=== PATIENT | female | born 1985 | race Caucasian/White ===

== ENCOUNTER 2020-03-06 10:39 | Outpatient (RCR) | payer MEDICAID, SELFPAY | END 2020-07-02 15:15 | disposition home or self-care (01) | LOC: HO.WCC 10:39 | PROVIDERS: PCP Nurse Practitioner Family; Visit Provider Physician Assistant Surgical | DX: Z09 Encounter for follow-up examination after completed treatment for conditions other than malignant neoplasm (principal); E11.51 Type 2 diabetes mellitus with diabetic peripheral angiopathy without gangrene; F17.210 Nicotine dependence, cigarettes, uncomplicated; Z86.31 Personal history of diabetic foot ulcer | CPT/HCPCS: 11042; 11043; 99212; 99213 ==

== ENCOUNTER → 2020-03-25 11:20 | Outpatient (BNVA) | payer MEDICAID, SELFPAY | PROVIDERS: PCP Nurse Practitioner Family; Referring Provider Nurse Practitioner Family; Visit Provider Nurse Practitioner Gerontology | DX: E10.42 Type 1 diabetes mellitus with diabetic polyneuropathy (principal); E10.65 Type 1 diabetes mellitus with hyperglycemia; Z79.4 Long term (current) use of insulin | CPT/HCPCS: 82947; 99214 ==

== ENCOUNTER → 2020-04-01 12:31 | Outpatient (BNVA) | payer MEDICAID, SELFPAY | PROVIDERS: PCP Nurse Practitioner Family; Referring Provider Nurse Practitioner Family; Visit Provider Nurse Practitioner Gerontology | DX: E10.65 Type 1 diabetes mellitus with hyperglycemia (principal); E10.42 Type 1 diabetes mellitus with diabetic polyneuropathy; E10.621 Type 1 diabetes mellitus with foot ulcer; L97.519 Non-pressure chronic ulcer of other part of right foot with unspecified severity | CPT/HCPCS: 82947; 99212 ==

== ENCOUNTER → 2020-04-13 12:56 | Outpatient (BNVA) | payer MEDICAID, SELFPAY | PROVIDERS: PCP Nurse Practitioner Family; Referring Provider Nurse Practitioner Family; Visit Provider Nurse Practitioner Gerontology | DX: E10.65 Type 1 diabetes mellitus with hyperglycemia (principal); E10.22 Type 1 diabetes mellitus with diabetic chronic kidney disease; N18.30 Chronic kidney disease, stage 3 unspecified; E10.42 Type 1 diabetes mellitus with diabetic polyneuropathy | CPT/HCPCS: 82947; 99212 ==

== ENCOUNTER → 2020-05-13 11:15 | Outpatient (BNVA) | payer MEDICAID, SELFPAY | PROVIDERS: PCP Nurse Practitioner Family; Referring Provider Nurse Practitioner Family; Visit Provider Nurse Practitioner Gerontology | DX: Z76.89 Persons encountering health services in other specified circumstances (principal) ==

== ENCOUNTER 2020-12-21 14:05 | Outpatient (RCR) | payer MEDICAID, SELFPAY | END 2021-01-19 15:11 | disposition home or self-care (01) | LOC: HO.WCC 14:05 | PROVIDERS: PCP Nurse Practitioner Family; Visit Provider Surgery | DX: E10.621 Type 1 diabetes mellitus with foot ulcer (principal); L97.522 Non-pressure chronic ulcer of other part of left foot with fat layer exposed; E10.51 Type 1 diabetes mellitus with diabetic peripheral angiopathy without gangrene; F17.210 Nicotine dependence, cigarettes, uncomplicated; Z71.6 Tobacco abuse counseling; Z89.422 Acquired absence of other left toe(s); Z86.19 Personal history of other infectious and parasitic diseases; L84 Corns and callosities | CPT/HCPCS: 11042; 99212 ==

== ENCOUNTER 2021-09-03 08:25 | Outpatient (RCR) | payer MEDICAID, SELFPAY | END 2021-09-16 10:52 | disposition home or self-care (01) | LOC: HO.WCC 08:25 | PROVIDERS: PCP Nurse Practitioner Family; Visit Provider Physician Assistant | DX: E10.621 Type 1 diabetes mellitus with foot ulcer (principal); E10.51 Type 1 diabetes mellitus with diabetic peripheral angiopathy without gangrene; L97.522 Non-pressure chronic ulcer of other part of left foot with fat layer exposed; L97.524 Non-pressure chronic ulcer of other part of left foot with necrosis of bone; E11.69 Type 2 diabetes mellitus with other specified complication; M86.9 Osteomyelitis, unspecified; E10.40 Type 1 diabetes mellitus with diabetic neuropathy, unspecified; L84 Corns and callosities; Z87.891 Personal history of nicotine dependence; Z86.19 Personal history of other infectious and parasitic diseases; Z79.4 Long term (current) use of insulin; Z89.422 Acquired absence of other left toe(s) | CPT/HCPCS: 11042; 11044; 88304; 88305; 88311 ==

== ENCOUNTER 2021-09-10 15:40 | Outpatient (REF) | payer MEDICAID, SELFPAY | END 2021-09-10 15:41 | disposition home or self-care (01) | LOC: HO.LNP 15:40 | PROVIDERS: Visit Provider Surgery | DX: S91.104D Unspecified open wound of right lesser toe(s) without damage to nail, subsequent encounter (principal) | CPT/HCPCS: 87071; 87073; 87077; 87186; 87205 ==

== ENCOUNTER 2021-09-14 17:15 | Inpatient (IN) | payer MEDICAID, SELFPAY ==
--- NOTE | ~2021-09-14 | US_ITS ---
EXAMINATION: NONINVASIVE ASSESSMENT OF THE ARTERIES OF BOTH LOWER EXTREMITIES CLINICAL INFORMATION: Nonhealing ulcer. COMPARISON: Arterial duplex study 05/01/2019 left lower extremity. TECHNIQUE: Segmental ankle pulse volume recording, pressure measurement at the ankle and ankle brachial indices were obtained of the lower extremity arterial system bilaterally. In addition, bilateral lower extremity duplex ultrasound was performed with velocity measurements and waveform analysis in the common femoral arteries, profunda femoris arteries, proximal mid and distal superficial femoral arteries, popliteal arteries and tibial vessels. This study was performed at rest only. FINDINGS: a) AT REST: 1. The ankle-brachial indices are: Right 1.36 and left 1.43. >0.97-1.25 = normal - no significant arterial disease. 0.75-0.96 = mild peripheral arterial disease. 0.5-0.74 = moderate peripheral arterial disease. <0.50 = severe peripheral arterial disease. 2. Segmental pressure at ankle: Normal. 3. PVR waveform at ankle: Normal. 4. Duplex exam. Velocities in cm/sec and phasicity as well as the presence of plaque are reported below. In both legs, flow is triphasic throughout with the exception of the profunda femoris on the left which has monophasic flow. RIGHT LEG: Common Femoral: 136 Profunda Femoris: 118 Proximal SFA: 139 Mid SFA: 131 Distal SFA: 108 Popliteal: 105 Posterior tibial: 105 Peroneal: 78 LEFT LEG: Common Femoral: 150 Profunda Femoris: 86 Proximal SFA: 108 Mid SFA: 111 Distal SFA: 134 Popliteal: 188 (previously 120) Posterior tibial: 73 Peroneal: 75 In the left thigh, there is what appears to be a enlarged lymph node present with a fatty leonidas measuring 4.3 x 1.3 x 2.6 cm. US/US arterial duplex LE BI IMPRESSION: There is triphasic flow throughout the lower extremities. There is one area of velocity acceleration in the popliteal artery on the left which may represent a stenosis, but there is no evidence of hemodynamically significant lower extremity arterial disease. Minimal plaque is present..
--- NOTE | ~2021-09-14 | XR_ITS ---
EXAMINATION: XR FOOT, LEFT CLINICAL INFORMATION: Left toe infection COMPARISON: 04/29/2019 TECHNIQUE: AP, lateral, and oblique views of the left foot. FINDINGS: There is been progressive bony destructive changes in the region of the first MTP joint with significantly progressed from the prior study. There is also bony destructive changes and there are loss of the second distal phalanx with bony destruction and soft tissue gas within the swollen third digit. Fourth digit is surgically absent. Few soft tissue swelling over the forefoot XR/XR foot LT 2V IMPRESSION: Progressive bony destruction when compared to prior study. There is chronic obstruction in anterior dislocation of the first few joint with significant erosive changes in the bony structures abutting the first MTP joint. There is interval loss of the distal second phalanges with degenerative changes in the region of the second PIP joint. There is more extensive changes in the fourth toe with soft tissue gas, soft tissue swelling and bony destructive changes to the third middle and distal phalanx. The fourth toe is surgically absent.
--- NOTE | ~2021-09-14 | MR_ITS ---
EXAMINATION: MRI FOOT WITHOUT AND WITH CONTRAST, LEFT CLINICAL INFORMATION: Left foot ulcer. COMPARISON: Multiple priors, most recent left foot radiographs dated 09/14/2021 and MRI dated 04/30/2019. TECHNIQUE: Altered sequence MR imaging of the left foot was obtained before and after the administration of 10 mL Gadavist IV contrast on a high-field strength scanner. FINDINGS: Redemonstration of chronic dorsal subluxation at the 1st metatarsophalangeal joint with large osseous erosions, similar when compared to the recent radiographs. Findings have increased when compared to the MRI dated 04/30/2019; however, there is no significant acute marrow edema or enhancement to suggest an acute osseous infectious or inflammatory process. Along the plantar aspect of the 1st metatarsal head, there is soft tissue swelling with an irregular, peripherally-enhancing fluid collection measuring up to 2.5 x 1.8 x 0.9 cm, likely representing abscess formation. Soft tissue ulceration at the distal aspect of the 2nd phalanx with mid and distal phalangeal erosion as well as increased T2 and decreased T1 marrow signal with postcontrast enhancement. Marrow signal and enhancement extends to the proximal phalanx. Findings are consistent with cellulitis of acute osteomyelitis. There is ulceration along the distal/lateral aspect of the 3rd toe with a complex, peripherally-enhancing area which may represent surgical packing versus a soft tissue collection measuring up to 2.8 cm. There is decreased T1 and increased T2 signal throughout the proximal, middle, and distal phalanges with postcontrast enhancement, consistent with osteomyelitis. There is osseous erosion of the mid and distal phalanges. Resection of the 4th digit is redemonstrated. Along the plantar aspect of the 4th metatarsal head, there is focal soft tissue edema/fluid measuring up to 0.8 cm without postcontrast enhancement which could represent a postoperative seroma. Mild degenerative arthritis partially visualized within the midfoot. The visualized flexor and extensor tendons are grossly intact. Edema within the intrinsic musculature of the foot, which can be seen in diabetic patients. MR/MR foot LT wo/w con IMPRESSION: 1. Soft tissue ulceration and cellulitis at the distal aspect of the 2nd toe with acute osteomyelitis within the proximal, mid, and distal phalanges. 2. Soft tissue ulceration and cellulitis at the distal/lateral aspect of the 3rd toe with acute osteomyelitis within the proximal, mid, and distal phalanges. 3. Soft tissue abscess formation along the plantar aspect of the 1st metatarsal head measuring up to 2.5 cm. Chronic erosions at the 1st metatarsophalangeal joint with dorsal subluxation of the 1st proximal phalanx, similar when compared to the prior radiograph. No acute marrow edema or enhancement to suggest acute osteomyelitis.
--- NOTE | 2021-09-14 17:55 | ED_ITS ---
HPI - Skin/Abscess/Foreign Bdy General Stated complaint: ?infected toe, diabetic Source: patient and EMS Mode of arrival: EMS Limitations: no limitations History of Present Illness HPI narrative: 36-year-old female via EMS for worsening a left toe infection. This wound has been chronic on her toe, she has been seeing wound clinic and has been dressing the wound herself at times. She does report subjective fevers over the past day. MD complaint: other (Chronic diabetic wound) Onset (ago): year(s) Tetanus up to date: yes Location: L foot Severity: severe Severity scale (1-10): 10 Quality: aching Pain Consistency: constant Relieving factors: none Exacerbating factors: palpation and movement Context: other (Chronic diabetic ulcer) Associated symptoms: chills and malaise Treatments prior to arrival: bandages and other (Establish wound care patient) Related Data Home Medications Medication Instructions Recorded Confirmed escitalopram oxalate 20 mg tablet 20 mg PO DAILY 03/25/20 09/14/21 omeprazole 20 mg capsule,delayed 20 mg PO DAILY 03/25/20 09/14/21 release prazosin 5 mg capsule 5 mg PO BEDTIME 03/25/20 09/14/21 trazodone 100 mg tablet 100 mg PO BEDTIME 03/25/20 09/14/21 bupropion HCl 100 mg tablet 1 tab PO BID 09/14/21 09/14/21 cholecalciferol (vitamin D3) 25 1 tab PO DAILY 09/14/21 09/14/21 mcg (1,000 unit) tablet docusate sodium 100 mg capsule 1 cap PO BID 09/14/21 09/14/21 gabapentin 800 mg tablet 1 tab PO TID 09/14/21 09/14/21 haloperidol 2 mg tablet 1 tab PO BID 09/14/21 09/14/21 insulin degludec 100 unit/mL (3 35 unit SUBCUT QPM 09/14/21 09/14/21 mL) subcutaneous pen (Tresiba FlexTouch U-100 insulin) insulin degludec 100 unit/mL (3 80 unit SUBCUT DAILY 09/14/21 09/14/21 mL) subcutaneous pen (Tresiba FlexTouch U-100 insulin) lisinopril 2.5 mg tablet 1 tab PO DAILY 09/14/21 09/14/21 meloxicam 7.5 mg tablet 1 tab PO DAILY 09/14/21 09/14/21 methadone 10 mg/mL oral concentrate 27 mg PO DAILY 09/14/21 09/14/21 sennosides 8.6 mg tablet (Senna 1 tab PO DAILY 09/14/21 09/14/21 Laxative) Previous Rx's Medication Instructions Recorded blood-glucose meter (FreeStyle #1 ea 03/25/20 Lite Meter) pen needle, diabetic 32 gauge x #150 ea 03/25/2032 (BD Ultra-Fine Yvonne Pen Needle) acetone (urine) test (Ketostix) #50 ea 04/13/20 blood sugar diagnostic (FreeStyle #250 ea 04/13/20 Lite Strips) insulin lispro 100 unit/mL See Rx Instructions SUBCUT QID #30 05/13/20 subcutaneous pen (Humalog KwikPen ml (U-100) Insulin) Allergies Allergy/AdvReac Type Severity Reaction Status Date / Time adhesive tape [ADHESIVE TAPE] Allergy Unknown RASH Unverified 09/14/21 20:55 Review of Systems Review of Systems: Constitutional: Subjective Fever, No Chills ENT/Mouth: No Ear Pain, No Hoarseness, No sore throat Eyes: No Eye Pain, No Swelling, No Redness, No Foreign Body Cardiovascular: No Chest Pain, No SOB Respiratory: No Cough, No Dyspnea Gastrointestinal: No Nausea, No Vomiting, No Diarrhea, No abdominal Pain Genitourinary: No Dysuria, No Hematuria Musculoskeletal: positive left foot and toe pain, No Myalgias, No Joint Swelling Skin: Left toe infection with chronic ulcer, No Skin lacerations, No rash Neuro: No Weakness, No Numbness, No Paresthesias, No Loss of Consciousness, No Dizziness, No Headache Psych: No Anxiety/Panic, No Depression Heme/Lymph: no easy bruising, no Lymphadenopathy Endocrine: No Polyuria, No Polydipsia Yes all other systems are reviewed and are negative PMFSH Past Medical History Attestation statement: The following information was validated with the patient. 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 Type 1 diabetes mellitus with hyperglycemia Surgical History Hx of section Hx of tubal ligation Family History Family History Father Diabetes mellitus Mother Diabetes mellitus Maternal Grandmother Diabetes mellitus Paternal Uncle Diabetes mellitus Paternal Aunt Diabetes mellitus CVD (cardiovascular disease) Maternal Uncle Diabetes mellitus Maternal Aunt CVD (cardiovascular disease) Social History Social History Household Members: Other Household Members Other:: [facility] Housing Other:: [facility] Advance Directives: No Advance Directives Information Provided: No Physical Exam Vital Signs: Vital Signs: Last Vital Signs Temp 100.9 F H 09/14/21 20:59 Pulse 77 09/14/21 20:59 Resp 10 L 09/14/21 20:59 BP 176/83 H 09/14/21 20:59 Pulse Ox 100 09/14/21 20:59 Appearance: Alert. Oriented X3. mild distress. Eyes: Pupils equal, round and reactive to light. sclera nonicteric. ENT: Pharynx normal. Moist mucous membranes Neck: Normal inspection. Neck supple. CVS: Normal heart rate and rhythm. Pulses normal. Respiratory: No respiratory distress. Breath sounds normal. Abdomen: Soft and nontender. Skin: Skin warm and dry. Normal skin color. Normal skin turgor. Extremities: chronic left foot wounds. Please refer to photographs. Neuro: No motor deficit. No sensory deficit. Cranial nerves 2-12 intact. Course Course Course Narrative: 36-year-old female presents with worsening toe ulcer. Has been treated by wound clinic for this wound in the past. Patient has had multiple amputations. Reports subjective fevers last night. States that she has been putting dressin gs on this toe and noted that today the toe was much worse than yesterday. 17:52 patient has an infected left toe, and has had fevers last night. Patient is an established patient at the wound clinic. High suspicion for osteo. Order for Zosyn, fluid resuscitation with 2 L. if patient is septic will resuscitate for 30 milliliters/kilogram. Vanco dosing pending triage vitals. 18:24 Labs, vitals still pending. 19:00 labs and vital still pending. 20:17 labs and vital still pending. I did discuss this case with hospitalist for x-ray positive for osteomyelitis. Dr. Baptiste will has accepted this patient however requests that I pay attention to pending lab values. 21:23 labs still pending. 22:05 white count 5.6, H&H 9.7/30.5 which is consistent with her prior values dating back to 2017. ESR 104, CPK 211, CRP 9.8 all consistent with findings of osteomyelitis. BUN 19 which is a marked improvement from her prior values. Creatinine 1.47 which is consistent with her prior values dating back to August of 2019. Lactic 1.1. No new indication of organ dysfunction. Patient does not meet sepsis criteria at this time. Will continue with Zosyn and vancomycin for osteomyelitis. All of which reported to Dr. Baptiste in person by this SPECIAL EDUCATION TEACHING ASSISTANT. Consultations Consultation #1: Emile Time: 20:17 MDM - Skin/Abscess/Foreign Bdy MDM Narrative Medical decision making narrative: Osteomyelitis Differential Diagnosis Differential diagnosis: Likely abscess of skin or subcutaneous tissue and cellulitis Medical Records Attestation: I reviewed the patient's medical records. Lab Data Attestation: I reviewed the patient's lab results. Result diagrams: 09/14/21 20:49 09/14/21 20:49 Labs: Lab Results 09/14/21 09/14/21 09/14/21 Range/Units 20:49 20:49 20:49 WBC 5.6 (4.8-10.8) X10*3/uL RBC 3.56 L (4.20-5.50) X10*6/uL Hgb 9.7 L (12.0-16.0) g/dl Hct 30.5 L (37.0-47.0) % MCV 85.7 (80.0-98.0) fL MCH 27.2 (27.0-33.0) pg MCHC 31.8 (31.0-35.0) g/dl RDW 13.0 (11.0-16.0) % Plt Count 242 (160-400) X10*3/uL MPV 10.3 (9.4-12.3) fL Immature Gran % (Auto) 0.2 (0.0-0.4) % Neut % (Auto) 67.0 (45-73) % Lymph % (Auto) 21.9 (20-40) % Brewster % (Auto) 8.3 (2-11) % Eos % (Auto) 2.2 (0-4) % Baso % (Auto) 0.4 (0-2) % Lymph # (Auto) 1.2 (1.2-4.9) X10*3/uL Brewster # (Auto) 0.5 (0.1-1.2) X10*3/uL Eos # (Auto) 0.1 (0.0-0.4) X10*3/uL Baso # (Auto) 0.0 (0.0-0.2) X10*3/uL Abs Immat Gran (auto) 0.01 (0.00-0.03) X10*3/uL Absolute Neuts (auto) 3.7 (2.0-8.3) x10*3/uL Absolute Nucleated RBC 0.000 (0.0-0.012) X10*3/uL Nucleated RBC % (auto) 0.0 (0.0-0.2) /100WBC ESR 104 H (0-20) MM/HR PT 12.1 (9.9-13.0) SEC INR 1.1 (0.9-1.1) APTT 38.0 (24.1-38.0) SEC Sodium (135-145) mmol/L Potassium (3.3-5.1) mmol/L Chloride (96-108) mmol/L Carbon Dioxide (22-29) mmol/L Anion Gap (12-20) BUN (9-16) mg/dL Creatinine (0.5-1.4) mg/dL Estim Creat Clear Calc Estimated GFR POC Glucose (60-115) mg/dL Random Glucose (60-115) mg/dL Lactic Acid (0.5-2.0) mmol/L Calcium (8.4-10.2) mg/dL Magnesium (1.6-2.6) mg/dL Total Bilirubin (0.0-1.0) mg/dL Direct Bilirubin (0.0-0.5) mg/dL AST (5-31) U/L ALT (0-31) U/L Alkaline Phosphatase (39-117) U/L Total Creatine Kinase (26-140) U/L Troponin I High Sens (<3.5-17.0) ng/L C-Reactive Protein (< or = 0.50) mg/dL Total Protein (6.5-8.0) g/dL Albumin (3.5-5.0) g/dL Lipase (8-78) U/L COVID-19 (WILLIAM) (Negative) COVID-19 Clin Com 09/14/21 09/14/21 09/14/21 Range/Units 20:49 20:49 20:49 WBC (4.8-10.8) X10*3/uL RBC (4.20-5.50) X10*6/uL Hgb (12.0-16.0) g/dl Hct (37.0-47.0) % MCV (80.0-98.0) fL MCH (27.0-33.0) pg MCHC (31.0-35.0) g/dl RDW (11.0-16.0) % Plt Count (160-400) X10*3/uL MPV (9.4-12.3) fL Immature Gran % (Auto) (0.0-0.4) % Neut % (Auto) (45-73) % Lymph % (Auto) (20-40) % Brewster % (Auto) (2-11) % Eos % (Auto) (0-4) % Baso % (Auto) (0-2) % Lymph # (Auto) (1.2-4.9) X10*3/uL Brewster # (Auto) (0.1-1.2) X10*3/uL Eos # (Auto) (0.0-0.4) X10*3/uL Baso # (Auto) (0.0-0.2) X10*3/uL Abs Immat Gran (auto) (0.00-0.03) X10*3/uL Absolute Neuts (auto) (2.0-8.3) x10*3/uL Absolute Nucleated RBC (0.0-0.012) X10*3/uL Nucleated RBC % (auto) (0.0-0.2) /100WBC ESR (0-20) MM/HR PT (9.9-13.0) SEC INR (0.9-1.1) APTT (24.1-38.0) SEC Sodium 134 L (135-145) mmol/L Potassium 4.7 (3.3-5.1) mmol/L Chloride 99 (96-108) mmol/L Carbon Dioxide 28 (22-29) mmol/L Anion Gap 12 (12-20) BUN 19 H (9-16) mg/dL Creatinine 1.47 H (0.5-1.4) mg/dL Estim Creat Clear Calc TNP Estimated GFR 40 POC Glucose (60-115) mg/dL Random Glucose 221 H (60-115) mg/dL Lactic Acid 1.1 (0.5-2.0) mmol/L Calcium 9.1 (8.4-10.2) mg/dL Magnesium 2.0 (1.6-2.6) mg/dL Total Bilirubin 0.4 (0.0-1.0) mg/dL Direct Bilirubin < 0.2 (0.0-0.5) mg/dL AST 13 (5-31) U/L ALT 8 (0-31) U/L Alkaline Phosphatase 93 (39-117) U/L Total Creatine Kinase 211 H (26-140) U/L Troponin I High Sens < 3.5 (<3.5-17.0) ng/L C-Reactive Protein 9.80 H (< or = 0.50) mg/dL Total Protein 7.4 (6.5-8.0) g/dL Albumin 3.6 (3.5-5.0) g/dL Lipase 8 (8-78) U/L COVID-19 (WILLIAM) (Negative) COVID-19 Clin Com 09/14/21 09/14/21 Range/Units 20:54 21:36 WBC (4.8-10.8) X10*3/uL RBC (4.20-5.50) X10*6/uL Hgb (12.0-16.0) g/dl Hct (37.0-47.0) % MCV (80.0-98.0) fL MCH (27.0-33.0) pg MCHC (31.0-35.0) g/dl RDW (11.0-16.0) % Plt Count (160-400) X10*3/uL MPV (9.4-12.3) fL Immature Gran % (Auto) (0.0-0.4) % Neut % (Auto) (45-73) % Lymph % (Auto) (20-40) % Brewster % (Auto) (2-11) % Eos % (Auto) (0-4) % Baso % (Auto) (0-2) % Lymph # (Auto) (1.2-4.9) X10*3/uL Brewster # (Auto) (0.1-1.2) X10*3/uL Eos # (Auto) (0.0-0.4) X10*3/uL Baso # (Auto) (0.0-0.2) X10*3/uL Abs Immat Gran (auto) (0.00-0.03) X10*3/uL Absolute Neuts (auto) (2.0-8.3) x10*3/uL Absolute Nucleated RBC (0.0-0.012) X10*3/uL Nucleated RBC % (auto) (0.0-0.2) /100WBC ESR (0-20) MM/HR PT (9.9-13.0) SEC INR (0.9-1.1) APTT (24.1-38.0) SEC Sodium (135-145) mmol/L Potassium (3.3-5.1) mmol/L Chloride (96-108) mmol/L Carbon Dioxide (22-29) mmol/L Anion Gap (12-20) BUN (9-16) mg/dL Creatinine (0.5-1.4) mg/dL Estim Creat Clear Calc Estimated GFR POC Glucose 223 H (60-115) mg/dL Random Glucose (60-115) mg/dL Lactic Acid (0.5-2.0) mmol/L Calcium (8.4-10.2) mg/dL Magnesium (1.6-2.6) mg/dL Total Bilirubin (0.0-1.0) mg/dL Direct Bilirubin (0.0-0.5) mg/dL AST (5-31) U/L ALT (0-31) U/L Alkaline Phosphatase (39-117) U/L Total Creatine Kinase (26-140) U/L Troponin I High Sens (<3.5-17.0) ng/L C-Reactive Protein (< or = 0.50) mg/dL Total Protein (6.5-8.0) g/dL Albumin (3.5-5.0) g/dL Lipase (8-78) U/L COVID-19 ([facility]ILLIAM) Negative (Negative) COVID-19 Clin Com See Note Imaging Data Foot x-ray: Attestation: I personally reviewed and interpreted this imaging study as follows: Radiologist's impression: EXAMINATION: XR FOOT, LEFT CLINICAL INFORMATION: Left toe infection? COMPARISON: 04/29/2019? TECHNIQUE: AP, lateral, and oblique views of the left foot. FINDINGS: There is been progressive bony destructive changes in the region of the first MTP joint with significantly progressed from the prior study. There is also bony destructive changes and there are loss of the second distal phalanx with bony destruction and soft tissue gas within the swollen third digit. Fourth digit is surgically absent. Few soft tissue swelling over the forefoot? XR/XR foot LT 2V IMPRESSION: Progressive bony destruction when compared to prior study. There is chronic obstruction in anterior dislocation of the first few joint with significant erosive changes in the bony structures abutting the first MTP joint. There is interval loss of the distal second phalanges with degenerative changes in the region of the second PIP joint. There is more extensive changes in the fourth toe with soft tissue gas, soft tissue swelling and bony destructive changes to the third middle and distal phalanx. The fourth toe is surgically absent. ECG Data Attestation: I personally reviewed and interpreted this ECG as follows: ECG interpretation date: 09/14/21 ECG interpretation time: 19:52 Prior ECG tracings: available for review Interpretation: Vent. rate 77 BPM OK interval 128 ms QRS duration 78 ms QT/QTc 390/441 ms P-R-T axes 51 38 54 Normal sinus rhythm Normal ECG When compared with ECG of 2019 12:02, No significant change was found Discharge Plan Discharge Clinical Impression: Osteomyelitis Patient Disposition: Admitted As Inpatient
--- NOTE | 2021-09-14 17:56 | ECG_ITS ---
Test Reason : Baseline Blood Pressure : / mmHG Vent. Rate : 077 BPM Atrial Rate : 077 BPM P-R Int : 128 ms QRS Dur : 078 ms QT Int : 390 ms P-R-T Axes : 051 038 054 degrees QTc Int : 441 ms Normal sinus rhythm Normal ECG When compared with ECG of 28-FEB-2020 12:02, No significant change was found Referred By: Anabel Clarke Electronically Signed By:Gwyn Ordoñez
[2021-09-14 19:19] VITALS: BP 168/92; PULSE 94; O2SAT 98
--- NOTE | 2021-09-14 20:00 | PC.NURSE ---
Pt has diabetic left foot, CSM checks intact, but pt has had two toes amputated and foot continues to be swollen and deteriorating, pt's skin is thickened and dry.
--- NOTE | 2021-09-14 20:33 | PHA.MEDREC ---
Pharmacy Consult ? Medication Reconciliation Pharmacy has completed the medication reconciliation. Spoke with the patient who was able to tell me her specific tresiba doses but she didn't know her sliding scale for her lispro. She also stated that she takes methadone from a clinic in [place], which will have to be confirmed in the morning by the nursing staff.
[2021-09-14 20:54] LABS: MANUAL DIFF FLAG NO
[2021-09-14 20:58] LABS: Basophils Percent Auto 0.4 % (0-2); Eosinophils Absolute Auto 0.1 X10*3/uL (0.0-0.4); Eosinophils Percent Auto 2.2 % (0-4); Hematocrit 30.5 % (37.0-47.0); Hemoglobin 9.7 g/dl (12.0-16.0); Imm Gran Abs Auto 0.01 X10*3/uL (0.00-0.03); Imm Gran Pct Auto 0.2 % (0.0-0.4); Lymphocytes Absolute Auto 1.2 X10*3/uL (1.2-4.9); Lymphocytes Percent Auto 21.9 % (20-40); Mean Corpuscular HGB Conc 31.8 g/dl (31.0-35.0); Mean Corpuscular Hemoglobin 27.2 pg (27.0-33.0); Mean Corpuscular Volume 85.7 fL (80.0-98.0); Mean Platelet Volume 10.3 fL (9.4-12.3); Monocytes Absolute Auto 0.5 X10*3/uL (0.1-1.2); Monocytes Percent Auto 8.3 % (2-11); Neutrophils Absolute Auto 3.7 x10*3/uL (2.0-8.3); Platelet Count 242 X10*3/uL (160-400); Red Blood Count 3.56 X10*6/uL (4.20-5.50); White Blood Count 5.6 X10*3/uL (4.8-10.8)
[2021-09-14 20:59] VITALS: BP 176/83; PULSE 77; RESP 10; TEMP 38.3; O2SAT 100
[2021-09-14 21:02] LABS: Glucose, Whole Blood 223 mg/dL (60-115)
[2021-09-14 21:03] LABS: INTERNATIONAL NORM RATIO 1.1 (0.9-1.1); Prothrombin Time 12.1 SEC (9.9-13.0)
[2021-09-14 21:07] LABS: Lactic Acid 1.1 mmol/L (0.5-2.0)
[2021-09-14 21:11] LABS: Alanine Aminotransferase 8 U/L (0-31); Albumin Level 3.6 g/dL (3.5-5.0); Alkaline Phosphatase 93 U/L (39-117); Anion Gap 12 (12-20); Aspartate Amino Transferase 13 U/L (5-31); Bilirubin Direct < 0.2 mg/dL (0.0-0.5); Bilirubin Total 0.4 mg/dL (0.0-1.0); Blood Urea Nitrogen 19 mg/dL (9-16); Calcium 9.1 mg/dL (8.4-10.2); Carbon Dioxide 28 mmol/L (22-29); Chloride 99 mmol/L (96-108); Estimated Glomerular Filt Rate 40; Glucose Random 221 mg/dL (60-115); Lipase 8 U/L (8-78); Potassium 4.7 mmol/L (3.3-5.1); Sodium 134 mmol/L (135-145); Total Protein 7.4 g/dL (6.5-8.0)
[2021-09-14 21:15] LABS: Troponin-I High Sensitivity < 3.5 ng/L (<3.5-17.0)
[2021-09-14] MEDS: Piperacillin Sodium/Tazobactam 3.375 GM in 0.9 % Sodium Chloride 50 ML IV (21:33)
[2021-09-14] MEDS: 0.9 % Sodium Chloride 1,000 ML 999 ML IVCONT (21:34)
[2021-09-14] MEDS: 0.9 % Sodium Chloride 1,000 ML 999 ML IV (21:34)
[2021-09-14 21:52] LABS: Erythrocyte Sedimentation Rate 104 MM/HR (0-20)
[2021-09-14 21:55] LABS: COVID-19 Test Negative (Negative)
[2021-09-14] MEDS: vancomycin HCL 1,250 MG in 0.9 % Sodium Chloride 250 ML 166.67 MG IV (22:04)
[2021-09-14 22:07] LABS: Ammonia 26 umol/L (13-55)
[2021-09-14 22:47] VITALS: BP 178/77; PULSE 80; RESP 15; TEMP 38.4; O2SAT 95
[2021-09-14 23:15] VITALS: BP 164/75; PULSE 74; RESP 16; TEMP 37.1; O2SAT 98
--- NOTE | 2021-09-14 23:18 | P.HPHOSP_ITS ---
History of Present Illness Date of Service: 09/14/21 Chief Complaint: Toe ulcer 36-year-old female with a past medical history of type 1 diabetes, diabetic neuropathy, history of diabetic foot infection status post amputation of the toe, opiate dependence on methadone, neuropathy, anxiety, depression, personality disorder presented to the hospital today with chief complaint of left foot toe ulcer. Patient reports that for the past 2 weeks she has been having left foot toe ulcer; she has been going to wound clinic and has been having regular dressing changes; also mentioned that she had bone scraped of the wound; but today she noted that she had increased brownish colored discharge; also had fever at home. Hence decided to come to the hospital for further evaluation. Denies any numbness tingling or focal weakness. Patient reports that she has mild cough pain. Denies any nausea vomiting or diarrhea. Review of all other systems is negative except mentioned above ER course: Per ER team patient noted to have left foot middle toe ulcer with dark tissue in the center/clotted blood. Mild erythema on the dorsum of the foot. X-rays showed findings concerning for progressive bony destruction with results changes in the bony structures abutting the 1st metacarpophalangeal joints; loss of the distal 2nd phalanx in the region of the 2nd PIP, erosive changes on the 4th toe with soft tissue gas; soft tissue swelling and bony destructive changes to the 3rd middle and distal phalanx; 4th toe is cycling surgically absent; ; patient was given vancomycin and Zosyn. 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 Type 1 diabetes mellitus with hyperglycemia Family History Father Diabetes mellitus Mother Diabetes mellitus Maternal Grandmother Diabetes mellitus Paternal Uncle Diabetes mellitus Paternal Aunt Diabetes mellitus CVD (cardiovascular disease) Maternal Uncle Diabetes mellitus Maternal Aunt CVD (cardiovascular disease) Surgical History Hx of section Hx of tubal ligation Social History Household Members: Other Household Members Other:: [facility] Housing Other:: [facility] Advance Directives: No Advance Directives Information Provided: No Meds Allergies Allergy/AdvReac Type Severity Reaction Status Date / Time adhesive tape [ADHESIVE TAPE] Allergy Unknown RASH Unverified 09/14/21 20:55 Active Medications: Current Medications Acetaminophen (Acetaminophen 325 Mg Tablet) 650 mg PO Q6H PRN PRN Reason: Pain, Mild (Pain Scale 1-3) Dextrose (Dextrose 50 % 25 Gm/50 Ml Syringe) 25 gm IVPUSH Q15M PRN; Protocol PRN Reason: per Hypoglycemia Standing Ord. Enoxaparin Sodium (Enoxaparin Sodium 40 Mg/0.4 Ml Syringe) 40 mg SUBCUT Q24H RIAZ Glucose (Glucose Gel 15 Gm Gel..Gram.) 15 gm PO Q15M PRN; Protocol PRN Reason: per Hypoglycemia Standing Ord. Vancomycin HCl 1,000 mg/ (Sodium Chloride) 270 mls @ 270 mls/hr IV Q12H RIAZ Piperacillin Sod/Tazobactam (Sod 3.375 gm/ Sodium Chloride) 50 mls @ 100 mls/hr IV Q6H RIAZ Insulin Human Lispro (Insulin Lispro 100 Unit/Ml 3 Ml Vial) 0 unit SUBCUT QIDACHS [facility]; Protocol Melatonin (Melatonin 3 Mg Tablet) 6 mg PO BEDTIME PRN PRN Reason: Insomnia Pharmacy Consult (Consult Rx Vancomycin Dosing) 1 each MISCELLANE DAILY PRN PRN Reason: Consult order Senna (Sennosides 8.6 Mg Tablet) 17.2 mg PO BEDTIME PRN PRN Reason: Constipation Sodium Chloride (0.9 % Sodium Chloride Flush 3 Ml Syringe) 3 ml IVFLUSH QSHIFT [facility] Home Medications Medication Instructions Recorded Confirmed Last Taken Type escitalopram oxalate 20 mg tablet 20 mg PO DAILY 03/25/20 09/14/21 Unknown History omeprazole 20 mg capsule,delayed 20 mg PO DAILY 03/25/20 09/14/21 Unknown History release prazosin 5 mg capsule 5 mg PO BEDTIME 03/25/20 09/14/21 Unknown History trazodone 100 mg tablet 100 mg PO BEDTIME 03/25/20 09/14/21 Unknown History bupropion HCl 100 mg tablet 1 tab PO BID 09/14/21 09/14/21 Unknown History cholecalciferol (vitamin D3) 25 1 tab PO DAILY 09/14/21 09/14/21 Unknown History mcg (1,000 unit) tablet docusate sodium 100 mg capsule 1 cap PO BID 09/14/21 09/14/21 Unknown History gabapentin 800 mg tablet 1 tab PO TID 09/14/21 09/14/21 Unknown History haloperidol 2 mg tablet 1 tab PO BID 09/14/21 09/14/21 Unknown History insulin degludec 100 unit/mL (3 35 unit SUBCUT QPM 09/14/21 09/14/21 Unknown History mL) subcutaneous pen (Tresiba FlexTouch U-100 insulin) insulin degludec 100 unit/mL (3 80 unit SUBCUT DAILY 09/14/21 09/14/21 Unknown History mL) subcutaneous pen (Tresiba FlexTouch U-100 insulin) lisinopril 2.5 mg tablet 1 tab PO DAILY 09/14/21 09/14/21 Unknown History meloxicam 7.5 mg tablet 1 tab PO DAILY 09/14/21 09/14/21 Unknown History methadone 10 mg/mL oral concentrate 27 mg PO DAILY 09/14/21 09/14/21 Unknown History sennosides 8.6 mg tablet (Senna 1 tab PO DAILY 09/14/21 09/14/21 Unknown History Laxative) Physical Exam Vital Signs and Narrative: Vital Signs: Last Vital Signs Temp 101.1 F H 09/14/21 22:47 Pulse 80 09/14/21 22:47 Resp 15 09/14/21 22:47 BP 178/77 H 09/14/21 22:47 Pulse Ox 95 09/14/21 22:47 Gen: Appears be in no acute distress HEENT: NCAT, Moist mucosa. Pulmonary: Vesicular breath sounds, fair air entry CVS: Normal S1-S2 Abdomen: BS+, Soft, Nontender Extremities: Warm well perfused; noted to have toe infection as shown in the area below. Dorsum of the distal foot is mildly erythematous Neuro: Alert and awake. Results Labs CBC and Chem 7: 09/14/21 20:49 09/14/21 20:49 Labs: Laboratory Results - last 24 hr 09/14/21 09/14/21 09/14/21 20:49 20:49 20:49 MCV 85.7 MCH 27.2 MCHC 31.8 RDW 13.0 Plt Count 242 MPV 10.3 Immature Gran % (Auto) 0.2 Neut % (Auto) 67.0 Lymph % (Auto) 21.9 [place] % (Auto) 8.3 Eos % (Auto) 2.2 Baso % (Auto) 0.4 Lymph # (Auto) 1.2 [place] # (Auto) 0.5 Eos # (Auto) 0.1 Baso # (Auto) 0.0 Abs Immat Gran (auto) 0.01 Absolute Neuts (auto) 3.7 Absolute Nucleated RBC 0.000 Nucleated RBC % (auto) 0.0 ESR 104 H PT 12.1 INR 1.1 APTT 38.0 Anion Gap Estim Creat Clear Calc Estimated GFR POC Glucose Random Glucose Lactic Acid Calcium Magnesium Total Bilirubin Direct Bilirubin AST ALT Alkaline Phosphatase Ammonia Total Creatine Kinase Troponin I High Sens C-Reactive Protein Total Protein Albumin Lipase COVID-19 ([facility]) [facility] 09/14/21 09/14/21 09/14/21 20:49 20:49 20:49 MCV MCH MCHC RDW Plt Count MPV Immature Gran % (Auto) Neut % (Auto) Lymph % (Auto) [place] % (Auto) Eos % (Auto) Baso % (Auto) Lymph # (Auto) [place] # (Auto) Eos # (Auto) Baso # (Auto) Abs Immat Gran (auto) Absolute Neuts (auto) Absolute Nucleated RBC Nucleated RBC % (auto) ESR PT INR APTT Anion Gap 12 Estim Creat Clear Calc TNP Estimated GFR 40 POC Glucose Random Glucose 221 H Lactic Acid 1.1 Calcium 9.1 Magnesium 2.0 Total Bilirubin 0.4 Direct Bilirubin < 0.2 AST 13 ALT 8 Alkaline Phosphatase 93 Ammonia Total Creatine Kinase 211 H Troponin I High Sens < 3.5 C-Reactive Protein 9.80 H Total Protein 7.4 Albumin 3.6 Lipase 8 COVID-19 ([facility]) [facility] 09/14/21 09/14/21 09/14/21 20:54 21:36 21:51 MCV MCH MCHC RDW Plt Count MPV Immature Gran % (Auto) Neut % (Auto) Lymph % (Auto) [place] % (Auto) Eos % (Auto) Baso % (Auto) Lymph # (Auto) [place] # (Auto) Eos # (Auto) Baso # (Auto) Abs Immat Gran (auto) Absolute Neuts (auto) Absolute Nucleated RBC Nucleated RBC % (auto) ESR PT INR APTT Anion Gap Estim Creat Clear Calc Estimated GFR POC Glucose 223 H Random Glucose Lactic Acid Calcium Magnesium Total Bilirubin Direct Bilirubin AST ALT Alkaline Phosphatase Ammonia 26 Total Creatine Kinase Troponin I High Sens C-Reactive Protein Total Protein Albumin Lipase COVID-19 (WILLIAM) Negative COVID-19 Clin Com See Note Imaging Radiologist's Impressions: Impressions Foot X-Ray 09/14/21 18:13 IMPRESSION: Progressive bony destruction when compared to prior study. There is chronic obstruction in anterior dislocation of the first few joint with significant erosive changes in the bony structures abutting the first MTP joint. There is interval loss of the distal second phalanges with degenerative changes in the region of the second PIP joint. There is more extensive changes in the fourth toe with soft tissue gas, soft tissue swelling and bony destructive changes to the third middle and distal phalanx. The fourth toe is surgically absent. 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: Qualifiers: Chronic kidney disease stage: stage 3 (moderate) Chronic kidney disease stage 3 subtype: unspecified whether 3a or 3b Qualified Code(s): E10.22 - Type 1 diabetes mellitus with diabetic chronic kidney disease; N18.30 - Chronic kidney disease, stage 3 unspecified Status: Acute (3) VIN (acute kidney injury): Status: Acute Plan 36-year-old female with a past medical history of type 1 diabetes, diabetic neuropathy, history of diabetic foot infection status post amputation of the toe, opiate dependence on methadone, neuropathy, anxiety, depression, personality disorder presented to the hospital today with chief complaint of left foot toe ulcer. Diabetic foot infection/toe ulcer: X-rays of the foot showed bony destruction when compared to the prior x-rays; interval loss of the distal 2nd phalanx, degenerative changes in the region of 2nd PIP joint, extensive changes in the 4th toe with soft tissue gas, soft tissue swelling and bony destructive changes on 3rd middle phalanx; 4th toe surgically absent Patient empirically started on IV vancomycin and Zosyn. Will obtain an MRI of the foot Will consult general surgery-> Dr Blas was notified about x ray findings. Suggested to keep pt NPO; and will be evaluated first thing in AM. ID consult for further recommendations. VIN: Patient baseline creatinine around 1.1. Patient's creatinine on presentation was 1.4. Hold home lisinopril. Avoid nephrotoxins. Monitor renal function. History of opiate dependence: Patient on methadone program. Will consult addiction Medicine to confirm and resume home medication. History of hypertension: Hold home lisinopril for now given VIN Patient blood pressure is slightly on the higher side. Will keep the patient on amlodipine 5 mg for now. History of diabetes: Will give the patient on Tresiba 40 units in the morning and 20 units in the evening(patient was on 80 units in the morning and 35 units in the evening at home); insulin sliding scale. DVT prophylaxis: Lovenox Code status: Full code Quality Stroke Does the patient have a stroke diagnosis?: No VTE Prior VTE?: No VTE Risk Level:: Medical - moderate - high VTE Device Contraindication: Treatment Not Indicated VTE Drug Contraindication: N/A - Med Ordered
[2021-09-14] MEDS: Acetaminophen 325 MG TABLET 975 MG PO (23:39)
[2021-09-15] VITALS (9 sets, daily range): BP systolic 117–172; BP diastolic 60–83; PULSE 65–97; RESP 16–20; TEMP 36.1–37.9; O2SAT 93–98; BMI 37.7
[2021-09-15 00:01] LABS: Appearance Urine CLEAR; Color Urine YELLOW; Glucose Urine UA NEG (NEG); Leukocyte Esterase Urine NEG (NEG); Nitrite Urine NEG (NEG); UACC Culture Trigger NO; Urine Blood 2+ (NEG); Urine Ketones NEG (NEG); Urine Protein 1+ MG/DL (NEG-TRACE)
[2021-09-15 00:47] LABS: Amorphous Sediment Urine TRACE /LPF; Bacteria Urine TRACE /LPF; RBC Urine 0-2 /HPF (0); Squamous Epithelial Cell Urine 1+ /LPF; WBC Urine 0 /HPF (0-4)
[2021-09-15] MEDS: amLODIPine Besylate 5 MG TABLET PO ×2 (01:37→11:45)
[2021-09-15] MEDS: Enoxaparin Sodium 40 MG/0.4 ML SYRINGE SUBCUT (01:38)
[2021-09-15] MEDS: 0.9 % Sodium Chloride Flush 3 ML SYRINGE IVFLUSH ×4 (01:40→22:25)
[2021-09-15] MEDS: Piperacillin Sodium/Tazobactam 3.375 GM in 0.9 % Sodium Chloride 50 ML IV ×4 (05:33→23:55)
[2021-09-15 07:05] LABS: MANUAL DIFF FLAG NO
--- NOTE | 2021-09-15 07:06 | PC.NURSE ---
Report given to Desmond CABRERA
[2021-09-15 07:16] LABS: Glucose, Whole Blood 103 mg/dL (60-115)
[2021-09-15 07:18] LABS: Basophils Percent Auto 0.4 % (0-2); Eosinophils Absolute Auto 0.1 X10*3/uL (0.0-0.4); Eosinophils Percent Auto 2.6 % (0-4); Hematocrit 29.6 % (37.0-47.0); Hemoglobin 9.3 g/dl (12.0-16.0); Imm Gran Abs Auto 0.01 X10*3/uL (0.00-0.03); Imm Gran Pct Auto 0.2 % (0.0-0.4); Lymphocytes Absolute Auto 1.3 X10*3/uL (1.2-4.9); Lymphocytes Percent Auto 27.7 % (20-40); Mean Corpuscular HGB Conc 31.4 g/dl (31.0-35.0); Mean Corpuscular Volume 85.8 fL (80.0-98.0); Mean Platelet Volume 10.7 fL (9.4-12.3); Monocytes Absolute Auto 0.5 X10*3/uL (0.1-1.2); Monocytes Percent Auto 10.8 % (2-11); Neutrophils Absolute Auto 2.7 x10*3/uL (2.0-8.3); Neutrophils Percent Auto 58.3 % (45-73); Platelet Count 240 X10*3/uL (160-400); Red Blood Count 3.45 X10*6/uL (4.20-5.50); White Blood Count 4.6 X10*3/uL (4.8-10.8)
[2021-09-15 07:26] LABS: Anion Gap 14 (12-20); Blood Urea Nitrogen 16 mg/dL (9-16); Calcium 8.9 mg/dL (8.4-10.2); Carbon Dioxide 23 mmol/L (22-29); Chloride 105 mmol/L (96-108); Creatinine Clr Calc Pharmacy 80.9; Estimated Glomerular Filt Rate 48; Glucose Random 122 mg/dL (60-115); Potassium 4.5 mmol/L (3.3-5.1); Sodium 137 mmol/L (135-145)
--- NOTE | 2021-09-15 07:56 | PC.NURSE ---
pt taken to MRI.
--- NOTE | 2021-09-15 08:29 | PM.CNGS ---
History of Present Illness Consult details Consult date: 09/15/21 Requesting physician: Regulo Baptiste Narrative: 36-year-old female patient with history of type 1 diabetes and a previous history of peripheral vascular disease presenting with nonhealing ulcer of the left 3rd toe. Patient has been undergoing daily dressing changes and [facility] but noted increased pain, drainage, and fever. She subsequently presented to the emergency department for further evaluation. Foot x-ray performed in the emergency department revealed: Progressive bony destruction when compared to prior study. There is chronic obstruction in anterior dislocation of the first few joint with significant erosive changes in the bony structures abutting the first MTP joint. There is interval loss of the distal second phalanges with degenerative changes in the region of the second PIP joint. There is more extensive changes in the fourth toe with soft tissue gas, soft tissue swelling and bony destructive changes to the third middle and distal phalanx. The fourth toe is surgically absent. She is admitted to the hospitalist service for IV antibiotics and surgical consultation was requested for management of a progressive toe ulcer. Review of Systems Constitutional: Constitutional: Denies chills, Denies fever(s), Denies headache(s) and Denies poor appetite ENT: Denies dizziness and Denies headache(s) Cardiovascular: Cardiovascular: Denies chest pain, Denies rapid heart rate, Denies palpitations and Denies slow heart rate Respiratory: Respiratory: Denies chest congestion, Denies cough, Denies pain on inspiration and Denies wheezing Gastrointestinal: Gastrointestinal: Denies abdominal pain, Denies bloating, Denies change in stool character, Denies constipation, Denies diarrhea, Denies nausea, Denies vomiting and Denies hematemesis Musculoskeletal: Musculoskeletal: Denies back pain, Reports arthralgias, Reports joint swelling and Denies numbness Integumentary/Breasts: Skin/Breast: Denies change in pigmentation, Denies erythema and Denies rash Neurologic: Denies dizziness, Denies headache(s) and Denies numbness Psychiatric: Psychiatric: Denies anxiety and Denies depression Endocrine: Endocrine: Denies palpitations Hematologic/Lymphatic: Hematologic/Lymphatic: Denies easy bleeding, Denies easy bruising and Denies lymphadenopathy Allergic/Immunologic: Allergic/Immunologic: Denies wheezing PMFSH Past Medical History Medical History Anxiety and depression Borderline personality disorder Methadone maintenance therapy patient Neuropathy PTSD (post-traumatic stress disorder) 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 Type 1 diabetes mellitus with hyperglycemia Family History Family History Father Diabetes mellitus Mother Diabetes mellitus Maternal Grandmother Diabetes mellitus Paternal Uncle Diabetes mellitus Paternal Aunt Diabetes mellitus CVD (cardiovascular disease) Maternal Uncle Diabetes mellitus Maternal Aunt CVD (cardiovascular disease) Surgical History Surgical History Hx of section Hx of tubal ligation Social History Social History Household Members: Other Household Members Other:: [facility] Housing Other:: [facility] Advance Directives: No Advance Directives Information Provided: No service: No Current occupational status: disabled Meds Allergies Allergy/AdvReac Type Severity Reaction Status Date / Time adhesive tape [ADHESIVE TAPE] Allergy Unknown RASH Unverified 09/14/21 20:55 Active Medications: Current Medications Acetaminophen (Acetaminophen 325 Mg Tablet) 650 mg PO Q6H PRN PRN Reason: Pain, Mild (Pain Scale 1-3) Amlodipine Besylate (Amlodipine Besylate 5 Mg Tablet) 5 mg PO DAILY [facility]; Protocol Last Admin: 09/15/21 01:37 Dose: 5 mg Documented by: Bupropion HCl (Bupropion Hcl 100 Mg Tablet) 100 mg PO BID [facility] Dextrose (Dextrose 50 % 25 Gm/50 Ml Syringe) 25 gm IVPUSH Q15M PRN; Protocol PRN Reason: per Hypoglycemia Standing Ord. Docusate Sodium (Docusate Sodium 100 Mg Capsule) 100 mg PO BID [facility] Enoxaparin Sodium (Enoxaparin Sodium 40 Mg/0.4 Ml Syringe) 40 mg SUBCUT Q24H [facility] Last Admin: 09/15/21 01:38 Dose: 40 mg Documented by: Escitalopram Oxalate (Escitalopram Oxalate 20 Mg Tablet) 20 mg PO DAILY [facility] Gabapentin (Gabapentin 400 Mg Capsule) 800 mg PO TID [facility] Glucose (Glucose Gel 15 Gm Gel..Gram.) 15 gm PO Q15M PRN; Protocol PRN Reason: per Hypoglycemia Standing Ord. Haloperidol (Haloperidol 1 Mg Tablet) 2 mg PO BID [facility] Vancomycin HCl 1,000 mg/ (Sodium Chloride) 270 mls @ 270 mls/hr IV Q12H [facility] Piperacillin Sod/Tazobactam (Sod 3.375 gm/ Sodium Chloride) 50 mls @ 100 mls/hr IV Q6H [facility] Last Infusion: 09/15/21 07:46 Dose: Infused Documented by: Insulin Glargine (Insulin Glargine,Hum.Rec.Anlog 100 Unit/Ml 10 Ml Vial) 56 unit SUBCUT DAILY [facility] Insulin Glargine (Insulin Glargine,Hum.Rec.Anlog 100 Unit/Ml 10 Ml Vial) 24 unit SUBCUT BEDTIME [facility] Insulin Human Lispro (Insulin Lispro 100 Unit/Ml 3 Ml Vial) 0.1 - 10 unit SUBCUT QIDACHS [facility]; Protocol Last Admin: 09/15/21 07:46 Dose: Not Given Documented by: Insulin Human Lispro (Insulin Lispro 100 Unit/Ml 3 Ml Vial) 0 unit SUBCUT QIDACHS [facility]; Protocol Melatonin (Melatonin 3 Mg Tablet) 6 mg PO BEDTIME PRN PRN Reason: Insomnia Omeprazole (Omeprazole 20 Mg Capsule.Dr) 20 mg PO DAILY [facility] Pharmacy Consult (Consult Rx Vancomycin Dosing) 1 each MISCELLANE DAILY PRN PRN Reason: Consult order Prazosin HCl (Prazosin Hcl 5 Mg Capsule) 5 mg PO BEDTIME [facility]; Protocol Senna (Sennosides 8.6 Mg Tablet) 17.2 mg PO BEDTIME PRN PRN Reason: Constipation Senna (Sennosides 8.6 Mg Tablet) 8.6 mg PO DAILY [facility] Sodium Chloride (0.9 % Sodium Chloride Flush 3 Ml Syringe) 3 ml IVFLUSH QSHIFT [facility] Last Admin: 09/15/21 01:40 Dose: 3 ml Documented by: Trazodone HCl (Trazodone Hcl 100 Mg Tablet) 100 mg PO BEDTIME [facility] Vitamin D (Cholecalciferol (Vitamin D3) 25 Mcg Tablet) 25 mcg PO DAILY [facility] Home Medications Medication Instructions Recorded Confirmed Last Taken Type escitalopram oxalate 20 mg tablet 20 mg PO DAILY 03/25/20 09/14/21 Unknown History omeprazole 20 mg capsule,delayed 20 mg PO DAILY 03/25/20 09/14/21 Unknown History release prazosin 5 mg capsule 5 mg PO BEDTIME 03/25/20 09/14/21 Unknown History trazodone 100 mg tablet 100 mg PO BEDTIME 03/25/20 09/14/21 Unknown History bupropion HCl 100 mg tablet 1 tab PO BID 09/14/21 09/14/21 Unknown History cholecalciferol (vitamin D3) 25 1 tab PO DAILY 09/14/21 09/14/21 Unknown History mcg (1,000 unit) tablet docusate sodium 100 mg capsule 1 cap PO BID 09/14/21 09/14/21 Unknown History gabapentin 800 mg tablet 1 tab PO TID 09/14/21 09/14/21 Unknown History haloperidol 2 mg tablet 1 tab PO BID 09/14/21 09/14/21 Unknown History insulin degludec 100 unit/mL (3 35 unit SUBCUT QPM 09/14/21 09/14/21 Unknown History mL) subcutaneous pen (Tresiba FlexTouch U-100 insulin) insulin degludec 100 unit/mL (3 80 unit SUBCUT DAILY 09/14/21 09/14/21 Unknown History mL) subcutaneous pen (Tresiba FlexTouch U-100 insulin) lisinopril 2.5 mg tablet 1 tab PO DAILY 09/14/21 09/14/21 Unknown History meloxicam 7.5 mg tablet 1 tab PO DAILY 09/14/21 09/14/21 Unknown History methadone 10 mg/mL oral concentrate 27 mg PO DAILY 09/14/21 09/14/21 Unknown History sennosides 8.6 mg tablet (Senna 1 tab PO DAILY 09/14/21 09/14/21 Unknown History Laxative) Physical Exam Vital Signs: Vital Signs: Last Vital Signs Temp 97.9 F 09/15/21 05:31 Pulse 68 09/15/21 05:31 Resp 20 09/15/21 05:31 BP 117/64 09/15/21 05:31 Pulse Ox 97 09/15/21 05:31 BMI result Body Mass Index 37.7 Const: General: cooperative, comfortable and well developed Nutritional Appearance: well nourished Orientation/consciousness: patient oriented x3 HEENT: Head: Yes normocephalic and Yes atraumatic Ears: hearing grossly normal bilaterally Eyes: Sclerae: sclerae normal EOM: EOMs intact bilaterally Neck: Neck: Yes normal visual inspection Resp: Effort & Inspection: normal respiratory effort, no cough, no respiratory distress and no stridor Cardio: Jugular venous distension: no JVD GI: Inspection: Yes normal to inspection Palpation (GI): Soft to palpation, nontender, no guarding and not rigid Skin: General skin exam: dry skin Rashes: no rashes Neuro: General: patient oriented x3 and no focal motor deficits Extrem: Other: Left leg with edema at the villanueva, ankle, and foot. Left 3rd toe with an open ulcer with foul-smelling discharge. No significant erythema noted however in the forefoot. No palpable subcutaneous air noted in tissues. General: Yes full ROM Ankle/foot/toe images: 1. amputated 2. ulcer site Psych: Appearance: grossly normal Results Labs Result diagrams: 09/15/21 06:35 09/15/21 06:35 Labs: Abnormal lab results 09/14/21 09/14/21 09/14/21 Range/Units 20:49 20:49 20:49 WBC (4.8-10.8) X10*3/uL RBC 3.56 L (4.20-5.50) X10*6/uL Hgb 9.7 L (12.0-16.0) g/dl Hct 30.5 L (37.0-47.0) % ESR 104 H (0-20) MM/HR Sodium 134 L (135-145) mmol/L BUN 19 H (9-16) mg/dL Creatinine 1.47 H (0.5-1.4) mg/dL POC Glucose (60-115) mg/dL Random Glucose 221 H (60-115) mg/dL Total Creatine Kinase 211 H (26-140) U/L C-Reactive Protein 9.80 H (< or = 0.50) mg/dL Urine Protein (NEG-TRACE) MG/DL Urine Blood (NEG) 09/14/21 09/14/21 09/15/21 Range/Units 20:54 23:50 06:35 WBC 4.6 L (4.8-10.8) X10*3/uL RBC 3.45 L (4.20-5.50) X10*6/uL Hgb 9.3 L (12.0-16.0) g/dl Hct 29.6 L (37.0-47.0) % ESR (0-20) MM/HR Sodium (135-145) mmol/L BUN (9-16) mg/dL Creatinine (0.5-1.4) mg/dL POC Glucose 223 H (60-115) mg/dL Random Glucose (60-115) mg/dL Total Creatine Kinase (26-140) U/L C-Reactive Protein (< or = 0.50) mg/dL Urine Protein 1+ H (NEG-TRACE) MG/DL Urine Blood 2+ H (NEG) 09/15/21 Range/Units 06:35 WBC (4.8-10.8) X10*3/uL RBC (4.20-5.50) X10*6/uL Hgb (12.0-16.0) g/dl Hct (37.0-47.0) % ESR (0-20) MM/HR Sodium (135-145) mmol/L BUN (9-16) mg/dL Creatinine (0.5-1.4) mg/dL POC Glucose (60-115) mg/dL Random Glucose 122 H (60-115) mg/dL Total Creatine Kinase (26-140) U/L C-Reactive Protein (< or = 0.50) mg/dL Urine Protein (NEG-TRACE) MG/DL Urine Blood (NEG) Short CBC 09/14/21 09/15/21 Range/Units 20:49 06:35 WBC 5.6 4.6 L (4.8-10.8) X10*3/uL Hgb 9.7 L 9.3 L (12.0-16.0) g/dl Hct 30.5 L 29.6 L (37.0-47.0) % Plt Count 242 240 (160-400) X10*3/uL BMP 09/14/21 09/15/21 20:49 06:35 Sodium 134 L 137 Potassium 4.7 4.5 Chloride 99 105 Carbon Dioxide 28 23 BUN 19 H 16 Creatinine 1.47 H 1.24 Calcium 9.1 8.9 Cardiac Enzymes 09/14/21 Range/Units 20:49 Total Creatine Kinase 211 H (26-140) U/L Liver Function 09/14/21 Range/Units 20:49 Total Bilirubin 0.4 (0.0-1.0) mg/dL Direct Bilirubin < 0.2 (0.0-0.5) mg/dL AST 13 (5-31) U/L ALT 8 (0-31) U/L Alkaline Phosphatase 93 (39-117) U/L Albumin 3.6 (3.5-5.0) g/dL Urine 09/14/21 Range/Units 23:50 Urine Color YELLOW Urine Appearance CLEAR Urine pH 6.0 (5.0-8.0) Ur Specific [place] 1.020 (1.005-1.025) Urine Protein 1+ H (NEG-TRACE) MG/DL Urine Glucose (UA) NEG (NEG) MG/DL All other labs normal. Assessment and Plan (1) Osteomyelitis: Status: Acute (2) Diabetic foot ulcer associated with type 1 diabetes mellitus: Status: Acute Plan 36-year-old female patient presenting with nonhealing wound of the left 3rd toe with evidence of osteomyelitis involving multiple toes and a patient with type 1 diabetes. Recommend further evaluation by vascular surgery. I discussed with Dr. Bell. Await MRI evaluation results as well. Will follow along with you. Procedures Date of Service Date of Service: 09/15/21
--- NOTE | 2021-09-15 09:31 | PHA.PROG ---
Admission Date/Time: September 14, 2021 23:15 Indication: SKIN/ OSTEO??? TOE INFECTION Weight in k.5 kg Adjusted body weight in K.3 [place] body weight in Kg: Obesity Dosing Indication % IBW: Serum Creatinine - Last 168 Hours 09/14/21 09/15/21 20:49 06:35 Creatinine 1.47 H 1.24 Estimated CrCl and GFR - Last 168 Hours 09/14/21 09/15/21 20:49 06:35 Estim Creat Clear Calc TNP 80.9 Estimated GFR 40 48 Vancomycin Loading Dose: 1250 MG Current Vancomycin Dosing Regimen:1000 MG Vancomycin Monitoring using AUC goal of 400 - 600 range with trough as surrogate marker: Date and Time for next Vancomycin Level to be drawn: 09/17@1999 Pharmacist Comments on Vancomycin Plan: Pt cr elevated, per insight 1 gm q24, should give predicted auc 445 and trough of 12.2 Vancomycin dosing will take advantage of [employer] as a clinical decision support tool that uses Bayesian modeling to calculate individual patient's pharmacokinetic parameters and forecast the patient's drug concentration time course with the target goal AUC 24 range of 400 - 600 mg/L/hr.
--- NOTE | 2021-09-15 11:40 | P.CONGS_ITS ---
History of Present Illness Consult details Consult date: 09/15/21 Narrative: 36-year-old female with a history of type 1 diabetes and prior history of smoking presents to the emergency room with a nonhealing left foot ulcer. She [facility]. She had progressive drainage and fever which brought her to the emergency room. She was initially evaluated by General surgery and was noted to have diminished pulses. She has never seen a vascular surgeon in the past. She now presents to us for vascular evaluation. Review of Systems Review of Systems: Yes all other systems are reviewed and are negative Constitutional: Constitutional: Reports no additional constitutional complaints ENT: Reports Normal hearing present Cardiovascular: Cardiovascular: Denies chest pain, Denies chest pain at rest, Denies chest pain with activity and Denies pedal edema Respiratory: Respiratory: Denies cough Gastrointestinal: Gastrointestinal: Denies abdominal pain Musculoskeletal: Musculoskeletal: Denies abnormal gait, Denies muscle cramps and Denies radiating pain into limb Integumentary/Breasts: Skin/Breast: Denies skin ulcer and Denies wounds Neurologic: Reports Normal hearing present and Denies abnormal gait Psychiatric: Psychiatric: Reports no additional psychiatric complaints PMFSH Past Medical History Medical History Anxiety and depression Borderline personality disorder Methadone maintenance therapy patient Neuropathy PTSD (post-traumatic stress disorder) 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 Type 1 diabetes mellitus with hyperglycemia Family History Family History Father Diabetes mellitus Mother Diabetes mellitus Maternal Grandmother Diabetes mellitus Paternal Uncle Diabetes mellitus Paternal Aunt Diabetes mellitus CVD (cardiovascular disease) Maternal Uncle Diabetes mellitus Maternal Aunt CVD (cardiovascular disease) Surgical History Surgical History Hx of section Hx of tubal ligation Social History Social History Household Members: Other Household Members Other:: [employer] [facility] Other:: [facility] Advance Directives: No Advance Directives Information Provided: No Meds Allergies Allergy/AdvReac Type Severity Reaction Status Date / Time adhesive tape [ADHESIVE TAPE] Allergy Unknown RASH Unverified 09/14/21 20:55 Active Medications: Current Medications Acetaminophen (Acetaminophen 325 Mg Tablet) 650 mg PO Q6H PRN PRN Reason: Pain, Mild (Pain Scale 1-3) Amlodipine Besylate (Amlodipine Besylate 5 Mg Tablet) 5 mg PO DAILY [facility]; Protocol Last Admin: 09/15/21 01:37 Dose: 5 mg Documented by: Bupropion HCl (Bupropion Hcl 100 Mg Tablet) 100 mg PO BID [facility] Dextrose (Dextrose 50 % 25 Gm/50 Ml Syringe) 25 gm IVPUSH Q15M PRN; Protocol PRN Reason: per Hypoglycemia Standing Ord. Docusate Sodium (Docusate Sodium 100 Mg Capsule) 100 mg PO BID [facility] Enoxaparin Sodium (Enoxaparin Sodium 40 Mg/0.4 Ml Syringe) 40 mg SUBCUT Q24H [facility] Last Admin: 09/15/21 01:38 Dose: 40 mg Documented by: Escitalopram Oxalate (Escitalopram Oxalate 20 Mg Tablet) 20 mg PO DAILY [facility] Gabapentin (Gabapentin 400 Mg Capsule) 800 mg PO TID [facility] Glucose (Glucose Gel 15 Gm Gel..Gram.) 15 gm PO Q15M PRN; Protocol PRN Reason: per Hypoglycemia Standing Ord. Haloperidol (Haloperidol 1 Mg Tablet) 2 mg PO BID [facility] Piperacillin Sod/Tazobactam (Sod 3.375 gm/ Sodium Chloride) 50 mls @ 100 mls/hr IV Q6H [facility] Last Infusion: 09/15/21 07:46 Dose: Infused Documented by: Vancomycin HCl 1,000 mg/ (Sodium Chloride) 270 mls @ 270 mls/hr IV Q24H [facility] Insulin Glargine (Insulin Glargine,Hum.Rec.Anlog 100 Unit/Ml 10 Ml Vial) 56 unit SUBCUT DAILY [facility] Insulin Glargine (Insulin Glargine,Hum.Rec.Anlog 100 Unit/Ml 10 Ml Vial) 24 unit SUBCUT BEDTIME [facility] Insulin Human Lispro (Insulin Lispro 100 Unit/Ml 3 Ml Vial) 0.1 - 10 unit SUBCUT QIDACHS [facility]; Protocol Last Admin: 09/15/21 07:46 Dose: Not Given Documented by: Insulin Human Lispro (Insulin Lispro 100 Unit/Ml 3 Ml Vial) 0 unit SUBCUT QIDACHS [facility]; Protocol Melatonin (Melatonin 3 Mg Tablet) 6 mg PO BEDTIME PRN PRN Reason: Insomnia Methadone HCl (Methadone Hcl 20 Mg/2 Ml Oral.Conc) 27 mg PO DAILY [facility] Omeprazole (Omeprazole 20 Mg Capsule.Dr) 20 mg PO DAILY [facility] Pharmacy Consult (Consult Rx Vancomycin Dosing) 1 each MISCELLANE DAILY PRN PRN Reason: Consult order Prazosin HCl (Prazosin Hcl 5 Mg Capsule) 5 mg PO BEDTIME [facility]; Protocol Senna (Sennosides 8.6 Mg Tablet) 17.2 mg PO BEDTIME PRN PRN Reason: Constipation Senna (Sennosides 8.6 Mg Tablet) 8.6 mg PO DAILY [facility] Sodium Chloride (0.9 % Sodium Chloride Flush 3 Ml Syringe) 3 ml IVFLUSH [facility] Last Admin: 09/15/21 01:40 Dose: 3 ml Documented by: Trazodone HCl (Trazodone Hcl 100 Mg Tablet) 100 mg PO BEDTIME [facility] Vitamin D (Cholecalciferol (Vitamin D3) 25 Mcg Tablet) 25 mcg PO DAILY [facility] Home Medications Medication Instructions Recorded Confirmed Last Taken Type escitalopram oxalate 20 mg tablet 20 mg PO DAILY 03/25/20 09/14/21 Unknown History omeprazole 20 mg capsule,delayed 20 mg PO DAILY 03/25/20 09/14/21 Unknown History release prazosin 5 mg capsule 5 mg PO BEDTIME 03/25/20 09/14/21 Unknown History trazodone 100 mg tablet 100 mg PO BEDTIME 03/25/20 09/14/21 Unknown History bupropion HCl 100 mg tablet 1 tab PO BID 09/14/21 09/14/21 Unknown History cholecalciferol (vitamin D3) 25 1 tab PO DAILY 09/14/21 09/14/21 Unknown History mcg (1,000 unit) tablet docusate sodium 100 mg capsule 1 cap PO BID 09/14/21 09/14/21 Unknown History gabapentin 800 mg tablet 1 tab PO TID 09/14/21 09/14/21 Unknown History haloperidol 2 mg tablet 1 tab PO BID 09/14/21 09/14/21 Unknown History insulin degludec 100 unit/mL (3 35 unit SUBCUT QPM 09/14/21 09/14/21 Unknown History mL) subcutaneous pen (Tresiba FlexTouch U-100 insulin) insulin degludec 100 unit/mL (3 80 unit SUBCUT DAILY 09/14/21 09/14/21 Unknown History mL) subcutaneous pen (Tresiba FlexTouch U-100 insulin) lisinopril 2.5 mg tablet 1 tab PO DAILY 09/14/21 09/14/21 Unknown History meloxicam 7.5 mg tablet 1 tab PO DAILY 09/14/21 09/14/21 Unknown History methadone 10 mg/mL oral concentrate 27 mg PO DAILY 09/14/21 09/14/21 Unknown His tory sennosides 8.6 mg tablet (Senna 1 tab PO DAILY 09/14/21 09/14/21 Unknown History Laxative) Physical Exam Vital Signs: Vital Signs: Last Vital Signs Temp 97.9 F 09/15/21 05:31 Pulse 68 09/15/21 05:31 Resp 20 09/15/21 05:31 BP 117/64 09/15/21 05:31 Pulse Ox 97 09/15/21 05:31 BMI result Body Mass Index 37.7 Const: General: cooperative, healthy appearing and comfortable Orientation/consciousness: oriented to person, oriented to place and oriented to time HEENT: Head: Yes normal to inspection Neck: Neck: Yes normal visual inspection Carotids: no bruits Chest: Chest palpation & inspection: normal inspection of the chest Resp: Effort & Inspection: normal respiratory effort and able to speak in complete sentences Auscultation: clear to auscultation bilaterally, no crackles, no rales, no rhonchi and no wheezes Cardio: Rate: regular rate Rhythm: regular rhythm Heart sounds: S1 normal heart sound present and S2 normal heart sound present Bruits: no carotid bruits Peripheral pulses: Peripheral pulses 2+ throughout GI: Inspection: Yes normal to inspection Skin: Wounds: wounds noted (Left foot ulcerations) Hair: normal Neuro: General: oriented to person, oriented to place and oriented to time Cranial nerves: Yes CN's II-XII intact bilaterally and Yes Normal hearing present Cognition (Neuro): normal cognition Motor exam (neuro): 5/5 motor strength present throughout Extrem: Other: venous exam: No significant superficial varicosities or spider telangiectasias, minimal edema General: No clubbing, No cyanosis and No edema Psych: Appearance: grossly normal Mental Status: mental status grossly normal Speech and movement: Normal speech and movement present Results Labs Result diagrams: 09/15/21 06:35 09/15/21 06:35 Labs: Abnormal lab results 09/14/21 09/14/21 09/14/21 Range/Units 20:49 20:49 20:49 WBC (4.8-10.8) X10*3/uL RBC 3.56 L (4.20-5.50) X10*6/uL Hgb 9.7 L (12.0-16.0) g/dl Hct 30.5 L (37.0-47.0) % ESR 104 H (0-20) MM/HR Sodium 134 L (135-145) mmol/L BUN 19 H (9-16) mg/dL Creatinine 1.47 H (0.5-1.4) mg/dL POC Glucose (60-115) mg/dL Random Glucose 221 H (60-115) mg/dL Total Creatine Kinase 211 H (26-140) U/L C-Reactive Protein 9.80 H (< or = 0.50) mg/dL Urine Protein (NEG-TRACE) MG/DL Urine Blood (NEG) 09/14/21 09/14/21 09/15/21 Range/Units 20:54 23:50 06:35 WBC 4.6 L (4.8-10.8) X10*3/uL RBC 3.45 L (4.20-5.50) X10*6/uL Hgb 9.3 L (12.0-16.0) g/dl Hct 29.6 L (37.0-47.0) % ESR (0-20) MM/HR Sodium (135-145) mmol/L BUN (9-16) mg/dL Creatinine (0.5-1.4) mg/dL POC Glucose 223 H (60-115) mg/dL Random Glucose (60-115) mg/dL Total Creatine Kinase (26-140) U/L C-Reactive Protein (< or = 0.50) mg/dL Urine Protein 1+ H (NEG-TRACE) MG/DL Urine Blood 2+ H (NEG) 09/15/21 Range/Units 06:35 WBC (4.8-10.8) X10*3/uL RBC (4.20-5.50) X10*6/uL Hgb (12.0-16.0) g/dl Hct (37.0-47.0) % ESR (0-20) MM/HR Sodium (135-145) mmol/L BUN (9-16) mg/dL Creatinine (0.5-1.4) mg/dL POC Glucose (60-115) mg/dL Random Glucose 122 H (60-115) mg/dL Total Creatine Kinase (26-140) U/L C-Reactive Protein (< or = 0.50) mg/dL Urine Protein (NEG-TRACE) MG/DL Urine Blood (NEG) Short CBC 09/14/21 09/15/21 Range/Units 20:49 06:35 WBC 5.6 4.6 L (4.8-10.8) X10*3/uL Hgb 9.7 L 9.3 L (12.0-16.0) g/dl Hct 30.5 L 29.6 L (37.0-47.0) % Plt Count 242 240 (160-400) X10*3/uL BMP 09/14/21 09/15/21 20:49 06:35 Sodium 134 L 137 Potassium 4.7 4.5 Chloride 99 105 Carbon Dioxide 28 23 BUN 19 H 16 Creatinine 1.47 H 1.24 Calcium 9.1 8.9 Cardiac Enzymes 09/14/21 Range/Units 20:49 Total Creatine Kinase 211 H (26-140) U/L Liver Function 09/14/21 Range/Units 20:49 Total Bilirubin 0.4 (0.0-1.0) mg/dL Direct Bilirubin < 0.2 (0.0-0.5) mg/dL AST 13 (5-31) U/L ALT 8 (0-31) U/L Alkaline Phosphatase 93 (39-117) U/L Albumin 3.6 (3.5-5.0) g/dL Urine 09/14/21 Range/Units 23:50 Urine Color YELLOW Urine Appearance CLEAR Urine pH 6.0 (5.0-8.0) Ur Specific [place] 1.020 (1.005-1.025) Urine Protein 1+ H (NEG-TRACE) MG/DL Urine Glucose (UA) NEG (NEG) MG/DL All other labs normal. Assessment and Plan (1) Diabetic foot ulcer associated with type 1 diabetes mellitus: Status: Acute Plan In short patient has a diabetic foot ulceration. Due to her history I have taken the liberty of ordering noninvasive arterial testing. MRI results were reviewed. Will await arterial testing prior to any further intervention. Thank you for allowing us to assist in her care. Procedures Date of Service Date of Service: 09/15/21
[2021-09-15] MEDS: methADONE HCl 20 MG/2 ML ORAL.CONC 27 MG PO (11:42)
[2021-09-15] MEDS: Insulin Glargine,Hum.rec.anlog 100 UNIT/ML 10 ML VIAL 56 UNIT SUBCUT (11:44)
[2021-09-15 11:45] LABS: Glucose, Whole Blood 109 mg/dL (60-115)
[2021-09-15] MEDS: Omeprazole 20 MG CAPSULE.DR PO (11:45)
[2021-09-15] MEDS: Cholecalciferol (Vitamin D3) 25 MCG TABLET PO (11:45)
[2021-09-15] MEDS: Docusate Sodium 100 MG CAPSULE PO ×2 (11:46→22:27)
[2021-09-15] MEDS: Sennosides 8.6 MG TABLET PO (11:46)
[2021-09-15] MEDS: Gabapentin 400 MG CAPSULE 800 MG PO ×3 (11:46→22:26)
[2021-09-15] MEDS: Escitalopram Oxalate 20 MG TABLET PO (11:46)
[2021-09-15] MEDS: buPROPion HCL 100 MG TABLET PO ×2 (12:46→22:27)
[2021-09-15] MEDS: HaloperidoL 1 MG TABLET 2 MG PO ×2 (12:47→22:26)
--- NOTE | 2021-09-15 13:22 | HO.PM.IMPN ---
Subjective Subjective Date of Service: 09/15/21 Interval History: cc: fever interval history: no further fevers Cardiovascular Cardiovascular: Reports no additional cardiovascular complaints Respiratory Respiratory: Reports no additional respiratory complaints Physical Exam Vital Signs: Vital Signs: Last Vital Signs Temp 97.9 F 09/15/21 05:31 Pulse 67 09/15/21 11:47 Resp 18 09/15/21 11:47 BP 153/81 H 09/15/21 11:47 Pulse Ox 98 09/15/21 11:47 BMI result Body Mass Index 37.7 General: AO X 3, no acute distress Resp: CTA bilateral, no accessory muscles used CVS: S1,S2,RRR GI: soft, non tender, non distended Neuro: motor grossly intact, alert Psych: appropriate affect, appropriate insight left foot DFU Objective Data Active Medications Acetaminophen (Acetaminophen 325 Mg Tablet) 650 mg PO Q6H PRN PRN Reason: Pain, Mild (Pain Scale 1-3) Amlodipine Besylate (Amlodipine Besylate 5 Mg Tablet) 5 mg PO DAILY [facility]; Protocol Last Admin: 09/15/21 11:45 Dose: 5 mg Documented by: CARIDAD Bupropion HCl (Bupropion Hcl 100 Mg Tablet) 100 mg PO BID [facility] Last Admin: 09/15/21 12:46 Dose: 100 mg Documented by: CHAS Dextrose (Dextrose 50 % 25 Gm/50 Ml Syringe) 25 gm IVPUSH Q15M PRN; Protocol PRN Reason: per Hypoglycemia Standing Ord. Docusate Sodium (Docusate Sodium 100 Mg Capsule) 100 mg PO BID [facility] Last Admin: 09/15/21 11:46 Dose: 100 mg Documented by: CARIDAD Enoxaparin Sodium (Enoxaparin Sodium 40 Mg/0.4 Ml Syringe) 40 mg SUBCUT Q24H [facility] Last Admin: 09/15/21 01:38 Dose: 40 mg Documented by: TOMAS Escitalopram Oxalate (Escitalopram Oxalate 20 Mg Tablet) 20 mg PO DAILY [facility] Last Admin: 09/15/21 11:46 Dose: 20 mg Documented by: CARIDAD Gabapentin (Gabapentin 400 Mg Capsule) 800 mg PO TID [facility] Last Admin: 09/15/21 11:46 Dose: 800 mg Documented by: CARIDAD Glucose (Glucose Gel 15 Gm Gel..Gram.) 15 gm PO Q15M PRN; Protocol PRN Reason: per Hypoglycemia Standing Ord. Haloperidol (Haloperidol 1 Mg Tablet) 2 mg PO BID [facility] Last Admin: 09/15/21 12:47 Dose: 2 mg Documented by: CHAS Piperacillin Sod/Tazobactam (Sod 3.375 gm/ Sodium Chloride) 50 mls @ 100 mls/hr IV Q6H [facility] Last Admin: 09/15/21 12:58 Dose: 100 mls/hr Documented by: CHAS Vancomycin HCl 1,000 mg/ (Sodium Chloride) 270 mls @ 270 mls/hr IV Q24H [facility] Insulin Glargine (Insulin Glargine,Hum.Rec.Anlog 100 Unit/Ml 10 Ml Vial) 56 unit SUBCUT DAILY [facility] Last Admin: 09/15/21 11:44 Dose: 56 unit Documented by: CARIDAD Insulin Glargine (Insulin Glargine,Hum.Rec.Anlog 100 Unit/Ml 10 Ml Vial) 24 unit SUBCUT BEDTIME [facility] Insulin Human Lispro (Insulin Lispro 100 Unit/Ml 3 Ml Vial) 0.1 - 10 unit SUBCUT QIDACHS [facility]; Protocol Last Admin: 09/15/21 12:47 Dose: Not Given Documented by: CHAS Non-Admin Reason: No Insulin Coverage Insulin Human Lispro (Insulin Lispro 100 Unit/Ml 3 Ml Vial) 0 unit SUBCUT QIDACHS [facility]; Protocol Last Admin: 09/15/21 12:58 Dose: Not Given Documented by: CHAS Non-Admin Reason: No Insulin Coverage Melatonin (Melatonin 3 Mg Tablet) 6 mg PO BEDTIME PRN PRN Reason: Insomnia Methadone HCl (Methadone Hcl 20 Mg/2 Ml Oral.Conc) 27 mg PO DAILY [facility] Last Admin: 09/15/21 11:42 Dose: 27 mg Documented by: CARIDAD Omeprazole (Omeprazole 20 Mg Capsule.Dr) 20 mg PO DAILY [facility] Last Admin: 09/15/21 11:45 Dose: 20 mg Documented by: CARIDAD Pharmacy Consult (Consult Rx Vancomycin Dosing) 1 each MISCELLANE DAILY PRN PRN Reason: Consult order Prazosin HCl (Prazosin Hcl 5 Mg Capsule) 5 mg PO BEDTIME [facility]; Protocol Senna (Sennosides 8.6 Mg Tablet) 17.2 mg PO BEDTIME PRN PRN Reason: Constipation Senna (Sennosides 8.6 Mg Tablet) 8.6 mg PO DAILY [facility] Last Admin: 09/15/21 11:46 Dose: 8.6 mg Documented by: CARIDAD Sodium Chloride (0.9 % Sodium Chloride Flush 3 Ml Syringe) 3 ml IVFLUSH QSHIFT [facility] Last Admin: 09/15/21 12:48 Dose: 3 ml Documented by: CHAS Trazodone HCl (Trazodone Hcl 100 Mg Tablet) 100 mg PO BEDTIME [facility] Vitamin D (Cholecalciferol (Vitamin D3) 25 Mcg Tablet) 25 mcg PO DAILY [facility] Last Admin: 09/15/21 11:45 Dose: 25 mcg Documented by: CARIDAD Labs CBC & Chem 7: 09/15/21 06:35 09/15/21 06:35 Labs: Laboratory Results - last 24 hr 09/14/21 09/14/21 09/14/21 20:49 20:49 20:49 MCV 85.7 MCH 27.2 MCHC 31.8 RDW 13.0 Plt Count 242 MPV 10.3 Immature Gran % (Auto) 0.2 Neut % (Auto) 67.0 Lymph % (Auto) 21.9 [place] % (Auto) 8.3 Eos % (Auto) 2.2 Baso % (Auto) 0.4 Lymph # (Auto) 1.2 [place] # (Auto) 0.5 Eos # (Auto) 0.1 Baso # (Auto) 0.0 Abs Immat Gran (auto) 0.01 Absolute Neuts (auto) 3.7 Absolute Nucleated RBC 0.000 Nucleated RBC % (auto) 0.0 ESR 104 H PT 12.1 INR 1.1 APTT 38.0 Anion Gap Estim Creat Clear Calc Estimated GFR POC Glucose Random Glucose Lactic Acid Calcium Magnesium Total Bilirubin Direct Bilirubin AST ALT Alkaline Phosphatase Ammonia Total Creatine Kinase Troponin I High Sens C-Reactive Protein Total Protein Albumin Lipase Urine Color Urine Appearance Urine pH Ur Specific [place] Urine Protein Urine Glucose (UA) Urine Ketones Urine Blood Urine Nitrite Ur Leukocyte Esterase Urine RBC Urine WBC Ur Squamous Epith Cells Amorphous Sediment Urine Bacteria COVID-19 (WILLIAM) COVID-19 Clin Com 09/14/21 09/14/21 09/14/21 20:49 20:49 20:49 MCV MCH MCHC RDW Plt Count MPV Immature Gran % (Auto) Neut % (Auto) Lymph % (Auto) [place] % (Auto) Eos % (Auto) Baso % (Auto) Lymph # (Auto) [place] # (Auto) Eos # (Auto) Baso # (Auto) Abs Immat Gran (auto) Absolute Neuts (auto) Absolute Nucleated RBC Nucleated RBC % (auto) ESR PT INR APTT Anion Gap 12 Estim Creat Clear Calc TNP Estimated GFR 40 POC Glucose Random Glucose 221 H Lactic Acid 1.1 Calcium 9.1 Magnesium 2.0 Total Bilirubin 0.4 Direct Bilirubin < 0.2 AST 13 ALT 8 Alkaline Phosphatase 93 Ammonia Total Creatine Kinase 211 H Troponin I High Sens < 3.5 C-Reactive Protein 9.80 H Total Protein 7.4 Albumin 3.6 Lipase 8 Urine Color Urine Appearance Urine pH Ur Specific [place] Urine Protein Urine Glucose (UA) Urine Ketones Urine Blood Urine Nitrite Ur Leukocyte Esterase Urine RBC Urine WBC Ur Squamous Epith Cells Amorphous Sediment Urine Bacteria COVID-19 (WILLIAM) COVID-BIOeCON 09/14/21 09/14/21 09/14/21 20:54 21:36 21:51 MCV MCH MCHC RDW Plt Count MPV Immature Gran % (Auto) Neut % (Auto) Lymph % (Auto) [place] % (Auto) Eos % (Auto) Baso % (Auto) Lymph # (Auto) [place] # (Auto) Eos # (Auto) Baso # (Auto) Abs Immat Gran (auto) Absolute Neuts (auto) Absolute Nucleated RBC Nucleated RBC % (auto) ESR PT INR APTT Anion Gap Estim Creat Clear Calc Estimated GFR POC Glucose 223 H Random Glucose Lactic Acid Calcium Magnesium Total Bilirubin Direct Bilirubin AST ALT Alkaline Phosphatase Ammonia 26 Total Creatine Kinase Troponin I High Sens C-Reactive Protein Total Protein Albumin Lipase Urine Color Urine Appearance Urine pH Ur Specific [place] Urine Protein Urine Glucose (UA) Urine Ketones Urine Blood Urine Nitrite Ur Leukocyte Esterase Urine RBC Urine WBC Ur Squamous Epith Cells Amorphous Sediment Urine Bacteria COVID-19 (WILLIAM) Negative [employer] See Note 09/14/21 09/15/21 09/15/21 23:50 06:35 06:35 MCV 85.8 MCH 27.0 MCHC 31.4 RDW 13.0 Plt Count 240 MPV 10.7 Immature Gran % (Auto) 0.2 Neut % (Auto) 58.3 Lymph % (Auto) 27.7 [place] % (Auto) 10.8 Eos % (Auto) 2.6 Baso % (Auto) 0.4 Lymph # (Auto) 1.3 [place] # (Auto) 0.5 Eos # (Auto) 0.1 Baso # (Auto) 0.0 Abs Immat Gran (auto) 0.01 Absolute Neuts (auto) 2.7 Absolute Nucleated RBC 0.000 Nucleated RBC % (auto) 0.0 ESR PT INR APTT Anion Gap 14 Estim Creat Clear Calc 80.9 Estimated GFR 48 POC Glucose Random Glucose 122 H Lactic Acid Calcium 8.9 Magnesium Total Bilirubin Direct Bilirubin AST ALT Alkaline Phosphatase Ammonia Total Creatine Kinase Troponin I High Sens C-Reactive Protein Total Protein Albumin Lipase Urine Color YELLOW Urine Appearance CLEAR Urine pH 6.0 Ur Specific [place] 1.020 Urine Protein 1+ H Urine Glucose (UA) NEG Urine Ketones NEG Urine Blood 2+ H Urine Nitrite NEG Ur Leukocyte Esterase NEG Urine RBC 0-2 Urine WBC 0 Ur Squamous Epith Cells 1+ Amorphous Sediment TRACE Urine Bacteria TRACE COVID-19 (WILLIAM) COVID-19 Clin Com 09/15/21 09/15/21 07:13 11:35 MCV MCH MCHC RDW Plt Count MPV Immature Gran % (Auto) Neut % (Auto) Lymph % (Auto) [place] % (Auto) Eos % (Auto) Baso % (Auto) Lymph # (Auto) [place] # (Auto) Eos # (Auto) Baso # (Auto) Abs Immat Gran (auto) Absolute Neuts (auto) Absolute Nucleated RBC Nucleated RBC % (auto) ESR PT INR APTT Anion Gap Estim Creat Clear Calc Estimated GFR POC Glucose 103 109 Random Glucose Lactic Acid Calcium Magnesium Total Bilirubin Direct Bilirubin AST ALT Alkaline Phosphatase Ammonia Total Creatine Kinase Troponin I High Sens C-Reactive Protein Total Protein Albumin Lipase Urine Color Urine Appearance Urine pH Ur Specific [place] Urine Protein Urine Glucose (UA) Urine Ketones Urine Blood Urine Nitrite Ur Leukocyte Esterase Urine RBC Urine WBC Ur Squamous Epith Cells Amorphous Sediment Urine Bacteria COVID-19 (WILLIAM) COVID-19 Clin Com Assessment and Plan (1) Diabetic foot ulcer associated with type 1 diabetes mellitus: Status: Acute Plan 36F presented with fevers and left dFU DM I with diabetic foot ulcer, concern for acute OM vanc, zosyn vascualr work up ID eval 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
--- NOTE | 2021-09-15 13:44 | PC.NURSE ---
report given to DEBORAH Means. pt transported to unit [facility] [employer].
--- NOTE | 2021-09-15 13:53 | MHC.CM.PN ---
Addendum entered by Maren James 09/15/21 14:10: Pt declined HCP completion but did say her brother Isael Callahan at [phone] is her emergency contact and would transport her home. Original Note: Met with pt to discuss d/c planning: Pt somewhat vague and not forthcoming with responses: Pt states she lives alone but has people that could assist her. She also states she has RN visits weekly but didn't know the agency name or the RN's name. Pt is also on Methadone through [facility] and is on a take home program. Per review of EMR, pt reported that she resided at the [facility] in [place] but pt denies this with CM assessment. Pt requesting to transfer to floor immediately and asked CM to return at another time to discuss d/c needs.
--- NOTE | 2021-09-15 14:01 | P.CNID_ITS ---
History of Present Illness Data of Consult Service Date: 09/15/21 Requesting physician: Wing Mendieta Primary Care Provider: Unknown Physician HPI Reason for consult: left foot infection She presents with redness left foot after picking scab two weeks ago. She has enterobacter in culture. 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 Type 1 diabetes mellitus with hyperglycemia Family History Family History Father Diabetes mellitus Mother Diabetes mellitus Maternal Grandmother Diabetes mellitus Paternal Uncle Diabetes mellitus Paternal Aunt Diabetes mellitus CVD (cardiovascular disease) Maternal Uncle Diabetes mellitus Maternal Aunt CVD (cardiovascular disease) Family history: reviewed and not pertinent Surgical History Surgical History Hx of section Hx of tubal ligation Social History Social History Household Members: Other Household Members Other:: GG Housing Other:: [facility] Advance Directives: No Advance Directives Information Provided: No service: No Current occupational status: disabled Meds Allergies Allergy/AdvReac Type Severity Reaction Status Date / Time adhesive tape [ADHESIVE TAPE] Allergy Unknown RASH Unverified 09/14/21 20:55 Active Medications: Current Medications Acetaminophen (Acetaminophen 325 Mg Tablet) 650 mg PO Q6H PRN PRN Reason: Pain, Mild (Pain Scale 1-3) Amlodipine Besylate (Amlodipine Besylate 5 Mg Tablet) 5 mg PO DAILY [facility]; Protocol Last Admin: 09/15/21 11:45 Dose: 5 mg Documented by: Bupropion HCl (Bupropion Hcl 100 Mg Tablet) 100 mg PO BID [facility] Last Admin: 09/15/21 12:46 Dose: 100 mg Documented by: Dextrose (Dextrose 50 % 25 Gm/50 Ml Syringe) 25 gm IVPUSH Q15M PRN; Protocol PRN Reason: per Hypoglycemia Standing Ord. Docusate Sodium (Docusate Sodium 100 Mg Capsule) 100 mg PO BID [facility] Last Admin: 09/15/21 11:46 Dose: 100 mg Documented by: Enoxaparin Sodium (Enoxaparin Sodium 40 Mg/0.4 Ml Syringe) 40 mg SUBCUT Q24H [facility] Last Admin: 09/15/21 01:38 Dose: 40 mg Documented by: Escitalopram Oxalate (Escitalopram Oxalate 20 Mg Tablet) 20 mg PO DAILY [facility] Last Admin: 09/15/21 11:46 Dose: 20 mg Documented by: Gabapentin (Gabapentin 400 Mg Capsule) 800 mg PO TID [facility] Last Admin: 09/15/21 11:46 Dose: 800 mg Documented by: Glucose (Glucose Gel 15 Gm Gel..Gram.) 15 gm PO Q15M PRN; Protocol PRN Reason: per Hypoglycemia Standing Ord. Haloperidol (Haloperidol 1 Mg Tablet) 2 mg PO BID [facility] Last Admin: 09/15/21 12:47 Dose: 2 mg Documented by: Piperacillin Sod/Tazobactam (Sod 3.375 gm/ Sodium Chloride) 50 mls @ 100 mls/hr IV Q6H [facility] Last Admin: 09/15/21 12:58 Dose: 100 mls/hr Documented by: Vancomycin HCl 1,000 mg/ (Sodium Chloride) 270 mls @ 270 mls/hr IV Q24H [facility] Insulin Glargine (Insulin Glargine,Hum.Rec.Anlog 100 Unit/Ml 10 Ml Vial) 56 unit SUBCUT DAILY [facility] Last Admin: 09/15/21 11:44 Dose: 56 unit Documented by: Insulin Glargine (Insulin Glargine,Hum.Rec.Anlog 100 Unit/Ml 10 Ml Vial) 24 unit SUBCUT BEDTIME [facility] Insulin Human Lispro (Insulin Lispro 100 Unit/Ml 3 Ml Vial) 0.1 - 10 unit SUBCUT QIDACHS [facility]; Protocol Last Admin: 09/15/21 12:47 Dose: Not Given Documented by: Insulin Human Lispro (Insulin Lispro 100 Unit/Ml 3 Ml Vial) 0 unit SUBCUT QIDACHS [facility]; Protocol Last Admin: 09/15/21 12:58 Dose: Not Given Documented by: Melatonin (Melatonin 3 Mg Tablet) 6 mg PO BEDTIME PRN PRN Reason: Insomnia Methadone HCl (Methadone Hcl 20 Mg/2 Ml Oral.Conc) 27 mg PO DAILY [facility] Last Admin: 09/15/21 11:42 Dose: 27 mg Documented by: Omeprazole (Omeprazole 20 Mg Capsule.Dr) 20 mg PO DAILY [facility] Last Admin: 09/15/21 11:45 Dose: 20 mg Documented by: Pharmacy Consult (Consult Rx Vancomycin Dosing) 1 each MISCELLANE DAILY PRN PRN Reason: Consult order Prazosin HCl (Prazosin Hcl 5 Mg Capsule) 5 mg PO BEDTIME [facility]; Protocol Senna (Sennosides 8.6 Mg Tablet) 17.2 mg PO BEDTIME PRN PRN Reason: Constipation Senna (Sennosides 8.6 Mg Tablet) 8.6 mg PO DAILY [facility] Last Admin: 09/15/21 11:46 Dose: 8.6 mg Documented by: Sodium Chloride (0.9 % Sodium Chloride Flush 3 Ml Syringe) [address] [facility] Last Admin: 09/15/21 12:48 Dose: 3 ml Documented by: Trazodone HCl (Trazodone Hcl 100 Mg Tablet) 100 mg PO BEDTIME [facility] Vitamin D (Cholecalciferol (Vitamin D3) 25 Mcg Tablet) 25 mcg PO DAILY [facility] Last Admin: 09/15/21 11:45 Dose: 25 mcg Documented by: Home Medications Medication Instructions Recorded Confirmed Last Taken Type escitalopram oxalate 20 mg tablet 20 mg PO DAILY 03/25/20 09/14/21 Unknown History omeprazole 20 mg capsule,delayed 20 mg PO DAILY 03/25/20 09/14/21 Unknown History release prazosin 5 mg capsule 5 mg PO BEDTIME 03/25/20 09/14/21 Unknown History trazodone 100 mg tablet 100 mg PO BEDTIME 03/25/20 09/14/21 Unknown History bupropion HCl 100 mg tablet 1 tab PO BID 09/14/21 09/14/21 Unknown History cholecalciferol (vitamin D3) 25 1 tab PO DAILY 09/14/21 09/14/21 Unknown History mcg (1,000 unit) tablet docusate sodium 100 mg capsule 1 cap PO BID 09/14/21 09/14/21 Unknown History gabapentin 800 mg tablet 1 tab PO TID 09/14/21 09/14/21 Unknown History haloperidol 2 mg tablet 1 tab PO BID 09/14/21 09/14/21 Unknown History insulin degludec 100 unit/mL (3 35 unit SUBCUT QPM 09/14/21 09/14/21 Unknown History mL) subcutaneous pen (Tresiba FlexTouch U-100 insulin) insulin degludec 100 unit/mL (3 80 unit SUBCUT DAILY 09/14/21 09/14/21 Unknown History mL) subcutaneous pen (Tresiba FlexTouch U-100 insulin) lisinopril 2.5 mg tablet 1 tab PO DAILY 09/14/21 09/14/21 Unknown History meloxicam 7.5 mg tablet 1 tab PO DAILY 09/14/21 09/14/21 Unknown History methadone 10 mg/mL oral concentrate 27 mg PO DAILY 09/14/21 09/14/21 Unknown History sennosides 8.6 mg tablet (Senna 1 tab PO DAILY 09/14/21 09/14/21 Unknown History Laxative) Physical Exam Vital Signs: Vital Signs: Last Vital Signs Temp 97.9 F 09/15/21 05:31 Pulse 67 09/15/21 11:47 Resp 18 09/15/21 11:47 BP 153/81 H 09/15/21 11:47 Pulse Ox 98 09/15/21 11:47 BMI result Body Mass Index 37.7 Const: General: cooperative HEENT: Head: Yes normal to inspection Mouth: Normal oral and palatal mucosa present Resp: Effort & Inspection: normal respiratory effort Cardio: Rate: regular rate Rhythm: regular rhythm GI: Palpation (GI): Soft to palpation and nontender Extrem: Other: left foot bleeding area plantar mild swelling/cellulitis Results Labs CBC & Chem 7: 09/15/21 06:35 09/15/21 06:35 Labs: Short CBC 09/14/21 09/15/21 Range/Units 20:49 06:35 WBC 5.6 4.6 L (4.8-10.8) X10*3/uL Hgb 9.7 L 9.3 L (12.0-16.0) g/dl Hct 30.5 L 29.6 L (37.0-47.0) % Plt Count 242 240 (160-400) X10*3/uL BMP 09/14/21 09/15/21 20:49 06:35 Sodium 134 L 137 Potassium 4.7 4.5 Chloride 99 105 Carbon Dioxide 28 23 BUN 19 H 16 Creatinine 1.47 H 1.24 Calcium 9.1 8.9 Cardiac Enzymes 09/14/21 Range/Units 20:49 Total Creatine Kinase 211 H (26-140) U/L Liver Function 09/14/21 Range/Units 20:49 Total Bilirubin 0.4 (0.0-1.0) mg/dL Direct Bilirubin < 0.2 (0.0-0.5) mg/dL AST 13 (5-31) U/L ALT 8 (0-31) U/L Alkaline Phosphatase 93 (39-117) U/L Albumin 3.6 (3.5-5.0) g/dL Urine 09/14/21 Range/Units 23:50 Urine Color YELLOW Urine Appearance CLEAR Urine pH 6.0 (5.0-8.0) Ur Specific [place] 1.020 (1.005-1.025) Urine Protein 1+ H (NEG-TRACE) MG/DL Urine Glucose (UA) NEG (NEG) MG/DL Assessment and Plan (1) Diabetic foot ulcer associated with type 1 diabetes mellitus: Status: Acute She has likely enterobacter and other gram negative and gram positive organisms (2) Osteomyelitis: Status: Acute Plan Continue Vancomycin and Zosyn Await cultures Surgery see ?debridement
[2021-09-15 15:50] LABS: Glucose, Whole Blood 148 mg/dL (60-115)
[2021-09-15 19:46] LABS: Glucose, Whole Blood 225 mg/dL (60-115)
--- NOTE | 2021-09-15 22:10 | MHC.PIE ---
p; 2 humalog ordered in med list both sliding scale. poc 225. note; lantus 24u order in med list i; hold humalog. only give lantus. e; will cont to monitor
[2021-09-15] MEDS: vancomycin HCL 1,000 MG in 0.9 % Sodium Chloride 250 ML 270 MG IV (22:26)
[2021-09-15] MEDS: Prazosin HCL 5 MG CAPSULE PO (22:27)
[2021-09-15] MEDS: traZODone HCL 100 MG TABLET PO (22:27)
[2021-09-15] MEDS: Melatonin 3 MG TABLET 6 MG PO (22:28)
[2021-09-15] MEDS: Acetaminophen 325 MG TABLET 650 MG PO (22:28)
[2021-09-15] MEDS: Insulin Glargine,Hum.rec.anlog 100 UNIT/ML 10 ML VIAL 24 UNIT SUBCUT (22:30)
[2021-09-16] VITALS (13 sets, daily range): BP systolic 100–152; BP diastolic 53–85; PULSE 58–83; RESP 14–18; TEMP 36–37.1; O2SAT 95–99
[2021-09-16 06:21] LABS: Hematocrit 30.3 % (37.0-47.0); Hemoglobin 9.4 g/dl (12.0-16.0); Mean Corpuscular Hemoglobin 26.8 pg (27.0-33.0); Mean Corpuscular Volume 86.3 fL (80.0-98.0); Mean Platelet Volume 10.2 fL (9.4-12.3); Platelet Count 267 X10*3/uL (160-400); Red Blood Count 3.51 X10*6/uL (4.20-5.50); Red Cell Distribution Width 13.2 % (11.0-16.0); White Blood Count 5.1 X10*3/uL (4.8-10.8)
[2021-09-16 06:37] LABS: Anion Gap 13 (12-20); Blood Urea Nitrogen 18 mg/dL (9-16); Calcium 9.4 mg/dL (8.4-10.2); Carbon Dioxide 27 mmol/L (22-29); Chloride 108 mmol/L (96-108); Creatinine Clr Calc Pharmacy 79.6; Estimated Glomerular Filt Rate 48; Glucose Fasting 98 mg/dL (60-99); Potassium 4.7 mmol/L (3.3-5.1); Sodium 143 mmol/L (135-145)
[2021-09-16] MEDS: Piperacillin Sodium/Tazobactam 3.375 GM in 0.9 % Sodium Chloride 50 ML IV ×3 (06:40→19:05)
[2021-09-16 07:41] LABS: Glucose, Whole Blood 77 mg/dL (60-115)
[2021-09-16] MEDS: Dextrose 50 % 25 GM/50 ML SYRINGE IVPUSH (07:52)
--- NOTE | 2021-09-16 08:26 | MHC.RECOVRN ---
T/w obtained RICHELLE on 09/15 for [facility] in [place] and confirmed pts dose of 27 mg daily. Pt receives take homes weekly. Will need last dose letter upon discharge. Saray Banerjee APRN, notified.
[2021-09-16 08:35] LABS: Glucose, Whole Blood 172 mg/dL (60-115)
--- NOTE | 2021-09-16 09:06 | HE.PHANOTE ---
Vancomycin Dosing Addendum Continue with current regimen. Pt Scr 1.26 today. Next trough 09/17/21 @1999. Predicted AUC with current regimen is 448, trough 12.3.
--- NOTE | 2021-09-16 09:28 | PM.PNGS ---
Subjective Subjective Date of Service: 09/16/21 Interval history: Patient is sleepy, found to have a low glucose level this morning. Does awaken to verbal stimuli. Denies foot pain. Physical Exam Vital Signs: Vital Signs: Last Vital Signs Temp 97.6 F 09/16/21 07:33 Pulse 60 09/16/21 07:33 Resp 16 09/16/21 07:33 BP 127/75 09/16/21 07:33 Pulse Ox 97 09/16/21 07:33 BMI result Body Mass Index 37.7 Const: General: no acute distress and patient obtunded Nutritional Appearance: overweight Orientation/consciousness: patient obtunded Resp: Effort & Inspection: normal respiratory effort Neuro: General: patient obtunded Extrem: Other: Dressing to left foot were changed this morning. Necrotic ulcer of the 3rd toe with foul-smelling discharge, essentially unchanged. No new ulceration erythema appreciated. No tenderness to palpation of foot or villanueva. Clean dressings applied. Objective Data Active Medications Acetaminophen (Acetaminophen 325 Mg Tablet) 650 mg PO Q6H PRN PRN Reason: Pain, Mild (Pain Scale 1-3) Last Admin: 09/15/21 22:28 Dose: 650 mg Documented by: SHANNAN Amlodipine Besylate (Amlodipine Besylate 5 Mg Tablet) 5 mg PO DAILY [facility]; Protocol Last Admin: 09/15/21 11:45 Dose: 5 mg Documented by: CARIDAD Bupropion HCl (Bupropion Hcl 100 Mg Tablet) 100 mg PO BID [facility] Last Admin: 09/15/21 22:27 Dose: 100 mg Documented by: SHANNAN Dextrose (Dextrose 50 % 25 Gm/50 Ml Syringe) 25 gm IVPUSH Q15M PRN; Protocol PRN Reason: per Hypoglycemia Standing Ord. Last Admin: 09/16/21 07:52 Dose: 25 gm Documented by: NOVA Docusate Sodium (Docusate Sodium 100 Mg Capsule) 100 mg PO BID [facility] Last Admin: 09/15/21 22:27 Dose: 100 mg Documented by: SHANNAN Enoxaparin Sodium (Enoxaparin Sodium 40 Mg/0.4 Ml Syringe) 40 mg SUBCUT Q24H [facility] Last Admin: 09/15/21 22:34 Dose: Not Given Documented by: SHNANAN Non-Admin Reason: Patient Refused Escitalopram Oxalate (Escitalopram Oxalate 20 Mg Tablet) 20 mg PO DAILY [facility] Last Admin: 09/15/21 11:46 Dose: 20 mg Documented by: CARIDAD Gabapentin (Gabapentin 400 Mg Capsule) 800 mg PO TID [facility] Last Admin: 09/15/21 22:26 Dose: 800 mg Documented by: SHANNAN Glucose (Glucose Gel 15 Gm Gel..Gram.) 15 gm PO Q15M PRN; Protocol PRN Reason: per Hypoglycemia Standing Ord. Haloperidol (Haloperidol 1 Mg Tablet) 2 mg PO BID [facility] Last Admin: 09/15/21 22:26 Dose: 2 mg Documented by: SHANNAN Piperacillin Sod/Tazobactam (Sod 3.375 gm/ Sodium Chloride) 50 mls @ 100 mls/hr IV Q6H [facility] Last Infusion: 09/16/21 07:12 Dose: 100 mls/hr Documented by: NOVA Vancomycin HCl 1,000 mg/ (Sodium Chloride) 270 mls @ 270 mls/hr IV Q24H [facility] Last Infusion: 09/15/21 23:51 Dose: 0 mls/hr Documented by: SHANNAN Insulin Glargine (Insulin Glargine,Hum.Rec.Anlog 100 Unit/Ml 10 Ml Vial) 56 unit SUBCUT DAILY [facility] Last Admin: 09/15/21 11:44 Dose: 56 unit Documented by: CARIDAD Insulin Glargine (Insulin Glargine,Hum.Rec.Anlog 100 Unit/Ml 10 Ml Vial) 24 unit SUBCUT BEDTIME [facility] Last Admin: 09/15/21 22:30 Dose: 1 unit Documented by: SHANNAN Insulin Human Lispro (Insulin Lispro 100 Unit/Ml 3 Ml Vial) 0.1 - 10 unit SUBCUT QIDACHS [facility]; Protocol Last Admin: 09/16/21 07:46 Dose: Not Given Documented by: NOVA Non-Admin Reason: No Insulin Coverage Insulin Human Lispro (Insulin Lispro 100 Unit/Ml 3 Ml Vial) 0 unit SUBCUT QIDACHS [facility]; Protocol Last Admin: 09/16/21 07:46 Dose: Not Given Documented by: NOVA Non-Admin Reason: No Insulin Coverage Melatonin (Melatonin 3 Mg Tablet) 6 mg PO BEDTIME PRN PRN Reason: Insomnia Last Admin: 09/15/21 22:28 Dose: 6 mg Documented by: SHANNAN Methadone HCl (Methadone Hcl 20 Mg/2 Ml Oral.Conc) 27 mg PO DAILY [facility] Last Admin: 09/15/21 11:42 Dose: 27 mg Documented by: CARIDAD Omeprazole (Omeprazole 20 Mg Capsule.Dr) 20 mg PO DAILY [facility] Last Admin: 09/15/21 11:45 Dose: 20 mg Documented by: CARIDAD Pharmacy Consult (Consult Rx Vancomycin Dosing) 1 each MISCELLANE DAILY PRN PRN Reason: Consult order Prazosin HCl (Prazosin Hcl 5 Mg Capsule) 5 mg PO BEDTIME [facility]; Protocol Last Admin: 09/15/21 22:27 Dose: 5 mg Documented by: SHANNAN Senna (Sennosides 8.6 Mg Tablet) 17.2 mg PO BEDTIME PRN PRN Reason: Constipation Senna (Sennosides 8.6 Mg Tablet) 8.6 mg PO DAILY [facility] Last Admin: 09/15/21 11:46 Dose: 8.6 mg Documented by: CARIDAD Sodium Chloride (0.9 % Sodium Chloride Flush 3 Ml Syringe) [facility] Last Admin: 09/15/21 22:25 Dose: 3 ml Documented by: SHANNAN Trazodone HCl (Trazodone Hcl 100 Mg Tablet) 100 mg PO BEDTIME [facility] Last Admin: 09/15/21 22:27 Dose: 100 mg Documented by: SHANNAN Vitamin D (Cholecalciferol (Vitamin D3) 25 Mcg Tablet) 25 mcg PO DAILY [facility] Last Admin: 09/15/21 11:45 Dose: 25 mcg Documented by: CARIDAD Labs CBC & Chem 7: 09/16/21 05:44 09/16/21 05:44 Labs: Laboratory Results - last 24 hr 09/15/21 09/15/21 09/15/21 11:35 15:36 19:36 MCV MCH MCHC RDW Plt Count MPV Absolute Nucleated RBC Nucleated RBC % (auto) Anion Gap Estim Creat Clear Calc Estimated GFR POC Glucose 109 148 H 225 H Fasting Glucose Calcium 09/16/21 09/16/21 09/16/21 05:44 05:44 07:31 MCV 86.3 MCH 26.8 L MCHC 31.0 RDW 13.2 Plt Count 267 MPV 10.2 Absolute Nucleated RBC 0.000 Nucleated RBC % (auto) 0.0 Anion Gap 13 Estim Creat Clear Calc 79.6 Estimated GFR 48 POC Glucose 77 Fasting Glucose 98 Calcium 9.4 09/16/21 08:31 MCV MCH MCHC RDW Plt Count MPV Absolute Nucleated RBC Nucleated RBC % (auto) Anion Gap Estim Creat Clear Calc Estimated GFR POC Glucose 172 H Fasting Glucose Calcium Microbiology Microbiology Results: Microbiology 09/14/21 21:51 Blood Culture - Preliminary Blood - Venous No growth after 24 hours. 09/14/21 20:49 Blood Culture - Preliminary Blood - Venous No growth after 24 hours. Procedures Date of Service Date of Service: 09/16/21 Progress Note: A&P Assessment and plan (1) Diabetic foot ulcer associated with type 1 diabetes mellitus: Status: Acute (2) Osteomyelitis: Status: Acute Plan Patient presenting with necrotic ulcer of the 3rd toe nonhealing with evidence of osteomyelitis involving the 2nd and 3rd toe by MRI. Also on abscess noted at the base of the great toe. Noninvasive studies completed yesterday. Dr. De Luna following the patient as well. Will await his assessment of the vascular studies. Fall Risk Details Current Medications: Current Medications Acetaminophen (Acetaminophen 325 Mg Tablet) 650 mg PO Q6H PRN PRN Reason: Pain, Mild (Pain Scale 1-3) Last Admin: 09/15/21 22:28 Dose: 650 mg Documented by: Amlodipine Besylate (Amlodipine Besylate 5 Mg Tablet) 5 mg PO DAILY [facility]; Protocol Last Admin: 09/15/21 11:45 Dose: 5 mg Documented by: Bupropion HCl (Bupropion Hcl 100 Mg Tablet) 100 mg PO BID [facility] Last Admin: 09/15/21 22:27 Dose: 100 mg Documented by: Dextrose (Dextrose 50 % 25 Gm/50 Ml Syringe) 25 gm IVPUSH Q15M PRN; Protocol PRN Reason: per Hypoglycemia Standing Ord. Last Admin: 09/16/21 07:52 Dose: 25 gm Documented by: Docusate Sodium (Docusate Sodium 100 Mg Capsule) 100 mg PO BID [facility] Last Admin: 09/15/21 22:27 Dose: 100 mg Documented by: Enoxaparin Sodium (Enoxaparin Sodium 40 Mg/0.4 Ml Syringe) 40 mg SUBCUT Q24H [facility] Last Admin: 09/15/21 22:34 Dose: Not Given Documented by: Escitalopram Oxalate (Escitalopram Oxalate 20 Mg Tablet) 20 mg PO DAILY [facility] Last Admin: 09/15/21 11:46 Dose: 20 mg Documented by: Gabapentin (Gabapentin 400 Mg Capsule) 800 mg PO TID [facility] Last Admin: 09/15/21 22:26 Dose: 800 mg Documented by: Glucose (Glucose Gel 15 Gm Gel..Gram.) 15 gm PO Q15M PRN; Protocol PRN Reason: per Hypoglycemia Standing Ord. Haloperidol (Haloperidol 1 Mg Tablet) 2 mg PO BID [facility] Last Admin: 09/15/21 22:26 Dose: 2 mg Documented by: Piperacillin Sod/Tazobactam (Sod 3.375 gm/ Sodium Chloride) 50 mls @ 100 mls/hr IV Q6H [facility] Last Infusion: 09/16/21 07:12 Dose: Infused Documented by: Vancomycin HCl 1,000 mg/ (Sodium Chloride) 270 mls @ 270 mls/hr IV Q24H [facility] Last Infusion: 09/15/21 23:51 Dose: Infused Documented by: Insulin Glargine (Insulin Glargine,Hum.Rec.Anlog 100 Unit/Ml 10 Ml Vial) 56 unit SUBCUT DAILY [facility] Last Admin: 09/15/21 11:44 Dose: 56 unit Documented by: Insulin Glargine (Insulin Glargine,Hum.Rec.Anlog 100 Unit/Ml 10 Ml Vial) 24 unit SUBCUT BEDTIME [facility] Last Admin: 09/15/21 22:30 Dose: 1 unit Documented by: Insulin Human Lispro (Insulin Lispro 100 Unit/Ml 3 Ml Vial) 0.1 - 10 unit SUBCUT QIDAS [facility]; Protocol Last Admin: 09/16/21 07:46 Dose: Not Given Documented by: Insulin Human Lispro (Insulin Lispro 100 Unit/Ml 3 Ml Vial) 0 unit SUBCUT QIDACHS [facility]; Protocol Last Admin: 09/16/21 07:46 Dose: Not Given Documented by: Melatonin (Melatonin 3 Mg Tablet) 6 mg PO BEDTIME PRN PRN Reason: Insomnia Last Admin: 09/15/21 22:28 Dose: 6 mg Documented by: Methadone HCl (Methadone Hcl 20 Mg/2 Ml Oral.Conc) 27 mg PO DAILY [facility] Last Admin: 09/15/21 11:42 Dose: 27 mg Documented by: Omeprazole (Omeprazole 20 Mg Capsule.Dr) 20 mg PO DAILY [facility] Last Admin: 09/15/21 11:45 Dose: 20 mg Documented by: Pharmacy Consult (Consult Rx Vancomycin Dosing) 1 each MISCELLANE DAILY PRN PRN Reason: Consult order Prazosin HCl (Prazosin Hcl 5 Mg Capsule) 5 mg PO BEDTIME [facility]; Protocol Last Admin: 09/15/21 22:27 Dose: 5 mg Documented by: Senna (Sennosides 8.6 Mg Tablet) 17.2 mg PO BEDTIME PRN PRN Reason: Constipation Senna (Sennosides 8.6 Mg Tablet) 8.6 mg PO DAILY [facility] Last Admin: 09/15/21 11:46 Dose: 8.6 mg Documented by: Sodium Chloride (0.9 % Sodium Chloride Flush 3 Ml Syringe) 3 ml IVFLUSH QSHIFT [facility] Last Admin: 09/15/21 22:25 Dose: 3 ml Documented by: Trazodone HCl (Trazodone Hcl 100 Mg Tablet) 100 mg PO BEDTIME [facility] Last Admin: 09/15/21 22:27 Dose: 100 mg Documented by: Vitamin D (Cholecalciferol (Vitamin D3) 25 Mcg Tablet) 25 mcg PO DAILY [facility] Last Admin: 09/15/21 11:45 Dose: 25 mcg Documented by: Time Spent With Patient Time: Total time spent is greater than 50% in coordination of care (as documented) at patient's floor/unit and/or counseling patient: Quality Stroke Does the patient have a stroke diagnosis?: No VTE Prior VTE?: No VTE Risk Level:: Medical - moderate - high VTE Device Contraindication: Treatment Not Indicated VTE Drug Contraindication: N/A - Med Ordered
[2021-09-16] MEDS: amLODIPine Besylate 5 MG TABLET PO (10:26)
[2021-09-16] MEDS: Cholecalciferol (Vitamin D3) 25 MCG TABLET PO (10:27)
[2021-09-16] MEDS: Omeprazole 20 MG CAPSULE.DR PO (10:27)
[2021-09-16] MEDS: Docusate Sodium 100 MG CAPSULE PO ×2 (10:27→21:13)
[2021-09-16] MEDS: Escitalopram Oxalate 20 MG TABLET PO (10:27)
[2021-09-16] MEDS: HaloperidoL 1 MG TABLET 2 MG PO ×2 (10:27→21:14)
[2021-09-16] MEDS: Gabapentin 400 MG CAPSULE 800 MG PO ×3 (10:27→21:13)
[2021-09-16] MEDS: Sennosides 8.6 MG TABLET PO (10:28)
[2021-09-16] MEDS: buPROPion HCL 100 MG TABLET PO ×2 (10:28→21:14)
[2021-09-16] MEDS: 0.9 % Sodium Chloride Flush 3 ML SYRINGE IVFLUSH ×2 (10:28→15:46)
[2021-09-16] MEDS: methADONE HCl 20 MG/2 ML ORAL.CONC 27 MG PO (10:28)
--- NOTE | 2021-09-16 10:38 | P.PNVS_ITS ---
Subjective Subjective Date of Service: 09/16/21 Patient reports: no new complaints Interval history: 36-year-old type 1 diabetic was admitted yesterday for nonhealing left foot ulcer. She has undergone noninvasive arterial testing. She now presents to us for vascular follow-up. She has had no interval issues overnight. Physical Exam Vital Signs: Vital Signs: Last Vital Signs Temp 97.6 F 09/16/21 07:33 Pulse 60 09/16/21 07:33 Resp 16 09/16/21 07:33 BP 127/75 09/16/21 07:33 Pulse Ox 97 09/16/21 07:33 BMI result Body Mass Index 37.7 Const: General: cooperative, healthy appearing and no acute distress Orientation/consciousness: oriented to person, oriented to place and oriented to time HEENT: Head: Yes normal to inspection Neck: Carotids: no bruits Chest: Chest palpation & inspection: normal inspection of the chest Resp: Effort & Inspection: normal respiratory effort and able to speak in complete sentences Auscultation: clear to auscultation bilaterally Cardio: Rate: regular rate Heart sounds: S1 normal heart sound present and S2 normal heart sound present GI: Inspection: Yes normal to inspection Skin: Other: Left 3rd toe gangrene with exposed bone General skin exam: no rashes or lesions noted Wounds: wounds noted Neuro: General: oriented to person, oriented to place, oriented to time and CN's II-XI intact bilaterally Extrem: General: Yes normal to inspection, Yes full ROM and Yes no clubbing, cyanosis or edema Psych: Appearance: grossly normal and well kempt Speech and movement: Normal speech and movement present Affect: normal affect Progress Note: A&P Assessment and plan (1) Diabetic foot ulcer associated with type 1 diabetes mellitus: Status: Acute Assessment and Plan: In short patient has nonhealing left foot ulcer she will require left 3rd toe amputation. Her 4th toe has already been amputated. Case was discussed with the patient and General surgery. We will proceed forward. She was made NPO last night. We will get her on to the and on schedule as soon as possible. Thank you for allowing us to assist in her care. Fall Risk Details Current Medications: Current Medications Acetaminophen (Acetaminophen 325 Mg Tablet) 650 mg PO Q6H PRN PRN Reason: Pain, Mild (Pain Scale 1-3) Last Admin: 09/15/21 22:28 Dose: 650 mg Documented by: Amlodipine Besylate (Amlodipine Besylate 5 Mg Tablet) 5 mg PO DAILY [facility]; Protocol Last Admin: 09/16/21 10:26 Dose: 5 mg Documented by: Bupropion HCl (Bupropion Hcl 100 Mg Tablet) 100 mg PO BID [facility] Last Admin: 09/16/21 10:28 Dose: 100 mg Documented by: Dextrose (Dextrose 50 % 25 Gm/50 Ml Syringe) 25 gm IVPUSH Q15M PRN; Protocol PRN Reason: per Hypoglycemia Standing Ord. Last Admin: 09/16/21 07:52 Dose: 25 gm Documented by: Docusate Sodium (Docusate Sodium 100 Mg Capsule) 100 mg PO BID [facility] Last Admin: 09/16/21 10:27 Dose: 100 mg Documented by: Enoxaparin Sodium (Enoxaparin Sodium 40 Mg/0.4 Ml Syringe) 40 mg SUBCUT Q24H [facility] Last Admin: 09/15/21 22:34 Dose: Not Given Documented by: Escitalopram Oxalate (Escitalopram Oxalate 20 Mg Tablet) 20 mg PO DAILY [facility] Last Admin: 09/16/21 10:27 Dose: 20 mg Documented by: Gabapentin (Gabapentin 400 Mg Capsule) 800 mg PO TID [facility] Last Admin: 09/16/21 10:27 Dose: 800 mg Documented by: Glucose (Glucose Gel 15 Gm Gel..Gram.) 15 gm PO Q15M PRN; Protocol PRN Reason: per Hypoglycemia Standing Ord. Haloperidol (Haloperidol 1 Mg Tablet) 2 mg PO BID [facility] Last Admin: 09/16/21 10:27 Dose: 2 mg Documented by: Piperacillin Sod/Tazobactam (Sod 3.375 gm/ Sodium Chloride) 50 mls @ 100 mls/hr IV Q6H [facility] Last Infusion: 09/16/21 07:12 Dose: Infused Documented by: Vancomycin HCl 1,000 mg/ (Sodium Chloride) 270 mls @ 270 mls/hr IV Q24H [facility] Last Infusion: 09/15/21 23:51 Dose: Infused Documented by: Insulin Glargine (Insulin Glargine,Hum.Rec.Anlog 100 Unit/Ml 10 Ml Vial) 56 unit SUBCUT DAILY [facility] Last Admin: 09/15/21 11:44 Dose: 56 unit Documented by: Insulin Glargine (Insulin Glargine,Hum.Rec.Anlog 100 Unit/Ml 10 Ml Vial) 24 unit SUBCUT BEDTIME [facility] Last Admin: 09/15/21 22:30 Dose: 1 unit Documented by: Insulin Human Lispro (Insulin Lispro 100 Unit/Ml 3 Ml Vial) 0.1 - 10 unit SUBCUT QIDACHS [facility]; Protocol Last Admin: 09/16/21 07:46 Dose: Not Given Documented by: Insulin Human Lispro (Insulin Lispro 100 Unit/Ml 3 Ml Vial) 0 unit SUBCUT QIDACHS [facility]; Protocol Last Admin: 09/16/21 07:46 Dose: Not Given Documented by: Melatonin (Melatonin 3 Mg Tablet) 6 mg PO BEDTIME PRN PRN Reason: Insomnia Last Admin: 09/15/21 22:28 Dose: 6 mg Documented by: Methadone HCl (Methadone Hcl 20 Mg/2 Ml Oral.Conc) 27 mg PO DAILY [facility] Last Admin: 09/16/21 10:28 Dose: 27 mg Documented by: Omeprazole (Omeprazole 20 Mg Capsule.Dr) 20 mg PO DAILY [facility] Last Admin: 09/16/21 10:27 Dose: 20 mg Documented by: Pharmacy Consult (Consult Rx Vancomycin Dosing) 1 each MISCELLANE DAILY PRN PRN Reason: Consult order Prazosin HCl (Prazosin Hcl 5 Mg Capsule) 5 mg PO BEDTIME [facility]; Protocol Last Admin: 09/15/21 22:27 Dose: 5 mg Documented by: Senna (Sennosides 8.6 Mg Tablet) 17.2 mg PO BEDTIME PRN PRN Reason: Constipation Senna (Sennosides 8.6 Mg Tablet) 8.6 mg PO DAILY [facility] Last Admin: 09/16/21 10:28 Dose: 8.6 mg Documented by: Sodium Chloride (0.9 % Sodium Chloride Flush 3 Ml Syringe) 3 ml IVFLUSH QSHIFT [facility] Last Admin: 09/16/21 10:28 Dose: 3 ml Documented by: Trazodone HCl (Trazodone Hcl 100 Mg Tablet) 100 mg PO BEDTIME [facility] Last Admin: 09/15/21 22:27 Dose: 100 mg Documented by: Vitamin D (Cholecalciferol (Vitamin D3) 25 Mcg Tablet) 25 mcg PO DAILY [facility] Last Admin: 09/16/21 10:27 Dose: 25 mcg Documented by: Time Spent With Patient Time: Total time spent is greater than 50% in coordination of care (as documented) at patient's floor/unit and/or counseling patient: Procedures Date of Service Date of Service: 09/16/21 Quality Stroke Does the patient have a stroke diagnosis?: No VTE Prior VTE?: No VTE Risk Level:: Medical - moderate - high VTE Device Contraindication: Treatment Not Indicated VTE Drug Contraindication: N/A - Med Ordered
[2021-09-16 11:15] LABS: Glucose, Whole Blood 110 mg/dL (60-115)
--- NOTE | 2021-09-16 11:15 | HO.PM.IMPN ---
Subjective Subjective Date of Service: 09/16/21 Interval History: cc: fever interval history: anxious about infection Respiratory Respiratory: Reports no additional respiratory complaints Gastrointestinal Gastrointestinal: Reports no additional gastrointestinal complaints Physical Exam Vital Signs: Vital Signs: Last Vital Signs Temp 97.2 F 09/16/21 10:57 Pulse 64 09/16/21 10:57 Resp 18 09/16/21 10:57 BP 141/85 H 09/16/21 10:57 Pulse Ox 97 09/16/21 10:57 BMI result Body Mass Index 37.7 Const General:?cooperative, healthy appearing and no acute distress Orientation/consciousness:?oriented to person, oriented to place and oriented to time HEENT Head:?Yes normal to inspection Neck Carotids:?no bruits Chest Chest palpation & inspection:?normal inspection of the chest Resp Effort & Inspection:?normal respiratory effort and able to speak in complete sentences Auscultation:?clear to auscultation bilaterally Cardio Rate:?regular rate Heart sounds:?S1 normal heart sound present and S2 normal heart sound present GI Inspection:?Yes normal to inspection Skin Other: Left 3rd toe gangrene with exposed bone General skin exam:?no rashes or lesions noted Wounds:?wounds noted Neuro General:?oriented to person, oriented to place, oriented to time and CN's II-XI intact bilaterally Extrem General:?Yes normal to inspection, Yes full ROM and Yes no clubbing, cyanosis or edema Psych Appearance:?grossly normal and well kempt Speech and movement:?Normal speech and movement present Affect:?normal affect Objective Data Active Medications Acetaminophen (Acetaminophen 325 Mg Tablet) 650 mg PO Q6H PRN PRN Reason: Pain, Mild (Pain Scale 1-3) Last Admin: 09/15/21 22:28 Dose: 650 mg Documented by: SHANNAN Amlodipine Besylate (Amlodipine Besylate 5 Mg Tablet) 5 mg PO DAILY [facility]; Protocol Last Admin: 09/16/21 10:26 Dose: 5 mg Documented by: NOVA Bupropion HCl (Bupropion Hcl 100 Mg Tablet) 100 mg PO BID [facility] Last Admin: 09/16/21 10:28 Dose: 100 mg Documented by: NOVA Dextrose (Dextrose 50 % 25 Gm/50 Ml Syringe) 25 gm IVPUSH Q15M PRN; Protocol PRN Reason: per Hypoglycemia Standing Ord. Last Admin: 09/16/21 07:52 Dose: 25 gm Documented by: NOVA Docusate Sodium (Docusate Sodium 100 Mg Capsule) 100 mg PO BID [facility] Last Admin: 09/16/21 10:27 Dose: 100 mg Documented by: NOVA Enoxaparin Sodium (Enoxaparin Sodium 40 Mg/0.4 Ml Syringe) 40 mg SUBCUT Q24H [facility] Last Admin: 09/15/21 22:34 Dose: Not Given Documented by: SHANNAN Non-Admin Reason: Patient Refused Escitalopram Oxalate (Escitalopram Oxalate 20 Mg Tablet) 20 mg PO DAILY [facility] Last Admin: 09/16/21 10:27 Dose: 20 mg Documented by: NOVA Gabapentin (Gabapentin 400 Mg Capsule) 800 mg PO TID [facility] Last Admin: 09/16/21 10:27 Dose: 800 mg Documented by: NOVA Glucose (Glucose Gel 15 Gm Gel..Gram.) 15 gm PO Q15M PRN; Protocol PRN Reason: per Hypoglycemia Standing Ord. Haloperidol (Haloperidol 1 Mg Tablet) 2 mg PO BID [facility] Last Admin: 09/16/21 10:27 Dose: 2 mg Documented by: NOVA Piperacillin Sod/Tazobactam (Sod 3.375 gm/ Sodium Chloride) 50 mls @ 100 mls/hr IV Q6H [facility] Last Infusion: 09/16/21 07:12 Dose: 100 mls/hr Documented by: NOVA Vancomycin HCl 1,000 mg/ (Sodium Chloride) 270 mls @ 270 mls/hr IV Q24H [facility] Last Infusion: 09/15/21 23:51 Dose: 0 mls/hr Documented by: SHANNAN Insulin Glargine (Insulin Glargine,Hum.Rec.Anlog 100 Unit/Ml 10 Ml Vial) 56 unit SUBCUT DAILY [facility] Last Admin: 09/15/21 11:44 Dose: 56 unit Documented by: CARIDAD Insulin Glargine (Insulin Glargine,Hum.Rec.Anlog 100 Unit/Ml 10 Ml Vial) 24 unit SUBCUT BEDTIME [facility] Last Admin: 09/15/21 22:30 Dose: 1 unit Documented by: SHANNAN Insulin Human Lispro (Insulin Lispro 100 Unit/Ml 3 Ml Vial) 0.1 - 10 unit SUBCUT QIDACHS [facility]; Protocol Last Admin: 09/16/21 07:46 Dose: Not Given Documented by: NOVA Non-Admin Reason: No Insulin Coverage Insulin Human Lispro (Insulin Lispro 100 Unit/Ml 3 Ml Vial) 0 unit SUBCUT [facility]; Protocol Last Admin: 09/16/21 07:46 Dose: Not Given Documented by: NOVA Non-Admin Reason: No Insulin Coverage Melatonin (Melatonin 3 Mg Tablet) 6 mg PO BEDTIME PRN PRN Reason: Insomnia Last Admin: 09/15/21 22:28 Dose: 6 mg Documented by: SHANNAN Methadone HCl (Methadone Hcl 20 Mg/2 Ml Oral.Conc) 27 mg PO DAILY [facility] Last Admin: 09/16/21 10:28 Dose: 27 mg Documented by: NOVA Omeprazole (Omeprazole 20 Mg Capsule.Dr) 20 mg PO DAILY [facility] Last Admin: 09/16/21 10:27 Dose: 20 mg Documented by: NOVA Pharmacy Consult (Consult Rx Vancomycin Dosing) 1 each MISCELLANE DAILY PRN PRN Reason: Consult order Prazosin HCl (Prazosin Hcl 5 Mg Capsule) 5 mg PO BEDTIME [facility]; Protocol Last Admin: 09/15/21 22:27 Dose: 5 mg Documented by: SHANNAN Senna (Sennosides 8.6 Mg Tablet) 17.2 mg PO BEDTIME PRN PRN Reason: Constipation Senna (Sennosides 8.6 Mg Tablet) 8.6 mg PO DAILY [facility] Last Admin: 09/16/21 10:28 Dose: 8.6 mg Documented by: NOVA Sodium Chloride (0.9 % Sodium Chloride Flush 3 Ml Syringe) [facility] Last Admin: 09/16/21 10:28 Dose: 3 ml Documented by: NOVA Trazodone HCl (Trazodone Hcl 100 Mg Tablet) 100 mg PO BEDTIME [facility] Last Admin: 09/15/21 22:27 Dose: 100 mg Documented by: SHANNAN Vitamin D (Cholecalciferol (Vitamin D3) 25 Mcg Tablet) 25 mcg PO DAILY [facility] Last Admin: 09/16/21 10:27 Dose: 25 mcg Documented by: NOVA Labs CBC & Chem 7: 09/16/21 05:44 09/16/21 05:44 Labs: Laboratory Results - last 24 hr 09/15/21 09/15/21 09/15/21 11:35 15:36 19:36 MCV MCH MCHC RDW Plt Count MPV Absolute Nucleated RBC Nucleated RBC % (auto) Anion Gap Estim Creat Clear Calc Estimated GFR POC Glucose 109 148 H 225 H Fasting Glucose Calcium 09/16/21 09/16/21 09/16/21 05:44 05:44 07:31 MCV 86.3 MCH 26.8 L MCHC 31.0 RDW 13.2 Plt Count 267 MPV 10.2 Absolute Nucleated RBC 0.000 Nucleated RBC % (auto) 0.0 Anion Gap 13 Estim Creat Clear Calc 79.6 Estimated GFR 48 POC Glucose 77 Fasting Glucose 98 Calcium 9.4 09/16/21 08:31 MCV MCH MCHC RDW Plt Count MPV Absolute Nucleated RBC Nucleated RBC % (auto) Anion Gap Estim Creat Clear Calc Estimated GFR POC Glucose 172 H Fasting Glucose Calcium Microbiology Microbiology Results: Microbiology 09/14/21 21:51 Blood Culture - Preliminary Blood - Venous No growth after 24 hours. 09/14/21 20:49 Blood Culture - Preliminary Blood - Venous No growth after 24 hours. 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
--- NOTE | 2021-09-16 11:20 | P.CONAN_ITS ---
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 (Acute) Type 1 diabetes mellitus with hyperglycemia (Acute) Past Medical History Medical History Anxiety and depression Borderline personality disorder Methadone maintenance therapy patient Neuropathy PTSD (post-traumatic stress disorder) 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 Type 1 diabetes mellitus with hyperglycemia Patient : No Family History Family History Father Diabetes mellitus Mother Diabetes mellitus Maternal Grandmother Diabetes mellitus Paternal Uncle Diabetes mellitus Paternal Aunt Diabetes mellitus CVD (cardiovascular disease) Maternal Uncle Diabetes mellitus Maternal Aunt CVD (cardiovascular disease) Family history of problems with anesthesia: No Surgical History Surgical History Hx of section Hx of tubal ligation History of Problems with Anesthesia: No Social History Social History Household Members: Children Household Members Other:: GG Housing: Apartment Housing Other:: [facility] Do you presently have visiting nurse or other home services: Yes Patient Tobacco Use Status: Former Tobacco user Quit Date: 1 month ago Second Hand Smoke Exposure: No service: No Current occupational status: disabled Meds Allergies Allergy/AdvReac Type Severity Reaction Status Date / Time adhesive tape [ADHESIVE TAPE] Allergy Mild RASH Verified 09/16/21 11:02 Active Medications: Current Medications Acetaminophen (Acetaminophen 325 Mg Tablet) 650 mg PO Q6H PRN PRN Reason: Pain, Mild (Pain Scale 1-3) Last Admin: 09/15/21 22:28 Dose: 650 mg Documented by: Amlodipine Besylate (Amlodipine Besylate 5 Mg Tablet) 5 mg PO DAILY [facility]; Protocol Last Admin: 09/16/21 10:26 Dose: 5 mg Documented by: Bupropion HCl (Bupropion Hcl 100 Mg Tablet) 100 mg PO BID [facility] Last Admin: 09/16/21 10:28 Dose: 100 mg Documented by: Dextrose (Dextrose 50 % 25 Gm/50 Ml Syringe) 25 gm IVPUSH Q15M PRN; Protocol PRN Reason: per Hypoglycemia Standing Ord. Last Admin: 09/16/21 07:52 Dose: 25 gm Documented by: Docusate Sodium (Docusate Sodium 100 Mg Capsule) 100 mg PO BID [facility] Last Admin: 09/16/21 10:27 Dose: 100 mg Documented by: Enoxaparin Sodium (Enoxaparin Sodium 40 Mg/0.4 Ml Syringe) 40 mg SUBCUT Q24H [facility] Last Admin: 09/15/21 22:34 Dose: Not Given Documented by: Escitalopram Oxalate (Escitalopram Oxalate 20 Mg Tablet) 20 mg PO DAILY [facility] Last Admin: 09/16/21 10:27 Dose: 20 mg Documented by: Gabapentin (Gabapentin 400 Mg Capsule) 800 mg PO TID [facility] Last Admin: 09/16/21 10:27 Dose: 800 mg Documented by: Glucose (Glucose Gel 15 Gm Gel..Gram.) 15 gm PO Q15M PRN; Protocol PRN Reason: per Hypoglycemia Standing Ord. Haloperidol (Haloperidol 1 Mg Tablet) 2 mg PO BID [facility] Last Admin: 09/16/21 10:27 Dose: 2 mg Documented by: Piperacillin Sod/Tazobactam (Sod 3.375 gm/ Sodium Chloride) 50 mls @ 100 mls/hr IV Q6H [facility] Last Infusion: 09/16/21 07:12 Dose: Infused Documented by: Vancomycin HCl 1,000 mg/ (Sodium Chloride) 270 mls @ 270 mls/hr IV Q24H [facility] Last Infusion: 09/15/21 23:51 Dose: Infused Documented by: Insulin Glargine (Insulin Glargine,Hum.Rec.Anlog 100 Unit/Ml 10 Ml Vial) 56 unit SUBCUT DAILY [facility] Last Admin: 09/15/21 11:44 Dose: 56 unit Documented by: Insulin Glargine (Insulin Glargine,Hum.Rec.Anlog 100 Unit/Ml 10 Ml Vial) 24 unit SUBCUT BEDTIME [facility] Last Admin: 09/15/21 22:30 Dose: 1 unit Documented by: Insulin Human Lispro (Insulin Lispro 100 Unit/Ml 3 Ml Vial) 0.1 - 10 unit SUBCUT QIDACHS [facility]; Protocol Last Admin: 09/16/21 07:46 Dose: Not Given Documented by: Insulin Human Lispro (Insulin Lispro 100 Unit/Ml 3 Ml Vial) 0 unit SUBCUT [facility]; Protocol Last Admin: 09/16/21 07:46 Dose: Not Given Documented by: Melatonin (Melatonin 3 Mg Tablet) 6 mg PO BEDTIME PRN PRN Reason: Insomnia Last Admin: 09/15/21 22:28 Dose: 6 mg Documented by: Methadone HCl (Methadone Hcl 20 Mg/2 Ml Oral.Conc) 27 mg PO DAILY [facility] Last Admin: 09/16/21 10:28 Dose: 27 mg Documented by: Omeprazole (Omeprazole 20 Mg Capsule.Dr) 20 mg PO DAILY [facility] Last Admin: 09/16/21 10:27 Dose: 20 mg Documented by: Pharmacy Consult (Consult Rx Vancomycin Dosing) 1 each MISCELLANE DAILY PRN PRN Reason: Consult order Prazosin HCl (Prazosin Hcl 5 Mg Capsule) 5 mg PO BEDTIME [facility]; Protocol Last Admin: 09/15/21 22:27 Dose: 5 mg Documented by: Senna (Sennosides 8.6 Mg Tablet) 17.2 mg PO BEDTIME PRN PRN Reason: Constipation Senna (Sennosides 8.6 Mg Tablet) 8.6 mg PO DAILY [facility] Last Admin: 09/16/21 10:28 Dose: 8.6 mg Documented by: Sodium Chloride (0.9 % Sodium Chloride Flush 3 Ml Syringe) 3 ml IVFLUSH [facility] Last Admin: 09/16/21 10:28 Dose: 3 ml Documented by: Trazodone HCl (Trazodone Hcl 100 Mg Tablet) 100 mg PO BEDTIME [facility] Last Admin: 09/15/21 22:27 Dose: 100 mg Documented by: Vitamin D (Cholecalciferol (Vitamin D3) 25 Mcg Tablet) 25 mcg PO DAILY [facility] Last Admin: 09/16/21 10:27 Dose: 25 mcg Documented by: Home Medications Medication Instructions Recorded Confirmed Last Taken Type escitalopram oxalate 20 mg tablet 20 mg PO DAILY 03/25/20 09/14/21 Unknown History omeprazole 20 mg capsule,delayed 20 mg PO DAILY 03/25/20 09/14/21 Unknown History release prazosin 5 mg capsule 5 mg PO BEDTIME 03/25/20 09/14/21 Unknown History trazodone 100 mg tablet 100 mg PO BEDTIME 03/25/20 09/14/21 Unknown History bupropion HCl 100 mg tablet 1 tab PO BID 09/14/21 09/14/21 Unknown History cholecalciferol (vitamin D3) 25 1 tab PO DAILY 09/14/21 09/14/21 Unknown History mcg (1,000 unit) tablet docusate sodium 100 mg capsule 1 cap PO BID 09/14/21 09/14/21 Unknown History gabapentin 800 mg tablet 1 tab PO TID 09/14/21 09/14/21 Unknown History haloperidol 2 mg tablet 1 tab PO BID 09/14/21 09/14/21 Unknown History insulin degludec 100 unit/mL (3 35 unit SUBCUT QPM 09/14/21 09/14/21 Unknown History mL) subcutaneous pen (Tresiba FlexTouch U-100 insulin) insulin degludec 100 unit/mL (3 80 unit SUBCUT DAILY 09/14/21 09/14/21 Unknown History mL) subcutaneous pen (Tresiba FlexTouch U-100 insulin) lisinopril 2.5 mg tablet 1 tab PO DAILY 09/14/21 09/14/21 Unknown History meloxicam 7.5 mg tablet 1 tab PO DAILY 09/14/21 09/14/21 Unknown History methadone 10 mg/mL oral concentrate 27 mg PO DAILY 09/14/21 09/14/21 Unknown History sennosides 8.6 mg tablet (Senna 1 tab PO DAILY 09/14/21 09/14/21 Unknown History Laxative) Exam Exam Date and Time: September 16, 2021 1120 Height,Weight and Vital Signs: Height 5 ft 8 in Weight 112.5 kg Last Vital Signs Temp 97.2 F 09/16/21 10:57 Pulse 64 09/16/21 10:57 Resp 18 09/16/21 10:57 BP 141/85 H 09/16/21 10:57 Pulse Ox 97 09/16/21 10:57 Pertinent Lab Results Pertinent Lab Results: Laboratory Tests 09/14/21 09/14/21 09/14/21 20:49 20:49 20:49 WBC 5.6 RBC 3.56 L Hgb 9.7 L Hct 30.5 L MCV 85.7 MCH 27.2 MCHC 31.8 RDW 13.0 Plt Count 242 MPV 10.3 Immature Gran % (Auto) 0.2 Neut % (Auto) 67.0 Lymph % (Auto) 21.9 [place] % (Auto) 8.3 Eos % (Auto) 2.2 Baso % (Auto) 0.4 Lymph # (Auto) 1.2 [place] # (Auto) 0.5 Eos # (Auto) 0.1 Baso # (Auto) 0.0 Abs Immat Gran (auto) 0.01 Absolute Neuts (auto) 3.7 Absolute Nucleated RBC 0.000 Nucleated RBC % (auto) 0.0 ESR 104 H PT 12.1 INR 1.1 APTT 38.0 Sodium Potassium Chloride Carbon Dioxide Anion Gap BUN Creatinine Estim Creat Clear Calc Estimated GFR POC Glucose Random Glucose Fasting Glucose Lactic Acid Calcium Magnesium Total Bilirubin Direct Bilirubin AST ALT Alkaline Phosphatase Ammonia Total Creatine Kinase Troponin I High Sens C-Reactive Protein Total Protein Albumin Lipase Urine Color Urine Appearance Urine pH Ur Specific [place] Urine Protein Urine Glucose (UA) Urine Ketones Urine Blood Urine Nitrite Ur Leukocyte Esterase Urine RBC Urine WBC Ur Squamous Epith Cells Amorphous Sediment Urine Bacteria COVID-19 ([facility]) COVID-19 Clin Com 09/14/21 09/14/21 09/14/21 20:49 20:49 20:49 WBC RBC Hgb Hct MCV MCH MCHC RDW Plt Count MPV Immature Gran % (Auto) Neut % (Auto) Lymph % (Auto) [place] % (Auto) Eos % (Auto) Baso % (Auto) Lymph # (Auto) [place] # (Auto) Eos # (Auto) Baso # (Auto) Abs Immat Gran (auto) Absolute Neuts (auto) Absolute Nucleated RBC Nucleated RBC % (auto) ESR PT INR APTT Sodium 134 L Potassium 4.7 Chloride 99 Carbon Dioxide 28 Anion Gap 12 BUN 19 H Creatinine 1.47 H Estim Creat Clear Calc TNP Estimated GFR 40 POC Glucose Random Glucose 221 H Fasting Glucose Lactic Acid 1.1 Calcium 9.1 Magnesium 2.0 Total Bilirubin 0.4 Direct Bilirubin < 0.2 AST 13 ALT 8 Alkaline Phosphatase 93 Ammonia Total Creatine Kinase 211 H Troponin I High Sens < 3.5 C-Reactive Protein 9.80 H Total Protein 7.4 Albumin 3.6 Lipase 8 Urine Color Urine Appearance Urine pH Ur Specific [place] Urine Protein Urine Glucose (UA) Urine Ketones Urine Blood Urine Nitrite Ur Leukocyte Esterase Urine RBC Urine WBC Ur Squamous Epith Cells Amorphous Sediment Urine Bacteria COVID-19 ([facility]) COVID-19 Clin Com 09/14/21 09/14/21 09/14/21 20:54 21:36 21:51 WBC RBC Hgb Hct MCV MCH MCHC RDW Plt Count MPV Immature Gran % (Auto) Neut % (Auto) Lymph % (Auto) [place] % (Auto) Eos % (Auto) Baso % (Auto) Lymph # (Auto) [place] # (Auto) Eos # (Auto) Baso # (Auto) Abs Immat Gran (auto) Absolute Neuts (auto) Absolute Nucleated RBC Nucleated RBC % (auto) ESR PT INR APTT Sodium Potassium Chloride Carbon Dioxide Anion Gap BUN Creatinine Estim Creat Clear Calc Estimated GFR POC Glucose 223 H Random Glucose Fasting Glucose Lactic Acid Calcium Magnesium Total Bilirubin Direct Bilirubin AST ALT Alkaline Phosphatase Ammonia 26 Total Creatine Kinase Troponin I High Sens C-Reactive Protein Total Protein Albumin Lipase Urine Color Urine Appearance Urine pH Ur Specific [place] Urine Protein Urine Glucose (UA) Urine Ketones Urine Blood Urine Nitrite Ur Leukocyte Esterase Urine RBC Urine WBC Ur Squamous Epith Cells Amorphous Sediment Urine Bacteria COVID-19 ([facility]IAM) Negative COVID-19 Clin Com See Note 09/14/21 09/15/21 09/15/21 23:50 06:35 06:35 WBC 4.6 L RBC 3.45 L Hgb 9.3 L Hct 29.6 L MCV 85.8 MCH 27.0 MCHC 31.4 RDW 13.0 Plt Count 240 MPV 10.7 Immature Gran % (Auto) 0.2 Neut % (Auto) 58.3 Lymph % (Auto) 27.7 [place] % (Auto) 10.8 Eos % (Auto) 2.6 Baso % (Auto) 0.4 Lymph # (Auto) 1.3 [place] # (Auto) 0.5 Eos # (Auto) 0.1 Baso # (Auto) 0.0 Abs Immat Gran (auto) 0.01 Absolute Neuts (auto) 2.7 Absolute Nucleated RBC 0.000 Nucleated RBC % (auto) 0.0 ESR PT INR APTT Sodium 137 Potassium 4.5 Chloride 105 Carbon Dioxide 23 Anion Gap 14 BUN 16 Creatinine 1.24 Estim Creat Clear Calc 80.9 Estimated GFR 48 POC Glucose Random Glucose 122 H Fasting Glucose Lactic Acid Calcium 8.9 Magnesium Total Bilirubin Direct Bilirubin AST ALT Alkaline Phosphatase Ammonia Total Creatine Kinase Troponin I High Sens C-Reactive Protein Total Protein Albumin Lipase Urine Color YELLOW Urine Appearance CLEAR Urine pH 6.0 Ur Specific [place] 1.020 Urine Protein 1+ H Urine Glucose (UA) NEG Urine Ketones NEG Urine Blood 2+ H Urine Nitrite NEG Ur Leukocyte Esterase NEG Urine RBC 0-2 Urine WBC 0 Ur Squamous Epith Cells 1+ Amorphous Sediment TRACE Urine Bacteria TRACE COVID-19 ([facility]) COVID-19 Clin Com 09/15/21 09/15/21 09/15/21 07:13 11:35 15:36 WBC RBC Hgb Hct MCV MCH MCHC RDW Plt Count MPV Immature Gran % (Auto) Neut % (Auto) Lymph % (Auto) [place] % (Auto) Eos % (Auto) Baso % (Auto) Lymph # (Auto) [place] # (Auto) Eos # (Auto) Baso # (Auto) Abs Immat Gran (auto) Absolute Neuts (auto) Absolute Nucleated RBC Nucleated RBC % (auto) ESR PT INR APTT Sodium Potassium Chloride Carbon Dioxide Anion Gap BUN Creatinine Estim Creat Clear Calc Estimated GFR POC Glucose 103 109 148 H Random Glucose Fasting Glucose Lactic Acid Calcium Magnesium Total Bilirubin Direct Bilirubin AST ALT Alkaline Phosphatase Ammonia Total Creatine Kinase Troponin I High Sens C-Reactive Protein Total Protein Albumin Lipase Urine Color Urine Appearance Urine pH Ur Specific [place] Urine Protein Urine Glucose (UA) Urine Ketones Urine Blood Urine Nitrite Ur Leukocyte Esterase Urine RBC Urine WBC Ur Squamous Epith Cells Amorphous Sediment Urine Bacteria COVID-19 ([facility]) COVID-19 Clin Com 09/15/21 09/16/21 09/16/21 19:36 05:44 05:44 WBC 5.1 RBC 3.51 L Hgb 9.4 L Hct 30.3 L MCV 86.3 MCH 26.8 L MCHC 31.0 RDW 13.2 Plt Count 267 MPV 10.2 Immature Gran % (Auto) Neut % (Auto) Lymph % (Auto) [place] % (Auto) Eos % (Auto) Baso % (Auto) Lymph # (Auto) [place] # (Auto) Eos # (Auto) Baso # (Auto) Abs Immat Gran (auto) Absolute Neuts (auto) Absolute Nucleated RBC 0.000 Nucleated RBC % (auto) 0.0 ESR PT INR APTT Sodium 143 Potassium 4.7 Chloride 108 Carbon Dioxide 27 Anion Gap 13 BUN 18 H Creatinine 1.26 Estim Creat Clear Calc 79.6 Estimated GFR 48 POC Glucose 225 H Random Glucose Fasting Glucose 98 Lactic Acid Calcium 9.4 Magnesium Total Bilirubin Direct Bilirubin AST ALT Alkaline Phosphatase Ammonia Total Creatine Kinase Troponin I High Sens C-Reactive Protein Total Protein Albumin Lipase Urine Color Urine Appearance Urine pH Ur Specific [place] Urine Protein Urine Glucose (UA) Urine Ketones Urine Blood Urine Nitrite Ur Leukocyte Esterase Urine RBC Urine WBC Ur Squamous Epith Cells Amorphous Sediment Urine Bacteria COVID-19 ([facility]IAM) COVID-19 [facility] Com 09/16/21 09/16/21 09/16/21 07:31 08:31 11:08 WBC RBC Hgb Hct MCV MCH MCHC RDW Plt Count MPV Immature Gran % (Auto) Neut % (Auto) Lymph % (Auto) [place] % (Auto) Eos % (Auto) Baso % (Auto) Lymph # (Auto) [place] # (Auto) Eos # (Auto) Baso # (Auto) Abs Immat Gran (auto) Absolute Neuts (auto) Absolute Nucleated RBC Nucleated RBC % (auto) ESR PT INR APTT Sodium Potassium Chloride Carbon Dioxide Anion Gap BUN Creatinine Estim Creat Clear Calc Estimated GFR POC Glucose 77 172 H 110 Random Glucose Fasting Glucose Lactic Acid Calcium Magnesium Total Bilirubin Direct Bilirubin AST ALT Alkaline Phosphatase Ammonia Total Creatine Kinase Troponin I High Sens C-Reactive Protein Total Protein Albumin Lipase Urine Color Urine Appearance Urine pH Ur Specific [place] Urine Protein Urine Glucose (UA) Urine Ketones Urine Blood Urine Nitrite Ur Leukocyte Esterase Urine RBC Urine WBC Ur Squamous Epith Cells Amorphous Sediment Urine Bacteria COVID-19 ([facility]) COVID-19 Clin Com Airway Mallampati Class: II TM Dist: <=3cm Neck ROM: Full Partial: Upper and Lower Heart: ok Lungs: ok Assessment and Plan Assessment Anesthesia Assessment: Anesthesia Plan Discussed Final Anesthetic Review Family History of Problems with Anesthesia: No History of Problems with Anesthesia: No NPO: Yes ASA Class: IV Final Preanesthetic Review: No Changes in Pt Med Stat, Meds/Allgs Chart Reviewed, Consent Obtained/Reviewed and Anes Risks/Benef Reviewed Patient Risk: High Procedure Risk: Low Anesthetic Plan Anesthetic Plan: MAC: and Other (Field block by surgeon) Disposition: Standard PACU
--- NOTE | 2021-09-16 13:29 | P.OP_ITS ---
Operative Note Operative Note Date of Service: 09/16/21 Narrative: Operative note by [facility] Preoperative diagnosis: Left 3rd toe osteomyelitis 2. Nonhealing diabetic foot ulcer Postoperative diagnosis: Same Procedure: Left 3rd toe amputation Surgeon:Rivas De Luna M.D. Sling Operator: Jad Anesthesia: Local with sedation performed by Anesthesia Specimens: 1 Drains: None Estimated blood loss: Minimal Indications: 36-year-old type 1 diabetic with nonhealing 3rd toe ulcer. On the plantar aspect there was actually exposed bone. A MRI was concerning for osteomyelitis. She now presents for left 3rd toe amputation. The patient has signed the informed consent after reviewing risks, complications, benefits, and alternatives previously discussed with the patient. The patient was given the opportunity to ask any additional questions or voice any concerns. All questions were answered to the patient's satisfaction. Procedure in detail: Patient was brought to the operating room prior to which a time-out was called for patient identification and site verification. Left foot was prepped and draped in standard surgical fashion. [place] incision was carried out over the 3rd toe. We took it down to the metatarsal head. Metatarsal was left intact. Toe was removed in its entirety. Hemostasis was obtained with electrocautery. Wound was thoroughly irrigated out. Deep layer was reapproximated with 2 0 poly Sorb. Superficial layer was closed with 3-0 nylon in a mattress fashion, along with skin clips. Xeroform and a sterile dressing were applied. At the end the case sponge instrument counts were correct. Patient tolerated the procedure well. Returned to recovery with stable vitals. This note is constructed using voice recognition software. While every effort has been made to ensure accuracy, travel agency manager errors may have been included. Thank you for allowing me to participate in the care of your patient. Yours sincerely, Rivas De Luna MD, FACS, R.P.V.I.
--- NOTE | 2021-09-16 14:48 | MHC.CM.PN ---
[facility] CURRENTLY FULL TO CAPACITY BUT WILL CONTINUE TO FOLLOW. CURRENTLY ONLY [facility] FOLLOWING. PATIENT MAY NEED LT IV ABX.
[2021-09-16 16:08] LABS: Glucose, Whole Blood 68 mg/dL (60-115)
[2021-09-16 16:08] LABS: Glucose, Whole Blood 64 mg/dL (60-115)
[2021-09-16 16:47] LABS: Glucose, Whole Blood 208 mg/dL (60-115)
[2021-09-16 20:50] LABS: Glucose, Whole Blood 252 mg/dL (60-115)
[2021-09-16] MEDS: vancomycin HCL 1,000 MG in 0.9 % Sodium Chloride 250 ML 270 MG IV (21:08)
[2021-09-16] MEDS: Insulin Lispro 100 UNIT/ML 3 ML VIAL SUBCUT (21:11)
[2021-09-16] MEDS: Insulin Glargine,Hum.rec.anlog 100 UNIT/ML 10 ML VIAL 24 UNIT SUBCUT (21:12)
[2021-09-16] MEDS: traZODone HCL 100 MG TABLET PO (21:13)
[2021-09-16] MEDS: Prazosin HCL 5 MG CAPSULE PO (21:13)
[2021-09-16] MEDS: Acetaminophen 325 MG TABLET 650 MG PO (21:19)
--- NOTE | 2021-09-17 00:17 | PC.NURSE ---
P patient has been refusing Lovenox I risks explained to patient,encouraged ambulation,encouraged leg excercises E will monitor
[2021-09-17] MEDS: Piperacillin Sodium/Tazobactam 3.375 GM in 0.9 % Sodium Chloride 50 ML IV ×2 (01:28→05:53)
[2021-09-17] MEDS: 0.9 % Sodium Chloride Flush 3 ML SYRINGE IVFLUSH ×2 (01:28→08:56)
[2021-09-17 03:57] VITALS: BP 105/47; PULSE 74; RESP 18; TEMP 36.4; O2SAT 96
[2021-09-17 06:32] LABS: Hematocrit 29.9 % (37.0-47.0); Hemoglobin 9.4 g/dl (12.0-16.0); Mean Corpuscular HGB Conc 31.4 g/dl (31.0-35.0); Mean Corpuscular Hemoglobin 27.2 pg (27.0-33.0); Mean Corpuscular Volume 86.4 fL (80.0-98.0); Mean Platelet Volume 9.9 fL (9.4-12.3); Platelet Count 281 X10*3/uL (160-400); Red Blood Count 3.46 X10*6/uL (4.20-5.50); Red Cell Distribution Width 13.3 % (11.0-16.0); White Blood Count 6.2 X10*3/uL (4.8-10.8)
[2021-09-17 06:57] LABS: Anion Gap 13 (12-20); Blood Urea Nitrogen 18 mg/dL (9-16); Calcium 9.1 mg/dL (8.4-10.2); Carbon Dioxide 26 mmol/L (22-29); Chloride 107 mmol/L (96-108); Creatinine Clr Calc Pharmacy 86.4; Estimated Glomerular Filt Rate 52; Glucose Fasting 89 mg/dL (60-99); Potassium 4.1 mmol/L (3.3-5.1); Sodium 142 mmol/L (135-145)
[2021-09-17 07:16] VITALS: BP 114/75; PULSE 58; RESP 18; TEMP 36.3; O2SAT 99
[2021-09-17 07:41] LABS: Glucose, Whole Blood 73 mg/dL (60-115)
--- NOTE | 2021-09-17 08:43 | HO.POSTANES ---
Post Anesthesia Evaluation Post Anesthesia Evaluation Vital Signs: Vital Signs Temp Pulse Resp BP Pulse Ox 09/17/21 07:16 97.3 F 58 18 114/75 99 09/17/21 03:57 97.5 F 74 18 105/47 L 96 09/16/21 23:35 96.8 F 58 18 120/71 97 Anesthesia: Monitored Mental Status: Awake Pain Control: Satisfactory Nausea/Vomiting: None Hydration: Adequate Anesthesia-Related Issues: No Anes. Related Issues
[2021-09-17] MEDS: amLODIPine Besylate 5 MG TABLET PO (08:55)
[2021-09-17] MEDS: HaloperidoL 1 MG TABLET 2 MG PO (08:55)
[2021-09-17] MEDS: Docusate Sodium 100 MG CAPSULE PO (08:55)
[2021-09-17] MEDS: Omeprazole 20 MG CAPSULE.DR PO (08:55)
[2021-09-17] MEDS: Gabapentin 400 MG CAPSULE 800 MG PO (08:55)
[2021-09-17] MEDS: buPROPion HCL 100 MG TABLET PO (08:56)
[2021-09-17] MEDS: Cholecalciferol (Vitamin D3) 25 MCG TABLET PO (08:56)
[2021-09-17] MEDS: Sennosides 8.6 MG TABLET PO (08:56)
[2021-09-17] MEDS: Escitalopram Oxalate 20 MG TABLET PO (08:56)
[2021-09-17] MEDS: methADONE HCl 20 MG/2 ML ORAL.CONC 27 MG PO (08:57)
--- NOTE | 2021-09-17 09:32 | HO.VASCPN ---
Subjective Subjective Date of Service: 09/17/21 Patient reports: no new complaints and feels better Interval history: Patient seen and examined. Postop day 1 status post left 3rd toe amputation. She has had no interval issues overnight. She reports that she is feeling better. She now presents for vascular follow-up. Physical Exam Vital Signs: Vital Signs: Last Vital Signs Temp 97.3 F 09/17/21 07:16 Pulse 58 09/17/21 07:16 Resp 18 09/17/21 07:16 BP 114/75 09/17/21 07:16 Pulse Ox 99 09/17/21 07:16 BMI result Body Mass Index 37.7 Const: General: cooperative, healthy appearing and no acute distress Orientation/consciousness: oriented to person, oriented to place and oriented to time HEENT: Head: Yes normal to inspection Neck: Carotids: no bruits Chest: Chest palpation & inspection: normal inspection of the chest Resp: Effort & Inspection: normal respiratory effort and able to speak in complete sentences Auscultation: clear to auscultation bilaterally Cardio: Rate: regular rate Heart sounds: S1 normal heart sound present and S2 normal heart sound present GI: Inspection: Yes normal to inspection Skin: General skin exam: no rashes or lesions noted Wounds: amputation site (Dressing change appears to be healing well) Neuro: General: oriented to person, oriented to place, oriented to time and CN's II-XI intact bilaterally Extrem: General: Yes normal to inspection, Yes full ROM and Yes no clubbing, cyanosis or edema Psych: Appearance: grossly normal and well kempt Speech and movement: Normal speech and movement present Affect: normal affect Progress Note: A&P Assessment and plan (1) Diabetic foot ulcer associated with type 1 diabetes mellitus: Status: Acute Assessment and Plan: In short patient is status post toe amputation. She is doing extremely well. Question is duration of antibiotics. Would touch base with Infectious Disease regarding that. Stable from my perspective for discharge. She can follow up with us as an outpatient in approximately 2 weeks time for suture and staple removal. Fall Risk Details Current Medications: Current Medications Acetaminophen (Acetaminophen 325 Mg Tablet) 650 mg PO Q6H PRN PRN Reason: Pain, Mild (Pain Scale 1-3) Last Admin: 09/16/21 21:19 Dose: 650 mg Documented by: Acetaminophen (Acetaminophen 325 Mg Tablet) 650 mg PO ONCE PRN PRN Reason: Pain, Mild (Pain Scale 1-3) Amlodipine Besylate (Amlodipine Besylate 5 Mg Tablet) 5 mg PO DAILY [facility]; Protocol Last Admin: 09/17/21 08:55 Dose: 5 mg Documented by: Bupropion HCl (Bupropion Hcl 100 Mg Tablet) 100 mg PO BID [facility] Last Admin: 09/17/21 08:56 Dose: 100 mg Documented by: Dextrose (Dextrose 50 % 25 Gm/50 Ml Syringe) 25 gm IVPUSH Q15M PRN; Protocol PRN Reason: per Hypoglycemia Standing Ord. Last Admin: 09/16/21 07:52 Dose: 25 gm Documented by: Docusate Sodium (Docusate Sodium 100 Mg Capsule) 100 mg PO BID [facility] Last Admin: 09/17/21 08:55 Dose: 100 mg Documented by: Enoxaparin Sodium (Enoxaparin Sodium 40 Mg/0.4 Ml Syringe) 40 mg SUBCUT Q24H [facility] Last Admin: 09/16/21 21:24 Dose: Not Given Documented by: Escitalopram Oxalate (Escitalopram Oxalate 20 Mg Tablet) 20 mg PO DAILY [facility] Last Admin: 09/17/21 08:56 Dose: 20 mg Documented by: Fentanyl (Fentanyl Citrate/Pf 100 Mcg/2 Ml Vial) 50 mcg IVPUSH Q5M PRN; Protocol PRN Reason: Pain, Severe (Pain Scale 7-10) Gabapentin (Gabapentin 400 Mg Capsule) 800 mg PO TID [facility] Last Admin: 09/17/21 08:55 Dose: 800 mg Documented by: Glucose (Glucose Gel 15 Gm Gel..Gram.) 15 gm PO Q15M PRN; Protocol PRN Reason: per Hypoglycemia Standing Ord. Haloperidol (Haloperidol 1 Mg Tablet) 2 mg PO BID [facility] Last Admin: 09/17/21 08:55 Dose: 2 mg Documented by: Hydromorphone HCl (Hydromorphone Hcl 0.5 Mg/0.5 Ml Syringe) 0.5 mg IVPUSH Q5M PRN; Protocol PRN Reason: Pain, Severe (Pain Scale 7-10) Piperacillin Sod/Tazobactam (Sod 3.375 gm/ Sodium Chloride) 50 mls @ 100 mls/hr IV Q6H [facility] Last Infusion: 09/17/21 06:32 Dose: Infused Documented by: Vancomycin HCl 1,000 mg/ (Sodium Chloride) 270 mls @ 270 mls/hr IV Q24H [facility] Last Infusion: 09/16/21 22:15 Dose: Infused Documented by: Insulin Glargine (Insulin Glargine,Hum.Rec.Anlog 100 Unit/Ml 10 Ml Vial) 56 unit SUBCUT DAILY [facility] Last Admin: 09/16/21 11:27 Dose: Not Given Documented by: Insulin Glargine (Insulin Glargine,Hum.Rec.Anlog 100 Unit/Ml 10 Ml Vial) 24 unit SUBCUT BEDTIME [facility] Last Admin: 09/16/21 21:12 Dose: 24 unit Documented by: Insulin Human Lispro (Insulin Lispro 100 Unit/Ml 3 Ml Vial) 0 unit SUBCUT QIDACHS [facility]; Protocol Last Admin: 09/17/21 08:56 Dose: Not Given Documented by: Melatonin (Melatonin 3 Mg Tablet) 6 mg PO BEDTIME PRN PRN Reason: Insomnia Last Admin: 09/15/21 22:28 Dose: 6 mg Documented by: Methadone HCl (Methadone Hcl 20 Mg/2 Ml Oral.Conc) 27 mg PO DAILY [facility] Last Admin: 09/17/21 08:57 Dose: 27 mg Documented by: Omeprazole (Omeprazole 20 Mg Capsule.Dr) 20 mg PO DAILY [facility] Last Admin: 09/17/21 08:55 Dose: 20 mg Documented by: Ondansetron HCl (Ondansetron Hcl 4 Mg/2 Ml Vial) 4 mg IVPUSH ONCE PRN PRN Reason: Nausea and Vomiting Pharmacy Consult (Consult Rx Vancomycin Dosing) 1 each MISCELLANE DAILY PRN PRN Reason: Consult order Prazosin HCl (Prazosin Hcl 5 Mg Capsule) 5 mg PO BEDTIME [facility]; Protocol Last Admin: 09/16/21 21:13 Dose: 5 mg Documented by: Senna (Sennosides 8.6 Mg Tablet) 17.2 mg PO BEDTIME PRN PRN Reason: Constipation Senna (Sennosides 8.6 Mg Tablet) 8.6 mg PO DAILY [facility] Last Admin: 09/17/21 08:56 Dose: 8.6 mg Documented by: Sodium Chloride (0.9 % Sodium Chloride Flush 3 Ml Syringe) 3 ml IVFLUSH QSHIFT [facility] Last Admin: 09/17/21 08:56 Dose: 3 ml Documented by: Trazodone HCl (Trazodone Hcl 100 Mg Tablet) 100 mg PO BEDTIME [facility] Last Admin: 09/16/21 21:13 Dose: 100 mg Documented by: Vitamin D (Cholecalciferol (Vitamin D3) 25 Mcg Tablet) 25 mcg PO DAILY [facility] Last Admin: 09/17/21 08:56 Dose: 25 mcg Documented by: Time Spent With Patient Time: Total time spent is greater than 50% in coordination of care (as documented) at patient's floor/unit and/or counseling patient: Procedures Date of Service Date of Service: 09/17/21 Quality Stroke Does the patient have a stroke diagnosis?: No VTE Prior VTE?: No VTE Risk Level:: Medical - moderate - high VTE Device Contraindication: Treatment Not Indicated VTE Drug Contraindication: N/A - Med Ordered
[2021-09-17 11:03] VITALS: BP 134/97; PULSE 67; RESP 18; TEMP 36.1; O2SAT 96
[2021-09-17 11:19] LABS: Glucose, Whole Blood 181 mg/dL (60-115)
--- NOTE | 2021-09-17 11:34 | W.MHC.F2F ---
Service Date Service Date: 09/17/21 Encounter Date of encounter: 09/17/21 Reasons for Services Signs and symptoms assessed: difficulty walking with recent surgery Reason for penitentiary: wound care, medication management, medication treatment and teach disease management Homebound: Leaving the home is medically contraindicated at this time without the asist of a device and/or another person due th the listed conditions above and below. Reason homebound: unsteady gait / fall risk Certification: Based on the above findings, I certify that this patient is confined to the home and needs intermittent penitentiary care, physical therapy and/or speech therapy, or continues to need occupational therapy. The patient is under my care, and I have initiated the establishment of the plan of care. The patient will be followed by a physician who will periodically review the plan of care.
--- NOTE | 2021-09-17 11:35 | P.DS_ITS ---
DS: Providers Provider Date of Service: 09/17/21 Date of admission: 09/14/21 23:15 Primary care physician: Unknown Physician Consults: 09/14/21 23:13 Consult to General Surgery Routine Consulting Provider: Glen Blas Reason for consultation: Toe ulcer. Consult to Infectious Diseases Routine Consulting Provider: Khushboo Perez Reason for consultation: Diabetic foot infection 09/14/21 23:15 Addiction Medicine Routine Consulting Provider: Saray Banerjee Reason for consultation: Opiate dependence on methadone 09/15/21 11:31 Consult to Vascular Surgery Routine Consulting Provider: Rivas De Luna Reason for consultation: dfu DS: Diagnosis Discharge Diagnosis (1) Diabetic foot ulcer associated with type 1 diabetes mellitus: Status: Acute DS: Summary Hospital Course Hospital Course: from initial hpi: Chief Complaint: Toe ulcer 36-year-old female with a past medical history of type 1 diabetes, diabetic neuropathy, history of diabetic foot infection status post amputation of the toe, opiate dependence on methadone, neuropathy, anxiety, depression, personality disorder presented to the hospital today with chief complaint of left foot toe ulcer.? Patient reports that for the past 2 weeks she has been having left foot toe ulcer; she has been going to wound clinic and has been having regular dressing changes; also mentioned that she had bone scraped of the wound; but today she noted that she had increased brownish colored discharge; also had fever at home.? Hence decided to come to the hospital for further evaluation.? Denies any numbness tingling or focal weakness.? Patient reports that she has mild cough pain.? Denies any nausea vomiting or diarrhea.? Review of all other systems is negative except mentioned above ER course: Per ER team patient noted to have left foot middle toe ulcer with dark tissue in the center/clotted blood.? Mild erythema on the dorsum of the foot.? X-rays showed findings concerning for progressive bony destruction with results changes in the bony structures abutting the 1st metacarpophalangeal joints; loss of the distal 2nd phalanx? in the region of the 2nd PIP, erosive changes on the 4th toe with soft tissue gas; soft tissue swelling and bony destructive changes to the 3rd middle and distal phalanx; 4th toe is cycling surgically absent; ; patient was given vancomycin and Zosyn.? Admitted to the hospital for further management hospital course: Patient was admitted for type 1 diabetes complicated by diabetic foot ulcer and acute osteomyelitis of the 3rd toe. She was initially treated vancomycin Zosyn. She was seen by vascular who performed noninvasive testing which revealed adequate blood flow. Vascular then performed amputation of the 3rd toe. Patient was seen by infectious disease recommended 2 more weeks of Augmen tin and doxycycline. Patient will continue with local wound care and follow-up with vascular in 2 weeks. She was noted to have mild acute kidney injury on CKD 2-3 which resolved. For opiate dependence she reports 4 years of sobriety and was continued on methadone. For hypertension she was continue amlodipine. Patient is doing well postop and will be discharged home. Time Spent with Patient Time attestation: Total time spent providing and/or coordinating discharge services: Discharge coordination time: Greater than 30 minutes Quality: Safe Use of Opioids Does Pt have an Active Cancer Diagnosis on the Problem List?: No Quality: Stroke Does the patient have a stroke diagnosis?: No Physical Exam Vital Signs: Vital Signs: Last Vital Signs Temp 97.0 F 09/17/21 11:03 Pulse 67 09/17/21 11:03 Resp 18 09/17/21 11:03 BP 134/97 H 09/17/21 11:03 Pulse Ox 96 09/17/21 11:03 BMI result Body Mass Index 37.7 General: AO X 3, no acute distress Resp: CTA bilateral, no accessory muscles used CVS: S1,S2,RRR GI: soft, non tender, non distended Neuro: motor grossly intact, alert Psych: appropriate affect, appropriate insight left 3rd toe amputation site ( appears to be healing well) DS: Data Data Completed and Pending Pending studies at discharge: Pending at discharge 09/16/21 12:30 Surgical [PTH] Routine Labs on day of discharge: Laboratory Results - last 24 hr 09/16/21 09/16/21 09/16/21 15:13 15:59 16:42 WBC RBC Hgb Hct MCV MCH MCHC RDW Plt Count MPV Absolute Nucleated RBC Nucleated RBC % (auto) Sodium Potassium Chloride Carbon Dioxide Anion Gap BUN Creatinine Estim Creat Clear Calc Estimated GFR POC Glucose 64 68 208 H Fasting Glucose Calcium 09/16/21 09/17/21 09/17/21 19:10 06:12 06:12 WBC 6.2 RBC 3.46 L Hgb 9.4 L Hct 29.9 L MCV 86.4 MCH 27.2 MCHC 31.4 RDW 13.3 Plt Count 281 MPV 9.9 Absolute Nucleated RBC 0.000 Nucleated RBC % (auto) 0.0 Sodium 142 Potassium 4.1 Chloride 107 Carbon Dioxide 26 Anion Gap 13 BUN 18 H Creatinine 1.16 Estim Creat Clear Calc 86.4 Estimated GFR 52 POC Glucose 252 H Fasting Glucose 89 Calcium 9.1 09/17/21 09/17/21 07:16 11:01 WBC RBC Hgb Hct MCV MCH MCHC RDW Plt Count MPV Absolute Nucleated RBC Nucleated RBC % (auto) Sodium Potassium Chloride Carbon Dioxide Anion Gap BUN Creatinine Estim Creat Clear Calc Estimated GFR POC Glucose 73 181 H Fasting Glucose Calcium Preliminary micro results at discharge 09/14/21 21:51 Blood Culture - Preliminary Blood - Venous No growth after 48 hours. 09/14/21 20:49 Blood Culture - Preliminary Blood - Venous No growth after 48 hours. Discharge Plan Discharge Patient Disposition: Home Health Service Discharge Diagnosis: OM Referrals: Physician,Unknown J [Primary Care Provider] - 1 Week Discharge Medications: New amoxicillin-pot clavulanate 875-125 mg tablet 1 tab PO Q12H Qty: 28 0RF doxycycline hyclate 100 mg capsule 100 mg PO BID Qty: 28 0RF Continued sennosides [Senna Laxative] 8.6 mg tablet 1 tab PO DAILY 0RF meloxicam 7.5 mg tablet 1 tab PO DAILY 0RF bupropion HCl 100 mg tablet 1 tab PO BID 0RF gabapentin 800 mg tablet 1 tab PO TID 0RF docusate sodium 100 mg capsule 1 cap PO BID 0RF haloperidol 2 mg tablet 1 tab PO BID 0RF lisinopril 2.5 mg tablet 1 tab PO DAILY 0RF cholecalciferol (vitamin D3) 25 mcg (1,000 unit) tablet 1 tab PO DAILY 0RF methadone 10 mg/mL Concentrate 27 mg PO DAILY 0RF Tresiba FlexTouch U-100 100 unit/mL (3 mL) insulin pen 35 unit subcut QPM 0RF Tresiba FlexTouch U-100 100 unit/mL (3 mL) insulin pen 80 unit subcut DAILY 0RF (DME) Ketostix Strip See Rx Instructions .ROUTE .MEDSUPPLY Qty: 50 12RF Rx Instructions: As directed (DME) FreeStyle Lite Strips Strip See Rx Instructions .ROUTE .MEDSUPPLY Qty: 250 3RF Rx Instructions: As directed seven times a day prazosin 5 mg capsule 5 mg PO BEDTIME 0RF escitalopram oxalate 20 mg tablet 20 mg PO DAILY 0RF trazodone 100 mg tablet 100 mg PO BEDTIME 0RF omeprazole 20 mg capsule,delayed release(DR/EC) 20 mg PO DAILY 0RF (DME) pen needle, diabetic [BD Ultra-Fine Yvonne Pen Needle] 32 gauge x 5/32 needle See Rx Instructions .ROUTE .MEDSUPPLY Qty: 150 3RF Rx Instructions: As directed five times a day (DME) blood-glucose meter [FreeStyle Lite Meter] Kit See Rx Instructions .ROUTE .MEDSUPPLY Qty: 1 0RF Rx Instructions: As directed insulin lispro [Humalog KwikPen Insulin] 100 unit/mL insulin pen See Rx Instructions subcut QID Qty: 30 1RF Rx Instructions: Not sure what her sliding scale is Discharge Orders: Discharge Order (Routine); Ordered 09/17/21 Ordered By: Wing Mendieta Diet: diabetic diet Activity on Discharge: As tolerated Stand Alone Forms: Patient Portal Discharge page Activity Restrictions/Additional Instructions: Wound care upon discharge: xeroform, 4x4 and Kerlix wrap to be changed daily. Please call Dr. De Luna at [phone] for 2 week follow up for suture and staple removal Care Plan Goals: recovery Health Concerns: om Plan of Treatment: 2 weeks augmentin and doxy, follow up vascular Assessment: see above
[2021-09-17] MEDS: Insulin Lispro 100 UNIT/ML 3 ML VIAL SUBCUT (11:50)
[2021-09-17] MEDS: Insulin Glargine,Hum.rec.anlog 100 UNIT/ML 10 ML VIAL 56 UNIT SUBCUT (11:51)
--- NOTE | 2021-09-17 14:36 | MHC.CM.PN ---
nurse case management not (Wound care upon discharge: xeroform, 4x4 and Kerlix wrap to be changed daily.) pt to call Dr. De Luna at [phone] for 2 week follow up for suture and staple removal) discharged home today with new referral to [facility] for nursing for wound assessment and daily dressing changes and to teach patient ( pcp dr gregory
== END 2021-09-17 14:51 | disposition home health service (06) | DRG 314 ==
LOC: HO.ED 20:40 → HO.EDOVER 23:19 → HO.S3 09-15 13:15
PROVIDERS: Nurse Practitioner Family; Surgery Vascular Surgery; Admitting Provider Hospitalist; Emergency Provider Emergency Medicine Emergency Medical Services; PCP Nurse Practitioner Family; Visit Provider Internal Medicine
PROC: 0Y6U0Z0 Detachment at Left 3rd Toe, Complete, Open Approach (ICD-10-PCS; principal; 2021-09-16 10:30)
DX: E10.621 Type 1 diabetes mellitus with foot ulcer (principal); E10.42 Type 1 diabetes mellitus with diabetic polyneuropathy; N17.9 Acute kidney failure, unspecified; E10.22 Type 1 diabetes mellitus with diabetic chronic kidney disease; E10.69 Type 1 diabetes mellitus with other specified complication; M86.9 Osteomyelitis, unspecified; F11.20 Opioid dependence, uncomplicated; I12.9 Hypertensive chronic kidney disease with stage 1 through stage 4 chronic kidney disease, or unspecified chronic kidney disease; N18.30 Chronic kidney disease, stage 3 unspecified; F43.10 Post-traumatic stress disorder, unspecified; Z20.822 Contact with and (suspected) exposure to COVID-19; Z98.51 Tubal ligation status; L97.529 Non-pressure chronic ulcer of other part of left foot with unspecified severity; Z87.891 Personal history of nicotine dependence; Z79.4 Long term (current) use of insulin; Z79.1 Long term (current) use of non-steroidal anti-inflammatories (NSAID); Z79.899 Other long term (current) drug therapy
CPT/HCPCS: 36415; 73620; 73720; 80048; 80076; 81001; 81003; 82140; 82550; 82947; 83605; 83690; 83735; 84484; 85025; 85027; 85610; 85652; 85730; 86140; 87040; 87635; 88305; 88311; 93005; 93925; 96361; 96365; 96375; 99285; A9585; J1650; J2250; J2543; J3010; J3370

== ENCOUNTER → 2021-09-23 14:58 | Outpatient (BNVA) | payer MEDICAID, SELFPAY | PROVIDERS: PCP Nurse Practitioner Family; Visit Provider Surgery Vascular Surgery | DX: Z47.81 Encounter for orthopedic aftercare following surgical amputation (principal); Z48.02 Encounter for removal of sutures; E10.9 Type 1 diabetes mellitus without complications; Z89.422 Acquired absence of other left toe(s) | CPT/HCPCS: 99212 ==

== ENCOUNTER → 2021-10-05 14:49 | Outpatient (BNVA) | payer MEDICAID, SELFPAY | PROVIDERS: PCP Nurse Practitioner Family; Visit Provider Surgery Vascular Surgery | DX: E10.621 Type 1 diabetes mellitus with foot ulcer (principal); L97.509 Non-pressure chronic ulcer of other part of unspecified foot with unspecified severity | CPT/HCPCS: 99212 ==

== ENCOUNTER 2021-10-07 14:05 | Outpatient (RCR) | payer MEDICAID, SELFPAY | END 2022-05-24 12:00 | disposition home or self-care (01) | LOC: HO.WCC 14:05 | PROVIDERS: PCP Nurse Practitioner Family; Visit Provider Surgery | DX: Z09 Encounter for follow-up examination after completed treatment for conditions other than malignant neoplasm (principal); E11.51 Type 2 diabetes mellitus with diabetic peripheral angiopathy without gangrene; E11.40 Type 2 diabetes mellitus with diabetic neuropathy, unspecified; L84 Corns and callosities; Z87.891 Personal history of nicotine dependence; Z86.19 Personal history of other infectious and parasitic diseases; Z89.422 Acquired absence of other left toe(s); Z86.31 Personal history of diabetic foot ulcer | CPT/HCPCS: 11042; 99212 ==

== ENCOUNTER → 2021-11-09 14:28 | Outpatient (BNVA) | payer MEDICAID, SELFPAY | PROVIDERS: PCP Nurse Practitioner Family; Visit Provider Surgery Vascular Surgery | DX: I73.9 Peripheral vascular disease, unspecified (principal) | CPT/HCPCS: 99212 ==

== ENCOUNTER 2022-04-21 18:14 | Inpatient (IN) | payer MEDICAID, SELFPAY ==
--- NOTE | ~2022-04-21 | XR_ITS ---
EXAMINATION: XR FOOT, LEFT CLINICAL INFORMATION: Open draining wound. COMPARISON: MR left foot 09/15/2021. Radiograph of the left foot 09/14/2021. TECHNIQUE: AP, lateral, and oblique views of the left foot. FINDINGS: Again noted postsurgical changes from amputation of the fourth phalanges with new amputation of the third phalanges. There are increased lucent changes with cortical disruption along the medial surface of the second DIP joint. Overall similar destructive changes along the first MTP joint and tuft of the second toe. New subcutaneous air projecting over the head of the third and fourth metatarsals. Again noted significant diffuse soft tissue swelling. XR/XR foot LT min 3V IMPRESSION: 1. Increased lucent changes along the medial surface of the second DIP joint, concerning for osteomyelitis. 2. New subcutaneous air over the head of the third and fourth metatarsals. 3. Similar destructive changes along the first MTP joint and tuft of the second toe.
--- NOTE | ~2022-04-21 | US_ITS ---
EXAMINATION: US VENOUS ULTRASOUND WITH DOPPLER LOWER EXTREMITY, LEFT CLINICAL INFORMATION: Left lower extremity swelling COMPARISON: None TECHNIQUE: Ultrasound of the deep veins is performed from the hip to the calf with compression sonography and color and pulse Doppler assessment. Spectral analysis with color-flow imaging is performed. FINDINGS: There is normal venous compression and respiratory variation and augmented flow. The visualized common femoral vein, superficial femoral vein, profunda femoral vein, popliteal vein, and the trifurcation region shows no evidence of deep venous thrombosis. There is no significant popliteal fossa cyst. Prominent left inguinal lymph nodes, largest 4.7 x 1.4 x 1.5 cm in size, nonspecific and presumably reactive. If the patient's symptoms persist, followup ultrasound in 5 days 7 days might be of value to exclude proximal propagation from a non-visualized calf vein. US/US venous duplex LE IMPRESSION: 1. No DVT demonstrated in the left lower extremity. 2. Prominent nonspecific left inguinal lymph nodes, presumably reactive.
[2022-04-21 18:20] VITALS: BP 163/66; PULSE 78; RESP 18; TEMP 36.7; O2SAT 100; BMI 34.9
--- NOTE | 2022-04-21 18:29 | ED_ITS ---
HPI - Extremity Injury (Lower) General Chief Complaint: Extremity Injury, Lower <CASTRO Urrutia - Last Filed: 04/21/22 18:35> Stated Complaint: left foot ulcers <CASTRO Urrutia - Last Filed: 04/21/22 18:35> Time Seen by Provider: 04/21/22 22:06 <CASTRO Urrutia - Last Filed: 04/21/22 18:35> Source: patient <Adán Gramajo MD - Last Filed: 04/22/22 03:02> Mode of arrival: ambulatory <Adán Gramajo MD - Last Filed: 04/22/22 03:02> Limitations: no limitations <Adán Gramajo MD - Last Filed: 04/22/22 03:02> History of Present Illness HPI Narrative: Patient diabetic with diabetic neuropathy, anxiety bipolar disorder with chronic nonhealing wound of left foot at base of 2nd toe on the lateral aspect for several months off and on had osteomyelitis 09/24 treated with antibiotics history of prior osteomyelitis with amputation of 3rd and 4th toe comes here as she noticed fall swelling discharge from the wound for last few days sent by wound care nurse to the hospital patient taking her insulin on a regular basis but unable to check glucose levels because machine is malfunctioning. No fever no chills feels tired and weak patient had a labs done prior to my evaluation which showed WBC count of 10.4 with bandemia ESR Of 116 lactic acid 2.5 and blood glucose of 433 x-ray of the foot showed significant bony erosion of 2nd DIP and 1st MTP joint suggestive of osteomyelitis also noticed to have subcutaneous air over the head of the 3rd and 4th metatarsal patient had foul- smelling pus discharge from the open wound at the sole <Adán Gramajo MD - Last Filed: 04/22/22 03:02> Related Data Home Medications: Home Medications Medication Instructions Recorded Confirmed escitalopram oxalate 20 mg tablet 20 mg PO DAILY 03/25/20 09/14/21 omeprazole 20 mg capsule,delayed 20 mg PO DAILY 03/25/20 09/14/21 release prazosin 5 mg capsule 5 mg PO BEDTIME 03/25/20 09/14/21 trazodone 100 mg tablet 100 mg PO BEDTIME 03/25/20 09/14/21 bupropion HCl 100 mg tablet 1 tab PO BID 09/14/21 09/14/21 cholecalciferol (vitamin D3) 25 1 tab PO DAILY 09/14/21 09/14/21 mcg (1,000 unit) tablet docusate sodium 100 mg capsule 1 cap PO BID 09/14/21 09/14/21 gabapentin 800 mg tablet 1 tab PO TID 09/14/21 09/14/21 haloperidol 2 mg tablet 1 tab PO BID 09/14/21 09/14/21 insulin degludec 100 unit/mL (3 35 unit subcut QPM 09/14/21 09/14/21 mL) subcutaneous pen (Tresiba FlexTouch U-100 insulin) insulin degludec 100 unit/mL (3 80 unit subcut DAILY 09/14/21 09/14/21 mL) subcutaneous pen (Tresiba FlexTouch U-100 insulin) lisinopril 2.5 mg tablet 1 tab PO DAILY 09/14/21 09/14/21 meloxicam 7.5 mg tablet 1 tab PO DAILY 09/14/21 09/14/21 methadone 10 mg/mL oral concentrate 27 mg PO DAILY 09/14/21 09/14/21 sennosides 8.6 mg tablet (Senna 1 tab PO DAILY 09/14/21 09/14/21 Laxative) Previous Rx's Medication Instructions Recorded blood-glucose meter (FreeStyle #1 ea 03/25/20 Lite Meter kit) pen needle, diabetic 32 gauge x #150 ea 03/25/2032 (BD Ultra-Fine Yvonne Pen Needle) acetone (urine) test (Ketostix #50 ea 04/13/20 strips) blood sugar diagnostic (FreeStyle #250 ea 04/13/20 Lite Strips) insulin lispro 100 unit/mL See Rx Instructions subcut QID #30 05/13/20 subcutaneous pen (Humalog KwikPen mL (U-100) Insulin) amoxicillin 875 mg-potassium 1 tab PO Q12H #28 tabs 09/17/21 clavulanate 125 mg tablet doxycycline hyclate 100 mg capsule 100 mg PO BID #28 caps 09/17/21 <CASTRO Urrutia - Last Filed: 04/21/22 18:35> Allergies/Adverse Reactions: Allergies Allergy/AdvReac Type Severity Reaction Status Date / Time adhesive tape [ADHESIVE TAPE] Allergy Mild RASH Verified 11/09/21 14:38 <CASTRO Urrutia - Last Filed: 04/21/22 18:35> Review of Systems Review of Systems: Yes all other systems are reviewed and are negative <Adán Gramajo MD - Last Filed: 04/22/22 03:02> [facility] [place] Past Medical History Medical History: Medical History (Updated 04/21/22 @ 23:40 by Barbara Shore MD) Anxiety and depression Borderline personality disorder Methadone maintenance therapy patient Neuropathy PTSD (post-traumatic stress disorder) 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 Type 1 diabetes mellitus with hyperglycemia <CASTRO Urrutia - Last Filed: 04/21/22 18:35> Surgical History: Surgical History Hx of section Hx of tubal ligation <CASTRO Urrutia - Last Filed: 04/21/22 18:35> Family History Family History: Family History Father Diabetes mellitus Mother Diabetes mellitus Maternal Grandmother Diabetes mellitus Paternal Uncle Diabetes mellitus Paternal Aunt Diabetes mellitus CVD (cardiovascular disease) Maternal Uncle Diabetes mellitus Maternal Aunt CVD (cardiovascular disease) <CASTRO Urrutia - Last Filed: 04/21/22 18:35> Social History Social History: Social History Household Members: Children Household Members Other:: Housing: Apartment Housing Other:: [facility] Do you presently have visiting nurse or other home services: Yes Alcohol intake: former Patient Tobacco Use Status: Former Tobacco user Quit Date: 1 month ago Smoked in Last 30 Days: No Second Hand Smoke Exposure: No Advance Directives: No Advance Directives Information Provided: No Patient : No service: No Current occupational status: disabled <CASTRO Urrutia - Last Filed: 04/21/22 18:35> Physical Exam Vital Signs: Vital Signs: Last Vital Signs Temp 98.2 F 04/22/22 01:43 Pulse 58 04/22/22 01:43 Resp 12 04/22/22 01:43 BP 146/78 H 04/22/22 01:43 Pulse Ox 97 04/22/22 01:43 O2 Del Method 04/22/22 01:43 BMI result Body Mass Index 34.9 <CASTRO Urrutia - Last Filed: 04/21/22 18:35> Vital Signs: Last Vital Signs Temp 98.2 F 04/22/22 01:43 Pulse 58 04/22/22 01:43 Resp 12 04/22/22 01:43 BP 146/78 H 04/22/22 01:43 Pulse Ox 97 04/22/22 01:43 O2 Del Method 04/22/22 01:43 BMI result Body Mass Index 34.9 <Adán Gramajo MD - Last Filed: 04/22/22 03:02> Appearance: Alert. Oriented X3. No acute distress. Eyes: PERRLA, pallor+ ENT: Pharynx normal. Oral Mucosa moist Neck: Normal inspection. Neck supple. CVS: Normal heart rate and rhythm. Pulses normal. Respiratory: No respiratory distress. Equal air entry bilateral, no wheezing/rales/rhonchi Abdomen: Soft and nontender. Bowel sounds are present, no mass palpable, no CVA tenderness Skin: Skin warm and dry. Normal skin color. Normal skin turgor. Extremities: No lower extremity edema. No calf tenderness fall swelling wound at the sole of left foot picture attached Neuro: Oriented X 3. No motor deficit. Decreased sensation to touch and pinprick to lower extremities.No cerebellar signs , cranial nerves II-XII intact <Adán Gramajo MD - Last Filed: 04/22/22 03:02> Extrem: Other: <Adán Gramajo MD - Last Filed: 04/22/22 03:02> Course Course Course Narrative: RME--36-year-old female with a medical history anxiety, depression, PTSD, diabetes, presenting complaining of open draining ulcers to left foot x3 days. Denies fever/chills. Malodorous drainage ulcers noted to left foot with +LLE pitting edema. Concern for osteo and cellulitis vs DVT Labs, x-ray, lactic/blood cultures, Duplex US, wound cx, IV Zosyn and vancomycin ordered in triage <CASTRO Urrutia - Last Filed: 04/21/22 18:35> Medications Administered Generic Name Dose Route Start Last Admin Trade Name Frenik PRN Reason Stop Dose Admin Insulin Glargine 20 unit 04/21/22 23:45 04/22/22 00:13 Insulin Glargine,Hum.Rec.Anlog 100 Unit/Ml 10 Ml Vial SUBCUT 20 unit BEDTIME RIAZ Administration Sodium Chloride 3 ml 04/22/22 00:00 04/22/22 00:14 0.9 % Sodium Chloride Flush 3 Ml Syringe IVFLUSH Not Given QSHIFT RIAZ Discontinued Medications Generic Name Dose Route Start Last Admin Trade Name Freq PRN Reason Stop Dose Admin Sodium Chloride 1,000 mls @ 999 mls/hr 04/21/22 18:30 04/22/22 01:34 Ns IV 04/21/22 19:30 Infused .Q1H1M RIAZ Infusion Piperacillin Sod/Tazobactam 100 mls @ 200 mls/hr 04/21/22 18:29 04/21/22 23:26 Sod 4.5 gm/ Sodium Chloride IV 04/21/22 18:58 Infused ONCE ONE Infusion Vancomycin HCl 2,000 mg in 520 mls @ 260 mls/hr 04/21/22 18:29 04/22/22 01:34 Vancomycin/Ns IV 04/21/22 20:28 Infused ONCE ONE Infusion Sodium Chloride 1,000 mls @ 999 mls/hr 04/21/22 22:16 04/22/22 00:09 Ns IV 04/21/22 23:16 Infused .Q1H1M ONE Infusion Sodium Chloride 1,000 mls @ 999 mls/hr 04/21/22 22:17 04/22/22 00:09 Ns IV 04/21/22 23:17 Infused .Q1H1M ONE Infusion <CASTRO Urrutia - Last Filed: 04/21/22 18:35> Medications Administered Generic Name Dose Route Start Last Admin Trade Name Frenik PRN Reason Stop Dose Admin Insulin Glargine 20 unit 04/21/22 23:45 04/22/22 00:13 Insulin Glargine,Hum.Rec.Anlog 100 Unit/Ml 10 Ml Vial SUBCUT 20 unit BEDTIME RIAZ Administration Sodium Chloride 3 ml 04/22/22 00:00 04/22/22 00:14 0.9 % Sodium Chloride Flush 3 Ml Syringe IVFLUSH Not Given QSHIFT RIAZ Discontinued Medications Generic Name Dose Route Start Last Admin Trade Name Alba PRN Reason Stop Dose Admin Sodium Chloride 1,000 mls @ 999 mls/hr 04/21/22 18:30 04/22/22 01:34 Ns IV 04/21/22 19:30 Infused .Q1H1M RIAZ Infusion Piperacillin Sod/Tazobactam 100 mls @ 200 mls/hr 04/21/22 18:29 04/21/22 23:26 Sod 4.5 gm/ Sodium Chloride IV 04/21/22 18:58 Infused ONCE ONE Infusion Vancomycin HCl 2,000 mg in 520 mls @ 260 mls/hr 04/21/22 18:29 04/22/22 01:34 Vancomycin/Ns IV 04/21/22 20:28 Infused ONCE ONE Infusion Sodium Chloride 1,000 mls @ 999 mls/hr 04/21/22 22:16 04/22/22 00:09 Ns IV 04/21/22 23:16 Infused .Q1H1M ONE Infusion Sodium Chloride 1,000 mls @ 999 mls/hr 04/21/22 22:17 04/22/22 00:09 Ns IV 04/21/22 23:17 Infused .Q1H1M ONE Infusion <Adán Gramajo MD - Last Filed: 04/22/22 03:02> MDM - Extremity Injury (Lower) MDM Narrative Medical decision making narrative: Patient diabetic foot with osteomyelitis will start on vancomycin and IV Zosyn plan for admission possible amputation <Adán Gramajo MD - Last Filed: 04/22/22 03:02> Lab Data Attestation: I reviewed the patient's lab results. <Adán Gramajo MD - Last Filed: 04/22/22 03:02> Result diagrams: : 04/21/22 18:44 04/21/22 18:44 <CASTRO Urrutia - Last Filed: 04/21/22 18:35> Labs: Lab Results 04/21/22 04/21/22 04/21/22 Range/Units 18:43 18:44 18:44 WBC 10.4 (4.8-10.8) X10*3/uL RBC 3.21 L (4.20-5.50) X10*6/uL Hgb 8.4 L (12.0-16.0) g/dl Hct 26.9 L (37.0-47.0) % MCV 83.8 (80.0-98.0) fL MCH 26.2 L (27.0-33.0) pg MCHC 31.2 (31.0-35.0) g/dl RDW 14.3 (11.0-16.0) % Plt Count 278 (160-400) X10*3/uL MPV 10.5 (9.4-12.3) fL Immature Gran % (Auto) 1.0 H (0.0-0.4) % Neut % (Auto) 76.8 H (45-73) % Lymph % (Auto) 14.6 L (20-40) % Josephine % (Auto) 5.7 (2-11) % Eos % (Auto) 1.6 (0-4) % Baso % (Auto) 0.3 (0-2) % Lymph # (Auto) 1.5 (1.2-4.9) X10*3/uL Josephine # (Auto) 0.6 (0.1-1.2) X10*3/uL Eos # (Auto) 0.2 (0.0-0.4) X10*3/uL Baso # (Auto) 0.0 (0.0-0.2) X10*3/uL Abs Immat Gran (auto) 0.10 H (0.00-0.03) X10*3/uL Absolute Neuts (auto) 8.0 (2.0-8.3) x10*3/uL Absolute Nucleated RBC 0.000 (0.0-0.012) X10*3/uL Nucleated RBC % (auto) 0.0 (0.0-0.2) /100WBC ESR 116 H (0-20) MM/HR Sodium (135-145) mmol/L Potassium (3.3-5.1) mmol/L Chloride (96-108) mmol/L Carbon Dioxide (22-29) mmol/L Anion Gap (12-20) BUN (9-16) mg/dL Creatinine (0.5-1.4) mg/dL Estim Creat Clear Calc Estimated GFR POC Glucose (60-115) mg/dL Random Glucose (60-115) mg/dL Lactic Acid 2.5 H* (0.5-2.0) mmol/L Lactic Acid F/U @ 2Hr (0.5-2.0) mmol/L Calcium (8.4-10.2) mg/dL Total Bilirubin (0.0-1.0) mg/dL Direct Bilirubin (0.0-0.5) mg/dL AST (5-31) U/L ALT (0-31) U/L Alkaline Phosphatase (39-117) U/L C-Reactive Protein (< or = 0.50) mg/dL B-Natriuretic Peptide (<100) pg/mL Total Protein (6.5-8.0) g/dL Albumin (3.5-5.0) g/dL COVID-19 (WILLIAM) (Negative) COVID-19 Clin Com 04/21/22 04/21/22 04/21/22 Range/Units 18:44 18:44 18:44 WBC (4.8-10.8) X10*3/uL RBC (4.20-5.50) X10*6/uL Hgb (12.0-16.0) g/dl Hct (37.0-47.0) % MCV (80.0-98.0) fL MCH (27.0-33.0) pg MCHC (31.0-35.0) g/dl RDW (11.0-16.0) % Plt Count (160-400) X10*3/uL MPV (9.4-12.3) fL Immature Gran % (Auto) (0.0-0.4) % Neut % (Auto) (45-73) % Lymph % (Auto) (20-40) % Josephine % (Auto) (2-11) % Eos % (Auto) (0-4) % Baso % (Auto) (0-2) % Lymph # (Auto) (1.2-4.9) X10*3/uL Josephine # (Auto) (0.1-1.2) X10*3/uL Eos # (Auto) (0.0-0.4) X10*3/uL Baso # (Auto) (0.0-0.2) X10*3/uL Abs Immat Gran (auto) (0.00-0.03) X10*3/uL Absolute Neuts (auto) (2.0-8.3) x10*3/uL Absolute Nucleated RBC (0.0-0.012) X10*3/uL Nucleated RBC % (auto) (0.0-0.2) /100WBC ESR (0-20) MM/HR Sodium 131 L (135-145) mmol/L Potassium 4.3 (3.3-5.1) mmol/L Chloride 97 (96-108) mmol/L Carbon Dioxide 25 (22-29) mmol/L Anion Gap 13 (12-20) BUN 14 (9-16) mg/dL Creatinine 1.34 (0.5-1.4) mg/dL Estim Creat Clear Calc 71.9 Estimated GFR 44 POC Glucose (60-115) mg/dL Random Glucose 433 H* (60-115) mg/dL Lactic Acid (0.5-2.0) mmol/L Lactic Acid F/U @ 2Hr (0.5-2.0) mmol/L Calcium 8.3 L D (8.4-10.2) mg/dL Total Bilirubin 0.2 (0.0-1.0) mg/dL Direct Bilirubin < 0.2 (0.0-0.5) mg/dL AST 9 (5-31) U/L ALT 9 (0-31) U/L Alkaline Phosphatase 70 (39-117) U/L C-Reactive Protein 9.10 H (< or = 0.50) mg/dL B-Natriuretic Peptide 117 H (<100) pg/mL Total Protein 7.3 (6.5-8.0) g/dL Albumin 2.9 L (3.5-5.0) g/dL COVID-19 (WILLIAM) Negative (Negative) COVID-19 Clin Com See Note 04/21/22 04/21/22 Range/Units 22:17 22:57 WBC (4.8-10.8) X10*3/uL RBC (4.20-5.50) X10*6/uL Hgb (12.0-16.0) g/dl Hct (37.0-47.0) % MCV (80.0-98.0) fL MCH (27.0-33.0) pg MCHC (31.0-35.0) g/dl RDW (11.0-16.0) % Plt Count (160-400) X10*3/uL MPV (9.4-12.3) fL Immature Gran % (Auto) (0.0-0.4) % Neut % (Auto) (45-73) % Lymph % (Auto) (20-40) % Josephine % (Auto) (2-11) % Eos % (Auto) (0-4) % Baso % (Auto) (0-2) % Lymph # (Auto) (1.2-4.9) X10*3/uL Josephine # (Auto) (0.1-1.2) X10*3/uL Eos # (Auto) (0.0-0.4) X10*3/uL Baso # (Auto) (0.0-0.2) X10*3/uL Abs Immat Gran (auto) (0.00-0.03) X10*3/uL Absolute Neuts (auto) (2.0-8.3) x10*3/uL Absolute Nucleated RBC (0.0-0.012) X10*3/uL Nucleated RBC % (auto) (0.0-0.2) /100WBC ESR (0-20) MM/HR Sodium (135-145) mmol/L Potassium (3.3-5.1) mmol/L Chloride (96-108) mmol/L Carbon Dioxide (22-29) mmol/L Anion Gap (12-20) BUN (9-16) mg/dL Creatinine (0.5-1.4) mg/dL Estim Creat Clear Calc Estimated GFR POC Glucose 259 H (60-115) mg/dL Random Glucose (60-115) mg/dL Lactic Acid (0.5-2.0) mmol/L Lactic Acid F/U @ 2Hr 1.8 (0.5-2.0) mmol/L Calcium (8.4-10.2) mg/dL Total Bilirubin (0.0-1.0) mg/dL Direct Bilirubin (0.0-0.5) mg/dL AST (5-31) U/L ALT (0-31) U/L Alkaline Phosphatase (39-117) U/L C-Reactive Protein (< or = 0.50) mg/dL B-Natriuretic Peptide (<100) pg/mL Total Protein (6.5-8.0) g/dL Albumin (3.5-5.0) g/dL COVID-19 (WILLIAM) (Negative) COVID-19 Clin Com <CASTRO Urrutia - Last Filed: 04/21/22 18:35> Lab Results 04/21/22 04/21/22 04/21/22 Range/Units 18:43 18:44 18:44 WBC 10.4 (4.8-10.8) X10*3/uL RBC 3.21 L (4.20-5.50) X10*6/uL Hgb 8.4 L (12.0-16.0) g/dl Hct 26.9 L (37.0-47.0) % MCV 83.8 (80.0-98.0) fL MCH 26.2 L (27.0-33.0) pg MCHC 31.2 (31.0-35.0) g/dl RDW 14.3 (11.0-16.0) % Plt Count 278 (160-400) X10*3/uL MPV 10.5 (9.4-12.3) fL Immature Gran % (Auto) 1.0 H (0.0-0.4) % Neut % (Auto) 76.8 H (45-73) % Lymph % (Auto) 14.6 L (20-40) % Josephine % (Auto) 5.7 (2-11) % Eos % (Auto) 1.6 (0-4) % Baso % (Auto) 0.3 (0-2) % Lymph # (Auto) 1.5 (1.2-4.9) X10*3/uL Josephine # (Auto) 0.6 (0.1-1.2) X10*3/uL Eos # (Auto) 0.2 (0.0-0.4) X10*3/uL Baso # (Auto) 0.0 (0.0-0.2) X10*3/uL Abs Immat Gran (auto) 0.10 H (0.00-0.03) X10*3/uL Absolute Neuts (auto) 8.0 (2.0-8.3) x10*3/uL Absolute Nucleated RBC 0.000 (0.0-0.012) X10*3/uL Nucleated RBC % (auto) 0.0 (0.0-0.2) /100WBC ESR 116 H (0-20) MM/HR Sodium (135-145) mmol/L Potassium (3.3-5.1) mmol/L Chloride (96-108) mmol/L Carbon Dioxide (22-29) mmol/L Anion Gap (12-20) BUN (9-16) mg/dL Creatinine (0.5-1.4) mg/dL Estim Creat Clear Calc Estimated GFR POC Glucose (60-115) mg/dL Random Glucose (60-115) mg/dL Lactic Acid 2.5 H* (0.5-2.0) mmol/L Lactic Acid F/U @ 2Hr (0.5-2.0) mmol/L Calcium (8.4-10.2) mg/dL Total Bilirubin (0.0-1.0) mg/dL Direct Bilirubin (0.0-0.5) mg/dL AST (5-31) U/L ALT (0-31) U/L Alkaline Phosphatase (39-117) U/L C-Reactive Protein (< or = 0.50) mg/dL B-Natriuretic Peptide (<100) pg/mL Total Protein (6.5-8.0) g/dL Albumin (3.5-5.0) g/dL COVID-19 (WILLIAM) (Negative) COVID-19 Clin Com 04/21/22 04/21/22 04/21/22 Range/Units 18:44 18:44 18:44 WBC (4.8-10.8) X10*3/uL RBC (4.20-5.50) X10*6/uL Hgb (12.0-16.0) g/dl Hct (37.0-47.0) % MCV (80.0-98.0) fL MCH (27.0-33.0) pg MCHC (31.0-35.0) g/dl RDW (11.0-16.0) % Plt Count (160-400) X10*3/uL MPV (9.4-12.3) fL Immature Gran % (Auto) (0.0-0.4) % Neut % (Auto) (45-73) % Lymph % (Auto) (20-40) % Josephine % (Auto) (2-11) % Eos % (Auto) (0-4) % Baso % (Auto) (0-2) % Lymph # (Auto) (1.2-4.9) X10*3/uL Josephine # (Auto) (0.1-1.2) X10*3/uL Eos # (Auto) (0.0-0.4) X10*3/uL Baso # (Auto) (0.0-0.2) X10*3/uL Abs Immat Gran (auto) (0.00-0.03) X10*3/uL Absolute Neuts (auto) (2.0-8.3) x10*3/uL Absolute Nucleated RBC (0.0-0.012) X10*3/uL Nucleated RBC % (auto) (0.0-0.2) /100WBC ESR (0-20) MM/HR Sodium 131 L (135-145) mmol/L Potassium 4.3 (3.3-5.1) mmol/L Chloride 97 (96-108) mmol/L Carbon Dioxide 25 (22-29) mmol/L Anion Gap 13 (12-20) BUN 14 (9-16) mg/dL Creatinine 1.34 (0.5-1.4) mg/dL Estim Creat Clear Calc 71.9 Estimated GFR 44 POC Glucose (60-115) mg/dL Random Glucose 433 H* (60-115) mg/dL Lactic Acid (0.5-2.0) mmol/L Lactic Acid F/U @ 2Hr (0.5-2.0) mmol/L Calcium 8.3 L D (8.4-10.2) mg/dL Total Bilirubin 0.2 (0.0-1.0) mg/dL Direct Bilirubin < 0.2 (0.0-0.5) mg/dL AST 9 (5-31) U/L ALT 9 (0-31) U/L Alkaline Phosphatase 70 (39-117) U/L C-Reactive Protein 9.10 H (< or = 0.50) mg/dL B-Natriuretic Peptide 117 H (<100) pg/mL Total Protein 7.3 (6.5-8.0) g/dL Albumin 2.9 L (3.5-5.0) g/dL COVID-19 (WILLIAM) Negative (Negative) COVID-19 Clin Com See Note 04/21/22 04/21/22 Range/Units 22:17 22:57 WBC (4.8-10.8) X10*3/uL RBC (4.20-5.50) X10*6/uL Hgb (12.0-16.0) g/dl Hct (37.0-47.0) % MCV (80.0-98.0) fL MCH (27.0-33.0) pg MCHC (31.0-35.0) g/dl RDW (11.0-16.0) % Plt Count (160-400) X10*3/uL MPV (9.4-12.3) fL Immature Gran % (Auto) (0.0-0.4) % Neut % (Auto) (45-73) % Lymph % (Auto) (20-40) % Josephine % (Auto) (2-11) % Eos % (Auto) (0-4) % Baso % (Auto) (0-2) % Lymph # (Auto) (1.2-4.9) X10*3/uL Josephine # (Auto) (0.1-1.2) X10*3/uL Eos # (Auto) (0.0-0.4) X10*3/uL Baso # (Auto) (0.0-0.2) X10*3/uL Abs Immat Gran (auto) (0.00-0.03) X10*3/uL Absolute Neuts (auto) (2.0-8.3) x10*3/uL Absolute Nucleated RBC (0.0-0.012) X10*3/uL Nucleated RBC % (auto) (0.0-0.2) /100WBC ESR (0-20) MM/HR Sodium (135-145) mmol/L Potassium (3.3-5.1) mmol/L Chloride (96-108) mmol/L Carbon Dioxide (22-29) mmol/L Anion Gap (12-20) BUN (9-16) mg/dL Creatinine (0.5-1.4) mg/dL Estim Creat Clear Calc Estimated GFR POC Glucose 259 H (60-115) mg/dL Random Glucose (60-115) mg/dL Lactic Acid (0.5-2.0) mmol/L Lactic Acid F/U @ 2Hr 1.8 (0.5-2.0) mmol/L Calcium (8.4-10.2) mg/dL Total Bilirubin (0.0-1.0) mg/dL Direct Bilirubin (0.0-0.5) mg/dL AST (5-31) U/L ALT (0-31) U/L Alkaline Phosphatase (39-117) U/L C-Reactive Protein (< or = 0.50) mg/dL B-Natriuretic Peptide (<100) pg/mL Total Protein (6.5-8.0) g/dL Albumin (3.5-5.0) g/dL COVID-19 ([facility]) (Negative) COVID-19 Clin Com <Adán Gramajo MD - Last Filed: 04/22/22 03:02> Discharge Plan Discharge Clinical Impression: Diabetic foot ulcer associated with type 1 diabetes mellitus, Osteomyelitis <CASTRO Urrutia - Last Filed: 04/21/22 18:35> Patient Disposition: Admitted As Inpatient <CASTRO Urrutia - Last Filed: 04/21/22 18:35>
[2022-04-21 18:51] LABS: MANUAL DIFF FLAG NO
[2022-04-21 18:56] LABS: Basophils Percent Auto 0.3 % (0-2); Eosinophils Absolute Auto 0.2 X10*3/uL (0.0-0.4); Eosinophils Percent Auto 1.6 % (0-4); Hematocrit 26.9 % (37.0-47.0); Hemoglobin 8.4 g/dl (12.0-16.0); Lymphocytes Absolute Auto 1.5 X10*3/uL (1.2-4.9); Lymphocytes Percent Auto 14.6 % (20-40); Mean Corpuscular HGB Conc 31.2 g/dl (31.0-35.0); Mean Corpuscular Hemoglobin 26.2 pg (27.0-33.0); Mean Corpuscular Volume 83.8 fL (80.0-98.0); Mean Platelet Volume 10.5 fL (9.4-12.3); Monocytes Absolute Auto 0.6 X10*3/uL (0.1-1.2); Monocytes Percent Auto 5.7 % (2-11); Neutrophils Percent Auto 76.8 % (45-73); Platelet Count 278 X10*3/uL (160-400); Red Blood Count 3.21 X10*6/uL (4.20-5.50); Red Cell Distribution Width 14.3 % (11.0-16.0); White Blood Count 10.4 X10*3/uL (4.8-10.8)
[2022-04-21 19:10] LABS: COVID-19 Test Negative (Negative); IDNOW Serial# 55D5AD1C
[2022-04-21 19:12] LABS: B Type Natriuretic Peptide 117 pg/mL (<100)
[2022-04-21 19:15] LABS: Lactic Acid 2.5 mmol/L (0.5-2.0)
[2022-04-21 19:15] LABS: Alanine Aminotransferase 9 U/L (0-31); Albumin Level 2.9 g/dL (3.5-5.0); Alkaline Phosphatase 70 U/L (39-117); Anion Gap 13 (12-20); Aspartate Amino Transferase 9 U/L (5-31); Bilirubin Direct < 0.2 mg/dL (0.0-0.5); Bilirubin Total 0.2 mg/dL (0.0-1.0); Blood Urea Nitrogen 14 mg/dL (9-16); Calcium 8.3 mg/dL (8.4-10.2); Carbon Dioxide 25 mmol/L (22-29); Chloride 97 mmol/L (96-108); Creatinine Clr Calc Pharmacy 71.9; Estimated Glomerular Filt Rate 44; Glucose Random 433 mg/dL (60-115); Potassium 4.3 mmol/L (3.3-5.1); Sodium 131 mmol/L (135-145); Total Protein 7.3 g/dL (6.5-8.0)
[2022-04-21 19:43] LABS: Erythrocyte Sedimentation Rate 116 MM/HR (0-20)
[2022-04-21 20:49] LABS: Reflex Lactate? Lactic Acid Added
--- OUTSIDE RECORDS SUMMARY | 2022-04-21 21:30 | XMS_ITS | Continuity of Care Document ---
:1985 Author Organization [facility] Address [address] [place] [address]- Care Team Providers Name Role Phone Enrico STEVENS, Alexandra Primary Care Physician Encounter [facility] Date(s): 12/29/19 - 02/01/20 [facility] [address] [place] [address]- [facility] Attending Physician: Mariza Perez MD Allergies, Adverse Reactions, Alerts Substance Reaction Severity Status Adhesive Bandage Active Egg Allergy1 Active 1She said she had a minor irritation if she eats eggs by themselves but she can have algerian toast or egg prepared food products Medications Abilify 10 mg oral tablet 10 mg, 1, tablet, By Mouth, Daily at bedtime, # 30 tablet, Refills 0, Maintenance, 10/15/19 16:09:00EDT Start Date: 10/15/19 Status: Orderedacetaminophen 500 mg oral capsule 1 capsule = 500 mg, By Mouth, Every 8 hours, PRN Pain , Moderate, 0 Refills, Maintenance, 11/12/19 19:05:00 EDT Start Date: 11/12/19 Status: OrderedamLODIPine 5 mg oral tablet 5 mg, 1, tablet, By Mouth, Daily, # 30 tablet, Refills 0, Tot. Refills 0, Maintenance, 12/23/19 15:53:00 EDT, Print Requisition Start Date: 12/23/19 Status: OrderedBalanced B-50 Vitamin B Complex oral tablet 1 tablet, By Mouth, Daily, # 30 tablet, 0 Refills, Maintenance, 03/25/19 18:46:39 EDT, Tablet Start Date: 03/25/19 Status: OrderedbuPROPion 100 mg/12 hours (SR) oral tablet, extended release 1 tablet = 100 mg, By Mouth, 2 times a day, 0 Refills, Maintenance, 11/13/19 13:32:00 EDT, SR Tablet Start Date: 11/13/19 Status: OrderedcloNIDine 0.1 mg oral tablet 0.1 mg, 1, tablet, By Mouth, 2 times a day, Refills 0, Maintenance, 11/13/19 13:33:00 EDT Start Date: 11/13/19 Status: Ordereddocusate sodium = 100 mg, By Mouth, 2 times a day, 0 Refills, Maintenance, 03/25/19 18:45:34 EDT Start Date: 03/25/19 Status: Orderedescitalopram 20 mg oral tablet 1 tablet = 20 mg, By Mouth, Daily in AM, 0 Refills, Maintenance, 10/15/19 16:13:00 EDT, Tablet Start Date: 10/15/19 Status: Orderedgabapentin 300 mg oral capsule 600 mg, 2, capsule, By Mouth, Daily at bedtime, Refills 0, Maintenance, 11/13/19 13:33:00 EDT Start Date: 11/13/19 Status: Orderedgabapentin 300 mg oral capsule 300 mg, 1, capsule, By Mouth, 2 times a day, PRN, Refills 0, Maintenance, Pain , Moderate, 03/25/19 18:41:27 EDT Start Date: 03/25/19 Status: OrderedGlucagon 1 mg/0.2 mL subcutaneous solution 0.2 mL = 1 mg, Subcutaneous Injection, Once, 0 Refills, Maintenance, 12/17/19 15:18:00 EDT, Solution Start Date: 12/17/19 Status: OrderedHydrOXYzine = 25 mg, By Mouth, 3 times a day, PRN as needed for anxiety, 1-2 tabs = 25-50mg BID, 0 Refills, Maintenance, 03/25/19 18:50:11 EDT Start Date: 03/25/19 Status: OrderedInsulin Glargine Inj 0.2 mL = 20 units, Subcutaneous Injection, Daily before breakfast, 0 Refills, Maintenance, 12/23/19 15:52:00 EDT, Injection Start Date: 12/23/19 Status: OrderedInsulin Lispro 2-8 units, Subcutaneous Injection, 3 times a day before meals, 0 Refills, Maintenance, 12/23/19 15:52:00 EDT, Injection Start Date: 12/23/19 Status: OrderedLantus Inj 0.4 mL = 40 units, Subcutaneous Injection, Daily at bedtime, 0 Refills, Maintenance, 12/23/19 15:52:00 EDT, Injection Start Date: 12/23/19 Status: Orderedmagnesium oxide 400 mg oral tablet 1 tablet = 400 mg, By Mouth, Daily, # 14 tablet, 0 Refills, Maintenance, 03/25/19 18:49:29 EDT, Tablet Start Date: 03/25/19 Status: Orderedmethadone 10 mg/5 mL oral solution = 70 mg, By Mouth, Daily, 0 Refills, Maintenance, 07/16/18 10:18:19 EST, Solution Start Date: 07/16/18 Status: Orderedomeprazole 20 mg oral enteric coated capsule 1 capsule = 20 mg, By Mouth, Daily, 0 Refills, Maintenance, 11/12/19 19:09:00 EDT Start Date: 11/12/19 Status: Orderedondansetron 4 mg oral tablet 1 tablet = 4 mg, By Mouth, Every 8 hours, PRN Nausea & Vomiting, # 10 tablet, 0 Refills, Maintenance, 12/17/19 15:19:00 EDT, Tablet Start Date: 12/17/19 Status: Orderedprazosin 5 mg oral capsule 5 mg, 1, capsule, By Mouth, Daily at bedtime, Refills 0, Maintenance, 09/03/19 17:07:00 EDT Start Date: 09/03/19 Status: OrderedProAir HFA 90 mcg/inh inhalation aerosol with adapter 2, puffs, Inhalation, Every 4 hours, PRN, # 8.5 Gm, Refills 0, Maintenance, 09/03/19 17:07:00 EDT, Aerosol Start Date: 09/03/19 Status: OrderedRemeron 15 mg oral tablet 1 tablet = 15 mg, By Mouth, Daily at bedtime, 0 Refills, Maintenance, 11/13/19 13:33:00 EDT, Tablet Start Date: 11/13/19 Status: OrderedRisperDAL 1 mg oral tablet 2 mg, 2, tablet, By Mouth, Daily at bedtime, # 30 tablet, Refills 0, Maintenance, 03/25/19 18:56:18 EDT Start Date: 03/25/19 Status: OrderedtraZODone 50 mg oral tablet 100 mg, 2, tablet, By Mouth, Daily at bedtime, PRN, Refills 0, Maintenance, Sleep, 12/23/19 15:52:00EDT Start Date: 12/23/19 Status: OrderedVitamin D3 1000 intl units oral capsule 1 capsule = 1,000 International_Units, By Mouth, Daily, 0 Refills, Maintenance, 11/23/17 13:50:06 EDT Start Date: 11/23/17 Status: Ordered Problem List Condition Effective Dates Status Health Status Informant Asthma(Confirmed) Active history of IVDA(Confirmed) Active HX of homelessness(Confirmed) Active Major depressive disorder, Active PTSD(Confirmed) Opiate dependence(Confirmed) Active Injury of ankle, right(Confirmed) 03/31/19 Active Tobacco abuse(Confirmed) Active Type 1 diabetes, Active uncontrolled(Confirmed) Social History Social History Type Response Tobacco Use: 4 or less cigarettes(le ss than 1/4 pack)/day in last 30 days. Tobacco user in househ old: Yes. Sex Medical Equipment Implanted Date:03/26/19 Target Site:Ankle Right Description Quantity MRI Company Model IMPLANT FIXTN ANKLE ZIPTIGHT - ZIMB (901021) 1 [employer] Unknown ZAID: No Information Assigning Authority: FDA SCREW MARY STP 3.5X12 - SYNU (204.812) 1 [facility] Unknown ZAID: No Information Assigning Authority: FDA SCREW MARY STP 3.5X14 - SYNU (204.814) 1 [facility] Unknown ZAID: No Information Assigning Authority: FDA SCREW MARY STP 3.5X22 - SYNU (204.822) 1 [facility] Unknown ZAID: No Information Assigning Authority: FDA SCREW BONE CANC F THR 4.0X14 - SYNU (206.014) 1 [facility] Unknown ZAID: No Information Assigning Authority: FDA SCREW BONE CANC F THR 4.0X16 - SYNU (206.016) 1 [employer] [facility] Unknown ZAID: No Information Assigning Authority: FDA PLATE 1/3 TUBULAR 6H 69MM - SYNU (241.361) 1 [employer] [facility] Unknown ZAID: No Information Assigning Authority: FDA
--- OUTSIDE RECORDS SUMMARY | 2022-04-21 21:30 | XMS_ITS | Continuity of Care Document ---
:1985 Author Organization [facility] Address [address] [place] [address]- Care Team Providers Name Role Phone Enrico CATERING [place], Alexandra Primary Care Physician Encounter [facility] Date(s): 11/01/19 - 11/01/[address] [address]- [facility] Discharge Disposition: A-D/C Home Attending Physician: Jc Lopez DO Admitting Physician: Jc Lopez DO Referring Physician: Not on Staff, Referring MD Allergies, Adverse Reactions, Alerts Substance Reaction Severity Status Adhesive Bandage Active Egg Allergy1 Active 1She said she had a minor irritation if she eats eggs by themselves but she can have japanese toast or egg prepared food products Medications Abilify 10 mg oral tablet 10 mg, 1, tablet, By Mouth, Daily, # 30 tablet, Refills 0, Maintenance, 10/15/19 16:09:00 EDT Start Date: 10/15/19 Status: OrderedBalanced B-50 Vitamin B Complex oral tablet 1 tablet, By Mouth, Daily, # 30 tablet, 0 Refills, Maintenance, 03/25/19 18:46:39 EDT, Tablet Start Date: 03/25/19 Status: OrderedbuPROPion 150 mg/24 hours (XL) oral tablet, extended release 1 tablet = 150 mg, By Mouth, Every 24 hours, 0 Refills, Maintenance, 09/03/19 17:08:00 EDT Start Date: 09/03/19 Status: OrderedcloNIDine 0.1 mg oral tablet 0.1 mg, 1, tablet, By Mouth, 2 times a day, # 180 tablet, Refills 0, Maintenance, 03/31/19 15:48:16 EDT Start Date: 03/31/19 Status: Ordereddocusate sodium = 100 mg, By Mouth, 2 times a day, 0 Refills, Maintenance, 03/25/19 18:45:34 EDT Start Date: 03/25/19 Status: Orderedescitalopram 20 mg oral tablet 1 tablet = 20 mg, By Mouth, Daily at bedtime, 0 Refills, Maintenance, 10/15/19 16:13:00 EDT, Tablet Start Date: 10/15/19 Status: Orderedgabapentin 300 mg oral capsule 300 mg, 1, capsule, By Mouth, 2 times a day, 8am, 3pm, Refills 0, Maintenance, 03/25/19 18:41:27 EDT Start Date: 03/25/19 Status: Orderedgabapentin 600 mg oral tablet 1 tablet = 600 mg, By Mouth, Daily at bedtime, 0 Refills, Maintenance, 03/31/19 15:46:58 EDT Start Date: 03/31/19 Status: OrderedHumalog 100 u/ml subcutaneous injection = 14 units, Subcutaneous Infusion, 3 times a day before meals, 0 Refills, Maintenance, 03/31/19 15:49:19 EDT Start Date: 03/31/19 Status: OrderedHydrOXYzine = 25 mg, By Mouth, 3 times a day, PRN as needed for anxiety, 1-2 tabs = 25-50mg BID, 0 Refills, Maintenance, 03/25/19 18:50:11 EDT Start Date: 03/25/19 Status: OrderedInsulin Glargine = 35 units, Subcutaneous Infusion, 2 times a day, 0 Refills, Maintenance, 10/15/19 15:58:00 EDT Start Date: 10/15/19 Status: Orderedlisinopril 2.5 mg oral tablet 2.5 mg, 1, tablet, By Mouth, Daily, Refills 0, Maintenance, 10/15/19 15:33:00 EDT Start Date: 10/15/19 Status: Orderedmagnesium oxide 400 mg oral tablet 1 tablet = 400 mg, By Mouth, Daily, # 14 tablet, 0 Refills, Maintenance, 03/25/19 18:49:29 EDT, Tablet Start Date: 03/25/19 Status: Orderedmethadone 10 mg/5 mL oral solution = 62 mg, By Mouth, Daily, 0 Refills, Maintenance, 07/16/18 10:18:19 EST, Solution Start Date: 07/16/18 Status: Orderedomeprazole 40 mg oral enteric coated capsule 1 capsule = 40 mg, By Mouth, Daily, before a meal, 0 Refills, Maintenance, 10/15/19 15:34:00 EDT, ECCapsule Start Date: 10/15/19 Status: Orderedprazosin 5 mg oral capsule 5 mg, 1, capsule, By Mouth, Daily at bedtime, Refills 0, Maintenance, 09/03/19 17:07:00 EDT Start Date: 09/03/19 Status: OrderedProAir HFA 90 mcg/inh inhalation aerosol with adapter 2, puffs, Inhalation, Every 4 hours, PRN, # 8.5 Gm, Refills 0, Maintenance, 09/03/19 17:07:00 EDT, Aerosol Start Date: 09/03/19 Status: OrderedRemeron 30 mg oral tablet 1 tablet = 30 mg, By Mouth, Daily at bedtime, # 30 tablet, 0 Refills, Maintenance, 10/15/19 16:09:00EDT, Tablet Start Date: 10/15/19 Status: OrderedRemeron 30 mg oral tablet 1 tablet = 30 mg, By Mouth, Daily at bedtime, # 30 tablet, 0 Refills, Maintenance, 07/16/18 9:28:27 EST, Tablet Start Date: 07/16/18 Status: OrderedRisperDAL 1 mg oral tablet 2 mg, 2, tablet, By Mouth, Daily at bedtime, # 30 tablet, Refills 0, Maintenance, 03/25/19 18:56:18 EDT Start Date: 03/25/19 Status: OrderedtraZODone 50 mg oral tablet 50 mg, 1, tablet, By Mouth, Daily at bedtime, PRN, # 30 tablet, Refills 0, Tot. Refills 0, Maintenance, Sleep, 07/16/18 9:30:11 EST, Route to Pharmacy Electronically, [facility]_[id number], [place] Start Date: 07/16/18 Stop Date: 08/15/18 Status: OrderedVitamin D3 1000 intl units oral [...] abuse(Confirmed) Active Type 1 diabetes, Active uncontrolled(Confirmed) Vital Signs Most recent to oldest 1 2 3 [Reference Range]: Height 172 cm 172 cm 172 cm (11/01/19 6:45 PM) (11/01/19 2:36 PM) (11/01/19 2:3 4 PM) Weight 100 kg 100 kg 100 kg (11/01/19 6:45 PM) (11/01/19 2:36 PM) (11/01/19 2:3 4 PM) Oxygen Saturation [94-100 100 % 96 % 96 % %] (11/01/19 6:45 PM) (11/01/19 4:24 PM) (11/01/19 2:3 4 PM) Pulse Rate [55-90 bpm] 82 bpm 80 bpm 90 bpm (11/01/19 6:45 PM) (11/01/19 4:24 PM) (11/01/19 2:3 4 PM) Body Mass Index 33.8 33.8 33.8 [18.5-24.99] *>HHI* *>HHI* *>HHI* (11/01/19 6:45 PM) (11/01/19 2:36 PM) (11/01/19 2:3 4 PM) Blood Pressure 108/87 mm Hg 110/83 mm Hg [90-138/55-84 mm Hg] (11/01/19 6:45 PM) (11/01/19 2:36 PM) Respiratory Rate [16-30 16 br/min 14 br/min 15 br/mi n br/min] (11/01/19 6:45 PM) *L* *L* (11/01/19 4:24 PM) (11/01/19 2:34 PM) Temperature [96.8-100.4 98.7 DegF DegF] (11/01/19 2:34 PM) Mode of Delivery (Oxygen) Room air Room air Room a ir (5/29/20 6:45 PM) (11/01/19 4:24 PM) (11/01/19 2:3 4 PM) Temperature Route Oral (11/01/19 2:34 PM) Dry Weight 100 kg 100 kg 100 kg (11/01/19 6:45 PM) (11/01/19 2:36 PM) (11/01/19 2:3 4 PM) Dry Weight Obtained Via Patient/family stated (11/01/19 2:29 PM) Social History Social History Type Response Tobacco Use: 4 or less cigarettes(le ss than 1/4 pack)/day in last 30 days. Tobacco user in househ old: Yes. Sex Medical Equipment Implanted Date:03/26/19 Target Site:Ankle Right Description Quantity MRI Company Model IMPLANT FIXTN ANKLE ZIPTIGHT - ZIMB (012499) 1 [employer] Unknown ZAID: No Information Assigning Authority: FDA SCREW MARY STP 3.5X12 - SYNU (204.812) [address] [facility] Unknown ZAID: No Information Assigning Authority: FDA SCREW MARY STP 3.5X14 - SYNU (204.814) [address] [facility] Unknown ZAID: No Information Assigning Authority: FDA SCREW MARY STP 3.5X22 - SYNU (204.822) [address] [facility] Unknown ZAID: No Information Assigning Authority: FDA SCREW BONE CANC F THR 4.0X14 - SYNU (206.014) 1 [facility] Unknown ZAID: No Information Assigning Authority: FDA SCREW BONE CANC F THR 4.0X16 - SYNU (206.016) 1 [facility] Unknown ZAID: No Information Assigning Authority: FDA PLATE 1/3 TUBULAR 6H 69MM - SYNU (241.361) 1 [facility] Unknown ZAID: No Information Assigning Authority: FDA
--- OUTSIDE RECORDS SUMMARY | 2022-04-21 21:30 | XMS_ITS | Continuity of Care Document ---
:1985 Author Organization [facility] Address [address] [place] [id number]- Care Team Providers Name Role Phone Enrico STEVENS, Alexandra Primary Care Physician [place] [facility] [place] - 03/09/[address] [address] Encounter Diagnosis Altered mental status (Final) - 03/05/22 Crack cocaine use (Final) - 03/05/22 Hyperglycemia (Final) - 03/05/22 VIN (acute kidney injury) (Final) - 03/05/22 Discharge Disposition: A-Transfer VNA/Home Health Attending Physician: Yusuf Gleason MD Admitting Physician: Fernando Cheng MD Referring Physician: Not on Staff, Referring MD Allergies, Adverse Reactions, Alerts Substance Reaction Severity Status Adhesive Bandage Active Egg Allergy1 Active 1She said she had a minor irritation if she eats eggs by themselves but she can have ugandan toast or egg prepared food products Immunizations Given and Recorded Vaccine Date Status Refusal Reason influenza virus vaccine, inactivated 04/22/21 Recorded influenza virus vaccine, inactivated 02/28/20 Recorded SARS-CoV-2 (COVID-19) mRNA-1273 vaccine 07/31/20 Recorded SARS-CoV-2 (COVID-19) mRNA-1273 vaccine 07/03/20 Recorded tetanus-diphtheria toxoids (Td) 04/22/18 Recorded Medications Abilify 10 mg oral tablet 10 mg, 1, tablet, By Mouth, Daily at bedtime, # 30 tablet, Refills 0, Maintenance, 10/15/19 16:09:00EDT Start Date: 10/15/19 Status: OrderedamLODIPine 5 mg oral tablet 5 mg, Tablet, By Mouth, 03/09/22 9:00:00 EDT Start Date: 03/09/22 Stop Date: 03/09/22 Status: Completedaspirin 81 mg oral tablet, chewable 81 mg, 1, tablet, By Mouth, Daily, # 90 tablet, Refills 1, Tot. Refills 1, Maintenance, 03/09/22 13:42:00 EDT, Route to Pharmacy Electronically, [facility], 173, cm, 03/09/22 2:03:00 EDT,Height, 100.1, kg, 03/07/22 16:34:00 EDT, Dry Weight Start Date: 03/09/22 Status: Orderedatorvastatin 10 mg oral tablet 1 tablet = 10 mg, By Mouth, Daily, # 90 tablet, 1 Refills, Maintenance, 03/09/22 13:51:00 EDT, [facility], 173, cm, 03/09/22 2:03:00 EDT, Height, 100.1, kg, 03/07/22 16:34:00 EDT, Dry Weight Start Date: 03/09/22 Status: Orderedazithromycin 500 mg oral tablet 1 tablet = 500 mg, By Mouth, Daily, # 1 tablet, 0 Refills, Maintenance, 03/09/22 13:08:00 EDT, Tablet, [facility], 173, cm, 03/09/22 2:03:00 EDT, Height, 100.1, kg, 03/07/22 16:34:00 EDT,Dry Weight Start Date: 03/09/22 Stop Date: 03/10/22 Status: OrderedbuPROPion 100 mg oral tablet 1 tablet = 100 mg, By Mouth, 2 times a day, 0 Refills, Maintenance, 03/06/22 7:53:00 EDT, Partial fill upon patient request if the prescription is for a schedule II opioid drug. Start Date: 03/06/22 Status: OrderedcloNIDine 0.1 mg oral tablet 0.1 mg, 1, tablet, By Mouth, 4 times a day, PRN, Refills 0, Maintenance, Anxiety, 11/13/19 13:33:00 EDT Start Date: 11/13/19 Status: Ordereddocusate sodium = 100 mg, By Mouth, 2 times a day, 0 Refills, Maintenance, 03/25/19 18:45:34 EDT Start Date: 03/25/19 Status: Orderedescitalopram 20 mg oral tablet 1 tablet = 20 mg, By Mouth, Daily in AM, 0 Refills, Maintenance, 10/15/19 16:13:00 EDT, Tablet Start Date: 10/15/19 Status: Orderedgabapentin 300 mg oral capsule 600 mg, Capsule, By Mouth, 03/09/22 9:00:00 EDT Start Date: 03/09/22 Stop Date: 03/09/22 Status: CompletedGlucagon 1 mg/0.2 mL subcutaneous solution 0.2 mL = 1 mg, Subcutaneous Injection, Once, 0 Refills, Maintenance, 12/17/19 15:18:00 EDT, Solution Start Date: 12/17/19 Status: Orderedhaloperidol 2 mg oral tablet 2 mg, 1, tablet, By Mouth, 2 times a day, Refills 0, Maintenance, 03/06/22 8:03:00 EDT, Partial fillupon patient request if the prescription is for a schedule II opioid drug. Start Date: 03/06/22 Status: OrderedHydrOXYzine = 25 mg, By Mouth, 3 times a day, PRN as needed for anxiety, 0 Refills, Maintenance, 03/25/19 18:50:11 EDT Start Date: 03/25/19 Status: OrderedInsulin Lispro 0-8 units, Subcutaneous Injection, 3 times a day before meals, As directed per sliding scale., 0 Refills, Maintenance, 12/23/19 15:52:00 EDT, Injection Start Date: 12/23/19 Status: OrderedMethadone = 25 mg, By Mouth, Daily, 0 Refills, Maintenance, 03/06/22 8:20:00 EDT, Partial fill upon patient request if the prescription is for a schedule II opioid drug. Start Date: 03/06/22 Status: Orderedmethadone 5 mg oral tablet 25 mg, Tablet, By Mouth, dose confirned with [facility], last dose 03/06, 03/09/22 9:00:00 EDT Start Date: 03/09/22 Stop Date: 03/09/22 Status: Completedmirtazapine 30 mg oral tablet 1.5 tablet = 45 mg, By Mouth, Daily at bedtime, 0 Refills, Maintenance, 03/06/22 8:00:00 EDT, Partial fill upon patient request if the prescription is for a schedule II opioid drug. Start Date: 03/06/22 Status: OrderedNeurontin 800 mg oral tablet 1 tablet = 800 mg, By Mouth, 3 times a day, 0 Refills, Maintenance, 03/06/22 7:57:00 EDT, Partial fill upon patient request if the prescription is for a schedule II opioid drug. Start Date: 03/06/22 Status: Orderedomeprazole 20 mg oral enteric coated capsule 1 capsule = 20 mg, By Mouth, Daily, 0 Refills, Maintenance, 11/12/19 19:09:00 EDT Start Date: 11/12/19 Status: Orderedprazosin 2 mg oral capsule See Instructions, TAKE 1 CAPSULE AT BEDTIME IN ADDITION TO 5MG TABLET Start Date: 03/09/22 Status: OrderedRisperDAL 1 mg oral tablet 2 mg, 2, tablet, By Mouth, Daily at bedtime, # 30 tablet, Refills 0, Maintenance, 03/25/19 18:56:18 EDT Start Date: 03/25/19 Status: Orderedsee instructions see instructions, See Instructions, # 1 each, Refills 0, Tot. Refills 0, Maintenance, please dispense Bobo forefront offloading shoe to left foot for diabetic foot ulcer E11.621, 03/09/22 13:16:00 EDT, Supply Start Date: 03/09/22 Status: OrderedSenna 8.6 mg oral tablet 8.6 mg, 1, tablet, By Mouth, Daily at bedtime, Refills 0, Maintenance, 03/06/22 8:01:00 EDT, Partialfill upon patient request if the prescription is for a schedule II opioid drug. Start Date: 03/06/22 Status: OrderedtraZODone 100 mg oral tablet 100 mg, 1, tablet, By Mouth, Daily at bedtime, Refills 0, Maintenance, 03/06/22 8:03:00 EDT, Partialfill upon patient request if the prescription is for a schedule II opioid drug. Start Date: 03/06/22 Status: OrderedTresiba FlexTouch 100 units/mL subcutaneous solution = 80 units, Subcutaneous Injection, Daily, 0 Refills, Maintenance, 03/06/22 8:01:00 EDT, Partial fill upon patient request if the prescription is for a schedule II opioid drug. Start Date: 03/06/22 Status: OrderedTresiba FlexTouch 100 units/mL subcutaneous solution = 35 units, Subcutaneous Injection, Daily at supper, 0 Refills, Maintenance, 03/06/22 8:01:00 EDT, Partial fill upon patient request if the prescription is for a schedule II opioid drug. Start Date: 03/06/22 Status: OrderedVitamin D3 1000 intl units oral capsule 1 capsule = 1,000 International_Units, By Mouth, Daily, 0 Refills, Maintenance, 11/23/17 13:50:06 EDT Start Date: 11/23/17 Status: OrderedZestril 2.5 mg oral tablet 2.5 mg, 1, tablet, By Mouth, Daily, Refills 0, Maintenance, 03/06/22 8:04:00 EDT, Partial fill upon patient request if the prescription is for a schedule II opioid drug. Start Date: 03/06/22 Status: Ordered Problem List Condition Confirmation Course Effective Dates Status Health Stat us Informant Asthma Confirmed Active history of IVDA Confirmed Active HX of homelessness Confirmed Active Major depressive Confirmed Active disorder, PTSD Obese class I Confirmed Active Opiate dependence Confirmed Active Injury of ankle, Confirmed 03/31/19 Active right Tobacco abuse Confirmed Active Type 1 diabetes, Confirmed Active uncontrolled Results Orders for Microbiology Reports Name Date Blood Culture 03/05/22 Blood Culture 03/05/22 Blood Culture #2 03/05/22 Microbiology Reports TEST:Blood Culture STATUS:Unauthenticated BODY SITE: SOURCE:Blood COLLECTED DATE/TIME:03/05/22 10:56 PMBlood Culture SPECIMEN DESCRIPTION : BLOOD RT BICEP SPECIAL REQUESTS : NONE CULTURE : NO GROWTH 3 DAYS REPORT STATUS : PRELIMINARY REPORT TEST:Blood Culture STATUS:Unauthenticated BODY SITE: SOURCE:Blood COLLECTED DATE/TIME:03/05/22 6:33 PMBlood Culture SPECIMEN DESCRIPTION : BLOOD L AC SPECIAL REQUESTS : NONE CULTURE : NO GROWTH 4 DAYS REPORT STATUS : PRELIMINARY REPORT TEST:Blood Culture, Second Order STATUS:Unauthenticated BODY SITE: SOURCE:Blood COLLECTED DATE/TIME:03/05/22 6:33 PMBlood Culture, Second Order SPECIMEN DESCRIPTION : BLOOD SPECIAL REQUESTS : NONE CULTURE : NO GROWTH 4 DAYS REPORT STATUS : PRELIMINARY REPORT Radiology Reports Exam Date Time Procedure Performing Provider Status 03/05/22 9:44 PM Chest Portable Nader Severino; Auth (Verified) Notes:(Chest Portable) Reason For Exam: Other:RESULT: Chest Portable Chest Portable Hx of Present Illness: Altered mental status. Lethargy. Hypoxia on room air. See level 1; Reason: Other:; Clinical Question(s): Pneumonia COMPARISON: 11/09/2019. FINDINGS: LINES AND TUBES: None. LUNGS AND PLEURA: The lung volumes are low which accentuate the pulmonary vasculature and cause crowding of bronchovascular markings. No confluent airspace opacity. No pleural effusion. No pneumothorax. HEART, MEDIASTINUM AND STEFANIE: Heart is normal in size. Normal mediastinal and hilar contour. BONES AND SOFT TISSUES: No acute abnormality. IMPRESSION: Pulmonary vascular prominence without interstitial edema. WSN: [id number] Ordering Physician: Reynaldo Moore Dictated By: Justice Ragsdale MD Dictated Date/Time: 03/05/22 9:48 pm Reviewed By: Justice Ragsdale MD Signed By: Justice Ragsdale MD Signed Date/Time: 03/05/22 9:48 pm Transcribed By: CHRISTIE Transcribed Date/Time: 03/05/22 9:45 pm Vital Signs Most recent to oldest 1 2 3 [Reference Range]: Height 173 cm 173 cm 173 cm (03/09/22 12:00 AM) (03/08/22 9:53 PM) (03/08/22 9: 05 PM) Weight 100.1 kg (03/07/22 4:34 PM) Oxygen Saturation [94-100 %] 97 % 98 % 100 % (03/09/22 7:00 AM) (03/09/22 12:00 AM) (03/08/22 9: 05 PM) Pulse Rate [55-90 bpm] 55 bpm 56 bpm 85 bpm (03/09/22 7:00 AM) (03/09/22 12:00 AM) (03/08/22 9: 53 PM) Body Mass Index [18.5-24.99 33.45 kg/m2 kg/m2] *>HHI* (03/07/22 4:34 PM) Blood Pressure [90-138/55-84 121/73 mm Hg 121/73 mm Hg 108 /62 mm Hg mm Hg] (03/09/22 8:25 AM) (03/09/22 7:00 AM) (03/09/22 12: 00 AM) Respiratory Rate [16-30 16 br/min 16 br/min 16 br/mi n br/min] (03/09/22 8:25 AM) (03/09/22 8:25 AM) (03/09/22 7:0 0 AM) Temperature [96.8-100.4 98.4 DegF 97.5 DegF 98.8 Deg F DegF] (03/09/22 7:00 AM) (03/09/22 12:00 AM) (03/08/22 9: 05 PM) Liters per Minute 2 L/min 2 L/min 2 L/min (03/06/22 6:32 AM) (03/06/22 5:10 AM) (03/06/22 3:1 9 AM) Mode of Delivery (Oxygen) Room air Room air Room a ir (03/09/22 7:00 AM) (03/09/22 12:00 AM) (03/08/22 9: 00 PM) Blood pressure sites Arm, left Arm, left Arm, left (03/09/22 7:00 AM) (03/09/22 12:00 AM) (03/08/22 9: 05 PM) Temperature Route Axillary Oral Oral (03/09/22 7:00 AM) (03/09/22 12:00 AM) (03/08/22 9: 05 PM) Dry Weight 100.1 kg (03/07/22 4:34 PM) Social History Social History Type Response Tobacco Use: 4 or less cigarettes(le ss than 1/4 pack)/day in last 30 days. Tobacco user in househ old: Yes. Sex Implantable Device List Procedure Provider Procedure Date Device Type Site Open Reduction Internal Po Ortiz MD 03/26/19 Unknown Ankle Right Fixation Ankle Edward Device Serial Lot or Manufacturing Expiration Distinct MRI Implan table Assigning Identifier Number Batch Date Date Identification Safety Status Authority Number Code Unknown Unknown [id number] Unknown 02/09/21 Unknown Unknown Active Unknown Unknown Unknown Unknown Unknown 03/26/19 Unknown Unknown Active Unknown Unknown Unknown Unknown Unknown 03/26/19 Unknown Unknown Active Unknown Unknown Unknown Unknown Unknown 03/26/19 Unknown Unknown Active Unknown Unknown Unknown Unknown Unknown 03/26/19 Unknown Unknown Active Unknown Unknown Unknown Unknown Unknown 03/26/19 Unknown Unknown Active Unknown Unknown Unknown Unknown Unknown 03/26/19 Unknown Unknown Active Unknown Portable XR Chest Views BHSPowerscribe , CIS S: TRANSCRIBE Justice Ragsdale MD: VERIFY Event Display: Result: Authored Date: [id number] Chest Portable Hx of Present Illness: Altered mental status. Lethargy. Hypoxia on room air. See level 1; Reason: Other:; Clinical Question(s): Pneumonia COMPARISON: 11/09/2019. FINDINGS: LINES AND TUBES: None. LUNGS AND PLEURA: The lung volumes are low which accentuate the pulmonary vasculature and cause crowding of bronchovascular markings. No confluent airspace opacity. No pleural effusion. No pneumothorax. HEART, MEDIASTINUM AND STEFANIE: Heart is normal in size. Normal mediastinal and hilar contour. BONES AND SOFT TISSUES: No acute abnormality. IMPRESSION: Pulmonary vascular prominence without interstitial edema. WSN: [id number] Ordering Physician: Reynaldo Moore Dictated By: Justice Ragsdale MD Dictated Date/Time: 03/05/22 9:48 pm Reviewed By: Justice Ragsdale MD Signed By: Justice Ragsdale MD Signed Date/Time: 03/05/22 9:48 pm Transcribed By: CHRISTIE Transcribed Date/Time: 03/05/22 9:45 pm Patient Care team information PersonnelName: Alexandra Weston NP Address: Address: [address] [place] [address]
--- OUTSIDE RECORDS SUMMARY | 2022-04-21 21:30 | XMS_ITS | Continuity of Care Document ---
:1985 Author Organization [facility] Address [address] [place] [address]- Care Team Providers Name Role Phone Enrico STEVENS, Alexandra Primary Care Physician Encounter [facility] Date(s): 01/19/20 - 02/22/20 [facility] [address] [place] [id number] [facility] Attending Physician: Ana UMAÑA, Mariza Ruth Referring Physician: Alexandra Weston NP Allergies, Adverse Reactions, Alerts Substance Reaction Severity Status Adhesive Bandage Active Egg Allergy1 Active 1She said she had a minor irritation if she eats eggs by themselves but she can have croatian toast or egg prepared food products Medications [...] Model IMPLANT FIXTN ANKLE ZIPTIGHT - ZIMB (801142) 1 [employer] Unknown ZAID: No Information Assigning Authority: FDA SCREW MARY STP 3.5X12 - SYNU (204.812) 1 [facility] Unknown ZAID: No Information Assigning Authority: FDA SCREW MARY STP 3.5X14 - SYNU (204.814) 1 [facility] Unknown ZAID: No Information Assigning Authority: FDA SCREW MARY STP 3.5X22 - SYNU (204.822) 1 [facility] Unknown ZAID: No Information Assigning Authority: [...]
--- OUTSIDE RECORDS SUMMARY | 2022-04-21 21:30 | XMS_ITS | Continuity of Care Document ---
:1985 Author Organization [facility] Address [address] [place] [address]- Care Team Providers Name Role Phone Enrico STEVENS, Alexandra Primary Care Physician Encounter [facility] Date(s): 10/15/19 - 10/15/[address] [address] [facility] Encounter Diagnosis Type II diabetes mellitus with neurological manifestations, uncontrolled (Final) - 10/15/19 Tobacco abuse (Final) - 10/15/19 Discharge Disposition: A-D/C Home Attending Physician: Nader Quezada MD Admitting Physician: Nader Quezada MD Referring Physician: Not on Staff, Referring MD Allergies, Adverse Reactions, Alerts Substance Reaction Severity Status Adhesive Bandage Active Egg Allergy1 Active 1She said she had a minor irritation if she eats eggs by themselves but she can have bhutanese toast or egg prepared food products Medications [...] 07/16/18 9:30:11 EST, Route to Pharmacy Electronically, [facility][id number], [facility] Start Date: 07/16/18 Stop Date: 08/15/18 Status: [...] abuse(Confirmed) Active Type 1 diabetes, Active uncontrolled(Confirmed) Results Radiology Reports Exam Date Time Procedure Performing Provider Status 10/15/19 4:35 PM Chest Portable Mindy Dickens; Auth ([facility] ed) Notes:(Chest Portable) Reason For Exam: 34yo, COVID POS 6 weeks ago w/COVID PNA, smoker reporting SOB lasteve. normal sats no distress or cough;Shortness of BreathRESULT: Chest Portable Chest Portable Refer to EMR; Reason: Shortness of Breath; 34yo, COVID POS 6 weeks ago w COVID PNA, smoker reportingSOB last veronica. normal sats no distress or cough; Clinical Question(s): Pneumonia; Hx of Present Illness: [facility] and chest [facility], recent positive result for COVID.; OtherObjective Findings: Pt is alert and oriented x3, good color for ethnicity, speaking in clear, ful COMPARISON: 09/03/2019 chest radiograph. FINDINGS: LINES AND TUBES: None. LUNGS AND PLEURA: Clear lungs. Previously seen lower lobe interstitial opacities have resolved. Normal pulmonary vascularity. No pleural effusion. No pneumothorax. HEART, MEDIASTINUM AND STEFANIE: Heart is normal in size. Normal mediastinal and hilar contour. BONES AND SOFT TISSUES: No acute abnormality. IMPRESSION: 1. No acute abnormality. 2. Previously seen lower lobe interstitial opacities have resolved. WSN: [id number] Ordering Physician: Yessenia Albarado Dictated By: Shayan Broussard MD Dictated Date/Time: 10/15/19 4:38 pm Reviewed By: Shayan Broussard MD Signed By: Shayan Broussard MD Signed Date/Time: 10/15/19 4:38 pm Transcribed By: CHRISTIE Transcribed Date/Time: 10/15/19 4:36 pm Vital Signs Most recent to oldest 1 2 3 [Reference Range]: Height 170 cm 170 cm (10/15/19 6:32 PM) (10/15/19 1:59 PM) Weight 104 kg 104 kg (10/15/19 6:32 PM) (10/15/19 1:59 PM) Oxygen Saturation [94-100 %] 98 % 97 % 100 % (10/15/19 6:32 PM) (10/15/19 2:55 PM) (10/15/19 2:0 0 PM) Pulse Rate [55-90 bpm] 88 bpm 92 bpm 92 bpm (10/15/19 6:32 PM) *H* *H* (10/15/19 2:55 PM) (10/15/19 2:00 PM) Blood Pressure [90-138/55-84 mm 130/100 mm Hg 140/81 mm Hg 140/81 mm Hg Hg] (10/15/19 2:55 PM) *H* *H* (10/15/19 2:00 PM) (10/15/19 1:59 PM) Respiratory Rate [16-30 br/min] 16 br/min 16 br/min 16 br/min (10/15/19 6:32 PM) (10/15/19 2:55 PM) (10/15/19 2:0 0 PM) Temperature [96.8-100.4 DegF] 97.1 DegF 98.7 DegF (10/15/19 2:00 PM) (10/15/19 1:59 PM) Mode of Delivery (Oxygen) Room air Room air Room a ir (10/15/19 6:32 PM) (10/15/19 2:55 PM) (10/15/19 2:0 0 PM) Blood pressure sites Arm, right Arm, right (10/15/19 2:55 PM) (10/15/19 1:59 PM) Temperature Route Temporal Oral (10/15/19 2:00 PM) (10/15/19 1:59 PM) Dry Weight 104 kg 104 kg (10/15/19 6:32 PM) (10/15/19 1:59 PM) Weight Obtained Via Standing scale (10/15/19 1:59 PM) Dry Weight Obtained Via Standing scale (10/15/19 1:59 PM) Social History Social History Type Response Tobacco Use: 4 or less cigarettes(le ss than 1/4 pack)/day in last 30 days. Tobacco user in househ old: Yes. Sex Medical Equipment Implanted Date:03/26/19 Target Site:Ankle Right Description Quantity MRI Company Model IMPLANT FIXTN ANKLE ZIPTIGHT - ZIMB (951401) 1 [employer] Unknown ZAID: No Information Assigning Authority: FDA SCREW MARY STP 3.5X12 - SYNU (204.812) 1 [facility] Unknown ZAID: No Information Assigning Authority: FDA SCREW MARY STP 3.5X14 - SYNU (204.814) 1 [facility] Unknown ZAID: No Information Assigning Authority: FDA SCREW MARY STP 3.5X22 - SYNU (204.822) 1 [facility] Unknown ZAID: No Information Assigning Authority: FDA SCREW BONE CANC F THR 4.0X14 - SYNU (206.014) 1 [facility] Unknown ZAID: No Information Assigning Authority: FDA SCREW BONE CANC F THR 4.0X16 - SYNU (206.016) 1 [facility] Unknown ZAID: No Information Assigning Authority: FDA PLATE 1/3 TUBULAR 6H 69MM - SYNU (241.361) 1 [facility] [facility] Unknown ZAID: No Information Assigning Authority: FDA
--- OUTSIDE RECORDS SUMMARY | 2022-04-21 21:30 | XMS_ITS | Continuity of Care Document ---
:1985 Author Organization [facility] Address [address] [place] [address]- Care Team Providers Name Role Phone Enrico STEVENS, Alexandra Primary Care Physician Encounter [facility] Date(s): 02/08/20 - 02/08/[address] [address]- [facility] Discharge Disposition: A-D/C Home Attending Physician: Sharifa Barrera DO Admitting Physician: Sharifa Barrera DO Referring Physician: Not on Staff, Referring MD Allergies, Adverse Reactions, Alerts Substance Reaction Severity Status Adhesive Bandage Active Egg Allergy1 Active 1She said she had a minor irritation if she eats eggs by themselves but she can have pashto toast or egg prepared food products Medications [...] uncontrolled(Confirmed) Vital Signs Most recent to oldest [Reference Range]: 1 2 Height 172 cm 172 cm (02/08/20 11:46 AM) (02/08/20 11:36 AM) Weight 100 kg 100 kg (02/08/20 11:46 AM) (02/08/20 11:36 AM) Oxygen Saturation [94-100 %] 100 % 0 % 1 (02/08/20:46 AM) *L* (02/08/20 11:36 AM) Pulse Rate [55-90 bpm] 70 bpm 0 bpm 2 (02/08/20 11:46 AM) *L* (02/08/20 11:36 AM) Body Mass Index [18.5-24.99] 33.8 *>HHI* (02/08/20 11:46 AM) Blood Pressure [90-138/55-84 mm Hg] 119/77 mm Hg 0/0 mm Hg 3 (02/08/20:46 AM) *L* (02/08/20 11:36 AM) Respiratory Rate [16-30 br/min] 20 br/min 0 br/min 4 (02/08/20 11:46 AM) *L* (02/08/20 11:36 AM) Temperature [96.8-100.4 DegF] 97.9 DegF 97.9 DegF (02/08/20 11:46 AM) (02/08/20 11:36 AM) Mode of Delivery (Oxygen) Room air Room air (02/08/20 11:46 AM) (02/08/20 11:36 AM) Blood pressure sites Arm, left (02/08/20 11:46 AM) Temperature Route Oral Oral (02/08/20 11:46 AM) (02/08/20 11:36 AM) Dry Weight 100 kg 100 kg (02/08/20 11:46 AM) (02/08/20 11:36 AM) Weight Obtained Via Patient/family stated (02/08/20 11:36 AM) Dry Weight Obtained Via Patient/family stated (02/08/20 11:36 AM) 1Result Comment: pt [id number] Comment: pt [id number] Comment: pt [id number] Comment: pt refuses Social History Social History Type Response Tobacco Use: 4 or less cigarettes(le ss than 1/4 pack)/day in last 30 days. Tobacco user in househ old: Yes. Sex Medical Equipment Implanted Date:03/26/19 Target Site:Ankle Right Description Quantity MRI Company Model IMPLANT FIXTN ANKLE ZIPTIGHT - ZIMB (688873) 1 [employer] Unknown ZAID: No Information Assigning Authority: FDA SCREW MARY STP 3.5X12 - SYNU (204.812) 1 [facility] Unknown ZAID: No Information Assigning Authority: FDA SCREW MARY STP 3.5X14 - SYNU (204.814) 1 [facility] Unknown ZAID: No Information Assigning Authority: FDA SCREW MARY STP 3.5X22 - SYNU (204.822) 1 [facility] Unknown ZAID: No Information Assigning Authority: FDA SCREW BONE CANC F THR 4.0X14 - SYNU (206.014) [address] [facility] Unknown ZAID: No Information Assigning Authority: FDA SCREW BONE CANC F THR 4.0X16 - SYNU (206.016) 1 [facility] Unknown ZAID: No Information Assigning Authority: FDA PLATE 1/3 TUBULAR 6H 69MM - SYNU (241.361) 1 [facility] Unknown ZAID: No Information Assigning Authority: FDA
--- OUTSIDE RECORDS SUMMARY | 2022-04-21 21:30 | XMS_ITS | Continuity of Care Document ---
:1985 Author Organization [facility] Address [address] [place] [address]- Care Team Providers Name Role Phone Enrico STEVENS, Alexandra Primary Care Physician Encounter [facility] Date(s): 11/13/19 - 12/13/[address] [address]- [facility] Attending Physician: Not on Staff, Attending MD Admitting Physician: Not on Staff, Admitting MD Referring Physician: Not on Staff, Referring MD Allergies, Adverse Reactions, Alerts Substance Reaction Severity Status Adhesive Bandage Active Egg Allergy1 Active 1She said she had a minor irritation if she eats eggs by themselves but she can have argentine toast or egg prepared food products Medications Abilify 10 mg oral tablet 10 mg, 1, tablet, By Mouth, Daily at bedtime, # 30 tablet, Refills 0, Maintenance, 10/15/19 16:09:00EDT Start Date: 10/15/19 Status: Orderedacetaminophen 500 mg oral capsule 1 capsule = 500 mg, By Mouth, Every 8 hours, PRN Pain , Moderate, 0 Refills, Maintenance, 11/12/19 19:05:00 EDT Start Date: 11/12/19 Status: OrderedBalanced B-50 Vitamin B Complex oral [...] 03/25/19 18:41:27 EDT Start Date: 03/25/19 Status: OrderedHumalog 100 u/ml subcutaneous injection = [...] 19:09:00 EDT Start Date: 11/12/19 Status: Orderedprazosin 5 mg oral capsule 5 [...] at bedtime, PRN, Refills 0, Maintenance, Sleep, 11/13/19 13:34:00 EDT Start Date: 11/13/19 Status: OrderedVitamin D3 1000 intl units oral [...] Model IMPLANT FIXTN ANKLE ZIPTIGHT - ZIMB (869450) 1 [employer] Unknown ZAID: No Information Assigning Authority: FDA SCREW MARY STP 3.5X12 - SYNU (204.812) 1 [facility] Unknown ZAID: No Information Assigning Authority: FDA SCREW MARY STP 3.5X14 - SYNU (204.814) 1 [facility] Unknown ZAID: No Information Assigning Authority: FDA SCREW MARY STP 3.5X22 - SYNU (204.822) 1 [facility] Unknown ZAID: No Information Assigning Authority: FDA SCREW BONE CANC F THR 4.0X14 - SYNU (206.014) 1 [facility] Unknown ZAID: No Information Assigning Authority: FDA SCREW BONE CANC F THR 4.0X16 - SYNU (206.016) 1 [facility] Unknown ZAID: No Information Assigning Authority: FDA PLATE 1/3 TUBULAR 6H 69MM - SYNU (241.361) 1 [employer] [facility] Unknown ZAID: No Information Assigning Authority: FDA
--- OUTSIDE RECORDS SUMMARY | 2022-04-21 21:30 | XMS_ITS | Continuity of Care Document ---
:1985 Author Organization [facility] Address [address] [place] [address]- Care Team Providers Name Role Phone Enrico STEVENS, Alexandra Primary Care Physician Encounter [facility] Date(s): 01/20/20 - 02/23/20 [facility] [address] [place] [address]- [facility] Attending Physician: Mariza Perez MD Allergies, Adverse Reactions, Alerts Substance Reaction Severity Status Adhesive Bandage Active Egg Allergy1 Active 1She said she had a minor irritation if she eats eggs by themselves but she can have latvian toast or egg prepared food products Medications [...] Model IMPLANT FIXTN ANKLE ZIPTIGHT - ZIMB (136134) 1 [employer] Unknown ZAID: No Information Assigning Authority: FDA SCREW MARY STP 3.5X12 - SYNU (204.812) 1 [facility] Unknown ZAID: No Information Assigning Authority: FDA SCREW MARY STP 3.5X14 - SYNU (204.814) 1 [facility] Unknown ZAID: No Information Assigning Authority: FDA SCREW MARY STP 3.5X22 - SYNU (204.822) 1 [facility] Unknown ZAID: No Information Assigning Authority: FDA SCREW BONE CANC F THR 4.0X14 - SYNU (206.014) 1 [facility] Unknown ZAID: No Information Assigning Authority: FDA SCREW BONE CANC F THR 4.0X16 - SYNU (206.016) 1 [facility] Unknown ZAID: No Information Assigning Authority: FDA PLATE 1/3 TUBULAR 6H 69MM - SYNU (241.361) 1 [facility] Unknown ZAID: No Information Assigning Authority: FDA
--- OUTSIDE RECORDS SUMMARY | 2022-04-21 21:30 | XMS_ITS | Continuity of Care Document ---
:1985 Author Organization [facility] Address [address] [address]- Care Team Providers Name Role Phone Enrico STEVENS, Alexandra Primary Care Physician Encounter [facility] Date(s): 04/10/19 - 06/08/[address] [address]- [facility] Attending Physician: Diana UMAÑA, Po Mathews Referring Physician: Enrico STEVENS, Alexandra Allergies, Adverse Reactions, Alerts Substance Reaction Severity Status Adhesive Bandage Active Egg Allergy1 Active 1She said she had a minor irritation if she eats eggs by themselves but she can have [place] citizen toast or egg prepared food products Medications Abilify 2 mg oral tablet 2 mg, 1, tablet, By Mouth, Daily, # 30 tablet, Refills 0, Maintenance, 03/31/19 15:45:25 EDT Start Date: 03/31/19 Status: Orderedaspirin 325 mg oral delayed release tablet 325 mg, 1, tablet, By Mouth, Daily, # 21 tablet, Refills 0, Tot. Refills 0, Maintenance, 03/27/19 11:37:22 EDT, Route to Pharmacy Electronically, [id number], [id number] Start Date: 03/27/19 Stop Date: 04/17/19 Status: OrderedBalanced B-50 Vitamin B Complex oral tablet 1 tablet, By Mouth, Daily, # 30 tablet, 0 Refills, Maintenance, 03/25/19 18:46:39 EDT, Tablet Start Date: 03/25/19 Status: OrderedBanophen 25 mg oral capsule 2 capsule = 50 mg, By Mouth, Every 4 hours, PRN for allergy symptoms, # 30 capsule, 0 Refills, Maintenance, 03/25/19 18:57:51 EDT, Capsule Start Date: 03/25/19 Status: OrderedcloNIDine 0.1 mg oral tablet 0.1 mg, 1, tablet, By Mouth, 2 times a day, # 180 tablet, Refills 0, Maintenance, 03/31/19 15:48:16 EDT Start Date: 03/31/19 Status: Ordereddocusate sodium = 100 mg, By Mouth, 2 times a day, 0 Refills, Maintenance, 03/25/19 18:45:34 EDT Start Date: 03/25/19 Status: OrderedFreestyle Lite Lancets See Instructions, # 200 each, Refills 5, Tot. Refills 5, Maintenance, use as directed for Type 1 Diabetes Mellitus, 09/10/18 20:43:06 EDT, Compound Start Date: 09/10/18 Stop Date: 03/09/19 Status: OrderedFreestyle Lite Test Strips See Instructions, # 200 each, Tot. Refills 5, Maintenance, use as directed for Type 1 Diabetes Mellitus, 09/10/18 20:43:26 EDT, Compound Start Date: 09/10/18 Stop Date: 10/10/18 Status: Orderedgabapentin 300 mg oral capsule 300 [...] 03/25/19 18:50:11 EDT Start Date: 03/25/19 Status: OrderedIbuprofen 600 mg, By Mouth, 3 times a day, PRN, Refills 0, Maintenance, Pain , Moderate, 03/25/19 18:58:00 EDT Start Date: 03/25/19 Status: OrderedInsulin Syringes See Instructions, # 1 box, Maintenance, for dm, 09/10/18 23:03:36 EDT, Compound Start Date: 09/10/18 Status: OrderedLantus 100 u/ml subcutaneous solution = 30 units, Subcutaneous Injection, Daily in AM, # 10 mL, 0 Refills, Maintenance, 03/25/19 18:39:06 EDT, Solution Start Date: 03/25/19 Status: OrderedLantus 100 u/ml subcutaneous solution = 80 units, Subcutaneous Infusion, Daily at bedtime, 0 Refills, Maintenance, 03/31/19 15:51:00 EDT Start Date: 03/31/19 Status: OrderedLexapro 20 mg oral tablet 1 tablet = 20 mg, By Mouth, Daily at bedtime, # 30 tablet, 0 Refills, Maintenance, 03/25/19 18:53:09EDT, Tablet Start Date: 03/25/19 Status: Orderedlisinopril 5 mg oral tablet 5 mg, 1, tablet, By Mouth, Daily, # 30 tablet, Refills 0, Maintenance, 03/25/19 18:44:38 EDT Start Date: 03/25/19 Status: Orderedmagnesium oxide 400 mg oral tablet 1 tablet = 400 mg, By Mouth, Daily, # 14 tablet, 0 Refills, Maintenance, 03/25/19 18:49:29 EDT, Tablet Start Date: 03/25/19 Status: Orderedmethadone 10 mg/5 mL oral solution = 62 mg, By Mouth, Daily, 0 Refills, Maintenance, 07/16/18 10:18:19 EST, Solution Start Date: 07/16/18 Status: OrderedMiraLax oral powder for reconstitution = 17 Gm, By Mouth, Daily at bedtime, PRN Constipation, dissolve in water before taking, # 255 Gm, 0 Refills, Maintenance, 03/25/19 18:58:13 EDT, REC Powder Start Date: 03/25/19 Status: OrderedOmeprazole = 20 mg, By Mouth, Daily, 0 Refills, Maintenance, 03/25/19 18:48:10 EDT Start Date: 03/25/19 Status: Orderedprazosin 1 mg oral capsule 2 mg, 2, capsule, By Mouth, Daily at bedtime, # 60 capsule, Refills 0, Tot. Refills 0, Maintenance, 07/16/18 9:29:13 EST, Route to Pharmacy Electronically, NCPDP_[id number], [facility] Start Date: 07/16/18 Stop Date: 08/15/18 Status: OrderedRemeron 30 mg oral tablet 1 [...] 07/16/18 9:30:11 EST, Route to Pharmacy Electronically, NCPDP_ID-[id number], [facility] Start Date: 07/16/18 Stop Date: 08/15/18 Status: OrderedVitamin D3 1000 intl units oral capsule 1 capsule = 1,000 International_Units, By Mouth, Daily, 0 Refills, Maintenance, 11/23/17 13:50:06 EDT Start Date: 11/23/17 Status: Orderedwheelchair wheelchair, See Instructions, # 1 units, Refills 0, Tot. Refills 0, Maintenance, pt is nonweightbearing after ankle surgery, has DM foot ulcer on opposite foot needs wheelchair dispense 1 wheelchair, 03/27/19 11:42:50 EDT, Compound Start Date: 03/27/19 Status: Ordered Problem List Condition Effective Dates Status Health Status Informant Asthma(Confirmed) Active Major depressive disorder, Active PTSD(Confirmed) Opiate dependence(Confirmed) Active Injury of ankle, right(Confirmed) 03/31/19 Active Type 1 diabetes, Active uncontrolled(Confirmed) Social History Social History Type Response Tobacco Use: 4 or less cigarettes(le ss than 1/4 pack)/day in last 30 days. Tobacco user in househ old: Yes. Sex Medical Equipment Implanted Date:03/26/19 Target Site:Ankle Right Description Quantity MRI Company Model IMPLANT FIXTN ANKLE ZIPTIGHT - ZIMB (509431) 1 [employer] Unknown ZAID: No Information Assigning Authority: FDA SCREW AMRY STP 3.5X12 - SYNU (204.812) 1 [facility] Unknown ZAID: No Information Assigning Authority: FDA SCREW MARY STP 3.5X14 - SYNU (204.814) 1 [facility] Unknown ZAID: No Information Assigning Authority: FDA SCREW MARY STP 3.5X22 - SYNU (204.822) 1 [facility] Unknown ZAID: No Information Assigning Authority: FDA SCREW BONE CANC F THR 4.0X14 - SYNU (206.014) 1 [facility] Unknown ZAID: No Information Assigning Authority: FDA SCREW BONE CANC F THR 4.0X16 - SYNU (206.016) 1 [facility] Unknown ZAID: No Information Assigning Authority: FDA PLATE 1/3 TUBULAR 6H 69MM - SYNU (241.361) 1 [facility] Unknown ZAID: No Information Assigning Authority: FDA
--- OUTSIDE RECORDS SUMMARY | 2022-04-21 21:30 | XMS_ITS | Continuity of Care Document ---
:1985 Author Organization [facility] Address [address] [place] [address]- Care Team Providers Name Role Phone Enrico STEVENS, Alexandra Primary Care Physician Encounter [facility] Date(s): 01/19/20 - 01/19/[address] [address]- [facility] Discharge Disposition: A-D/C Home Attending Physician: Temo Mir MD Admitting Physician: Temo Mir MD Referring Physician: Not on Staff, Referring MD Allergies, Adverse Reactions, Alerts Substance Reaction Severity Status Adhesive Bandage Active Egg Allergy1 Active 1She said she had a minor irritation if she eats eggs by themselves but she can have faroese toast or egg prepared food products Medications [...] to oldest [Reference Range]: 1 2 Height 173 cm (01/19/20 7:38 PM) Weight 101.3 kg (01/19/20 7:38 PM) Oxygen Saturation [94-100 %] 100 % 100 % (01/19/20 9:20 PM) (01/19/20 7:38 PM) Pulse Rate [55-90 bpm] 88 bpm 87 bpm (01/19/20 9:20 PM) (01/19/20 7:38 PM) Blood Pressure [90-138/55-84 mm Hg] 137/98 mm Hg 148/ 100 mm Hg (01/19/20 9:20 PM) *H* (01/19/20 7:38 PM) Respiratory Rate [16-30 br/min] 18 br/min 16 br/mi n (01/19/20 9:20 PM) (01/19/20 7:38 PM) Temperature [96.8-100.4 DegF] 98.2 DegF 98.4 DegF (01/19/20 9:20 PM) (01/19/20 7:38 PM) Mode of Delivery (Oxygen) Room air Room air (01/19/20 9:20 PM) (01/19/20 7:38 PM) Blood pressure sites Arm, left Arm, left (01/19/20 9:20 PM) (01/19/20 7:38 PM) Temperature Route Oral Oral (8/16/20 9:20 PM) (01/19/20 7:38 PM) Dry Weight 101.3 kg (01/19/20 7:38 PM) Social History Social History Type Response Tobacco Use: 4 or less cigarettes(le ss than 1/4 pack)/day in last 30 days. Tobacco user in househ old: Yes. Sex Medical Equipment Implanted Date:03/26/19 Target Site:Ankle Right Description Quantity MRI Company Model IMPLANT FIXTN ANKLE ZIPTIGHT - ZIMB (835002) 1 [employer] Unknown ZAID: No Information Assigning Authority: FDA SCREW MARY STP 3.5X12 - SYNU (204.812) 1 [facility] Unknown ZAID: No Information Assigning Authority: FDA SCREW MARY STP 3.5X14 - SYNU (204.814) 1 [facility] Unknown ZAID: No Information Assigning Authority: FDA SCREW MARY STP 3.5X22 - SYNU (204.822) 1 [facility] Unknown ZAID: No Information Assigning Authority: FDA SCREW BONE CANC F THR 4.0X14 - SYNU (206.014) 1 [facility] Unknown ZAID: No Information Assigning Authority: FDA SCREW BONE CANC F THR 4.0X16 - SYNU (206.016) 1 [facility] Unknown ZAID: No Information Assigning Authority: FDA PLATE 1/3 TUBULAR 6H 69MM - SYNU (241.361) 1 [facility] Unknown ZAID: No Information Assigning Authority: FDA
--- OUTSIDE RECORDS SUMMARY | 2022-04-21 21:30 | XMS_ITS | Continuity of Care Document ---
:[address] [facility] Address [address] [place] [address]- Care Team Providers Name Role Phone Enrico STEVENS, Alexandra Primary Care Physician Encounter [facility] Date(s): 01/16/20 - 02/29/20 [facility] [address] [place] [address]- [facility] Attending Physician: Rocky Kowalski MD Referring Physician: Alexandra Weston NP Allergies, Adverse Reactions, Alerts Substance Reaction Severity Status Adhesive Bandage Active Egg Allergy1 Active 1She said she had a minor irritation if she eats eggs by themselves but she can have armenian toast or egg prepared food products Medications [...] Model IMPLANT FIXTN ANKLE ZIPTIGHT - ZIMB (744202) 1 [employer] Unknown ZAID: No Information [...] F THR 4.0X14 - SYNU (206.014) 1 [facility] Unknown ZAID: No Information Assigning Authority: FDA SCREW BONE CANC F THR 4.0X16 - SYNU (206.016) 1 [facility] Unknown ZAID: No Information Assigning Authority: FDA PLATE 1/3 TUBULAR 6H 69MM - SYNU (241.361) 1 [facility] Unknown ZAID: No Information Assigning Authority: FDA
--- OUTSIDE RECORDS SUMMARY | 2022-04-21 21:30 | XMS_ITS | Continuity of Care Document ---
:1985 Author Organization [facility] Address [address] [place] [address]- Care Team Providers Name Role Phone Enrico MARINE ELECTRONICS REPAIRER, Alexandra Primary Care Physician Encounter [facility] Date(s): 11/27/19 - 11/27/[address] [address]- [facility] Discharge Disposition: A-D/C Home Attending Physician: Jeremías UMAÑA, Noemy Mccord Admitting Physician: Jeremías UMAÑA, Noemy Mccord Referring Physician: Not on Staff, Referring MD Allergies, Adverse Reactions, Alerts Substance Reaction Severity Status Adhesive Bandage Active Egg Allergy1 Active 1She said she had a minor irritation if she eats eggs by themselves but she can have vietnamese toast or egg prepared food products Medications [...] EDT, SR Tablet Start Date: 11/13/19 Status: Orderedcefuroxime 500 mg oral tablet 1 tablet = 500 mg, By Mouth, 2 times a day, for 28 days, # 56 tablet, 0 Refills, Acute 12/11/19 13:24:00 EDT, 11/13/19 13:24:00 EDT, Tablet, [id number], 173, cm, 11/13/19 5:19:00 EDT, Height, 107.5, kg, 11/09/19 22:58:00 EDT, Dry Weight Start Date: 11/13/19 Stop Date: 12/11/19 Status: OrderedcloNIDine 0.1 mg oral tablet 0.1 [...] oldest 1 2 3 [Reference Range]: Height 178 cm 178 cm (11/27/19 5:23 AM) (11/27/19 12:40 AM) Weight 100 kg 100 kg (11/27/19 5:23 AM) (11/27/19 12:40 AM) Oxygen Saturation [94-100 %] 97 % 95 % 95 % (11/27/19 7:48 AM) (11/27/19 5:23 AM) (11/27/19 12: 40 AM) Pulse Rate [55-90 bpm] 80 bpm 76 bpm 81 bpm (11/27/19 7:48 AM) (11/27/19 5:23 AM) (11/27/19 12: 40 AM) Body Mass Index [18.5-24.99] 31.56 *>HHI* (11/27/19 5:23 AM) Blood Pressure [90-138/55-84 132/84 mm Hg 125/79 mm Hg 134 /92 mm Hg mm Hg] (11/27/19 7:48 AM) (11/27/19 5:23 AM) (11/27/19 12: 40 AM) Respiratory Rate [16-30 16 br/min 20 br/min 16 br/mi n br/min] (11/27/19 7:48 AM) (11/27/19 5:23 AM) (11/27/19 12: 40 AM) Temperature [96.8-100.4 98.9 DegF DegF] (11/27/19 12:40 AM) Mode of Delivery (Oxygen) Room air Room air Room a ir (11/27/19 7:48 AM) (11/27/19 5:23 AM) (11/27/19 12: 40 AM) Blood pressure sites Arm, right Arm, left Arm, left (11/27/19 7:48 AM) (11/27/19 5:23 AM) (11/27/19 12: 40 AM) Temperature Route Oral (11/27/19 12:40 AM) Dry Weight 100 kg 100 kg (11/27/19 5:23 AM) (11/27/19 12:40 AM) Social History Social History Type Response Tobacco Use: 4 or less cigarettes(le ss than 1/4 pack)/day in last 30 days. Tobacco user in househ old: Yes. Sex Medical Equipment Implanted Date:03/26/19 Target Site:Ankle Right Description Quantity MRI Company Model IMPLANT FIXTN ANKLE ZIPTIGHT - ZIMB (533149) 1 [employer] Unknown ZAID: No Information Assigning Authority: FDA SCREW MARY STP 3.5X12 - SYNU (204.812) 1 [facility] Unknown ZAID: No Information Assigning Authority: FDA SCREW MARY STP 3.5X14 - SYNU (204.814) 1 [facility] Unknown ZAID: No Information Assigning Authority: FDA SCREW MARY STP 3.5X22 - SYNU (204.822) 1 [facility] Unknown ZAID: No Information Assigning Authority: FDA SCREW BONE CANC F THR 4.0X14 - SYNU (206.014) 1 [facility] Unknown ZAID: No Information Assigning Authority: FDA SCREW BONE CANC F THR 4.0X16 - SYNU (206.016) 1 [facility] Unknown ZAID: No Information Assigning Authority: FDA PLATE 1/3 TUBULAR 6H 69MM - SYNU (241.361) 1 [facility] Unknown ZAID: No Information Assigning Authority: FDA
--- OUTSIDE RECORDS SUMMARY | 2022-04-21 21:30 | XMS_ITS | Continuity of Care Document ---
:1985 Author Organization [facility] Address [address] [place] [address]- Care Team Providers Name Role Phone Enrico COMMERCIAL CREDIT SPECIALIST, Alexandra Primary Care Physician Encounter [facility] Date(s): 02/08/22 - 03/10/22 [facility] [address] [place] [address] Allergies, Adverse Reactions, Alerts Substance Reaction Severity Status Adhesive Bandage Active Egg Allergy1 Active 1She said she had a minor irritation if she eats eggs by themselves but she can have central african toast or egg prepared food products Immunizations [...] Maintenance, 10/15/19 16:09:00EDT Start Date: 10/15/19 Status: Orderedaspirin 81 mg oral tablet, chewable 81 mg, 1, tablet, By Mouth, Daily, # 90 tablet, Refills 1, Tot. Refills 1, Maintenance, 03/09/22 13:42:00 EDT, Route to Pharmacy Electronically, [facility], 173, cm, 03/09/22 2:03:00 EDT,Height, 100.1, kg, 03/07/22 16:34:00 EDT, Dry Weight Start Date: 03/09/22 Status: Orderedatorvastatin 10 mg oral tablet 1 tablet = 10 mg, By Mouth, Daily, # 90 tablet, 1 Refills, Maintenance, 03/09/22 13:51:00 EDT, [facility], 173, cm, 03/09/22 2:03:00 EDT, Height, 100.1, kg, 03/07/22 16:34:00 EDT, Dry Weight Start Date: 03/09/22 Status: Orderedazithromycin 500 mg oral tablet 1 tablet = 500 mg, By Mouth, Daily, # 1 tablet, 0 Refills, Maintenance, 03/09/22 13:08:00 EDT, Tablet, [facility], 173, cm, 03/09/22 2:03:00 [...] 16:13:00 EDT, Tablet Start Date: 10/15/19 Status: OrderedGlucagon 1 mg/0.2 mL subcutaneous solution [...] II opioid drug. Start Date: 03/06/22 Status: Orderedmirtazapine 30 mg oral tablet 1.5 tablet = [...] Active Type 1 diabetes, Confirmed Active uncontrolled Social History Social History Type Response Tobacco [...] Safety Status Authority Number Code Unknown Unknown [id number] Unknown 02/09/21 Unknown Unknown Active Unknown Unknown Unknown Unknown Unknown 03/26/19 Unknown Unknown Active Unknown Unknown Unknown Unknown Unknown 03/26/19 Unknown Unknown Active Unknown Unknown Unknown Unknown Unknown 03/26/19 Unknown Unknown Active Unknown Unknown Unknown Unknown Unknown 03/26/19 Unknown Unknown Active Unknown Unknown Unknown Unknown Unknown 03/26/19 Unknown Unknown Active Unknown Unknown Unknown Unknown Unknown 03/26/19 Unknown Unknown Active Unknown Patient Care team information PersonnelName: Alexandra Weston NP Address: Address: [address] [place] [address]
--- OUTSIDE RECORDS SUMMARY | 2022-04-21 21:30 | XMS_ITS | Continuity of Care Document ---
:1985 Author Organization [facility] Address [address] [place] [address]- Care Team Providers Name Role Phone Enrico STEVENS, Alexandra Primary Care Physician Encounter [facility] Date(s): 11/28/19 - 11/28/[address] [address]- [facility] Discharge Disposition: A-D/C Home Attending Physician: Kevin Trujillo MD Admitting Physician: Kevin Trujillo MD Referring Physician: Not on Staff, Referring MD Allergies, Adverse Reactions, Alerts Substance Reaction Severity Status Adhesive Bandage Active Egg Allergy1 Active 1She said she had a minor irritation if she eats eggs by themselves but she can have gibraltarian toast or egg prepared food products Medications [...] 12/11/19 13:24:00 EDT, 11/13/19 13:24:00 EDT, Tablet, [id number], 173, cm, 11/13/19 5:19:00 EDT, Height, 107.5, [...] 2 3 [Reference Range]: Height 173 cm (11/28/19 2:17 PM) Weight 104 kg (11/28/19 2:17 PM) Oxygen Saturation [94-100 95 % 100 % 94 % %] (11/28/19 5:20 PM) (11/28/19 4:05 PM) (11/28/19 3:1 5 PM) Pulse Rate [55-90 bpm] 64 bpm 75 bpm 81 bpm (11/28/19 5:20 PM) (11/28/19 4:05 PM) (11/28/19 3:1 5 PM) Blood Pressure 116/80 mm Hg 117/84 mm Hg 115/75 mm Hg [90-138/55-84 mm Hg] (11/28/19 5:20 PM) (11/28/19 4:05 PM) ( 0 3:15 PM) Respiratory Rate [16-30 15 br/min 14 br/min 16 br/mi n br/min] *L* *L* (11/28/19 3:15 PM ) (11/28/19 5:20 PM) (11/28/19 4:05 PM) Temperature [96.8-100.4 98.2 DegF DegF] (11/28/19 2:17 PM) Mode of Delivery (Oxygen) Room air Room air Room a ir (11/28/19 5:20 PM) (11/28/19 4:05 PM) (11/28/19 3:1 5 PM) Blood pressure sites Arm, left Arm, left (11/28/19 5:20 PM) (11/28/19 2:17 PM) Temperature Route Oral (11/28/19 2:17 PM) Dry Weight 104 kg (11/28/19 2:17 PM) Weight Obtained Via Patient/family stated (11/28/19 2:17 PM) Dry Weight Obtained Via Patient/family stated (11/28/19 2:17 PM) Social History Social History Type Response Tobacco Use: 4 or less cigarettes(le ss than 1/4 pack)/day in last 30 days. Tobacco user in househ old: Yes. Sex Medical Equipment Implanted Date:03/26/19 Target Site:Ankle Right Description Quantity MRI Company Model IMPLANT FIXTN ANKLE ZIPTIGHT - ZIMB (173208) 1 [employer] Unknown ZAID: No Information Assigning Authority: FDA SCREW MARY STP 3.5X12 - SYNU (204.812) 1 [facility] Unknown ZAID: No Information Assigning Authority: FDA SCREW MARY STP 3.5X14 - SYNU (204.814) 1 [facility] Unknown ZAID: No Information Assigning Authority: FDA SCREW MARY STP 3.5X22 - SYNU (204.822) 1 [facility] Unknown ZAID: No Information Assigning Authority: FDA SCREW BONE CANC F THR 4.0X14 - SYNU (206.014) 1 [facility] Unknown ZAID: No Information Assigning Authority: FDA SCREW BONE CANC F THR 4.0X16 - SYNU (206.016) 1 [facility] Unknown ZAID: No Information Assigning Authority: FDA PLATE 1/3 TUBULAR 6H 69MM - SYNU (241.361) 1 [employer] [facility] Unknown ZAID: No Information Assigning Authority: FDA
--- OUTSIDE RECORDS SUMMARY | 2022-04-21 21:30 | XMS_ITS | Continuity of Care Document ---
:1985 Author Organization [facility] Address [address] [place] [address]- Care Team Providers Name Role Phone Enrico STEVENS, Alexandra Primary Care Physician [facility]counter [facility] Date(s): 11/09/19 - 11/13/[address] [address]- [facility] Discharge Disposition: A-D/C Home Attending Physician: Temo Lamb DO Admitting Physician: Caitlin UMAÑA, Tony Referring Physician: Miller Alfonso MD Allergies, Adverse Reactions, Alerts Substance Reaction Severity Status Adhesive Bandage Active Egg Allergy1 Active 1She said she had a minor irritation if she eats eggs by themselves but she can have [place] toast or egg prepared food products Medications [...] 12/11/19 13:24:00 EDT, 11/13/19 13:24:00 EDT, Tablet, [id number], 173, cm, 11/13/19 5:19:00 EDT, Height, 107.5, [...] abuse(Confirmed) Active Type 1 diabetes, Active uncontrolled(Confirmed) Procedures Procedure Date Related Diagnosis Body Site Status Biopsy of bone of 3rd left toe 11/12/19 Completed Debridement of left 3rd toe 11/12/19 Completed Wound exploration of left foot infection 11/12/19 Completed and wound over great toe and 3rd toe Results Orders for Microbiology Reports Name Date Wound Deep Culture w/ Gram Smear 11/12/19 Wound Deep Culture w/ Gram Smear (Culture Wound Deep w / Gram Smear) 11/12/19 Wound Deep Culture w/ Gram Smear 11/12/19 Blood Culture 11/09/19 Blood Culture #2 11/09/19 Microbiology Reports TEST:Deep Wound Culture STATUS:Unauthenticated BODY SITE: SOURCE:WOUND COLLECTED DATE/TIME:11/12/19 12:46 PMDeep Wound Culture SPECIMEN DESCRIPTION : WOUND TOE LT 3RD SPECIAL REQUESTS : NONE GRAM STAIN : NO CELLS OR ORGANISMS SEEN CULTURE : 1+ STAPHYLOCOCCUS AUREUS. REPORT STATUS : PRELIMINARY REPORT TEST:Deep Wound Culture STATUS:Unauthenticated BODY SITE: SOURCE:SWAB1 COLLECTED DATE/TIME:11/12/19 12:46 PMDeep Wound Culture SPECIMEN DESCRIPTION : SWAB TOE LT 3RD SPECIAL REQUESTS : NONE GRAM STAIN : 2+ WHITE BLOOD CELLS 3+ RBC'S NO ORGANISMS SEEN CULTURE : 2+ STAPHYLOCOCCUS AUREUS. REPORT STATUS : PRELIMINARY REPORT TEST:Deep Wound Culture STATUS:Unauthenticated BODY SITE: SOURCE:SWAB1 COLLECTED DATE/TIME:11/12/19 12:10 PMDeep Wound Culture SPECIMEN DESCRIPTION : SWAB TOE LT GREAT SPECIAL REQUESTS : NONE GRAM STAIN : 1+ SQ.EPITHELIAL CELLS 2+ WHITE BLOOD CELLS 3+ RBC'S NO ORGANISMS SEEN CULTURE : 2+ STAPHYLOCOCCUS AUREUS. REPORT STATUS : PRELIMINARY REPORT TEST:Blood Culture, Second Order STATUS:Unauthenticated BODY SITE: SOURCE:Blood COLLECTED DATE/TIME:11/09/19 6:56 PMBlood Culture, Second Order SPECIMEN DESCRIPTION : BLOOD R HAND SPECIAL REQUESTS : NONE CULTURE : NO GROWTH 4 DAYS REPORT STATUS : PRELIMINARY REPORT TEST:Blood Culture STATUS:Unauthenticated BODY SITE: SOURCE:Blood COLLECTED DATE/TIME:11/09/19 6:55 PMBlood Culture SPECIMEN DESCRIPTION : BLOOD LEFT HAND SPECIAL REQUESTS : BLOOD LEFT HAND CULTURE : NO GROWTH 4 DAYS REPORT STATUS : PRELIMINARY REPORT Radiology Reports Exam Date Time Procedure Performing Provider Status 11/09/19 5:39 PM Chest 2 Views Frontal and Lat Nellie New; Modified Notes:(Chest 2 Views Frontal and Lat) Reason For Exam: CoughRESULT: Chest 2 Views Frontal and Lat Chest 2 Views Frontal and Lat Refer to EMR; Reason: Cough; Clinical Question(s): Pneumonia; Hx of Present Illness: pt's blood surgar is 597 at residential, pt states she took her insulin this am COMPARISON: Multiple priors, most recent dated 09/03/2019 FINDINGS: LINES AND TUBES: None. LUNGS AND PLEURA: No focal consolidation. Normal pulmonary vascularity. No pleural effusion. No pneumothorax. HEART, MEDIASTINUM AND STEFANIE: Heart is normal in size. Normal mediastinal and hilar contour. BONES AND SOFT TISSUES: No acute abnormality. IMPRESSION: No radiographic evidence of acute cardiopulmonary disease. WSN: [id number] Ordering Physician: Miller Alfonso Dictated By: Carleen Jose MD Dictated Date/Time: 11/09/19 5:44 pm Reviewed By: Carleen Jose MD Signed By: Carleen Jose MD Signed Date/Time: 11/09/19 5:44 pm Transcribed By: CHRISTIE Transcribed Date/Time: 11/09/19 5:43 pm Exam Date Time Procedure Performing Provider Status 11/09/19 5:39 PM Foot Min 3 Views Right Nellie New; Auth ( Verified) Notes:(Foot Min 3 Views Right) Reason For Exam: with Pain;TraumaRESULT: Foot Min 3 Views Right PROCEDURE: Foot Min 3 Views Left, Foot Min 3 Views Right CLINICAL INDICATION: 34 years old Female with chronic wounds in bilateral feet. Hx of Present Illness: pt's blood sugar is 597 at residential. COMPARISONS: Left foot x-ray dated 02/05/2019 and right foot x-ray dated 07/02/2018. FINDINGS: Left foot: Bones and joints: There are new destructive changes in the first metatarsophalangeal joint with derangement of the joint and superior dislocation of the proximal phalanx. There is a mildly displaced fracture in the shaft of the proximal phalanx. There is also new deformity of joint space in the first i nterphalangeal joint with evidence of a nondisplaced fracture in the base of the distal phalanx. There is new erosion of the distal phalanges of second and third digits with destructive changes of the second digit distal interphalangeal joins and medial and superior dislocation of the distal phalanx. There is a bone fragment adjacent to the second distal phalanx, suggestive of a pathologic fracture. Remainder of the joint spaces are unremarkable. Soft Tissues: There is marked soft tissue swelling in the midfoot and forefoot. No evidence of radiopaque foreign body. Right foot: Bones and joints: There is flexion deformity of the second through fifth distal interphalangeal joints limiting evaluation of the distal phalanges. Otherwise, no acute fracture or dislocation is seen. No significant erosive change identified. There is chronic deformity in the distal tibia and fibula with a side plate in the fibula and a metallic screw or clips in the distal tibia. There are well-corticated small bone fragments adjacent to the tibia likely from prior trauma. There are degenerative changes in the tibiotalar joint. Soft Tissues: There is soft tissue swelling along the plantar aspect of the forefoot. No evidence ofradiopaque foreign body. IMPRESSION: 1. Findings highly concerning for osteomyelitis involving the left first through third toes with pathologic fractures of the first proximal and distal phalanges and second distal phalanx. 2. No evidence of acute osseous abnormality in the right foot. Thank you for allowing me to participate in the care of this patient. WSN: [id number] Ordering Physician: Miller Alfonso Dictated By: Justice Ragsdale MD Dictated Date/Time: 11/09/19 5:51 pm Reviewed By: Justice Ragsdale MD Signed By: Justice Ragsdale MD Signed Date/Time: 11/09/19 5:51 pm Transcribed By: CHRISTIE Transcribed Date/Time: 11/09/19 5:41 pm Exam Date Time Procedure Performing Provider Status 11/09/19 5:39 PM Foot Min 3 Views Left Nellie New; Auth (V erified) Notes:(Foot Min 3 Views Left) Reason For Exam: with Pain;TraumaRESULT: Foot Min 3 Views Left PROCEDURE: Foot Min 3 Views Left, Foot Min 3 Views Right CLINICAL INDICATION: 34 years old Female with chronic wounds in bilateral feet. Hx of Present Illness: pt's blood sugar is 597 at residential. COMPARISONS: Left foot x-ray dated 02/05/2019 and right foot x-ray dated 07/02/2018. FINDINGS: Left foot: Bones and joints: There are new destructive changes in the first metatarsophalangeal joint with derangement of the joint and superior dislocation of the proximal phalanx. There is a mildly displaced fracture in the shaft of the proximal phalanx. There is also new deformity of joint space in the first i nterphalangeal joint with evidence of a nondisplaced fracture in the base of the distal phalanx. There is new erosion of the distal phalanges of second and third digits with destructive changes of the second digit distal interphalangeal joins and medial and superior dislocation of the distal phalanx. There is a bone fragment adjacent to the second distal phalanx, suggestive of a pathologic fracture. Remainder of the joint spaces are unremarkable. Soft Tissues: There is marked soft tissue swelling in the midfoot and forefoot. No evidence of radiopaque foreign body. Right foot: Bones and joints: There is flexion deformity of the second through fifth distal interphalangeal joints limiting evaluation of the distal phalanges. Otherwise, no acute fracture or dislocation is seen. No significant erosive change identified. There is chronic deformity in the distal tibia and fibula with a side plate in the fibula and a metallic screw or clips in the distal tibia. There are well-corticated small bone fragments adjacent to the tibia likely from prior trauma. There are degenerative changes in the tibiotalar joint. Soft Tissues: There is soft tissue swelling along the plantar aspect of the forefoot. No evidence ofradiopaque foreign body. IMPRESSION: 1. Findings highly concerning for osteomyelitis involving the left first through third toes with pathologic fractures of the first proximal and distal phalanges and second distal phalanx. 2. No evidence of acute osseous abnormality in the right foot. Thank you for allowing me to participate in the care of this patient. WSN: [id number] Ordering Physician: Miller Alfonso Dictated By: Justice Ragsdale MD Dictated Date/Time: 11/09/19 5:51 pm Reviewed By: Justice Ragsdale MD Signed By: Justice Ragsdale MD Signed Date/Time: 11/09/19 5:51 pm Transcribed By: CHRISTIE Transcribed Date/Time: 11/09/19 5:41 pm Vital Signs Most recent to oldest 1 2 3 [Reference Range]: Height 173 cm 173 cm 173 cm (11/13/19 5:19 AM) (11/12/19 7:46 PM) (11/12/19 11:19 AM) Weight 107.5 kg 107.5 kg 100.7 kg (11/12/19 11:19 AM) (11/09/19 10:19 PM) (11/09/19 7:43 PM) Oxygen Saturation [94-100 98 % 98 % 97 % %] (11/13/19 5:19 AM) (11/12/19 7:46 PM) (11/12/19 2:20 PM) Pulse Rate [55-90 bpm] 68 bpm 78 bpm 72 bpm (11/13/19 5:19 AM) (11/12/19 7:46 PM) (11/12/19 2:20 PM) Body Mass Index 35.92 35.92 33.65 [18.5-24.99] *>HHI* *>HHI* *>HHI* (11/12/19 11:19 AM) (11/09/19 10:19 PM) (11/09/19 7:43 PM) Blood Pressure 146/92 mm Hg 150/70 mm Hg 136/82 mm Hg [90-138/55-84 mm Hg] *H* *H* (11/12/19 9:5 4 PM) (11/13/19 8:30 AM) (11/13/19 5:19 AM) Respiratory Rate [16-30 20 br/min 20 br/min 18 br/mi n br/min] (11/13/19 2:20 PM) (11/13/19 2:14 PM) (11/13/19 1:2 7 PM) Temperature [96.8-100.4 97.6 DegF 98.7 DegF 97.4 Deg F DegF] (11/13/19 5:19 AM) (11/12/19 7:46 PM) (11/12/19 2:20 PM) Mode of Delivery (Oxygen) Room air Room air Room a ir (11/13/19 5:19 AM) (11/12/19 7:46 PM) (11/12/19 2:20 PM) Blood pressure sites Arm, right Arm, right Arm, left (11/13/19 5:19 AM) (11/12/19 7:46 PM) (11/12/19 2:20 PM) Temperature Route Temporal Oral Tympanic (11/13/19 5:19 AM) (11/12/19 7:46 PM) (11/12/19 2:20 PM) Dry Weight 107.5 kg 100.7 kg 100.7 kg (11/09/19 10:19 PM) (11/09/19 7:43 PM) (11/09/19 3:40 PM) Weight Obtained Via Bed scale Patient/family stated (11/09/19 10:19 PM) (11/09/19 3:40 PM) Dry Weight Obtained Via Bed scale Patient/family stated (11/09/19 10:19 PM) (11/09/19 3:40 PM) Social History Social History Type Response Tobacco Use: 4 or less cigarettes(le ss than 1/4 pack)/day in last 30 days. Tobacco user in househ old: Yes. Sex Medical Equipment Implanted Date:03/26/19 Target Site:Ankle Right Description Quantity MRI Company Model IMPLANT FIXTN ANKLE ZIPTIGHT - ZIMB (655133) 1 [employer] Unknown ZAID: No Information Assigning Authority: FDA SCREW MARY STP 3.5X12 - SYNU (204.812) [facility]: No Information Assigning Authority: FDA SCREW MARY STP 3.5X14 - SYNU (204.814) 1 [facility] ZAID: No Information Assigning Authority: FDA SCREW MARY STP 3.5X22 - SYNU (204.822) 1 [facility] ZAID: No Information Assigning Authority: FDA SCREW BONE CANC F THR 4.0X14 - SYNU (206.014) 1 [employer] [facility] Unknown ZAID: No Information Assigning Authority: FDA SCREW BONE CANC F THR 4.0X16 - SYNU (206.016) 1 [employer] [facility] Unknown ZAID: No Information Assigning Authority: FDA PLATE 1/3 TUBULAR 6H 69MM - SYNU (241.361) 1 [employer] [facility] Unknown ZAID: No Information Assigning Authority: FDA
--- OUTSIDE RECORDS SUMMARY | 2022-04-21 21:30 | XMS_ITS | Continuity of Care Document ---
:1985 Author Organization [facility] Address [address] [place] [address]- Care Team Providers Name Role Phone Enrico STEVENS, Alexandra Primary Care Physician Encounter [facility] Date(s): 09/03/19 - 09/06/[address] [address]- [facility] Discharge Disposition: A-D/C Home Attending Physician: Temo Lamb DO Admitting Physician: Tariq Neri DO Referring Physician: Georgi UMAÑA, Teddy Gallego Allergies, Adverse Reactions, Alerts Substance Reaction Severity Status Adhesive Bandage Active Egg Allergy1 Active 1She said she had a minor irritation if she eats eggs by themselves but she can have sinhala toast or egg prepared food products Medications Balanced B-50 Vitamin B Complex oral tablet 1 tablet, By Mouth, Daily, # 30 tablet, 0 Refills, Maintenance, 03/25/19 18:46:39 EDT, Tablet Start Date: 03/25/19 Status: OrderedbuPROPion 150 mg/24 hours (XL) oral tablet, extended release 1 tablet = 150 mg, By Mouth, Every 24 hours, 0 Refills, Maintenance, 09/03/19 17:08:00 EDT Start Date: 09/03/19 Status: Orderedcefuroxime 500 mg oral tablet 1 tablet = 500 mg, By Mouth, 2 times a day, for 3 days, # 6 tablet, 0 Refills, Acute 09/09/19 17:33:00 EDT, 09/06/19 17:33:00 EDT, Tablet, [id number], 174, cm, 09/06/19 8:15:00 EDT, Height, 100, kg, 09/04/19 4:26:00 EDT, Dry Weight Start Date: 4/3/20 Stop Date: 09/09/19 Status: OrderedcloNIDine 0.1 mg oral tablet 0.1 mg, 1, tablet, By Mouth, 2 times a day, # 180 tablet, Refills 0, Maintenance, 03/31/19 15:48:16 EDT Start Date: 03/31/19 Status: Ordereddocusate sodium = 100 mg, By Mouth, 2 times a day, 0 Refills, Maintenance, 03/25/19 18:45:34 EDT Start Date: 03/25/19 Status: Ordereddoxycycline hyclate 100 mg oral tablet 1 tablet = 100 mg, By Mouth, 2 times a day, for 3 days, # 6 tablet, 0 Refills, Acute 09/09/19 17:33:00 EDT, 09/06/19 17:33:00 EDT, Tablet, [facility] #[id number], 174, cm, 09/06/19 8:15:00 EDT, Height, 100, kg, 09/04/19 4:26:00 EDT, Dry Weight Start Date: 09/06/19 Stop Date: 09/09/19 Status: Orderedgabapentin 300 mg oral capsule 300 [...] 03/25/19 18:50:11 EDT Start Date: 03/25/19 Status: Orderedmagnesium oxide 400 mg oral tablet 1 tablet = 400 mg, By Mouth, Daily, # 14 tablet, 0 Refills, Maintenance, 03/25/19 18:49:29 EDT, Tablet Start Date: 03/25/19 Status: Orderedmethadone 10 mg/5 mL oral solution = 62 mg, By Mouth, Daily, 0 Refills, Maintenance, 07/16/18 10:18:19 EST, Solution Start Date: 07/16/18 Status: Orderedprazosin 5 mg oral capsule 5 [...] 07/16/18 9:30:11 EST, Route to Pharmacy Electronically, NCPDP_[id number], [facility] Start Date: 07/16/18 Stop Date: 08/15/18 [...] 03/31/19 Active Type 1 diabetes, Active uncontrolled(Confirmed) Results Orders for Microbiology Reports Name Date Blood Culture 09/03/19 Blood Culture #2 09/03/19 Microbiology Reports TEST:Blood Culture, Second Order STATUS:Unauthenticated BODY SITE: SOURCE:Blood COLLECTED DATE/TIME:09/03/19 8:15 PMBlood Culture, Second Order SPECIMEN DESCRIPTION : BLOOD no site SPECIAL REQUESTS : NONE CULTURE : NO GROWTH 3 DAYS REPORT STATUS : PRELIMINARY REPORT TEST:Blood Culture STATUS:Unauthenticated BODY SITE: SOURCE:Blood COLLECTED DATE/TIME:09/03/19 8:00 PMBlood Culture SPECIMEN DESCRIPTION : BLOOD RT HAND SPECIAL REQUESTS : NONE CULTURE : NO GROWTH 3 DAYS REPORT STATUS : PRELIMINARY REPORT Radiology Reports Exam Date Time Procedure Performing Provider Status 09/03/19 7:26 PM Chest Portable Mindy Dickens; Praful ([facility] ed) Notes:(Chest Portable) Reason For Exam: CoughRESULT: Chest Portable Chest Portable AP upright at 1854 hours Reason: Cough; Clinical Question(s): Pneumonia; Hx of Present Illness: pt from methadone clinic withams and lethargy pupils reactive pt with dry cough +exp wheezing with prolonged phase awakes to verbal stimuli then back to sleep able to sit up in stretcher denies pain COMPARISON: 09/01/2019, 02/05/2019 FINDINGS: LINES AND TUBES: None. LUNGS AND PLEURA: Low lung volume with mild interstitial opacities of the lower lungs, new from prior. No pleural effusion. No pneumothorax. HEART, MEDIASTINUM AND STEFANIE: Heart is normal in size. Normal mediastinal and hilar contour. BONES AND SOFT TISSUES: No acute abnormality. IMPRESSION: Mild interstitial opacities of the lower lungs, new from prior exam, but nonspecific. WSN: [id number] Ordering Physician: Teddy Laureano Dictated By: Brenden Rowley DO Dictated Date/Time: 09/03/19 7:29 pm Reviewed By: Brenden Rowley DO Signed By: Brenden Rowley DO Signed Date/Time: 09/03/19 7:29 pm Transcribed By: CHRISTIE Transcribed Date/Time: 09/03/19 7:28 pm Vital Signs Most recent to oldest [Reference 1 2 3 Range]: Height 174 cm 174 cm 174 cm (09/06/19 8:11 PM) (09/06/19 8:15 AM) (09/06/19 4:24 A M) Weight 100 kg 100 kg 100 kg (09/04/19 4:26 AM) (09/04/19 2:49 AM) (09/03/19 11:11 PM) Oxygen Saturation [94-100 %] 100 % 100 % 98 % (09/06/19 8:11 PM) (09/06/19 4:24 AM) (09/05/19 7:40 P M) Pulse Rate [55-90 bpm] 75 bpm 61 bpm 69 bpm (09/06/19 8:11 PM) (09/06/19 4:24 AM) (09/05/19 7:40 P M) Body Mass Index [18.5-24.99] 33.03 33.03 33. 03 *>HHI* *>HHI* *>HHI* (09/04/19 4:26 AM) (09/04/19 2:49 AM) (09/03/19 11:11 PM) Blood Pressure [90-138/55-84 mm 134/81 mm Hg 158/85 mm Hg Hg] (09/06/19 8:11 PM) *H* (09/06/19 4:24 AM) Systolic Blood Pressure [90-138 130 mm Hg mm Hg] (09/06/19 8:12 PM) Diastolic Blood Pressure [55-84 79 mm Hg mm Hg] (09/05/19 9:13 PM) Respiratory Rate [16-30 br/min] 20 br/min 19 br/min 18 br/min (09/06/19 8:12 PM) (09/06/19 8:11 PM) (09/06/19 6:02 P M) Temperature [96.8-100.4 DegF] 98.7 DegF 97.0 DegF 97 .0 DegF (09/06/19 8:11 PM) (09/06/19 8:15 AM) (09/06/19 4:24 A M) Mode of Delivery (Oxygen) Room air Room air Room a ir (09/06/19 8:11 PM) (09/06/19 4:24 AM) (09/05/19 7:40 P M) Blood pressure sites Arm, left Arm, left Arm, left (09/06/19 4:24 AM) (09/05/19 7:40 PM) (09/05/19 5:25 P M) Temperature Route Temporal Temporal Oral (09/06/19 8:15 AM) (09/06/19 4:24 AM) (09/05/19 7:40 P M) Dry Weight 100 kg 100 kg 100 kg (09/04/19 4:26 AM) (09/04/19 2:49 AM) (09/03/19 11:11 PM) Sensory deficits None (09/04/19 4:26 AM) Mobility assistance Independent (09/04/19 4:26 AM) Social History Social History Type Response Tobacco Use: 4 or less cigarettes(le ss than 1/4 pack)/day in last 30 days. Tobacco user in househ old: Yes. Sex Medical Equipment Implanted Date:03/26/19 Target Site:Ankle Right Description Quantity MRI Company Model IMPLANT FIXTN ANKLE ZIPTIGHT - ZIMB (820894) 1 [employer] Unknown ZAID: No Information Assigning Authority: FDA SCREW MARY STP 3.5X12 - SYNU (204.812) 1 [facility] Unknown ZAID: No Information Assigning Authority: FDA SCREW MARY STP 3.5X14 - SYNU (204.814) 1 [facility] Unknown ZAID: No Information Assigning Authority: FDA SCREW MARY STP 3.5X22 - SYNU (204.822) 1 [facility] Unknown ZAID: No Information Assigning Authority: FDA SCREW BONE CANC F THR 4.0X14 - SYNU (206.014) 1 [facility] Unknown ZAID: No Information Assigning Authority: FDA SCREW BONE CANC F THR 4.0X16 - SYNU (206.016) 1 [facility] Unknown ZAID: No Information Assigning Authority: FDA PLATE 06/07 TUBULAR 6H 69MM - SYNU (241.361) 1 [facility] Unknown ZAID: No Information Assigning Authority: FDA
--- OUTSIDE RECORDS SUMMARY | 2022-04-21 21:30 | XMS_ITS | Continuity of Care Document ---
:1985 Author Organization [facility] Address [address] [place] [address]- Care Team Providers Name Role Phone Enrico LARRIMAN HELPER, Alexandra Primary Care Physician Encounter [facility] Date(s): 12/17/19 - 12/23/[address] [address]- [facility] Encounter Diagnosis Gangrene of toe (Final) - 12/17/19 Discharge Disposition: A-D/C Home Attending Physician: Marimar Gutiérrez DO Admitting Physician: Tariq Neri DO Referring Physician: Tiana UMAÑA, Nelson [place] Allergies, Adverse Reactions, Alerts Substance Reaction Severity [...] 18:49:29 EDT, Tablet Start Date: 03/25/19 Status: Orderedmelatonin 3 mg oral tablet 1 tablet = 3 mg, By Mouth, Daily at bedtime, PRN Sleep, # 30 tablet, 0 Refills, Acute 12/24/19 10:00:00 EDT, 12/23/19 16:19:00 EDT, Tablet Start Date: 12/23/19 Stop Date: 12/24/19 Status: Orderedmethadone 10 mg/5 mL oral solution = 70 mg, By Mouth, Daily, 0 Refills, Maintenance, 07/16/18 10:18:19 EST, Solution Start Date: 07/16/18 Status: Orderednicotine 14 mg/24 hr transdermal film, extended release 1 patch, Topically, Daily, # 30 patch, 0 Refills, Acute 12/24/19 10:00:00 EDT, 12/23/19 16:19:00 EDT, Patch Start Date: 12/23/19 Stop Date: 12/24/19 Status: Orderedomeprazole 20 mg oral enteric coated [...] 03/25/19 18:56:18 EDT Start Date: 03/25/19 Status: OrderedSenna 8.6 mg oral tablet 17.2 mg, 2, tablet, By Mouth, Daily at bedtime, # 60 tablet, Refills 0, Tot. Refills 0, Acute, 12/24/19 10:00:00 EDT, 12/23/19 16:19:00 EDT, Print Requisition, Tablet Start Date: 12/23/19 Stop Date: 12/24/19 Status: OrderedtraZODone 50 mg oral tablet 100 mg, 2, tablet, By Mouth, Daily at bedtime, PRN, Refills 0, Maintenance, Sleep, 12/23/19 15:52:00EDT Start Date: 12/23/19 Status: Orderedvancomycin 2 g/250 mL-NaCl 0.9% intravenous solution = 2 Gm, IV Infusion, Every 24 hours, infused over 60 minutes, # 24 each, 0 Refills, Acute 12/24/19 10:00:00 EDT, 12/23/19 17:09:00 EDT Start Date: 12/23/19 Stop Date: 12/24/19 Status: Orderedvancomycin 2 g/250 mL-NaCl 0.9% intravenous solution = 2 Gm, IV Infusion, Every 24 hours, infused over 60 minutes, # 38 each, 0 Refills, Acute 12/24/19 10:00:00 EDT, 12/24/19 10:00:00 EDT Start Date: 12/24/19 Stop Date: 12/24/19 Status: OrderedVitamin D3 1000 intl units oral [...] Procedure Date Related Diagnosis Body Site Status 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 REPORT STATUS : FINAL 12/22/2019Radiology Reports Exam Date Time Procedure Performing Provider Status 12/17/19 5:25 PM Toe 4th Left Foot Real , Andreina; Auth (Verif ied) Notes:(Toe 4th Left Foot) Reason For Exam: InfectionRESULT: Toe 4th Left Foot Toe 4th Left Foot CLINICAL INDICATION: Reason: Infection; Clinical Question(s): Osteomyelitis; Hx of Present Illness: pt states she had surgery on her L foot x3 weeks ago and her toes continue to become black and has nofeeling in the bottom of her foot and her toes. COMPARISONS: X-ray from 11/09/2019 TECHNIQUE: AP, lateral and oblique views of the left foot with attention to the fourth toe were obtained. FINDINGS: Erosive destruction of the adjoining articular surfaces at the first MTP joint again noted. There is again dorsal dislocation at the first MTP joint similar to the prior exam. Previously reported fracture at the distal phalanx of the great toe is no longer seen. Erosive destructive changes of the distal phalanges of the second and third digits again noted with persistent dorsal dislocation at third distal phalanx. There is diffuse soft tissue edema involving the fourth digit with soft tissue emphysema seen at thetip of the fourth digit. Cortical margins of the fourth distal phalanx appear more indistinct raising concern for bone infection in this location as well. The Lisfranc joint space is normally aligned. No retained foreign body. Hindfoot midfoot alignment is normal. IMPRESSION: Osteolytic destructive changes consistent with underlying osteomyelitis centered at the first MTP joint as well as involving the second and third distal phalanges is similar in extent to the previous exam. There is new soft tissue edema and emphysema involving the distal fourth digit with subtle osteolytic changes involving the distal phalanx concerning for possible gangrenous infection and underlying osteomyelitis. A [place] message has been communicated via the [employer] system on 12/17/2019 5:35 PM, Message ID [id number]. WSN: [id number] Ordering Physician: Nelson Montiel Dictated By: Quang Garvin MD Dictated Date/Time: 12/17/19 5:35 pm Reviewed By: Quang Garvin MD Signed By: Quang Garvin MD Signed Date/Time: 12/17/19 5:35 pm Transcribed By: CHRISTIE Transcribed Date/Time: 12/17/19 5:29 pm Vital Signs Most recent to oldest 1 2 3 [Reference Range]: Height 172 cm 172 cm 172 cm (12/23/19 5:24 AM) (12/22/19 7:56 PM) (12/22/19 8:0 1 AM) Weight 107.9 kg 107.9 kg 106 kg (12/20/19 10:16 AM) (12/17/19 9:41 PM) (12/17/19 3: 12 PM) Oxygen Saturation [94-100 %] 100 % 96 % 100 % (12/23/19 2:00 PM) (12/23/19 5:24 AM) (12/22/19 7:5 6 PM) Pulse Rate [55-90 bpm] 80 bpm 75 bpm 81 bpm (12/23/19 2:00 PM) (12/23/19 5:24 AM) (12/22/19 7:5 6 PM) Body Mass Index [18.5-24.99] 36.47 36.47 35. 83 *>HHI* *>HHI* *>HHI* (12/20/19 10:16 AM) (12/17/19 9:41 PM) (12/17/19 3: 01 PM) Blood Pressure [90-138/55-84 139/85 mm Hg 145/97 mm Hg 145 /97 mm Hg mm Hg] *H* *H* *H* (12/23/19 2:00 PM) (12/23/19 8:44 AM) (12/23/19 8:4 4 AM) Respiratory Rate [16-30 18 br/min 20 br/min 17 br/mi n br/min] (12/23/19 2:00 PM) (12/23/19 10:37 AM) (12/23/19 9: 45 AM) Temperature [96.8-100.4 DegF] 98.1 DegF 97.8 DegF 98 .6 DegF (12/23/19 2:00 PM) (12/23/19 5:24 AM) (12/22/19 7:5 6 PM) Liters per Minute 0 L/min 3 L/min 3 L/min (12/21/19 5:33 AM) (12/20/19 1:17 PM) (12/20/19 1:1 3 PM) Mode of Delivery (Oxygen) Room air Room air Room a ir (12/23/19 2:00 PM) (12/23/19 5:24 AM) (12/22/19 7:5 6 PM) Blood pressure sites Arm, left Arm, left Arm, right (12/23/19 2:00 PM) (12/23/19 5:24 AM) (12/22/19 7:5 6 PM) Temperature Route Oral Oral Oral (12/23/19 2:00 PM) (12/23/19 5:24 AM) (12/22/19 7:5 6 PM) Dry Weight 107.9 kg 106 kg 106 kg (12/17/19 9:41 PM) (12/17/19 3:12 PM) (12/17/19 3:0 1 PM) Weight Obtained Via Bed scale (12/17/19 9:41 PM) Dry Weight Obtained Via Bed scale (12/17/19 9:41 PM) Social History Social History Type Response Tobacco Use: 4 or less cigarettes(le ss than 1/4 pack)/day in last 30 days. Tobacco user in househ old: Yes. Sex Medical Equipment Implanted Date:03/26/19 Target Site:Ankle Right Description Quantity MRI Company Model IMPLANT FIXTN ANKLE ZIPTIGHT - ZIMB (903454) 1 [employer] Unknown ZAID: No Information Assigning Authority: FDA SCREW MARY STP 3.5X12 - SYNU (204.812) 1 [facility] Unknown ZAID: No Information Assigning Authority: FDA SCREW MARY STP 3.5X14 - SYNU (204.814) 1 [facility] Unknown ZAID: No Information Assigning Authority: FDA SCREW MARY STP 3.5X22 - SYNU (204.822) 1 [facility] Unknown ZAID: No Information Assigning Authority: FDA SCREW BONE CANC F THR 4.0X14 - SYNU (206.014) 1 [facility] Unknown ZAID: No Information Assigning Authority: FDA SCREW BONE CANC F THR 4.0X16 - SYNU (206.016) 1 [facility] Unknown ZAID: No Information Assigning Authority: FDA PLATE /3 TUBULAR 6H 69MM - SYNU (241.361) 1 [employer] [facility] Unknown ZAID: No Information Assigning Authority: FDA
--- OUTSIDE RECORDS SUMMARY | 2022-04-21 21:30 | XMS_ITS | Continuity of Care Document ---
:1985 Author Organization [facility] Address [address] [place] [address]- Care Team Providers Name Role Phone Enrico STEVENS, Alexandra Primary Care Physician Encounter [facility] Date(s): 02/04/22 - 03/06/22 [facility] [address] [place] [address]- Allergies, Adverse Reactions, Alerts Substance Reaction Severity Status Adhesive Bandage Active Egg Allergy1 Active 1She said she had a minor irritation if she eats eggs by themselves but she can have irish toast or egg prepared food products Medications Abilify 10 mg oral tablet 10 mg, 1, tablet, By Mouth, Daily at bedtime, # 30 tablet, Refills 0, Maintenance, 10/15/19 16:09:00EDT Start Date: 10/15/19 Status: OrderedamLODIPine 5 mg oral tablet 5 mg, 1, tablet, By Mouth, Daily, # 30 tablet, Refills 0, Tot. Refills 0, Maintenance, 12/23/19 15:53:00 EDT, Print Requisition Start Date: 12/23/19 Status: OrderedbuPROPion 100 mg oral tablet 1 [...] 11/12/19 Status: Orderedprazosin 2 mg oral capsule 1 capsule = 2 mg, By Mouth, Daily at bedtime, 0 Refills, Maintenance, 03/06/22 8:02:00 EDT, Partial fill upon patient request if the prescription is for a schedule II opioid drug. Start Date: 03/06/22 Status: Orderedprazosin 5 mg oral capsule 5 mg, 1, capsule, By Mouth, Daily at bedtime, Refills 0, Maintenance, 03/06/22 8:02:00 EDT, Partial fill upon patient request if the prescription is for a schedule II opioid drug. Start Date: 03/06/22 Status: OrderedRisperDAL 1 mg oral tablet 2 mg, 2, tablet, By Mouth, Daily at bedtime, # 30 tablet, Refills 0, Maintenance, 03/25/19 18:56:18 EDT Start Date: 03/25/19 Status: OrderedSenna 8.6 mg oral tablet 8.6 [...] Active Major depressive Confirmed Active disorder, PTSD Opiate dependence Confirmed Active Injury of ankle, [...] Safety Status Authority Number Code Unknown Unknown [id number] Unknown 02/09/21 Unknown Unknown Active Unknown Unknown [...] information PersonnelName: Alexandra Weston NP Address: Address: [address] [place] [address]
--- OUTSIDE RECORDS SUMMARY | 2022-04-21 21:30 | XMS_ITS | Continuity of Care Document ---
:1985 Author Organization [facility] Address [address] [place] [address]- Care Team Providers Name Role Phone Enrico STEVENS, Alexandra Primary Care Physician Encounter [facility] Date(s): 11/25/19 - 11/25/[address] [address]- [facility] Discharge Disposition: A-D/C Home Attending Physician: Nelson Montiel MD Admitting Physician: Nelson Montiel MD Referring Physician: Not on Staff, Referring MD Allergies, Adverse Reactions, Alerts Substance Reaction Severity Status Adhesive Bandage Active Egg Allergy1 Active 1She said she had a minor irritation if she eats eggs by themselves but she can have telugu toast or egg prepared food products Medications [...] 12/11/19 13:24:00 EDT, 11/13/19 13:24:00 EDT, [id number], 173, cm, 11/13/19 5:19:00 EDT, Height, 107.5, [...] [Reference Range]: Height 172 cm 172 cm (11/25/19 5:57 PM) (11/25/19 4:53 PM) Weight 88 kg 88 kg (11/25/19 5:57 PM) (11/25/19 4:53 PM) Oxygen Saturation [94-100 97 % 95 % 100 % %] (11/25/19 7:37 PM) (11/25/19 5:57 PM) (11/25/19 4:5 3 PM) Pulse Rate [55-90 bpm] 66 bpm 67 bpm 73 bpm (11/25/19 7:37 PM) (11/25/19 5:57 PM) (11/25/19 4:5 3 PM) Body Mass Index 29.75 [18.5-24.99] *H* (11/25/19 5:57 PM) Blood Pressure 146/90 mm Hg 148/88 mm Hg 152/97 mm Hg [90-138/55-84 mm Hg] *H* *H* *H* (11/25/19 7:37 PM) (11/25/19 5:57 PM) (11/25/19 4:5 3 PM) Respiratory Rate [16-30 14 br/min 16 br/min 14 br/mi n br/min] *L* (11/25/19 5:57 PM) *L* (11/25/19 7:37 PM) (11/25/19 4:53 PM) Temperature [96.8-100.4 98.5 DegF DegF] (11/25/19 4:53 PM) Mode of Delivery (Oxygen) Room air Room air Room a ir (11/25/19 7:37 PM) (11/25/19 5:57 PM) (11/25/19 4:5 3 PM) Blood pressure sites Arm, left Arm, left Arm, left (11/25/19 7:37 PM) (11/25/19 5:57 PM) (11/25/19 4:5 3 PM) Temperature Route Oral (11/25/19 4:53 PM) Dry Weight 88 kg 88 kg (11/25/19 5:57 PM) (11/25/19 4:53 PM) Dry Weight Obtained Via Patient/family stated (11/25/19 4:53 PM) Social History Social History Type Response Tobacco Use: 4 or less cigarettes(le ss than 1/4 pack)/day in last 30 days. Tobacco user in househ old: Yes. Sex Medical Equipment Implanted Date:03/26/19 Target Site:Ankle Right Description Quantity MRI Company Model IMPLANT FIXTN ANKLE ZIPTIGHT - ZIMB (116078) 1 [employer] Unknown ZAID: No Information Assigning Authority: FDA SCREW MARY STP 3.5X12 - SYNU (204.812) 1 [facility] Unknown ZAID: No Information Assigning Authority: FDA SCREW MARY STP 3.5X14 - SYNU (204.814) 1 [facility] Unknown ZAID: No Information Assigning Authority: FDA SCREW MARY STP 3.5X22 - SYNU (204.822) 1 [facility] Unknown ZAID: No Information Assigning Authority: FDA SCREW BONE CANC F THR 4.0X14 - SYNU (206.014) 1 [facility] Unknown ZAID: No Information Assigning Authority: FDA SCREW BONE CANC F THR 4.0X16 - SYNU (206.016) 1 [facility] Unknown ZAID: No Information Assigning Authority: FDA PLATE 1/3 TUBULAR 6H 69MM - SYNU (241.361) 1 [facility] Unknown ZAID: No Information Assigning Authority: FDA
--- OUTSIDE RECORDS SUMMARY | 2022-04-21 21:31 | XMS_ITS | Continuity of Care Document ---
:1985 Author Organization [facility] Address [address] [place] [address]- Care Team Providers Name Role Phone Enrico STEVENS, Alexandra Primary Care Physician Encounter [facility] Date(s): 01/11/20 - 02/10/[address] [address]- [facility] Attending Physician: Mariza Perez MD Allergies, Adverse Reactions, Alerts Substance Reaction Severity Status Adhesive Bandage Active Egg Allergy1 Active 1She said she had a minor irritation if she eats eggs by themselves but she can have luxembourger toast or egg prepared food products Medications [...] Most recent to oldest [Reference Range]: 1 Height 176 cm (01/11/20 11:41 AM) Weight 104.78 kg (01/11/20 11:41 AM) Pulse Rate [55-90 bpm] 72 bpm (01/11/20 11:41 AM) Body Mass Index [18.5-24.99] 33.83 *>HHI* (01/11/20 11:41 AM) Blood Pressure [90-138/55-84 mm Hg] 122/56 mm Hg (01/11/20 11:41 AM) Respiratory Rate [16-30 br/min] 16 br/min (01/11/20 11:41 AM) Temperature [96.8-100.4 DegF] 97.4 DegF (01/11/20 11:41 AM) Blood pressure sites Arm, right (01/11/20 11:41 AM) Temperature Route Temporal (01/11/20 11:41 AM) Dry Weight 104 kg (01/11/20 11:41 AM) Weight Obtained Via Standing scale (01/11/20 11:41 AM) Sensory deficits None (01/11/20 11:41 AM) Mobility assistance Independent (01/11/20 11:41 AM) Social History Social History Type Response Tobacco Use: 4 or less cigarettes(le ss than 1/4 pack)/day in last 30 days. Tobacco user in househ old: Yes. Sex Medical Equipment Implanted Date:03/26/19 Target Site:Ankle Right Description Quantity MRI Company Model IMPLANT FIXTN ANKLE ZIPTIGHT - ZIMB (199230) 1 [employer] Unknown ZAID: No Information Assigning Authority: FDA SCREW MARY STP 3.5X12 - SYNU (204.812) 1 [facility] Unknown ZAID: No Information Assigning Authority: FDA SCREW MARY STP 3.5X14 - SYNU (204.814) 1 [facility] Unknown ZAID: No Information Assigning Authority: FDA SCREW MARY STP 3.5X22 - SYNU (204.822) 1 [facility] Unknown ZAID: No Information Assigning Authority: FDA SCREW BONE CANC F THR 4.0X14 - SYNU (206.014) 1 [facility] Unknown ZAID: No Information Assigning Authority: FDA SCREW BONE CANC F THR 4.0X16 - SYNU (206.016) 1 [facility] Unknown ZAID: No Information Assigning Authority: FDA PLATE 1/3 TUBULAR 6H 69MM - SYNU (241.361) 1 [facility] Unknown ZAID: No Information Assigning Authority: FDA
--- OUTSIDE RECORDS SUMMARY | 2022-04-21 21:31 | XMS_ITS | Continuity of Care Document ---
:1985 Author Organization [facility] [place] Address [address] [place] [address]- Care Team Providers Name Role Phone Enrico STEVENS, Alexandra Primary Care Physician [facility] Date[facility]): 12/23/19 - 03/12/20 [facility] [place] [address] [place] [address]- [facility] Attending Physician: Ana UMAÑA, Mariza Ruth Referring Physician: Alexandra Weston NP Allergies, Adverse Reactions, Alerts Substance Reaction Severity Status Adhesive Bandage Active Egg Allergy1 Active 1She said she had a minor irritation if she eats eggs by themselves but she can have macedonian toast or egg prepared food products Medications [...] Model IMPLANT FIXTN ANKLE ZIPTIGHT - ZIMB (038586) 1 [employer] Unknown ZAID: No Information Assigning Authority: FDA SCREW MARY STP 3.5X12 - SYNU (204.812) 1 [facility] Unknown ZAID: No Information Assigning Authority: FDA SCREW MARY STP 3.5X14 - SYNU (204.814) 1 [facility] Unknown ZAID: No Information Assigning Authority: FDA SCREW MARY STP 3.5X22 - SYNU (204.822) 1 [facility] Unknown ZAID: No Information Assigning Authority: FDA SCREW BONE CANC F THR 4.0X14 - SYNU (206.014) 1 [facility] Unknown ZAID: No Information Assigning Authority: FDA SCREW BONE CANC F THR 4.0X16 - SYNU (206.016) 1 [facility] Unknown ZAID: No Information Assigning Authority: FDA PLATE 1/3 TUBULAR 6H 69MM - SYNU (241.361) 1 [facility] Unknown ZAID: No Information Assigning Authority: FDA
--- OUTSIDE RECORDS SUMMARY | 2022-04-21 21:31 | XMS_ITS | Continuity of Care Document ---
:1985 Author Organization [facility] [address] Address [address] [place] [address]- Care Team Providers Name Role Phone Enrico STEVENS, Alexandra Primary Care Physician Encounter [facility] Date(s): 12/23/19 - 02/13/20 [facility] [address] [place] [address]- [facility] Attending Physician: Ana UMAÑA, Mariza Ruth Referring Physician: Alexandra Weston NP Allergies, Adverse Reactions, Alerts Substance Reaction Severity Status Adhesive Bandage Active Egg Allergy1 Active 1She said she had a minor irritation if she eats eggs by themselves but she can have greek toast or egg prepared food products Medications [...] Model IMPLANT FIXTN ANKLE ZIPTIGHT - ZIMB (628237) 1 [employer] Unknown ZAID: No Information Assigning Authority: FDA SCREW MARY STP 3.5X12 - SYNU (204.812) 1 [facility] Unknown ZAID: No Information Assigning Authority: FDA SCREW MARY STP 3.5X14 - SYNU (204.814) 1 [facility] Unknown ZAID: No Information Assigning Authority: FDA SCREW MARY STP 3.5X22 - SYNU (204.822) 1 [facility] Unknown ZAID: No Information Assigning Authority: FDA SCREW BONE CANC F THR 4.0X14 - SYNU (206.014) 1 [facility] Unknown ZAID: No Information Assigning Authority: FDA SCREW BONE CANC F THR 4.0X16 - SYNU (206.016) 1 [facility] Unknown ZAID: No Information Assigning Authority: FDA PLATE 1/3 TUBULAR 6H 69MM - SYNU (241.361) 1 [facility] Unknown ZAID: No Information Assigning Authority: FDA
--- OUTSIDE RECORDS SUMMARY | 2022-04-21 21:31 | XMS_ITS | Continuity of Care Document ---
:1985 Author Organization [facility] Address [address] [place] [address]- Care Team Providers Name Role Phone Enrico STEVENS, Alexandra Primary Care Physician Encounter [facility] Date(s): 01/02/20 - 02/05/20 [facility] [address] [place] [address]- [facility] Attending Physician: Mariza Perez MD Allergies, Adverse Reactions, Alerts Substance Reaction Severity Status Adhesive Bandage Active Egg Allergy1 Active 1She said she had a minor irritation if she eats eggs by themselves but she can have peruvian toast or egg prepared food products Medications [...] Model IMPLANT FIXTN ANKLE ZIPTIGHT - ZIMB (504031) 1 [employer] Unknown ZAID: No Information Assigning Authority: FDA SCREW MARY STP 3.5X12 - SYNU (204.812) 1 [facility] Unknown ZAID: No Information Assigning Authority: FDA SCREW MARY STP 3.5X14 - SYNU (204.814) 1 [facility] Unknown ZAID: No Information Assigning Authority: FDA SCREW MARY STP 3.5X22 - SYNU (204.822) 1 [facility] Unknown ZAID: No Information Assigning Authority: FDA SCREW BONE CANC F THR 4.0X14 - SYNU (206.014) 1 [facility] Unknown ZAID: No Information Assigning Authority: FDA SCREW BONE CANC F THR 4.0X16 - SYNU (206.016) 1 [facility] Unknown ZAID: No Information Assigning Authority: FDA PLATE 1/3 TUBULAR 6H 69MM - SYNU (241.361) 1 [facility] Unknown ZAID: No Information Assigning Authority: FDA
--- OUTSIDE RECORDS SUMMARY | 2022-04-21 21:31 | XMS_ITS | Continuity of Care Document ---
:1985 Author Organization [facility] Address [address] [place] [address]- Care Team Providers Name Role Phone Enrico STEVENS, Alexandra Primary Care Physician Encounter [facility] Date(s): 01/30/20 - 02/29/20 [facility] [address] [place] [address]- [facility] Attending Physician: Tavo Vail Admitting Physician: Tavo Vail Referring Physician: Tavo Vail Allergies, Adverse Reactions, Alerts Substance Reaction Severity Status Adhesive Bandage Active Egg Allergy1 Active 1She said she had a minor irritation if she eats eggs by themselves but she can have iraqi toast or egg prepared food products Medications [...] Model IMPLANT FIXTN ANKLE ZIPTIGHT - ZIMB (484736) 1 [employer] Unknown ZAID: No Information Assigning Authority: FDA SCREW MARY STP 3.5X12 - SYNU (204.812) [address] [facility] Unknown ZAID: No Information Assigning Authority: FDA SCREW MARY STP 3.5X14 - SYNU (204.814) [address] [facility] Unknown ZAID: No Information Assigning Authority: FDA SCREW MARY STP 3.5X22 - SYNU (204.822) [address] [facility] Unknown ZAID: No Information Assigning Authority: FDA SCREW BONE CANC F THR 4.0X14 - SYNU (206.014) [address] [facility] Unknown ZAID: No Information Assigning Authority: FDA SCREW BONE CANC F THR 4.0X16 - SYNU (206.016) [address] [facility] Unknown ZAID: No Information Assigning Authority: FDA PLATE 1/3 TUBULAR 6H 69MM - SYNU (241.361) [address] [facility] Unknown ZAID: No Information Assigning Authority: FDA
--- OUTSIDE RECORDS SUMMARY | 2022-04-21 21:31 | XMS_ITS | Continuity of Care Document ---
:1985 Author Organization [facility] Address [address] [place] [address]- Care Team Providers Name Role Phone Enrico DISTRICT OR DISTRICT OFFICE DIRECTOR, Alexandra Primary Care Physician Encounter [facility] Date(s): 02/04/22 - 03/06/22 [facility] [address] [place] [address]- Allergies, Adverse Reactions, Alerts Substance Reaction Severity Status Adhesive Bandage Active Egg Allergy1 Active 1She said she had a minor irritation if she eats eggs by themselves but she can have khmer toast or egg prepared food products Medications [...] Safety Status Authority Number Code Unknown Unknown [id number] Unknown 02/09/21 Unknown Unknown Active Unknown Unknown [...] information PersonnelName: Alexandra Weston NP Address: Address: [address] [place] [address]
--- OUTSIDE RECORDS SUMMARY | 2022-04-21 21:31 | XMS_ITS | Continuity of Care Document ---
:1985 Author Organization [facility] Address [address] [place] [address]- Care Team Providers Name Role Phone Enrico STEVENS, Alexandra Primary Care Physician Encounter [facility] NBR [id number] Date(s): 12/26/19 - 02/01/20 [facility] [address] [place] [address]- [facility] Attending Physician: Dex UMAÑA, Rocky Allergies, Adverse Reactions, Alerts Substance Reaction Severity [...] Model IMPLANT FIXTN ANKLE ZIPTIGHT - ZIMB (926055) 1 [employer] Unknown ZAID: No Information Assigning Authority: FDA SCREW MARY STP 3.5X12 - SYNU (204.812) 1 [facility] Unknown ZAID: No Information Assigning Authority: FDA SCREW MARY STP 3.5X14 - SYNU (204.814) 1 [facility] Unknown ZAID: No Information Assigning Authority: FDA SCREW MARY STP 3.5X22 - SYNU (204.822) 1 [facility] Unknown ZAID: No Information Assigning Authority: FDA SCREW BONE CANC F THR 4.0X14 - SYNU (206.014) 1 [facility] Unknown ZAID: No Information Assigning Authority: FDA SCREW BONE CANC F THR 4.0X16 - SYNU (206.016) 1 [facility] Unknown ZAID: No Information Assigning Authority: FDA PLATE 1/3 TUBULAR 6H 69MM - SYNU (241.361) 1 [facility] Unknown ZAID: No Information Assigning Authority: FDA
--- OUTSIDE RECORDS SUMMARY | 2022-04-21 21:31 | XMS_ITS | Continuity of Care Document ---
:1985 Author Organization [facility] Address [address] [place] [address]- Care Team Providers Name Role Phone Enrico STEVENS, Alexandra Primary Care Physician Encounter [facility] Date(s): 01/30/20 - 02/29/20 [facility] [address] [place] [address]- [facility] Attending Physician: Tavo Vail Admitting Physician: Tavo Vail Referring Physician: AdmtrTavo Allergies, Adverse Reactions, Alerts Substance Reaction Severity Status Adhesive Bandage Active Egg Allergy1 Active 1She said she had a minor irritation if she eats eggs by themselves but she can have salvadorean toast or egg prepared food products Medications [...] Model IMPLANT FIXTN ANKLE ZIPTIGHT - ZIMB (007887) 1 [employer] Unknown ZAID: No Information Assigning Authority: FDA SCREW MARY STP 3.5X12 - SYNU (204.812) 1 [facility] Unknown ZAID: No Information Assigning Authority: FDA SCREW MARY STP 3.5X14 - SYNU (204.814) 1 [facility] Unknown ZAID: No Information Assigning Authority: FDA SCREW MARY STP 3.5X22 - SYNU (204.822) 1 [facility] Unknown ZAID: No Information Assigning Authority: [...]
--- OUTSIDE RECORDS SUMMARY | 2022-04-21 21:31 | XMS_ITS | Continuity of Care Document ---
:1985 Author Organization [facility] Address [address] [place] [address]- Care Team Providers Name Role Phone Enrico STEVENS, Alexandra Primary Care Physician Encounter [facility] Date(s): 09/01/19 - 09/02/[address] [address]- [facility] Encounter Diagnosis Acute hyperglycemia (Final) - 09/01/19 Discharge Disposition: A-D/C Home Attending Physician: Edilberto Lin MD Admitting Physician: Edilberto Lin MD Referring Physician: Not on Staff, Referring MD Allergies, Adverse Reactions, Alerts Substance Reaction Severity Status Adhesive Bandage Active Egg Allergy1 Active 1She said she had a minor irritation if she eats eggs by themselves but she can have citizen of [place] toast or egg prepared food products Medications Abilify 2 mg oral tablet 2 mg, 1, tablet, By Mouth, Daily, # 30 tablet, Refills 0, Maintenance, 03/31/19 15:45:25 EDT Start Date: 03/31/19 Status: Orderedaspirin 325 mg oral delayed release tablet 325 mg, 1, tablet, By Mouth, Daily, # 21 tablet, Refills 0, Tot. Refills 0, Maintenance, 03/27/19 11:37:22 EDT, Route to Pharmacy Electronically, [id number], [id number] Start Date: 03/27/19 Stop Date: 04/17/19 Status: [...] 07/16/18 9:29:13 EST, Route to Pharmacy Electronically, NCPDP_[id number], [facility] Start Date: 07/16/18 Stop Date: 08/15/18 [...] 07/16/18 9:30:11 EST, Route to Pharmacy Electronically, NCPDP_[id number], [facility] Start Date: 07/16/18 Stop Date: 08/15/18 [...] Exam Date Time Procedure Performing Provider Status 09/01/19 10:37 PM Chest Portable Morales RobinGiuseppe Basilio (Verified ) Notes:(Chest Portable) Reason For Exam: Shortness of BreathRESULT: Chest Portable Chest Portable Reason: Shortness of Breath; Clinical Question(s): Pneumonia; COMPARISON: None. FINDINGS: LINES AND TUBES: None. LUNGS AND PLEURA: Clear lungs. Normal pulmonary vascularity. No pleural effusion. No pneumothorax. HEART, MEDIASTINUM AND STEFANIE: Heart is normal in size. Normal mediastinal and hilar contour. BONES AND SOFT TISSUES: No acute abnormality. IMPRESSION: No acute abnormality. WSN: [id number] Ordering Physician: Edilberto Lin Dictated By: Walt Cruz MD Dictated Date/Time: 09/01/19 10:39 p Reviewed By: Walt Cruz MD Signed By: Walt Cruz MD Signed Date/Time: 09/01/19 10:39 pm Transcribed By: CHRISTIE Transcribed Date/Time: 09/01/19 10:39 pm Vital Signs Most recent to oldest 1 2 3 [Reference Range]: Height 174 cm 174 cm 174 cm (09/02/19 8:51 AM) (09/02/19 5:27 AM) (09/01/19 9:3 0 PM) Weight 100 kg 100 kg 100 kg (09/02/19 8:51 AM) (09/02/19 5:27 AM) (09/01/19 9:3 0 PM) Oxygen Saturation [94-100 %] 99 % 94 % 95 % (09/02/19 8:51 AM) (09/02/19 7:00 AM) (09/02/19 5:2 7 AM) Pulse Rate [55-90 bpm] 72 bpm 65 bpm 75 bpm (09/02/19 8:51 AM) (09/02/19 7:00 AM) (09/02/19 5:2 7 AM) Body Mass Index [18.5-24.99] 33.03 33.03 *>HHI* *>HHI* (09/02/19 8:51 AM) (09/02/19 5:27 AM) Blood Pressure [90-138/55-84 160/98 mm Hg 163/91 mm Hg 151 /86 mm Hg mm Hg] *H* *H* *H* (09/02/19 8:51 AM) (09/02/19 7:00 AM) (09/02/19 5:2 7 AM) Respiratory Rate [16-30 16 br/min 16 br/min 20 br/mi n br/min] (09/02/19 8:51 AM) (09/02/19 5:27 AM) (09/02/19 1:4 6 AM) Temperature [96.8-100.4 DegF] 98.6 DegF 98.7 DegF 98 .2 DegF (09/02/19 7:00 AM) (09/02/19 1:46 AM) (09/01/19 11: 18 PM) Mode of Delivery (Oxygen) Room air Room air Room a ir (09/02/19 8:51 AM) (09/02/19 7:00 AM) (09/02/19 5:2 7 AM) Blood pressure sites Arm, left Arm, left Arm, left (09/02/19 7:00 AM) (09/02/19 5:27 AM) (09/02/19 1:4 6 AM) Temperature Route Temporal Oral Oral (09/02/19 7:00 AM) (09/02/19 1:46 AM) (09/01/19 11: 18 PM) Dry Weight 100 kg 100 kg 100 kg (09/02/19 8:51 AM) (09/02/19 5:27 AM) (09/01/19 9:3 0 PM) Social History Social History Type Response Tobacco Use: 4 or less cigarettes(le ss than 1/4 pack)/day in last 30 days. Tobacco user in househ old: Yes. Sex Medical Equipment Implanted Date:03/26/19 Target Site:Ankle Right Description Quantity MRI Company Model IMPLANT FIXTN ANKLE ZIPTIGHT - ZIMB (203389) 1 [employer] Unknown ZAID: No Information Assigning Authority: FDA SCREW MARY STP 3.5X12 - SYNU (204.812) 1 [facility]: No Information Assigning Authority: FDA SCREW MARY STP 3.5X14 - SYNU (204.814) 1 [facility] Unknown ZAID: No Information Assigning Authority: FDA SCREW MARY STP 3.5X22 - SYNU (204.822) 1 [facility] Unknown ZAID: No Information Assigning Authority: FDA SCREW BONE CANC F THR 4.0X14 - SYNU (206.014) 1 [employer] [facility] Unknown ZAID: No Information Assigning Authority: FDA SCREW BONE CANC F THR 4.0X16 - SYNU (206.016) 1 [employer] [facility] Unknown ZAID: No Information Assigning Authority: FDA PLATE 1/3 TUBULAR 6H 69MM - SYNU (241.361) 1 [employer] [facility] Unknown ZAID: No Information Assigning Authority: FDA
--- OUTSIDE RECORDS SUMMARY | 2022-04-21 21:31 | XMS_ITS | Continuity of Care Document ---
:1985 Author Organization [facility] Address [address] [place] [address]- Care Team Providers Name Role Phone Enrico STEVENS, Alexandra Primary Care Physician Encounter [facility] NBR [id number] Date(s): 11/22/19 - 12/22/[facility] [address] [place] [address]- [facility] Attending Physician: Tavo Vail Admitting Physician: AdmtrTavo Referring Physician: AdmtrTavo Allergies, Adverse Reactions, Alerts Substance Reaction Severity Status Adhesive Bandage Active Egg Allergy1 Active 1She said she had a minor irritation if she eats eggs by themselves but she can have cape ver[place] toast or egg prepared food products Medications [...] 15:18:00 EDT, Solution Start Date: 12/17/19 Status: OrderedHumalog 100 u/ml subcutaneous injection = [...] Model IMPLANT FIXTN ANKLE ZIPTIGHT - ZIMB (801313) 1 [employer] Unknown ZAID: No Information Assigning Authority: FDA SCREW MARY STP 3.5X12 - SYNU (204.812) 1 [facility] Unknown ZAID: No Information Assigning Authority: FDA SCREW MARY STP 3.5X14 - SYNU (204.814) 1 [facility] Unknown ZAID: No Information Assigning Authority: FDA SCREW MARY STP 3.5X22 - SYNU (204.822) 1 [facility] Unknown ZAID: No Information Assigning Authority: FDA SCREW BONE CANC F THR 4.0X14 - SYNU (206.014) 1 [facility] Unknown ZAID: No Information Assigning Authority: FDA SCREW BONE CANC F THR 4.0X16 - SYNU (206.016) 1 [facility] Unknown ZAID: No Information Assigning Authority: FDA PLATE 1/3 TUBULAR 6H 69MM - SYNU (241.361) 1 [facility] Unknown ZAID: No Information Assigning Authority: FDA
--- OUTSIDE RECORDS SUMMARY | 2022-04-21 21:31 | XMS_ITS | Continuity of Care Document ---
:1985 Author Organization [facility] Address [address] [place] [address]- Care Team Providers Name Role Phone Enrico STEVENS, Alexandra Primary Care Physician Encounter [facility] Date(s): 01/12/20 - 02/11/[address] [address]- [facility] Attending Physician: Mariza Perez MD Allergies, Adverse Reactions, Alerts Substance Reaction Severity Status Adhesive Bandage Active Egg Allergy1 Active 1She said she had a minor irritation if she eats eggs by themselves but she can have mauritanian toast or egg prepared food products Medications [...] 1 2 Height 172 cm 172 cm (01/19/20 11:22 AM) (01/12/20 12:25 PM) Weight 103 kg 100 kg (01/19/20: AM) (01/12/20 12: PM) Oxygen Saturation [94-100 %] 95 % 93 % (01/19/20 11: AM) *L* (01/12/20 12: PM) Pulse Rate [55-90 bpm] 91 bpm 75 bpm *H* (01/12/20 12:25 PM) (01/19/20 11: AM) Body Mass Index [18.5-24.99] 34.82 33.8 *>HHI* *>HHI* (01/19/20:22 AM) (01/12/20 12: PM) Blood Pressure [90-138/55-84 mm Hg] 159/96 mm Hg 119/ 80 mm Hg *H* (01/12/20 12:25 PM) (01/19/20 11:22 AM) Respiratory Rate [16-30 br/min] 22 br/min 18 br/mi n (01/19/20: AM) (01/12/20 12:25 PM) Temperature [96.8-100.4 DegF] 98.6 DegF 97 DegF (01/19/20:22 AM) (01/12/20 12:25 PM) Mode of Delivery (Oxygen) Room air Room air (8/16/20 11:22 AM) (01/12/20 12:25 PM) Blood pressure sites Arm, left Arm, left (01/19/20 11:22 AM) (01/12/20 12:25 PM) Temperature Route Oral Temporal (01/19/20 11:22 AM) (01/12/20 12:25 PM) Dry Weight 103 kg 100 kg (01/19/20 11:22 AM) (01/12/20 12:25 PM) Sensory deficits None None (01/19/20 11:22 AM) (01/12/20 12:25 PM) Mobility assistance Independent Independent (01/19/20 11:22 AM) (01/12/20 12:25 PM) Social History Social History Type Response Tobacco Use: 4 or less cigarettes(le ss than 1/4 pack)/day in last 30 days. Tobacco user in househ old: Yes. Sex Medical Equipment Implanted Date:03/26/19 Target Site:Ankle Right Description Quantity MRI Company Model IMPLANT FIXTN ANKLE ZIPTIGHT - ZIMB (240243) 1 [employer] Unknown ZAID: No Information Assigning Authority: FDA SCREW MARY STP 3.5X12 - SYNU (204.812) 1 [facility] Unknown ZAID: No Information Assigning Authority: FDA SCREW MARY STP 3.5X14 - SYNU (204.814) 1 [facility] Unknown ZAID: No Information Assigning Authority: FDA SCREW MARY STP 3.5X22 - SYNU (204.822) 1 [facility] Unknown ZAID: No Information Assigning Authority: FDA SCREW BONE CANC F THR 4.0X14 - SYNU (206.014) 1 [facility] Unknown ZAID: No Information Assigning Authority: FDA SCREW BONE CANC F THR 4.0X16 - SYNU (206.016) 1 [facility] Unknown ZAID: No Information Assigning Authority: FDA PLATE 1/3 TUBULAR 6H 69MM - SYNU (241.361) 1 [facility] Unknown ZAID: No Information Assigning Authority: FDA
--- OUTSIDE RECORDS SUMMARY | 2022-04-21 21:31 | XMS_ITS | Continuity of Care Document ---
:1985 Author Organization [facility] Address [address] [place] [address]- Care Team Providers Name Role Phone Enrico STEVENS, Alexandra Primary Care Physician Encounter [facility] Date(s): 12/23/19 - 02/27/20 [facility] [address] [place] [address]- [facility] Attending Physician: Ana UMAÑA, Mariza Ruth Referring Physician: Diana UMAÑA, Po Mathews Allergies, Adverse Reactions, Alerts Substance Reaction Severity Status Adhesive Bandage Active Egg Allergy1 Active 1She said she had a minor irritation if she eats eggs by themselves but she can have albanian toast or egg prepared food products Medications [...] Model IMPLANT FIXTN ANKLE ZIPTIGHT - ZIMB (064745) 1 [employer] Unknown ZAID: No Information Assigning Authority: FDA SCREW MARY STP 3.5X12 - SYNU (204.812) [address] [facility] Unknown ZAID: No Information Assigning Authority: FDA SCREW MARY STP 3.5X14 - SYNU (204.814) [address] [facility] Unknown ZAID: No Information Assigning Authority: FDA SCREW MARY STP 3.5X22 - SYNU (204.822) [address] [facility] Unknown ZAID: No Information Assigning Authority: FDA SCREW BONE CANC F THR 4.0X14 - SYNU (206.014) 1 [facility] Unknown ZAID: No Information Assigning Authority: FDA SCREW BONE CANC F THR 4.0X16 - SYNU (206.016) 1 [facility] Unknown ZAID: No Information Assigning Authority: FDA PLATE 1/3 TUBULAR 6H 69MM - SYNU (241.361) 1 [facility] Unknown ZAID: No Information Assigning Authority: FDA
--- OUTSIDE RECORDS SUMMARY | 2022-04-21 21:31 | XMS_ITS | Continuity of Care Document ---
:1985 Author Organization [facility] Address [address] [place] [address]- Care Team Providers Name Role Phone Enrico STEVENS, Alexandra Primary Care Physician Encounter [facility] Date(s): 01/18/20 - 02/21/20 [facility] [address] [place] [address]- [facility] Attending Physician: Ana UMAÑA, Mariza Ruth Referring [...] Model IMPLANT FIXTN ANKLE ZIPTIGHT - ZIMB (432788) 1 [employer] Unknown ZAID: No Information Assigning Authority: FDA SCREW MARY STP 3.5X12 - SYNU (204.812) 1 [facility] Unknown ZAID: No Information Assigning Authority: FDA SCREW MARY STP 3.5X14 - SYNU (204.814) 1 [facility] Unknown ZAID: No Information Assigning Authority: FDA SCREW MARY STP 3.5X22 - SYNU (204.822) 1 [facility] Unknown ZAID: No Information Assigning Authority: FDA SCREW BONE CANC F THR 4.0X14 - SYNU (206.014) 1 [facility] Unknown ZAID: No Information Assigning Authority: FDA SCREW BONE CANC F THR 4.0X16 - SYNU (206.016) 1 [facility] Unknown ZAID: No Information Assigning Authority: FDA PLATE 1/3 TUBULAR 6H 69MM - SYNU (241.361) 1 [facility] Unknown ZAID: No Information Assigning Authority: FDA
--- OUTSIDE RECORDS SUMMARY | 2022-04-21 21:31 | XMS_ITS | Continuity of Care Document ---
:1985 Author Organization [facility] Address [address] [place] [address]- Care Team Providers Name Role Phone Enrico STEVENS, Alexandra Primary Care Physician Encounter [facility] Date(s): 02/11/20 - 03/12/20 [facility] [address] [place] [address]- [facility] Attending Physician: Tavo Vail Admitting Physician: Tavo Vail Referring Physician: Tavo Vail Allergies, Adverse Reactions, Alerts Substance Reaction Severity Status Adhesive Bandage Active Egg Allergy1 Active 1She said she had a minor irritation if she eats eggs by themselves but she can have slovenian toast or egg prepared food products Medications [...] Model IMPLANT FIXTN ANKLE ZIPTIGHT - ZIMB (594460) 1 [employer] Unknown ZAID: No Information Assigning Authority: FDA SCREW MARY STP 3.5X12 - SYNU (204.812) 1 [facility] Unknown ZAID: No Information Assigning Authority: FDA SCREW MARY STP 3.5X14 - SYNU (204.814) 1 [facility] Unknown ZAID: No Information Assigning Authority: FDA SCREW MARY STP 3.5X22 - SYNU (204.822) 1 [facility] Unknown ZAID: No Information Assigning Authority: FDA SCREW BONE CANC F THR 4.0X14 - SYNU (206.014) 1 [facility] Unknown ZAID: No Information Assigning Authority: FDA SCREW BONE CANC F THR 4.0X16 - SYNU (206.016) 1 [facility] Unknown ZAID: No Information Assigning Authority: FDA PLATE 1/3 TUBULAR 6H 69MM - SYNU (241.361) 1 [facility] Unknown ZAID: No Information Assigning Authority: FDA
--- OUTSIDE RECORDS SUMMARY | 2022-04-21 21:31 | XMS_ITS | Continuity of Care Document ---
:1985 Author Organization [facility] Address [address] [place] [address]- Care Team Providers Name Role Phone Enrico STEVENS, Alexandra Primary Care Physician [id number] Date(s[facility] [address] [place] [address]- [facility] Attending Physician: Rocky Kowalski MD Referring Physician: Alexandra Weston NP Allergies, Adverse Reactions, Alerts Substance Reaction Severity Status Adhesive Bandage Active Egg Allergy1 Active 1She said she had a minor irritation if she eats eggs by themselves but she can have welsh toast or egg prepared food products Medications [...] Model IMPLANT FIXTN ANKLE ZIPTIGHT - ZIMB (342589) 1 [employer] Unknown ZAID: No Information Assigning Authority: FDA SCREW MARY STP 3.5X12 - SYNU (204.812) 1 [facility] Unknown ZAID: No Information Assigning Authority: FDA SCREW MARY STP 3.5X14 - SYNU (204.814) 1 [facility] Unknown ZAID: No Information Assigning Authority: FDA SCREW MARY STP 3.5X22 - SYNU (204.822) 1 [facility] Unknown ZAID: No Information Assigning Authority: FDA SCREW BONE CANC F THR 4.0X14 - SYNU (206.014) 1 [email or web address] Unknown ZAID: No Information Assigning Authority: FDA SCREW BONE CANC F THR 4.0X16 - SYNU (206.016) 1 [email or web address] Unknown ZAID: No Information Assigning Authority: FDA PLATE 1/3 TUBULAR 6H 69MM - SYNU (241.361) 1 [email or web address] Unknown ZAID: No Information Assigning Authority: FDA
[2022-04-21 22:50] LABS: Glucose, Whole Blood 259 mg/dL (60-115)
[2022-04-21] MEDS: 0.9 % Sodium Chloride 1,000 ML 999 ML IV ×2 (23:00→23:01)
[2022-04-21] MEDS: Piperacillin Sodium/Tazobactam 4.5 GM in 0.9 % Sodium Chloride 100 ML IV (23:01)
[2022-04-21 23:13] LABS: ~Lactic Acid-LAB USE ONLY 1.8 mmol/L (0.5-2.0)
--- NOTE | 2022-04-21 23:34 | P.HPHOSP_ITS ---
History of Present Illness Date of Service: 04/21/22 Chief Complaint: Left foot discharge This is a 36-year-old female with a pertinent history of type 1 diabetes mellitus with neuropathy, peripheral vascular disease status post left foot toe amputations, mood disorder, opioid use disorder on methadone, hyperlipidemia who presents to the emergency department for evaluation of left foot nonhealing wound with foul-smelling discharge. Patient has had chronic nonhealing wound of left foot with history of osteomyelitis in September treated with antibiotics. patient states over the last few days she has noticed swelling and increased discharge from left foot which is foul smelling. Patient has no sensation to the left foot and hence no pain or discomfort. Denies any trauma. Wound was seen by wound care nurse and to the hospital for further evaluation. Patient states she has been taking her insulin but and able to check blood glucose levels because machine is not functioning. Patient denies fever, vomiting dull pain, changes in urinary or bowel habits. Review of Systems Constitutional: Constitutional: Reports no additional constitutional complaints Cardiovascular: Cardiovascular: Reports no additional cardiovascular complaints Respiratory: Respiratory: Reports no additional respiratory complaints Gastrointestinal: Gastrointestinal: Reports no additional gastrointestinal complaints Genitourinary: Genitourinary: Reports no additional female genitourinary complaints Musculoskeletal: Comments: Left foot swelling with purulent discharge [facility] Medical History (Updated 04/21/22 @ 23:40 by Barbara Shore MD) Anxiety and depression Borderline personality disorder Methadone maintenance therapy patient Neuropathy PTSD (post-traumatic stress disorder) 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 Type 1 diabetes mellitus with hyperglycemia Family History Father Diabetes mellitus Mother Diabetes mellitus Maternal Grandmother Diabetes mellitus Paternal Uncle Diabetes mellitus Paternal Aunt Diabetes mellitus CVD (cardiovascular disease) Maternal Uncle Diabetes mellitus Maternal Aunt CVD (cardiovascular disease) Surgical History Hx of section Hx of tubal ligation Social History Household Members: Children Household Members Other:: GG Housing: Apartment Housing Other:: [facility] Do you presently have visiting nurse or other home services: Yes Alcohol intake: former Patient Tobacco Use Status: Former Tobacco user Quit Date: 1 month ago Smoked in Last 30 Days: No Second Hand Smoke Exposure: No Advance Directives: No Advance Directives Information Provided: No service: No Current occupational status: disabled Meds Allergies Allergy/AdvReac Type Severity Reaction Status Date / Time adhesive tape [ADHESIVE TAPE] Allergy Mild RASH Verified 11/09/21 14:38 Active Medications: Current Medications Acetaminophen (Acetaminophen 325 Mg Tablet) 650 mg PO Q6H PRN PRN Reason: Pain, Mild (Pain Scale 1-3) Melatonin (Melatonin 3 Mg Tablet) 6 mg PO BEDTIME PRN PRN Reason: Insomnia Ondansetron HCl (Ondansetron Hcl 4 Mg/2 Ml Vial) 4 mg IVPUSH Q8H PRN PRN Reason: Nausea and Vomiting Pharmacy Consult (Consult Rx Perform Med Rec) 1 each MISCELLANE ONCE PRN PRN Reason: Consult order Sodium Chloride (0.9 % Sodium Chloride Flush 3 Ml Syringe) 3 ml IVFLUSH [facility] Medications Medication Instructions Recorded Confirmed Last Taken Type escitalopram oxalate 20 mg tablet 20 mg PO DAILY 03/25/20 09/14/21 Unknown History omeprazole 20 mg capsule,delayed 20 mg PO DAILY 03/25/20 09/14/21 Unknown History release prazosin 5 mg capsule 5 mg PO BEDTIME 03/25/20 09/14/21 Unknown History trazodone 100 mg tablet 100 mg PO BEDTIME 03/25/20 09/14/21 Unknown History bupropion HCl 100 mg tablet 1 tab PO BID 09/14/21 09/14/21 Unknown History cholecalciferol (vitamin D3) 25 1 tab PO DAILY 09/14/21 09/14/21 Unknown History mcg (1,000 unit) tablet docusate sodium 100 mg capsule 1 cap PO BID 09/14/21 09/14/21 Unknown History gabapentin 800 mg tablet 1 tab PO TID 09/14/21 09/14/21 Unknown History haloperidol 2 mg tablet 1 tab PO BID 09/14/21 09/14/21 Unknown History insulin degludec 100 unit/mL (3 35 unit subcut QPM 09/14/21 09/14/21 Unknown History mL) subcutaneous pen (Tresiba FlexTouch U-100 insulin) insulin degludec 100 unit/mL (3 80 unit subcut DAILY 09/14/21 09/14/21 Unknown History mL) subcutaneous pen (Tresiba FlexTouch U-100 insulin) lisinopril 2.5 mg tablet 1 tab PO DAILY 09/14/21 09/14/21 Unknown History meloxicam 7.5 mg tablet 1 tab PO DAILY 09/14/21 09/14/21 Unknown History methadone 10 mg/mL oral concentrate 27 mg PO DAILY 09/14/21 09/14/21 Unknown History sennosides 8.6 mg tablet (Senna 1 tab PO DAILY 09/14/21 09/14/21 Unknown History Laxative) Physical Exam Vital Signs and Narrative: Vital Signs: Last Vital Signs Temp 98.1 F 04/21/22 18:20 Pulse 78 04/21/22 18:20 Resp 18 04/21/22 18:20 BP 163/66 H 04/21/22 18:20 Pulse Ox 100 04/21/22 18:20 O2 Del Method 04/21/22 18:20 BMI result Body Mass Index 34.9 Middle-aged female lying in bed in no distress Neck supple, no JVD Regular rate and rhythm, S1-S2 heard Regular breath sounds bilaterally, no wheezing or crackles appreciated Abdomen soft nontender, no guarding, no rigidity Patient is awake, alert and oriented to self, place, time and person ; no focal motor deficit Ext: left foot wound (picture attached below) Psych: Normal mood No pedal edema Extrem: Other: Results Labs CBC and Chem 7: 04/21/22 18:44 04/21/22 18:44 Labs: Laboratory Results - last 24 hr 04/21/22 04/21/22 04/21/22 18:43 18:44 18:44 MCV 83.8 MCH 26.2 L MCHC 31.2 RDW 14.3 Plt Count 278 MPV 10.5 Immature Gran % (Auto) 1.0 H Neut % (Auto) 76.8 H Lymph % (Auto) 14.6 L [place] % (Auto) 5.7 Eos % (Auto) 1.6 Baso % (Auto) 0.3 Lymph # (Auto) 1.5 [place] # (Auto) 0.6 Eos # (Auto) 0.2 Baso # (Auto) 0.0 Abs Immat Gran (auto) 0.10 H Absolute Neuts (auto) 8.0 Absolute Nucleated RBC 0.000 Nucleated RBC % (auto) 0.0 ESR 116 H Anion Gap Estim Creat Clear Calc Estimated GFR POC Glucose Random Glucose Lactic Acid 2.5 H* Lactic Acid F/U @ 2Hr Calcium Total Bilirubin Direct Bilirubin AST ALT Alkaline Phosphatase C-Reactive Protein B-Natriuretic Peptide Total Protein Albumin COVID-19 (WILLIAM) COVID-19 [place] 04/21/22 04/21/22 04/21/22 18:44 18:44 18:44 MCV MCH MCHC RDW Plt Count MPV Immature Gran % (Auto) Neut % (Auto) Lymph % (Auto) [place] % (Auto) Eos % (Auto) Baso % (Auto) Lymph # (Auto) [place] # (Auto) Eos # (Auto) Baso # (Auto) Abs Immat Gran (auto) Absolute Neuts (auto) Absolute Nucleated RBC Nucleated RBC % (auto) ESR Anion Gap 13 Estim Creat Clear Calc 71.9 Estimated GFR 44 POC Glucose Random Glucose 433 H* Lactic Acid Lactic Acid F/U @ 2Hr Calcium 8.3 L D Total Bilirubin 0.2 Direct Bilirubin < 0.2 AST 9 ALT 9 Alkaline Phosphatase 70 C-Reactive Protein 9.10 H B-Natriuretic Peptide 117 H Total Protein 7.3 Albumin 2.9 L COVID-19 (WILLIAM) Negative COVID-19 [place] See Note 04/21/22 04/21/22 22:17 22:57 MCV MCH MCHC RDW Plt Count MPV Immature Gran % (Auto) Neut % (Auto) Lymph % (Auto) [place] % (Auto) Eos % (Auto) Baso % (Auto) Lymph # (Auto) [place] # (Auto) Eos # (Auto) Baso # (Auto) Abs Immat Gran (auto) Absolute Neuts (auto) Absolute Nucleated RBC Nucleated RBC % (auto) ESR Anion Gap Estim Creat Clear Calc Estimated GFR POC Glucose 259 H Random Glucose Lactic Acid Lactic Acid F/U @ 2Hr 1.8 Calcium Total Bilirubin Direct Bilirubin AST ALT Alkaline Phosphatase C-Reactive Protein B-Natriuretic Peptide Total Protein Albumin COVID-19 (WILLIAM) COVID-19 [facility] Imaging Radiologist's Impressions: Impressions Venous Duplex 04/21/22 19:04 IMPRESSION: 1. No DVT demonstrated in the left lower extremity. 2. Prominent nonspecific left inguinal lymph nodes, presumably reactive. Foot X-Ray 04/21/22 19:29 IMPRESSION: 1. Increased lucent changes along the medial surface of the second DIP joint, concerning for osteomyelitis. 2. New subcutaneous air over the head of the third and fourth metatarsals. 3. Similar destructive changes along the first MTP joint and tuft of the second toe. Assessment and Plan (1) Osteomyelitis: Status: Acute (2) Type 1 diabetes mellitus with diabetic polyneuropathy: Status: Acute (3) Type 1 diabetes mellitus with hyperglycemia: Status: Acute (4) Diabetic foot ulcer associated with type 1 diabetes mellitus: Status: Acute (5) Methadone maintenance therapy patient: Status: Acute (6) Anxiety and depression: Status: Acute (7) PAD (peripheral artery disease): Status: Acute Plan This is a 36-year-old female with a pertinent history of type 1 diabetes mellitus with neuropathy, peripheral vascular disease status post left foot toe amputations, mood disorder, opioid use disorder on methadone, hyperlipidemia who presents to the emergency department for evaluation of left foot nonhealing wound with foul-smelling discharge. #. Diabetic chronic non healing wound infection with underlying osteomyelitis -Will admit patient and initiate empiric broad-spectrum antibiotics, IV vancomycin and Zosyn. Consulting vascular surgery and Infectious Disease for further recommendations and assistance. Resuscitated with IV crystalloids in the ER. #. Type1 Diabetes mellitus with hyperglycemia and neuropathy - initiate Accu-Cheks with sliding scale insulin before meals and at bedtime. Initiating basal insulin, adjust as needed. Continue gabapentin #. Type A Lactic acidosis -resolved with IV crystalloids #. Mood disorder -continue home medications #. Opioid use disorder -continue chronic methadone #. Normocytic anemia -due to chronic disease. Hb above transfusion threshold Med rec pending DVT prophylaxis: Hold Lovenox until surgical evaluation Full code Diabetic diet Admit as inpatient and will require two night minimum hospital stay for IV antibiotics. Specialist consult pending Quality Stroke Does the patient have a stroke diagnosis?: No VTE Prior VTE?: No VTE Risk Level:: Medical - moderate - high VTE Device Contraindication: Treatment Not Indicated VTE Drug Contraindication: Treatment Not Indicated
[2022-04-22] VITALS (9 sets, daily range): BP systolic 133–166; BP diastolic 72–82; PULSE 56–72; RESP 12–18; TEMP 36–36.8; O2SAT 96–98; BMI 32.6
[2022-04-22] MEDS: 0.9 % Sodium Chloride 1,000 ML 999 ML IV (00:10)
[2022-04-22] MEDS: Insulin Glargine,Hum.rec.anlog 100 UNIT/ML 10 ML VIAL 20 UNIT SUBCUT ×2 (00:13→20:18)
--- NOTE | 2022-04-22 03:35 | PC.NURSE ---
Pt able to stand and pivot to bedside commode with one assist. No apparent distress noted. Pt aware of plan of care.
[2022-04-22] MEDS: Piperacillin Sodium/Tazobactam 4.5 GM in 0.9 % Sodium Chloride 100 ML IV ×4 (04:14→22:05)
--- NOTE | 2022-04-22 05:42 | PC.NURSE ---
med req completed
[2022-04-22 06:49] LABS: MANUAL DIFF FLAG NO
[2022-04-22 06:58] LABS: Basophils Percent Auto 0.1 % (0-2); Eosinophils Absolute Auto 0.3 X10*3/uL (0.0-0.4); Eosinophils Percent Auto 4.2 % (0-4); Hematocrit 24.1 % (37.0-47.0); Hemoglobin 7.5 g/dl (12.0-16.0); Imm Gran Abs Auto 0.02 X10*3/uL (0.00-0.03); Imm Gran Pct Auto 0.3 % (0.0-0.4); Lymphocytes Absolute Auto 1.8 X10*3/uL (1.2-4.9); Lymphocytes Percent Auto 25.9 % (20-40); Mean Corpuscular HGB Conc 31.1 g/dl (31.0-35.0); Mean Corpuscular Hemoglobin 26.1 pg (27.0-33.0); Mean Platelet Volume 10.6 fL (9.4-12.3); Monocytes Absolute Auto 0.4 X10*3/uL (0.1-1.2); Neutrophils Absolute Auto 4.4 x10*3/uL (2.0-8.3); Neutrophils Percent Auto 63.5 % (45-73); Platelet Count 264 X10*3/uL (160-400); Red Blood Count 2.87 X10*6/uL (4.20-5.50); Red Cell Distribution Width 14.4 % (11.0-16.0); White Blood Count 6.9 X10*3/uL (4.8-10.8)
[2022-04-22 07:20] LABS: Glucose, Whole Blood 217 mg/dL (60-115)
[2022-04-22] MEDS: Insulin Lispro 100 UNIT/ML 3 ML VIAL SUBCUT ×3 (07:30→20:17)
[2022-04-22] MEDS: 0.9 % Sodium Chloride Flush 3 ML SYRINGE IVFLUSH ×3 (07:31→20:14)
--- NOTE | 2022-04-22 07:57 | PHA.MEDREC ---
Pharmacy Consult ? Medication Reconciliation Pharmacy has REVIEWED the medication reconciliation done by elías. Med rec included many over due medications, went to redo consult. Patient stated she is compliant with all medications on list, however her lisinopril has not been picked up since july, and her other medications such as insulin, bupropion, trazodone and prazosin has not been filled in about 3-5 months with 30 day supplies. Also, patient has recent claims for atorvastatin, aspirin and lidocaine patches but claims she does not take any of them. Provider contacted.
[2022-04-22 08:16] LABS: Anion Gap 11 (12-20); Blood Urea Nitrogen 11 mg/dL (9-16); Calcium 7.8 mg/dL (8.4-10.2); Carbon Dioxide 23 mmol/L (22-29); Chloride 108 mmol/L (96-108); Creatinine Clr Calc Pharmacy 80.2; Estimated Glomerular Filt Rate 52; Glucose Random 281 mg/dL (60-115); Potassium 4.1 mmol/L (3.3-5.1); Sodium 138 mmol/L (135-145)
--- NOTE | 2022-04-22 08:45 | MHC.CM.PN ---
PATIENT NOT YET ON UNIT. CASE MANAGEMENT NAME AND ANTICIPATED DC PLAN WRITTEN ON WHITE BOARD. CASE MANAGEMENT AVAILABLE FOR HER ASSESSMENT ONCE SHE IS ON THE UNIT
--- NOTE | 2022-04-22 09:27 | PHA.PROG ---
Admission Date/Time: April 21, 2022 23:21 Indication: SKIN/SKIN STRUCTURE Weight in k.4 kg Adjusted body weight in K.07 [place] body weight in Kg: Obesity Dosing Indication % IBW: Serum Creatinine - Last 168 Hours 04/21/22 04/22/22 18:44 06:39 Creatinine 1.34 1.16 Estimated CrCl and GFR - Last 168 Hours 04/21/22 04/22/22 18:44 06:39 Estim Creat Clear Calc 71.9 80.2 Estimated GFR 44 52 Vancomycin Loading Dose: 2000 MG Current Vancomycin Dosing Regimen: 750 MG Q12H Vancomycin Monitoring using AUC goal of 400 - 600 range with trough as surrogate marker: AUC 493; TROUGH 15.6 Date and Time for next Vancomycin Level to be drawn: 04/23@0900 Pharmacist Comments on Vancomycin Plan: Vancomycin dosing will take advantage of [employer] as a clinical decision support tool that uses Bayesian modeling to calculate individual patient's pharmacokinetic parameters and forecast the patient's drug concentration time course with the target goal AUC 24 range of 400 - 600 mg/L/hr.
--- NOTE | 2022-04-22 09:52 | MHC.CM.PN ---
PATIENT ON UNIT. SHE IS DRIFTING IN AND OUT OF SLEEP. NOT ABLE TO PARTICIPATE IN ASSESSMENT AT THIS TIME
[2022-04-22 11:30] LABS: Glucose, Whole Blood 195 mg/dL (60-115)
--- NOTE | 2022-04-22 11:39 | PM.CNGS ---
History of Present Illness Consult details Consult date: 04/22/22 Reason for consult: wound care Narrative: Complex 36-year-old female presents for nonhealing left foot ulcers. She was brought into the hospital by her father who is visiting from [place]. She has had longstanding history of diabetes which has been somewhat uncontrolled and is on methadone as well. She noticed these 2 plantar foot ulcers and swelling of the foot which brought her into the hospital. She now presents to us for vascular evaluation. Of note she had undergone left 3rd toe amputation by me on 09/16/2021 and had prior toe amputations performed at [facility]. Review of Systems Review of Systems: Yes all other systems are reviewed and are negative Constitutional: Constitutional: Reports no additional constitutional complaints ENT: Reports Normal hearing present Cardiovascular: Cardiovascular: Denies chest pain, Denies chest pain at rest, Denies chest pain with activity and Denies pedal edema Respiratory: Respiratory: Denies cough Gastrointestinal: Gastrointestinal: Denies abdominal pain Musculoskeletal: Musculoskeletal: Denies abnormal gait, Denies muscle cramps and Denies radiating pain into limb Integumentary/Breasts: Skin/Breast: Denies skin ulcer and Denies wounds Neurologic: Reports Normal hearing present and Denies abnormal gait Psychiatric: Psychiatric: Reports no additional psychiatric complaints PMFSH Past Medical History Medical History (Updated 04/21/22 @ 23:40 by Barbara Shore MD) Anxiety and depression Borderline personality disorder Methadone maintenance therapy patient Neuropathy PTSD (post-traumatic stress disorder) 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 Type 1 diabetes mellitus with hyperglycemia Family History Family History Father Diabetes mellitus Mother Diabetes mellitus Maternal Grandmother Diabetes mellitus Paternal Uncle Diabetes mellitus Paternal Aunt Diabetes mellitus CVD (cardiovascular disease) Maternal Uncle Diabetes mellitus Maternal Aunt CVD (cardiovascular disease) Surgical History Surgical History Hx of section Hx of tubal ligation Social History Social History Household Members: Children Household Members Other:: GG Housing: Apartment Housing Other:: [facility] Do you presently have visiting nurse or other home services: Yes Alcohol intake: former Patient Tobacco Use Status: Former Tobacco user Quit Date: 1 month ago Second Hand Smoke Exposure: No service: No Current occupational status: disabled Meds Allergies Allergy/AdvReac Type Severity Reaction Status Date / Time adhesive tape [ADHESIVE TAPE] Allergy Mild RASH Verified 11/09/21 14:38 Active Medications: Current Medications Acetaminophen (Acetaminophen 325 Mg Tablet) 650 mg PO Q6H PRN PRN Reason: Pain, Mild (Pain Scale 1-3) Bupropion HCl (Bupropion Hcl 100 Mg Tablet) 100 mg PO BID PENDING SALE TO [facility] Dextrose (Dextrose 50 % 25 Gm/50 Ml Syringe) 25 gm IVPUSH Q15M PRN; Protocol PRN Reason: per Hypoglycemia Standing Ord. Gabapentin (Gabapentin 400 Mg Capsule) 800 mg PO TID RIAZ Glucose (Glucose Gel 15 Gm Gel..Gram.) 15 gm PO Q15M PRN; Protocol PRN Reason: per Hypoglycemia Standing Ord. Haloperidol (Haloperidol 1 Mg Tablet) 1 mg PO BID IRAZ Piperacillin Sod/Tazobactam (Sod 4.5 gm/ Sodium Chloride) 100 mls @ 200 mls/hr IV Q6H PENDING S[facility] TO [facility] Last Infusion: 04/22/22 04:44 Dose: Infused Vancomycin HCl 750 mg/ Sodium (Chloride) 265 mls @ 265 mls/hr IV Q12H PENDING SALE TO [facility] Insulin Glargine (Insulin Glargine,Hum.Rec.Anlog 100 Unit/Ml 10 Ml Vial) 20 unit SUBCUT BEDTIME PENDING SALE TO [facility] Last Admin: 04/22/22 00:13 Dose: 20 unit Insulin Human Lispro (Insulin Lispro 100 Unit/Ml 3 Ml Vial) 0 unit SUBCUT QIDACHS PENDING SALE TO [facility]; Protocol Last Admin: 04/22/22 07:30 Dose: 1 unit Melatonin (Melatonin 3 Mg Tablet) 6 mg PO BEDTIME PRN PRN Reason: Insomnia Methadone HCl (Methadone Hcl 20 Mg/2 Ml Oral.Conc) 27 mg PO DAILY [facility] Ondansetron HCl (Ondansetron Hcl 4 Mg/2 Ml Vial) 4 mg IVPUSH Q8H PRN PRN Reason: Nausea and Vomiting Pharmacy Consult (Consult Rx Perform Med Rec) 1 each MISCELLANE ONCE PRN PRN Reason: Consult order Pharmacy Consult (Consult Rx Vancomycin Dosing) 1 each MISCELLANE DAILY PRN PRN Reason: Consult order Prazosin HCl (Prazosin Hcl 5 Mg Capsule) 5 mg PO BEDTIME RIAZ; Protocol Sodium Chloride (0.9 % Sodium Chloride Flush 3 Ml Syringe) 3 ml IVFLUSH QSHIFT PENDING SALE TO [facility] Last Admin: 04/22/22 07:31 Dose: 3 ml Trazodone HCl (Trazodone Hcl 100 Mg Tablet) 100 mg PO BEDTIME PENDING SALE TO [facility] Vitamin D (Cholecalciferol (Vitamin D3) 25 Mcg Tablet) 25 mcg PO DAILY PENDING SALE TO [facility] Home Medications Medication Instructions Recorded Confirmed Last Taken Type prazosin 5 mg capsule 5 mg PO BEDTIME 03/25/20 04/22/22 Unknown History trazodone 100 mg tablet 100 mg PO BEDTIME 03/25/20 04/22/22 Unknown History bupropion HCl 100 mg tablet 1 tab PO BID 09/14/21 04/22/22 Unknown History cholecalciferol (vitamin D3) 25 1 tab PO DAILY 09/14/21 04/22/22 Unknown History mcg (1,000 unit) tablet docusate sodium 100 mg capsule 1 cap PO BID 09/14/21 04/22/22 Unknown History gabapentin 800 mg tablet 1 tab PO TID 09/14/21 04/22/22 Unknown History insulin degludec 100 unit/mL (3 80 unit subcut DAILY 09/14/21 04/22/22 Unknown History mL) subcutaneous pen (Tresiba FlexTouch U-100 insulin) lisinopril 2.5 mg tablet 1 tab PO DAILY 09/14/21 04/22/22 Unknown History methadone 10 mg/mL oral concentrate 27 mg PO DAILY 09/14/21 04/22/22 Unknown History Tresiba FlexTouch U-100 04/22/22 Unknown History haloperidol 1 mg tablet 1 tab PO BID 04/22/22 04/22/22 Unknown History Physical Exam Vital Signs: Vital Signs: Last Vital Signs Temp 97.4 F 04/22/22 10:09 Pulse 61 04/22/22 10:09 Resp 17 04/22/22 10:09 BP 153/73 H 04/22/22 10:09 Pulse Ox 98 04/22/22 10:09 O2 Del Method 04/22/22 10:09 BMI result Body Mass Index 32.6 Const: General: cooperative, healthy appearing and comfortable Orientation/consciousness: oriented to person, oriented to place and oriented to time HEENT: Head: Yes normal to inspection Neck: Neck: Yes normal visual inspection Carotids: no bruits Chest: Chest palpation & inspection: normal inspection of the chest Resp: Effort & Inspection: normal respiratory effort and able to speak in complete sentences Auscultation: clear to auscultation bilaterally, no crackles, no rales, no rhonchi and no wheezes Cardio: Rate: regular rate Rhythm: regular rhythm Heart sounds: S1 normal heart sound present and S2 normal heart sound present Bruits: no carotid bruits Peripheral pulses: Peripheral pulses 2+ throughout GI: Inspection: Yes normal to inspection Skin: Other: Left foot plantar aspect 2 open ulcerations nearly 2 cm each. Significant edema of the foot Wounds: no wounds Hair: normal Neuro: General: oriented to person, oriented to place and oriented to time Cranial nerves: Yes CN's II-XII intact bilaterally and Yes Normal hearing present Cognition (Neuro): normal cognition Motor exam (neuro): 5/5 motor strength present throughout Extrem: Other: venous exam: No significant superficial varicosities or spider telangiectasias, minimal edema General: No clubbing, No cyanosis and No edema Psych: Appearance: grossly normal Mental Status: mental status grossly normal Speech and movement: Normal speech and movement present Results Labs Result diagrams: 04/22/22 06:39 04/22/22 06:39 Labs: Abnormal lab results 04/21/22 04/21/22 04/21/22 Range/Units 18:43 18:44 18:44 RBC 3.21 L (4.20-5.50) X10*6/uL Hgb 8.4 L (12.0-16.0) g/dl Hct 26.9 L (37.0-47.0) % MCH 26.2 L (27.0-33.0) pg Immature Gran % (Auto) 1.0 H (0.0-0.4) % Neut % (Auto) 76.8 H (45-73) % Lymph % (Auto) 14.6 L (20-40) % Eos % (Auto) (0-4) % Abs Immat Gran (auto) 0.10 H (0.00-0.03) X10*3/uL ESR 116 H (0-20) MM/HR Sodium (135-145) mmol/L Anion Gap (12-20) POC Glucose (60-115) mg/dL Random Glucose (60-115) mg/dL Lactic Acid 2.5 H* (0.5-2.0) mmol/L Calcium (8.4-10.2) mg/dL C-Reactive Protein (< or = 0.50) mg/dL B-Natriuretic Peptide (<100) pg/mL Albumin (3.5-5.0) g/dL 04/21/22 04/21/22 04/21/22 Range/Units 18:44 18:44 22:17 RBC (4.20-5.50) X10*6/uL Hgb (12.0-16.0) g/dl Hct (37.0-47.0) % MCH (27.0-33.0) pg Immature Gran % (Auto) (0.0-0.4) % Neut % (Auto) (45-73) % Lymph % (Auto) (20-40) % Eos % (Auto) (0-4) % Abs Immat Gran (auto) (0.00-0.03) X10*3/uL ESR (0-20) MM/HR Sodium 131 L (135-145) mmol/L Anion Gap (12-20) POC Glucose 259 H (60-115) mg/dL Random Glucose 433 H* (60-115) mg/dL Lactic Acid (0.5-2.0) mmol/L Calcium 8.3 L D (8.4-10.2) mg/dL C-Reactive Protein 9.10 H (< or = 0.50) mg/dL B-Natriuretic Peptide 117 H (<100) pg/mL Albumin 2.9 L (3.5-5.0) g/dL 04/22/22 04/22/22 04/22/22 Range/Units 06:39 06:39 07:11 RBC 2.87 L (4.20-5.50) X10*6/uL Hgb 7.5 L (12.0-16.0) g/dl Hct 24.1 L (37.0-47.0) % MCH 26.1 L (27.0-33.0) pg Immature Gran % (Auto) (0.0-0.4) % Neut % (Auto) (45-73) % Lymph % (Auto) (20-40) % Eos % (Auto) 4.2 H (0-4) % Abs Immat Gran (auto) (0.00-0.03) X10*3/uL ESR (0-20) MM/HR Sodium (135-145) mmol/L Anion Gap 11 L (12-20) POC Glucose 217 H (60-115) mg/dL Random Glucose 281 H (60-115) mg/dL Lactic Acid (0.5-2.0) mmol/L Calcium 7.8 L D (8.4-10.2) mg/dL C-Reactive Protein (< or = 0.50) mg/dL B-Natriuretic Peptide (<100) pg/mL Albumin (3.5-5.0) g/dL 04/22/22 Range/Units 11:22 RBC (4.20-5.50) X10*6/uL Hgb (12.0-16.0) g/dl Hct (37.0-47.0) % MCH (27.0-33.0) pg Immature Gran % (Auto) (0.0-0.4) % Neut % (Auto) (45-73) % Lymph % (Auto) (20-40) % Eos % (Auto) (0-4) % Abs Immat Gran (auto) (0.00-0.03) X10*3/uL ESR (0-20) MM/HR Sodium (135-145) mmol/L Anion Gap (12-20) POC Glucose 195 H (60-115) mg/dL Random Glucose (60-115) mg/dL Lactic Acid (0.5-2.0) mmol/L Calcium (8.4-10.2) mg/dL C-Reactive Protein (< or = 0.50) mg/dL B-Natriuretic Peptide (<100) pg/mL Albumin (3.5-5.0) g/dL Short CBC 04/21/22 04/22/22 Range/Units 18:44 06:39 WBC 10.4 6.9 (4.8-10.8) X10*3/uL Hgb 8.4 L 7.5 L (12.0-16.0) g/dl Hct 26.9 L 24.1 L (37.0-47.0) % Plt Count 278 264 (160-400) X10*3/uL BMP 04/21/22 04/22/22 18:44 06:39 Sodium 131 L 138 Potassium 4.3 4.1 Chloride 97 108 Carbon Dioxide 25 23 BUN 14 11 Creatinine 1.34 1.16 Calcium 8.3 L D 7.8 L D Liver Function 04/21/22 Range/Units 18:44 Total Bilirubin 0.2 (0.0-1.0) mg/dL Direct Bilirubin < 0.2 (0.0-0.5) mg/dL AST 9 (5-31) U/L ALT 9 (0-31) U/L Alkaline Phosphatase 70 (39-117) U/L Albumin 2.9 L (3.5-5.0) g/dL All other labs normal. Imaging Additional studies: Foot x-ray concerning for osteomyelitis written report and images were reviewed Assessment and Plan (1) Diabetic foot ulcer associated with type 1 diabetes mellitus: Status: Acute Plan In short patient has a nonhealing left foot diabetic ulcer. I did discuss this case with the hospitalist team she has chronic underlying osteomyelitis and due to the location of the 2 ulcers amputation appears to be the best option for her. She will require a left foot transmetatarsal amputation. This was discussed with the patient and the patient's father at bedside. Will try to schedule her for Monday. Thank you for allowing us to assist in her care. If there are questions or concerns please do not hesitate to contact us. Procedures Date of Service Date of Service: 04/22/22
[2022-04-22] MEDS: Gabapentin 400 MG CAPSULE 800 MG PO ×3 (11:42→20:14)
[2022-04-22] MEDS: buPROPion HCL 100 MG TABLET PO ×2 (11:43→20:14)
[2022-04-22] MEDS: Cholecalciferol (Vitamin D3) 25 MCG TABLET PO (11:43)
[2022-04-22] MEDS: HaloperidoL 1 MG TABLET PO ×2 (11:43→20:14)
--- NOTE | 2022-04-22 11:49 | MHC.CM.PN ---
T/W MET WITH SARAH AND HER FATHER PER REQUEST. PATIENT REPORTS BEING ACTIVE WITH [facility] TWICE DAILY. SHE LIVES AT [address] [place] [address] [address] (NOT THE ADDRESS ON FILE) SHE PCP IS THROUGH [facility]. CASE MANAGEMEN TFOLLOWING FOR PLAN
[2022-04-22] MEDS: vancomycin HCL 750 MG in 0.9 % Sodium Chloride 250 ML 265 MG IV ×2 (12:51→22:06)
--- NOTE | 2022-04-22 13:56 | HE.PHANOTE ---
RE METHADONE 30MG PER [facility]
[2022-04-22] MEDS: methADONE HCl 20 MG/2 ML ORAL.CONC 30 MG PO (14:13)
--- NOTE | 2022-04-22 14:19 | P.PNIM_ITS ---
Subjective Subjective Date of Service: 04/22/22 Interval History: being followed for left foot wound, resting comfortably offers no acute complaints, no fevers, no chills, denies lightheadedness, no dizziness, no shortness of breath, no chest pain, admits compliance to all her medication, prescribed by Alexandra Weston. Review of Systems Review of Systems: Yes all other systems are reviewed and are negative Physical Exam Vital Signs: Vital Signs: Last Vital Signs Temp 97.4 F 04/22/22 10:09 Pulse 61 04/22/22 10:09 Resp 17 04/22/22 10:09 BP 153/73 H 04/22/22 10:09 Pulse Ox 98 04/22/22 10:09 O2 Del Method 04/22/22 10:09 BMI result Body Mass Index 32.6 Const: Other: general awake aler t,?lying in bed in no distress Neck supple, no JVD Reg ular rate and rhyt hm, S1-S2 heard Re gular breath sound s bilaterally, no wheezing or crackl es appreciated Abd omen soft non tend er, no guarding, n o rigidity Patient no focal motor d eficit Ext: left f oot wound plantar surface at base o f 1st toe and 5th toe with foul odo r and purulent jamee inage Psych: Marielos l mood color pale No pedal edema Objective Data Active Medications Acetaminophen (Acetaminophen 325 Mg Tablet) 650 mg PO Q6H PRN PRN Reason: Pain, Mild (Pain Scale 1-3) Bupropion HCl (Bupropion Hcl 100 Mg Tablet) 100 mg PO BID [facility] Last Admin: 04/22/22 11:43 Dose: 100 mg Documented By: FRANCK Dextrose (Dextrose 50 % 25 Gm/50 Ml Syringe) 25 gm IVPUSH Q15M PRN; Protocol PRN Reason: per Hypoglycemia Standing Ord. Gabapentin (Gabapentin 400 Mg Capsule) 800 mg PO ONCE@1600 ONE Stop: 04/22/22 16:01 Gabapentin (Gabapentin 400 Mg Capsule) 800 mg PO TID [facility] Glucose (Glucose Gel 15 Gm Gel..Gram.) 15 gm PO Q15M PRN; Protocol PRN Reason: per Hypoglycemia Standing Ord. Haloperidol (Haloperidol 1 Mg Tablet) 1 mg PO BID [facility] Last Admin: 04/22/22 11:43 Dose: 1 mg Documented By: FRANCK Piperacillin Sod/Tazobactam (Sod 4.5 gm/ Sodium Chloride) 100 mls @ 200 mls/hr IV Q6H [facility] Last Infusion: 04/22/22 12:56 Dose: 0 mls/hr Documented By: FRANCK Vancomycin HCl 750 mg/ Sodium (Chloride) 265 mls @ 265 mls/hr IV Q12H [facility] Last Infusion: 04/22/22 14:16 Dose: 0 mls/hr Documented By: FRANCK Insulin Glargine (Insulin Glargine,Hum.Rec.Anlog 100 Unit/Ml 10 Ml Vial) 20 unit SUBCUT BEDTIME [facility] Last Admin: 04/22/22 00:13 Dose: 20 unit Documented By: PASTORA Insulin Human Lispro (Insulin Lispro 100 Unit/Ml 3 Ml Vial) 0 unit SUBCUT QIDACHS [facility]; Protocol Last Admin: 04/22/22 11:43 Dose: 2 unit Documented By: FRANCK Melatonin (Melatonin 3 Mg Tablet) 6 mg PO BEDTIME PRN PRN Reason: Insomnia Methadone HCl (Methadone Hcl 20 Mg/2 Ml Oral.Conc) 30 mg PO DAILY [facility] Last Admin: 04/22/22 14:13 Dose: 30 mg Documented By: FRANCK Ondansetron HCl (Ondansetron Hcl 4 Mg/2 Ml Vial) 4 mg IVPUSH Q8H PRN PRN Reason: Nausea and Vomiting Pharmacy Consult (Consult Rx Perform Med Rec) 1 each MISCELLANE ONCE PRN PRN Reason: Consult order Pharmacy Consult (Consult Rx Vancomycin Dosing) 1 each MISCELLANE DAILY PRN PRN Reason: Consult order Prazosin HCl (Prazosin Hcl 5 Mg Capsule) 5 mg PO BEDTIME [facility]; Protocol Sodium Chloride (0.9 % Sodium Chloride Flush 3 Ml Syringe) 3 ml IVFLUSH QSHIFT [facility] Last Admin: 04/22/22 07:31 Dose: 3 ml Documented By: CHRISTOPHER Trazodone HCl (Trazodone Hcl 100 Mg Tablet) 100 mg PO BEDTIME [facility] Vitamin D (Cholecalciferol (Vitamin D3) 25 Mcg Tablet) 25 mcg PO DAILY [facility] Last Admin: 04/22/22 11:43 Dose: 25 mcg Documented By: FRANCK Labs CBC & Chem 7: 04/22/22 06:39 04/22/22 06:39 Labs: Laboratory Results - last 24 hr 11/17/22 11/17/22 11/17/22 18:43 18:44 18:44 MCV 83.8 MCH 26.2 L MCHC 31.2 RDW 14.3 Plt Count 278 MPV 10.5 Immature Gran % (Auto) 1.0 H Neut % (Auto) 76.8 H Lymph % (Auto) 14.6 L [place] % (Auto) 5.7 Eos % (Auto) 1.6 Baso % (Auto) 0.3 Lymph # (Auto) 1.5 [place] # (Auto) 0.6 Eos # (Auto) 0.2 Baso # (Auto) 0.0 Abs Immat Gran (auto) 0.10 H Absolute Neuts (auto) 8.0 Absolute Nucleated RBC 0.000 Nucleated RBC % (auto) 0.0 ESR 116 H Anion Gap Estim Creat Clear Calc Estimated GFR POC Glucose Random Glucose Lactic Acid 2.5 H* Lactic Acid F/U @ 2Hr Calcium Total Bilirubin Direct Bilirubin AST ALT Alkaline Phosphatase C-Reactive Protein B-Natriuretic Peptide Total Protein Albumin COVID-19 (WILLIAM) COVID-19 [facility] Com 04/21/22 04/21/22 04/21/22 18:44 18:44 18:44 MCV MCH MCHC RDW Plt Count MPV Immature Gran % (Auto) Neut % (Auto) Lymph % (Auto) [place] % (Auto) Eos % (Auto) Baso % (Auto) Lymph # (Auto) [place] # (Auto) Eos # (Auto) Baso # (Auto) Abs Immat Gran (auto) Absolute Neuts (auto) Absolute Nucleated RBC Nucleated RBC % (auto) ESR Anion Gap 13 Estim Creat Clear Calc 71.9 Estimated GFR 44 POC Glucose Random Glucose 433 H* Lactic Acid Lactic Acid F/U @ 2Hr Calcium 8.3 L D Total Bilirubin 0.2 Direct Bilirubin < 0.2 AST 9 ALT 9 Alkaline Phosphatase 70 C-Reactive Protein 9.10 H B-Natriuretic Peptide 117 H Total Protein 7.3 Albumin 2.9 L COVID-19 (WILLIAM) Negative COVID-19 Clin Com See Note 04/21/22 04/21/22 04/22/22 22:17 22:57 06:39 MCV 84.0 MCH 26.1 L MCHC 31.1 RDW 14.4 Plt Count 264 MPV 10.6 Immature Gran % (Auto) 0.3 Neut % (Auto) 63.5 Lymph % (Auto) 25.9 [place] % (Auto) 6.0 Eos % (Auto) 4.2 H Baso % (Auto) 0.1 Lymph # (Auto) 1.8 [place] # (Auto) 0.4 Eos # (Auto) 0.3 Baso # (Auto) 0.0 Abs Immat Gran (auto) 0.02 Absolute Neuts (auto) 4.4 Absolute Nucleated RBC 0.000 Nucleated RBC % (auto) 0.0 ESR Anion Gap Estim Creat Clear Calc Estimated GFR POC Glucose 259 H Random Glucose Lactic Acid Lactic Acid F/U @ 2Hr 1.8 Calcium Total Bilirubin Direct Bilirubin AST ALT Alkaline Phosphatase C-Reactive Protein B-Natriuretic Peptide Total Protein Albumin COVID-19 (WILLIAM) COVID-[facility] 04/22/22 04/22/22 04/22/22 06:39 07:11 11:22 MCV MCH MCHC RDW Plt Count MPV Immature Gran % (Auto) Neut % (Auto) Lymph % (Auto) [place] % (Auto) Eos % (Auto) Baso % (Auto) Lymph # (Auto) [place] # (Auto) Eos # (Auto) Baso # (Auto) Abs Immat Gran (auto) Absolute Neuts (auto) Absolute Nucleated RBC Nucleated RBC % (auto) ESR Anion Gap 11 L Estim Creat Clear Calc 80.2 Estimated GFR 52 POC Glucose 217 H 195 H Random Glucose 281 H Lactic Acid Lactic Acid F/U @ 2Hr Calcium 7.8 L D Total Bilirubin Direct Bilirubin AST ALT Alkaline Phosphatase C-Reactive Protein B-Natriuretic Peptide Total Protein Albumin COVID-19 (WILLIAM) COVID-19 [facility] Com Microbiology Microbiology Results: Microbiology 04/21/22 23:16 Gram Stain - Final Foot - Wound Assessment and Plan (1) Methadone maintenance therapy patient: Status: Acute (2) Anxiety and depression: Status: Acute (3) PAD (peripheral artery disease): Status: Acute (4) Diabetic foot ulcer associated with type 1 diabetes mellitus: Status: Acute (5) Osteomyelitis: Status: Acute Plan 36-year-old female with a pertinent history of type 1 diabetes mellitus with neuropathy, peripheral vascular disease status post left foot toe amputations, mood disorder, opioid use disorder on methadone, hyperlipidemia who presents to the emergency department for evaluation of left foot nonhealing wound with foul- smelling discharge. #. Diabetic non healing wound infection with underlying osteomyelitis continue IV Zosyn and IV vanco day [address] De Luna patient will undergo transmetatarsal amputation early next week case discussed with ID she agree with current antibiotics, no further imaging studies needed with known history of osteo #. Type1? Diabetes mellitus with hyperglycemia and neuropathy - blood sugar 195, continue diabetic diet, insulin sliding scale, Lantus 20 units, Continue gabapentin for neuropathy, take Tresiba 80 units at home #. Type A Lactic acidosis -resolved with IV crystalloids #. Mood disorder -continue home medications Haldol, trazodone, and prazosin #. Opioid use disorder -continue methadone #. Normocytic anemia no acute blood loss anemia -due to chronic disease, hematocrit dropped will transfuse 1 unit and follow CBC. DVT prophylaxis: Hold Lovenox until surgical evaluation Full code will need continued inpatient hospitalization for IV antibiotic and transmetatarsal amputation on Monday Quality Stroke Does the patient have a stroke diagnosis?: No VTE Prior VTE?: No VTE Risk Level:: Medical - moderate - high VTE Device Contraindication: Treatment Not Indicated VTE Drug Contraindication: Treatment Not Indicated
--- NOTE | 2022-04-22 15:27 | P.CNID_ITS ---
History of Present Illness Data of Consult Service Date: 04/22/22 Requesting physician: Lanie Granados Primary Care Provider: Alexandra Weston NP HPI Reason for consult: left foot erythema She presents with left foot erythema and foul drainage. She has osteomyelitis that foot and toe removals. 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 Type 1 diabetes mellitus with hyperglycemia Family History Family History Father Diabetes mellitus Mother Diabetes mellitus Maternal Grandmother Diabetes mellitus Paternal Uncle Diabetes mellitus Paternal Aunt Diabetes mellitus CVD (cardiovascular disease) Maternal Uncle Diabetes mellitus Maternal Aunt CVD (cardiovascular disease) Family history: reviewed and not pertinent Surgical History Surgical History Hx of section Hx of tubal ligation Social History Social History Household Members: Children Household Members Other:: GG Housing: Apartment Housing Other:: [facility] Do you presently have visiting nurse or other home services: Yes Alcohol intake: former Patient Tobacco Use Status: Former Tobacco user Quit Date: 1 month ago Second Hand Smoke Exposure: No service: No Current occupational status: disabled Meds Allergies Allergy/AdvReac Type Severity Reaction Status Date / Time adhesive tape [ADHESIVE TAPE] Allergy Mild RASH Verified 11/09/21 14:38 Active Medications: Current Medications Acetaminophen (Acetaminophen 325 Mg Tablet) 650 mg PO Q6H PRN PRN Reason: Pain, Mild (Pain Scale 1-3) Bupropion HCl (Bupropion Hcl 100 Mg Tablet) 100 mg PO BID [facility] Last Admin: 04/22/22 11:43 Dose: 100 mg Dextrose (Dextrose 50 % 25 Gm/50 Ml Syringe) 25 gm IVPUSH Q15M PRN; Protocol PRN Reason: per Hypoglycemia Standing Ord. Gabapentin (Gabapentin 400 Mg Capsule) 800 mg PO ONCE@1600 ONE Stop: 04/22/22 16:01 Gabapentin (Gabapentin 400 Mg Capsule) 800 mg PO TID [facility] Glucose (Glucose Gel 15 Gm Gel..Gram.) 15 gm PO Q15M PRN; Protocol PRN Reason: per Hypoglycemia Standing Ord. Haloperidol (Haloperidol 1 Mg Tablet) 1 mg PO BID [facility] Last Admin: 04/22/22 11:43 Dose: 1 mg Piperacillin Sod/Tazobactam (Sod 4.5 gm/ Sodium Chloride) 100 mls @ 200 mls/hr IV Q6H [facility] Last Infusion: 04/22/22 12:56 Dose: Infused Vancomycin HCl 750 mg/ Sodium (Chloride) 265 mls @ 265 mls/hr IV Q12H [facility] Last Infusion: 04/22/22 14:16 Dose: Infused Insulin Glargine (Insulin Glargine,Hum.Rec.Anlog 100 Unit/Ml 10 Ml Vial) 20 unit SUBCUT BEDTIME [facility] Last Admin: 04/22/22 00:13 Dose: 20 unit Insulin Human Lispro (Insulin Lispro 100 Unit/Ml 3 Ml Vial) 0 unit SUBCUT QIDACHS [facility]; Protocol Last Admin: 04/22/22 11:43 Dose: 2 unit Melatonin (Melatonin 3 Mg Tablet) 6 mg PO BEDTIME PRN PRN Reason: Insomnia Methadone HCl (Methadone Hcl 20 Mg/2 Ml Oral.Conc) 30 mg PO DAILY [facility] Last Admin: 04/22/22 14:13 Dose: 30 mg Ondansetron HCl (Ondansetron Hcl 4 Mg/2 Ml Vial) 4 mg IVPUSH Q8H PRN PRN Reason: Nausea and Vomiting Pharmacy Consult (Consult Rx Perform Med Rec) 1 each MISCELLANE ONCE PRN PRN Reason: Consult order Pharmacy Consult (Consult Rx Vancomycin Dosing) 1 each MISCELLANE DAILY PRN PRN Reason: Consult order Prazosin HCl (Prazosin Hcl 5 Mg Capsule) 5 mg PO BEDTIME [facility]; Protocol Sodium Chloride (0.9 % Sodium Chloride Flush 3 Ml Syringe) 3 ml IVFLUSH QSHIFT [facility] Last Admin: 04/22/22 07:31 Dose: 3 ml Trazodone HCl (Trazodone Hcl 100 Mg Tablet) 100 mg PO BEDTIME [facility] Vitamin D (Cholecalciferol (Vitamin D3) 25 Mcg Tablet) 25 mcg PO DAILY [facility] Last Admin: 04/22/22 11:43 Dose: 25 mcg Home Medications Medication Instructions Recorded Confirmed Last Taken Type prazosin 5 mg capsule 5 mg PO BEDTIME 03/25/20 04/22/22 Unknown History trazodone 100 mg tablet 100 mg PO BEDTIME 03/25/20 04/22/22 Unknown History bupropion HCl 100 mg tablet 1 tab PO BID 09/14/21 04/22/22 Unknown History cholecalciferol (vitamin D3) 25 1 tab PO DAILY 09/14/21 04/22/22 Unknown History mcg (1,000 unit) tablet docusate sodium 100 mg capsule 1 cap PO BID 09/14/21 04/22/22 Unknown History gabapentin 800 mg tablet 1 tab PO TID 09/14/21 04/22/22 Unknown History insulin degludec 100 unit/mL (3 80 unit subcut DAILY 09/14/21 04/22/22 Unknown History mL) subcutaneous pen (Tresiba FlexTouch U-100 insulin) lisinopril 2.5 mg tablet 1 tab PO DAILY 09/14/21 04/22/22 Unknown History methadone 10 mg/mL oral concentrate 30 mg PO DAILY 09/14/21 04/22/22 04/21/22 History Tresiba FlexTouch U-100 04/22/22 Unknown History haloperidol 1 mg tablet 1 tab PO BID 04/22/22 04/22/22 Unknown History Physical Exam Vital Signs: Vital Signs: Last Vital Signs Temp 97.4 F 04/22/22 10:09 Pulse 61 04/22/22 10:09 Resp 17 04/22/22 10:09 BP 153/73 H 04/22/22 10:09 Pulse Ox 98 04/22/22 10:09 O2 Del Method 04/22/22 10:09 BMI result Body Mass Index 32.6 Const: General: cooperative HEENT: Head: Yes normal to inspection Face and sinus: Yes normal facial exam Mouth: Normal oral and palatal mucosa present Teeth and gingiva: dentition normal Eyes: General: appearance normal, both eyes and all related structures Pupils: Equal, round and reactive pupils present Resp: Effort & Inspection: normal respiratory effort Cardio: Rate: regular rate Rhythm: regular rhythm GI: Palpation (GI): Soft to palpation and nontender : General: Yes no CVA tenderness Back/Spine/Pelvis: Back: no CVA tenderness Skin: General skin exam: no rashes or lesions noted Neuro: General: moves all extremities Cranial nerves: Yes Equal, round and reactive pupils present Extrem: Other: swollen foot ,erythematous,plus 1 pulse,malodor General: Yes normal to inspection Psych: Appearance: grossly normal Results Labs CBC & Chem 7: 04/22/22 06:39 04/22/22 06:39 Labs: Short CBC 04/21/22 04/22/22 Range/Units 18:44 06:39 WBC 10.4 6.9 (4.8-10.8) X10*3/uL Hgb 8.4 L 7.5 L (12.0-16.0) g/dl Hct 26.9 L 24.1 L (37.0-47.0) % Plt Count 278 264 (160-400) X10*3/uL BMP 04/21/22 04/22/22 18:44 06:39 Sodium 131 L 138 Potassium 4.3 4.1 Chloride 97 108 Carbon Dioxide 25 23 BUN 14 11 Creatinine 1.34 1.16 Calcium 8.3 L D 7.8 L D Liver Function 04/21/22 Range/Units 18:44 Total Bilirubin 0.2 (0.0-1.0) mg/dL Direct Bilirubin < 0.2 (0.0-0.5) mg/dL AST 9 (5-31) U/L ALT 9 (0-31) U/L Alkaline Phosphatase 70 (39-117) U/L Albumin 2.9 L (3.5-5.0) g/dL Microbiology Microbiology Results: Microbiology 04/21/22 23:16 Foot - Wound Gram Stain - Final Assessment and Plan (1) Diabetic foot ulcer associated with type 1 diabetes mellitus: Status: Acute This is chronic and nonhealing. IV residential antibiotics will make no difference. (2) PAD (peripheral artery disease): Status: Acute Plan Would continue IV antibiotics ,Vancomycin and Zosyn Definitive Surgical therapy
[2022-04-22 15:55] LABS: Glucose, Whole Blood 149 mg/dL (60-115)
[2022-04-22 20:07] LABS: Glucose, Whole Blood 166 mg/dL (60-115)
[2022-04-22] MEDS: Prazosin HCL 5 MG CAPSULE PO (20:14)
[2022-04-22] MEDS: traZODone HCL 100 MG TABLET PO (20:14)
[2022-04-23 04:00] VITALS: BP 140/78; PULSE 55; RESP 14; TEMP 36; O2SAT 97
[2022-04-23] MEDS: Piperacillin Sodium/Tazobactam 4.5 GM in 0.9 % Sodium Chloride 100 ML IV ×4 (05:31→23:37)
[2022-04-23 07:24] LABS: Glucose, Whole Blood 282 mg/dL (60-115)
[2022-04-23 08:00] VITALS: BP 151/73; PULSE 57; RESP 18; TEMP 36.1; O2SAT 96
[2022-04-23] MEDS: HaloperidoL 1 MG TABLET PO ×2 (08:14→20:23)
[2022-04-23] MEDS: buPROPion HCL 100 MG TABLET PO ×2 (08:14→20:23)
[2022-04-23] MEDS: Cholecalciferol (Vitamin D3) 25 MCG TABLET PO (08:15)
[2022-04-23] MEDS: methADONE HCl 20 MG/2 ML ORAL.CONC 30 MG PO (08:15)
[2022-04-23] MEDS: Insulin Lispro 100 UNIT/ML 3 ML VIAL SUBCUT ×3 (08:15→20:24)
[2022-04-23] MEDS: Gabapentin 400 MG CAPSULE 800 MG PO ×3 (08:15→20:23)
[2022-04-23] MEDS: 0.9 % Sodium Chloride Flush 3 ML SYRINGE IVFLUSH ×3 (08:17→20:25)
[2022-04-23 09:39] LABS: Vancomycin Trough 11.8 mcg/mL (10.0-20.0)
[2022-04-23 10:54] LABS: Creatinine Clr Calc Pharmacy 93.1; Estimated Glomerular Filt Rate > 60
[2022-04-23 11:14] LABS: Glucose, Whole Blood 171 mg/dL (60-115)
[2022-04-23 11:37] VITALS: BP 139/75; PULSE 60; RESP 16; TEMP 36.1; O2SAT 97
--- NOTE | 2022-04-23 12:07 | HO.PM.IMPN ---
Subjective Subjective Date of Service: 04/23/22 Interval History: denies left foot pain due to neuropathy, denies fever, no chills, did not sleep due to uncomfortable bed, otherwise no other acute issues no nausea no vomiting , has poor appetite. Review of Systems General no headache no dizziness no fever chills. CVS no chest pain, no palpitation. Respiratory no cough no sob. Gastrointestinal no nausea no vomiting, no abdominal pain Physical Exam Vital Signs: Vital Signs: Last Vital Signs Temp 97.0 F 04/23/22 11:37 Pulse 60 04/23/22 11:37 Resp 16 04/23/22 11:37 BP 139/75 04/23/22 11:37 Pulse Ox 97 04/23/22 11:37 O2 Del Method 04/23/22 11:37 BMI result Body Mass Index 32.6 Const: Other: general awake alert,?lying in bed in?no distress Necksupple, no JVD Regular rate and rhythm, S1-S2 heard Resp ReUpgular breath sounds bilaterally, nowheezing or crackles appreciated Abdomen soft non tender, no guarding, no rigidity Neuro no focal motor deficit Ext: left foot wound? plantar?surface at base of 1st toe and 5th toe with foul odor and purulent drainage, unchanged Psych: Normal moodcolor pale No pedal edema? ? Objective Data Active Medications Acetaminophen (Acetaminophen 325 Mg Tablet) 650 mg PO Q6H PRN PRN Reason: Pain, Mild (Pain Scale 1-3) Bupropion HCl (Bupropion Hcl 100 Mg Tablet) 100 mg PO BID [facility] Last Admin: 04/23/22 08:14 Dose: 100 mg Documented By: MEHRAN Dextrose (Dextrose 50 % 25 Gm/50 Ml Syringe) 25 gm IVPUSH Q15M PRN; Protocol PRN Reason: per Hypoglycemia Standing Ord. Gabapentin (Gabapentin 400 Mg Capsule) 800 mg PO TID [facility] Last Admin: 04/23/22 08:15 Dose: 800 mg Documented By: MEHRAN Glucose (Glucose Gel 15 Gm Gel..Gram.) 15 gm PO Q15M PRN; Protocol PRN Reason: per Hypoglycemia Standing Ord. Haloperidol (Haloperidol 1 Mg Tablet) 1 mg PO BID [facility] Last Admin: 04/23/22 08:14 Dose: 1 mg Documented By: MEHRAN Piperacillin Sod/Tazobactam (Sod 4.5 gm/ Sodium Chloride) 100 mls @ 200 mls/hr IV Q6H [facility] Last Admin: 04/23/22 11:02 Dose: 200 mls/hr Documented By: MEHRAN Vancomycin HCl 750 mg/ Sodium (Chloride) 265 mls @ 265 mls/hr IV Q12H [facility] Last Infusion: 04/22/22 23:55 Dose: 0 mls/hr Documented By: JIN Insulin Glargine (Insulin Glargine,Hum.Rec.Anlog 100 Unit/Ml 10 Ml Vial) 20 unit SUBCUT BEDTIME [facility] Last Admin: 04/22/22 20:18 Dose: 20 unit Documented By: JIN Insulin Human Lispro (Insulin Lispro 100 Unit/Ml 3 Ml Vial) 0 unit SUBCUT QIDACHS [facility]; Protocol Last Admin: 04/23/22 08:15 Dose: 6 unit Documented By: MEHRAN Melatonin (Melatonin 3 Mg Tablet) 6 mg PO BEDTIME PRN PRN Reason: Insomnia Methadone HCl (Methadone Hcl 20 Mg/2 Ml Oral.Conc) 30 mg PO DAILY [facility] Last Admin: 04/23/22 08:15 Dose: 30 mg Documented By: MEHRAN Ondansetron HCl (Ondansetron Hcl 4 Mg/2 Ml Vial) 4 mg IVPUSH Q8H PRN PRN Reason: Nausea and Vomiting Pharmacy Consult (Consult Rx Perform Med Rec) 1 each MISCELLANE ONCE PRN PRN Reason: Consult order Pharmacy Consult (Consult Rx Vancomycin Dosing) 1 each MISCELLANE DAILY PRN PRN Reason: Consult order Prazosin HCl (Prazosin Hcl 5 Mg Capsule) 5 mg PO BEDTIME [facility]; Protocol Last Admin: 04/22/22 20:14 Dose: 5 mg Documented By: JIN Sodium Chloride (0.9 % Sodium Chloride Flush 3 Ml Syringe) [address] [facility] Last Admin: 04/23/22 08:17 Dose: 3 ml Documented By: MEHRAN Trazodone HCl (Trazodone Hcl 100 Mg Tablet) 100 mg PO BEDTIME [facility] Last Admin: 04/22/22 20:14 Dose: 100 mg Documented By: JIN Vitamin D (Cholecalciferol (Vitamin D3) 25 Mcg Tablet) 25 mcg PO DAILY [facility] Last Admin: 04/23/22 08:15 Dose: 25 mcg Documented By: MEHRAN Labs CBC & Chem 7: 04/22/22 06:39 04/23/22 08:51 Labs: Laboratory Results - last 24 hr 04/22/22 04/22/22 04/22/22 15:12 15:44 20:03 Estim Creat Clear Calc Estimated GFR POC Glucose 149 H 166 H Vancomycin Trough Blood Type A Positive Antibody Screen NEGATIVE Crossmatch See Detail 04/23/22 04/23/22 04/23/22 07:05 08:51 08:51 Estim Creat Clear Calc 93.1 Estimated GFR > 60 POC Glucose 282 H Vancomycin Trough 11.8 Blood Type Antibody Screen Crossmatch 04/23/22 11:05 Estim Creat Clear Calc Estimated GFR POC Glucose 171 H Vancomycin Trough Blood Type Antibody Screen Crossmatch Microbiology Microbiology Results: Microbiology 04/21/22 23:16 Gram Stain - Final Foot - Wound Routine Culture - Preliminary Culture in progress. 04/21/22 18:44 Blood Culture - Preliminary Blood - Venous No growth after 24 hours. 04/21/22 18:44 Blood Culture - Preliminary Blood - Venous No growth after 24 hours. Assessment and Plan (1) Methadone maintenance therapy patient: Status: Acute (2) Anxiety and depression: Status: Acute (3) PAD (peripheral artery disease): Status: Acute (4) Diabetic foot ulcer associated with type 1 diabetes mellitus: Status: Acute (5) Osteomyelitis: Status: Acute Plan 36-year-old female with a pertinent history of type 1 diabetes mellitus with neuropathy, peripheral vascular disease status post left foot toe amputations, mood disorder, opioid use disorder on methadone, hyperlipidemia who presents to the emergency department for evaluation of left foot nonhealing wound with foul-smelling discharge. #. Diabetic non healing wound infection with underlying osteomyelitis continue IV Zosyn and IV vanco day 3 patient will undergo transmetatarsal amputation early next week no further imaging studies needed with known history of osteo #. Type1? Diabetes mellitus with hyperglycemia and neuropathy - blood sugar elevated continue diabetic diet, insulin sliding scale, will increase Lantus to 25 units, Continue gabapentin for neuropathy, take Tresiba 80 units at home #. Type A Lactic acidosis -resolved with IV crystalloids #. Mood disorder -continue home medications Haldol, trazodone, and prazosin #. Opioid use disorder -continue methadone #. Normocytic anemia no acute blood loss anemia -due to chronic disease, hematocrit dropped will transfuse 1 unit and follow CBC. DVT prophylaxis: Hold Lovenox until surgical evaluation Full code will need continued inpatient hospitalization for IV antibiotic and transmetatarsal amputation on Monday Quality Stroke Does the patient have a stroke diagnosis?: No VTE Prior VTE?: No VTE Risk Level:: Medical - moderate - high VTE Device Contraindication: Treatment Not Indicated VTE Drug Contraindication: Treatment Not Indicated
[2022-04-23] MEDS: vancomycin HCL 750 MG in 0.9 % Sodium Chloride 250 ML 265 MG IV (12:11)
[2022-04-23 15:57] LABS: Glucose, Whole Blood 183 mg/dL (60-115)
--- NOTE | 2022-04-23 19:00 | PC.NURSE ---
Pt is A/O X 3, no apparent distress noted. Pt has a flat affect, made needs known, son at bedside. Pt aware of plan of care.
[2022-04-23 19:49] LABS: Glucose, Whole Blood 217 mg/dL (60-115)
[2022-04-23 19:56] VITALS: BP 178/97; PULSE 54; RESP 17; TEMP 36; O2SAT 99
[2022-04-23] MEDS: Insulin Glargine,Hum.rec.anlog 100 UNIT/ML 10 ML VIAL 20 UNIT SUBCUT (20:23)
[2022-04-23] MEDS: traZODone HCL 100 MG TABLET PO (20:23)
[2022-04-23] MEDS: Prazosin HCL 5 MG CAPSULE PO (20:23)
[2022-04-23 21:11] VITALS: BP 120/82
[2022-04-23] MEDS: vancomycin HCL 1,000 MG in 0.9 % Sodium Chloride 250 ML 270 MG IV (21:31)
[2022-04-24] VITALS (7 sets, daily range): BP systolic 146–183; BP diastolic 72–83; PULSE 56–67; RESP 14–20; TEMP 35.9–36.3; O2SAT 94–99
[2022-04-24] MEDS: Piperacillin Sodium/Tazobactam 4.5 GM in 0.9 % Sodium Chloride 100 ML IV ×3 (05:27→17:16)
[2022-04-24 07:32] LABS: Glucose, Whole Blood 187 mg/dL (60-115)
[2022-04-24] MEDS: Insulin Lispro 100 UNIT/ML 3 ML VIAL SUBCUT ×2 (08:23→17:16)
[2022-04-24] MEDS: buPROPion HCL 100 MG TABLET PO ×2 (08:24→21:05)
[2022-04-24] MEDS: HaloperidoL 1 MG TABLET PO ×2 (08:24→21:05)
[2022-04-24] MEDS: Gabapentin 400 MG CAPSULE 800 MG PO ×3 (08:24→21:05)
[2022-04-24] MEDS: vancomycin HCL 1,000 MG in 0.9 % Sodium Chloride 250 ML 270 MG IV (08:25)
[2022-04-24] MEDS: methADONE HCl 20 MG/2 ML ORAL.CONC 30 MG PO (08:25)
[2022-04-24] MEDS: 0.9 % Sodium Chloride Flush 3 ML SYRINGE IVFLUSH ×3 (08:25→21:13)
[2022-04-24] MEDS: Cholecalciferol (Vitamin D3) 25 MCG TABLET PO (08:25)
[2022-04-24 11:14] LABS: Glucose, Whole Blood 145 mg/dL (60-115)
--- NOTE | 2022-04-24 12:31 | HO.PM.IMPN ---
Subjective Subjective Date of Service: 04/24/22 Interval History: offers no acute complaints, no foot pain concern about surgery tomorrow, denies fever, chills, no lightheadedness, no dizziness, tolerating diet with no nausea, vomiting, abdominal pain, no diarrhea receiving IV antibiotics Review of Systems Review of Systems: Yes all other systems are reviewed and are negative Physical Exam Vital Signs: Vital Signs: Last Vital Signs Temp 96.7 F L 04/24/22 10:56 Pulse 61 04/24/22 10:56 Resp 16 04/24/22 10:56 BP 163/77 H 04/24/22 10:56 Pulse Ox 96 04/24/22 10:56 O2 Del Method 04/24/22 10:56 BMI result Body Mass Index 32.6 Const: Other: general awake aler t,?lying in bed in ?no distress Neck supple, no JVD Reg ular rate and rhyt hm, S1-S2 heard Re sp ReUpgular breat h sounds bilateral ly, nowheezing or crackles appreciat ed Abdomen soft no n tender, no guard ing, no rigidity N euro no focal fredrick r deficit Ext: lef t foot wound? plan tar?surface at bas e of 1st toe and 5 th toe with foul o eben and purulent d rainage, unchanged right big toe, dr dom scaly skin Psych : Normal moodcolor pale No pedal argenis ma? ? Objective Data Active Medications Acetaminophen (Acetaminophen 325 Mg Tablet) 650 mg PO Q6H PRN PRN Reason: Pain, Mild (Pain Scale 1-3) Bupropion HCl (Bupropion Hcl 100 Mg Tablet) 100 mg PO BID [facility] Last Admin: 04/24/22 08:24 Dose: 100 mg Documented By: TOMAS Dextrose (Dextrose 50 % 25 Gm/50 Ml Syringe) 25 gm IVPUSH Q15M PRN; Protocol PRN Reason: per Hypoglycemia Standing Ord. Gabapentin (Gabapentin 400 Mg Capsule) 800 mg PO TID [facility] Last Admin: 04/24/22 08:24 Dose: 800 mg Documented By: TOMAS Glucose (Glucose Gel 15 Gm Gel..Gram.) 15 gm PO Q15M PRN; Protocol PRN Reason: per Hypoglycemia Standing Ord. Haloperidol (Haloperidol 1 Mg Tablet) 1 mg PO BID [facility] Last Admin: 04/24/22 08:24 Dose: 1 mg Documented By: TOMAS Piperacillin Sod/Tazobactam (Sod 4.5 gm/ Sodium Chloride) 100 mls @ 200 mls/hr IV Q6H [facility] Last Infusion: 04/24/22 12:05 Dose: 0 mls/hr Documented By: TOMAS Vancomycin HCl 1,000 mg/ (Sodium Chloride) 270 mls @ 270 mls/hr IV Q12H [facility] Last Infusion: 04/24/22 09:33 Dose: 0 mls/hr Documented By: TOMAS Insulin Glargine (Insulin Glargine,Hum.Rec.Anlog 100 Unit/Ml 10 Ml Vial) 20 unit SUBCUT BEDTIME [facility] Last Admin: 04/23/22 20:23 Dose: 20 unit Documented By: ZI Insulin Human Lispro (Insulin Lispro 100 Unit/Ml 3 Ml Vial) 0 unit SUBCUT QIDACHS [facility]; Protocol Last Admin: 04/24/22 11:16 Dose: Not Given Documented By: TOMAS Non-Admin Reason: No Insulin Coverage Melatonin (Melatonin 3 Mg Tablet) 6 mg PO BEDTIME PRN PRN Reason: Insomnia Methadone HCl (Methadone Hcl 20 Mg/2 Ml Oral.Conc) 30 mg PO DAILY [facility] Last Admin: 04/24/22 08:25 Dose: 30 mg Documented By: TOMAS Ondansetron HCl (Ondansetron Hcl 4 Mg/2 Ml Vial) 4 mg IVPUSH Q8H PRN PRN Reason: Nausea and Vomiting Pharmacy Consult (Consult Rx Perform Med Rec) 1 each MISCELLANE ONCE PRN PRN Reason: Consult order Pharmacy Consult (Consult Rx Vancomycin Dosing) 1 each MISCELLANE DAILY PRN PRN Reason: Consult order Prazosin HCl (Prazosin Hcl 5 Mg Capsule) 5 mg PO BEDTIME [facility]; Protocol Last Admin: 04/23/22 20:23 Dose: 5 mg Documented By: ZI Sodium Chloride (0.9 % Sodium Chloride Flush 3 Ml Syringe) 3 ml IVFLUSH QSHIFT [facility] Last Admin: 04/24/22 08:25 Dose: 3 ml Documented By: TOMAS Trazodone HCl (Trazodone Hcl 100 Mg Tablet) 100 mg PO BEDTIME [facility] Last Admin: 04/23/22 20:23 Dose: 100 mg Documented By: ZI Vitamin D (Cholecalciferol (Vitamin D3) 25 Mcg Tablet) 25 mcg PO DAILY [facility] Last Admin: 04/24/22 08:25 Dose: 25 mcg Documented By: TOMAS Labs CBC & Chem 7: 04/22/22 06:39 04/24/22 12:18 Labs: Laboratory Results - last 24 hr 04/23/22 04/23/22 04/24/22 15:43 19:40 07:16 POC Glucose 183 H 217 H 187 H 04/24/22 10:55 POC Glucose 145 H Microbiology Microbiology Results: Microbiology 04/21/22 23:16 Gram Stain - Final Foot - Wound Routine Culture - Final Strep agalactiae (Grp B) Streptococcus group c 04/21/22 18:44 Blood Culture - Preliminary Blood - Venous No growth after 48 hours. 04/21/22 18:44 Blood Culture - Preliminary Blood - Venous No growth after 48 hours. Assessment and Plan (1) Methadone maintenance therapy patient: Status: Acute (2) Anxiety and depression: Status: Acute (3) PAD (peripheral artery disease): Status: Acute (4) Diabetic foot ulcer associated with type 1 diabetes mellitus: Status: Acute (5) Osteomyelitis: Status: Acute Plan 36-year-old female with a pertinent history of type 1 diabetes mellitus with neuropathy, peripheral vascular disease status post left foot toe amputations, mood disorder, opioid use disorder on methadone, hyperlipidemia who presents to the emergency department for evaluation of left foot nonhealing wound with foul-smelling discharge. #. Diabetic non healing wound infection with underlying osteomyelitis no fevers, no pain continue IV Zosyn and IV vanco day 4 patient will undergo transmetatarsal amputation tomorrow a.m., NPO after midnight no further imaging studies needed with known history of osteo #. Type1? Diabetes mellitus with hyperglycemia and neuropathy - blood sugar better controlled,continue diabetic diet, insulin sliding scale adjust dosage, Lantus 20 units, Continue gabapentin for neuropathy, take Tresiba 80 units at home #. Type A Lactic acidosis -resolved with IV crystalloids #. Mood disorder -continue home medications Haldol, trazodone, and prazosin #. Opioid use disorder -continue methadone #. Normocytic anemia no acute blood loss anemia status post 1 unit packed RBC follow CBC DVT prophylaxis: compression boots. Full code will need continued inpatient hospitalization for IV antibiotic and transmetatarsal amputation on Monday Quality Stroke Does the patient have a stroke diagnosis?: No VTE Prior VTE?: No VTE Risk Level:: Medical - moderate - high VTE Device Contraindication: Treatment Not Indicated VTE Drug Contraindication: Treatment Not Indicated
[2022-04-24 12:41] LABS: Creatinine Clr Calc Pharmacy 88.6; Estimated Glomerular Filt Rate 59
[2022-04-24 16:43] LABS: Glucose, Whole Blood 181 mg/dL (60-115)
[2022-04-24 20:13] LABS: Glucose, Whole Blood 142 mg/dL (60-115)
[2022-04-24 20:26] LABS: Vancomycin Trough 16.3 mcg/mL (10.0-20.0)
[2022-04-24] MEDS: Prazosin HCL 5 MG CAPSULE PO (21:05)
[2022-04-24] MEDS: traZODone HCL 100 MG TABLET PO (21:05)
[2022-04-24] MEDS: vancomycin HCL 750 MG in 0.9 % Sodium Chloride 250 ML 265 MG IV (21:06)
[2022-04-25] VITALS (13 sets, daily range): BP systolic 120–181; BP diastolic 65–92; PULSE 52–73; RESP 12–20; TEMP 35.9–36.7; O2SAT 91–98
[2022-04-25] MEDS: Piperacillin Sodium/Tazobactam 4.5 GM in 0.9 % Sodium Chloride 100 ML IV ×5 (00:04→23:09)
--- NOTE | 2022-04-25 07:34 | MHC.CM.PN ---
[facility] STATES THAT PATIENT HAS BEEN DISCHARGED FROM THEIR SERVICES AND THEY ARE NO LONGER ABLE OTOACCEPT. CASE MANAGEMENT ATTEMPTING TO SECURE ANOTHER AGENCY.
[2022-04-25 08:26] LABS: Glucose, Whole Blood 148 mg/dL (60-115)
[2022-04-25] MEDS: 0.9 % Sodium Chloride Flush 3 ML SYRINGE IVFLUSH ×3 (08:54→20:21)
[2022-04-25 10:11] LABS: Creatinine Clr Calc Pharmacy 91.2; Estimated Glomerular Filt Rate > 60
--- NOTE | 2022-04-25 10:28 | P.PNVS_ITS ---
Subjective Subjective Date of Service: 04/25/22 Patient reports: no new complaints Interval history: 36-year-old diabetic female presents for follow-up regarding nonhealing left foot ulcer. Of note over the weekend it was discovered she has a right great toe ulcer as well. This appears to be relatively small. The concern is her left foot. She is now for follow-up. Physical Exam Vital Signs: Vital Signs: Last Vital Signs Temp 97.3 F 04/25/22 08:00 Pulse 55 04/25/22 08:00 Resp 18 04/25/22 08:00 BP 120/65 04/25/22 08:00 Pulse Ox 96 04/25/22 08:00 O2 Del Method 04/25/22 03:36 BMI result Body Mass Index 32.6 Const: General: cooperative, healthy appearing and no acute distress Orien tation/consciousness: oriented to person, oriented to place and oriented to time HEENT: Head: Yes normal to inspection Neck: Carotids: no bruits Chest: Chest palpation & inspection: normal inspection of the chest Resp: Effort & Inspection: normal respiratory effort and able to speak in complete sentences Auscultation: clear to auscultation bilaterally Cardio: Rate: regular rate Heart sounds: S1 normal heart sound present and S2 normal heart sound present GI: Inspection: Yes normal to inspection Skin: Other: Left foot plantar just below the great in 4th metatarsal head 2 cm wounds penetrating to bone General skin exam: no rashes or lesions noted Wounds: no wounds Neuro: General: oriented to person, oriented to place, oriented to time and CN's II-XI intact bilaterally Extrem: General: Yes normal to inspection, Yes full ROM and Yes no clubbing, cyanosis or edema Psych: Appearance: grossly normal and well kempt Speech and movement: Normal speech and movement present Affect: normal affect Progress Note: A&P Assessment and plan (1) Diabetic foot ulcer associated with type 1 diabetes mellitus: Status: Acute Assessment and Plan: In short patient has nonhealing left foot ulcer. Due to the location and prior toe amputations she will require a left foot transmetatarsal amputation. This was discussed again in detail with the patient. She is in agreement and would like to move forward later on today. She is scheduled for around lunchtime today. We will also keep an eye on the right great toe. Thank you for allowing us to assist in her care. If there are any questions or concerns please do not hesitate to contact us. Time Spent With Patient Time: Total time spent is greater than 50% in coordination of care (as documented) at patient's floor/unit and/or counseling patient: Procedures Date of Service Date of Service: 04/25/22 Quality Stroke Does the patient have a stroke diagnosis?: No VTE Prior VTE?: No VTE Risk Level:: Medical - moderate - high VTE Device Contraindication: Treatment Not Indicated VTE Drug Contraindication: Treatment Not Indicated
[2022-04-25] MEDS: vancomycin HCL 750 MG in 0.9 % Sodium Chloride 250 ML 265 MG IV ×2 (10:39→22:04)
--- NOTE | 2022-04-25 11:15 | P.PNIM_ITS ---
Subjective Subjective Date of Service: 04/25/22 Interval History: resting comfortably, denies pain, no fevers, no chills, NPO for left foot transmetatarsal amputation, denies chest pain, no palpitation, no shortness of breath, no headache, no dizziness, no other acute issues overnight. Review of Systems Review of Systems: Yes all other systems are reviewed and are negative Physical Exam Vital Signs: Vital Signs: Last Vital Signs Temp 97.3 F 04/25/22 08:00 Pulse 55 04/25/22 08:00 Resp 18 04/25/22 08:00 BP 120/65 04/25/22 08:00 Pulse Ox 96 04/25/22 08:00 O2 Del Method 04/25/22 03:36 BMI result Body Mass Index 32.6 Const: Other: general awake alert,?lying in bed in?no distress Neck supple, no JVD Regular rate and rhythm, S1-S2 heard Resp Regular breath sounds bilaterally, no wheezing or crackles appreciated Abdomen soft, non tender, no guarding, no rigidity Neuro no focal motor deficit Ext: left foot wound? plantar?surface at base of 1st toe and 5th toe with foul odor and purulent drainage, unchanged right big toe, dry scaly skin Psych: Normal mood No pedal edema? ? Objective Data Active Medications Acetaminophen (Acetaminophen 325 Mg Tablet) 650 mg PO Q6H PRN PRN Reason: Pain, Mild (Pain Scale 1-3) Bupropion HCl (Bupropion Hcl 100 Mg Tablet) 100 mg PO BID [facility] Last Admin: 04/25/22 08:54 Dose: Not Given Documented By: TOMAS Non-Admin Reason: NPO Dextrose (Dextrose 50 % 25 Gm/50 Ml Syringe) 25 gm IVPUSH Q15M PRN; Protocol PRN Reason: per Hypoglycemia Standing Ord. Gabapentin (Gabapentin 400 Mg Capsule) 800 mg PO TID [facility] Last Admin: 04/25/22 08:55 Dose: Not Given Documented By: TOMAS Non-Admin Reason: NPO Glucose (Glucose Gel 15 Gm Gel..Gram.) 15 gm PO Q15M PRN; Protocol PRN Reason: per Hypoglycemia Standing Ord. Haloperidol (Haloperidol 1 Mg Tablet) 1 mg PO BID [facility] Last Admin: 04/25/22 08:55 Dose: Not Given Documented By: TOMAS Non-Admin Reason: NPO Piperacillin Sod/Tazobactam (Sod 4.5 gm/ Sodium Chloride) 100 mls @ 200 mls/hr IV Q6H [facility] Last Infusion: 04/25/22 06:30 Dose: 200 mls/hr Documented By: KWAME Vancomycin HCl 750 mg/ Sodium (Chloride) 265 mls @ 265 mls/hr IV Q12H [facility] Last Admin: 04/25/22 10:39 Dose: 265 mls/hr Documented By: TOMAS Insulin Glargine (Insulin Glargine,Hum.Rec.Anlog 100 Unit/Ml 10 Ml Vial) 20 unit SUBCUT BEDTIME [facility] Last Admin: 04/24/22 21:15 Dose: Not Given Documented By: KWAME Non-Admin Reason: Patient Refused Insulin Human Lispro (Insulin Lispro 100 Unit/Ml 3 Ml Vial) 0 unit SUBCUT QIDACHS [facility]; Protocol Last Admin: 04/25/22 08:20 Dose: Not Given Documented By: TOMAS Non-Admin Reason: No Insulin Coverage Melatonin (Melatonin 3 Mg Tablet) 6 mg PO BEDTIME PRN PRN Reason: Insomnia Methadone HCl (Methadone Hcl 20 Mg/2 Ml Oral.Conc) 30 mg PO DAILY [facility] Last Admin: 04/25/22 08:55 Dose: Not Given Documented By: TOMAS Non-Admin Reason: NPO Ondansetron HCl (Ondansetron Hcl 4 Mg/2 Ml Vial) 4 mg IVPUSH Q8H PRN PRN Reason: Nausea and Vomiting Pharmacy Consult (Consult Rx Perform Med Rec) 1 each MISCELLANE ONCE PRN PRN Reason: Consult order Pharmacy Consult (Consult Rx Vancomycin Dosing) 1 each MISCELLANE DAILY PRN PRN Reason: Consult order Prazosin HCl (Prazosin Hcl 5 Mg Capsule) 5 mg PO BEDTIME [facility]; Protocol Last Admin: 04/24/22 21:05 Dose: 5 mg Documented By: KWAME Sodium Chloride (0.9 % Sodium Chloride Flush 3 Ml Syringe) 3 ml IVFLUSH QSHIFT [facility] Last Admin: 04/25/22 08:54 Dose: 3 ml Documented By: TOMAS Trazodone HCl (Trazodone Hcl 100 Mg Tablet) 100 mg PO BEDTIME [facility] Last Admin: 04/24/22 21:05 Dose: 100 mg Documented By: KWAME Vitamin D (Cholecalciferol (Vitamin D3) 25 Mcg Tablet) 25 mcg PO DAILY [facility] Last Admin: 04/25/22 08:54 Dose: Not Given Documented By: TOMAS Non-Admin Reason: NPO Labs CBC & Chem 7: 04/22/22 06:39 04/25/22 09:39 Labs: Laboratory Results - last 24 hr 04/24/22 04/24/22 04/24/22 10:55 12:18 16:33 Estim Creat Clear Calc 88.6 Estimated GFR 59 POC Glucose 145 H 181 H Vancomycin Trough 04/24/22 04/24/22 04/25/22 19:54 20:09 08:12 Estim Creat Clear Calc Estimated GFR POC Glucose 142 H 148 H Vancomycin Trough 16.3 04/25/22 09:39 Estim Creat Clear Calc 91.2 Estimated GFR > 60 POC Glucose Vancomycin Trough Microbiology Microbiology Results: Microbiology 04/21/22 23:16 Gram Stain - Final Foot - Wound Routine Culture - Final Strep agalactiae (Grp B) Streptococcus group c Assessment and Plan (1) Methadone maintenance therapy patient: Status: Acute (2) Anxiety and depression: Status: Acute (3) PAD (peripheral artery disease): Status: Acute (4) Diabetic foot ulcer associated with type 1 diabetes mellitus: Status: Acute (5) Osteomyelitis: Status: Acute Plan 36-year-old female with a pertinent history of type 1 diabetes mellitus with neuropathy, peripheral vascular disease status post left foot toe amputations, mood disorder, opioid use disorder on methadone, hyperlipidemia who presents to the emergency department for evaluation of left foot nonhealing wound with foul- smelling discharge. #. Diabetic non healing wound infection with underlying osteomyelitis no fevers, no pain continue IV Zosyn and IV vanco day 5, patient will undergo transmetatarsal amputation today by Dr. De Luna, will DC antibiotic once all infected bone is removed #. Type1? Diabetes mellitus with hyperglycemia and neuropathy - blood sugar better controlled,continue diabetic diet, insulin sliding scale , Lantus 20 units, Continue gabapentin for neuropathy, take Tresiba 80 units at home #. Type A Lactic acidosis -resolved with IV crystalloids #. Mood disorder -continue home medications Haldol, trazodone, and prazosin #. Opioid use disorder -continue methadone #. Normocytic anemia no acute blood loss anemia status post 1 unit packed RBC on 04/22 follow CBC DVT prophylaxis: compression boots. Full code will need continued inpatient hospitalization for IV antibiotic and transmetatarsal amputation Quality Stroke Does the patient have a stroke diagnosis?: No VTE Prior VTE?: No VTE Risk Level:: Medical - moderate - high VTE Device Contraindication: Treatment Not Indicated VTE Drug Contraindication: Treatment Not Indicated
[2022-04-25 11:57] LABS: Hematocrit 31.4 % (37.0-47.0); Hemoglobin 9.8 g/dl (12.0-16.0); Mean Corpuscular HGB Conc 31.2 g/dl (31.0-35.0); Mean Corpuscular Hemoglobin 26.4 pg (27.0-33.0); Mean Corpuscular Volume 84.6 fL (80.0-98.0); Mean Platelet Volume 10.4 fL (9.4-12.3); Platelet Count 313 X10*3/uL (160-400); Red Blood Count 3.71 X10*6/uL (4.20-5.50); Red Cell Distribution Width 14.4 % (11.0-16.0); White Blood Count 6.3 X10*3/uL (4.8-10.8)
[2022-04-25 12:17] LABS: Glucose, Whole Blood 137 mg/dL (60-115)
--- NOTE | 2022-04-25 12:40 | HO.ANESPROP2 ---
HPI - Anesthesia Eval Consult details Narrative: 36 F for left foot transmeta tarsal amputation PMFSH Active Problems Active Problems: All Active Problems (Updated 04/21/22 @ 23:40 by Barbara Shore MD) Methadone maintenance therapy patient (Acute) Anxiety and depression (Acute) PAD (peripheral artery disease) (Acute) Diabetic foot ulcer associated with type 1 diabetes mellitus (Acute) VIN (acute kidney injury) (Acute) Osteomyelitis (Acute) Type 1 diabetes mellitus with diabetic polyneuropathy (Acute) 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 (Acute) Type 1 diabetes mellitus with hyperglycemia (Acute) Past Medical History Medical History Anxiety and depression Borderline personality disorder Methadone maintenance therapy patient Neuropathy PTSD (post-traumatic stress disorder) 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 Type 1 diabetes mellitus with hyperglycemia Family History Family History Father Diabetes mellitus Mother Diabetes mellitus Maternal Grandmother Diabetes mellitus Paternal Uncle Diabetes mellitus Paternal Aunt Diabetes mellitus CVD (cardiovascular disease) Maternal Uncle Diabetes mellitus Maternal Aunt CVD (cardiovascular disease) Family history of problems with anesthesia: No Surgical History Surgical History Hx of section Hx of tubal ligation History of Problems with Anesthesia: No Social History Social History Household Members: Children Household Members Other:: Housing: Apartment Housing Other:: [place] [facility] Do you presently have visiting nurse or other home services: Yes Alcohol intake: former Patient Tobacco Use Status: Former Tobacco user Quit Date: 1 month ago Second Hand Smoke Exposure: No service: No Current occupational status: disabled Meds Allergies Allergy/AdvReac Type Severity Reaction Status Date / Time adhesive tape [ADHESIVE TAPE] Allergy Mild RASH Verified 11/09/21 14:38 Active Medications: Current Medications Acetaminophen (Acetaminophen 325 Mg Tablet) 650 mg PO Q6H PRN PRN Reason: Pain, Mild (Pain Scale 1-3) Bupropion HCl (Bupropion Hcl 100 Mg Tablet) 100 mg PO BID [facility] Last Admin: 04/25/22 08:54 Dose: Not Given Dextrose (Dextrose 50 % 25 Gm/50 Ml Syringe) 25 gm IVPUSH Q15M PRN; Protocol PRN Reason: per Hypoglycemia Standing Ord. Gabapentin (Gabapentin 400 Mg Capsule) 800 mg PO TID [facility] Last Admin: 04/25/22 08:55 Dose: Not Given Glucose (Glucose Gel 15 Gm Gel..Gram.) 15 gm PO Q15M PRN; Protocol PRN Reason: per Hypoglycemia Standing Ord. Haloperidol (Haloperidol 1 Mg Tablet) 1 mg PO BID [facility] Last Admin: 04/25/22 08:55 Dose: Not Given Piperacillin Sod/Tazobactam (Sod 4.5 gm/ Sodium Chloride) 100 mls @ 200 mls/hr IV Q6H [facility] Last Admin: 04/25/22 12:11 Dose: Not Given Vancomycin HCl 750 mg/ Sodium (Chloride) 265 mls @ 265 mls/hr IV Q12H [facility] Last Infusion: 04/25/22 11:39 Dose: Infused Insulin Glargine (Insulin Glargine,Hum.Rec.Anlog 100 Unit/Ml 10 Ml Vial) 20 unit SUBCUT BEDTIME [facility] Last Admin: 04/24/22 21:15 Dose: Not Given Insulin Human Lispro (Insulin Lispro 100 Unit/Ml 3 Ml Vial) 0 unit SUBCUT QIDACHS [facility]; Protocol Last Admin: 04/25/22 12:12 Dose: Not Given Melatonin (Melatonin 3 Mg Tablet) 6 mg PO BEDTIME PRN PRN Reason: Insomnia Methadone HCl (Methadone Hcl 20 Mg/2 Ml Oral.Conc) 30 mg PO DAILY [facility] Last Admin: 04/25/22 08:55 Dose: Not Given Ondansetron HCl (Ondansetron Hcl 4 Mg/2 Ml Vial) 4 mg IVPUSH Q8H PRN PRN Reason: Nausea and Vomiting Pharmacy Consult (Consult Rx Perform Med Rec) 1 each MISCELLANE ONCE PRN PRN Reason: Consult order Pharmacy Consult (Consult Rx Vancomycin Dosing) 1 each MISCELLANE DAILY PRN PRN Reason: Consult order Prazosin HCl (Prazosin Hcl 5 Mg Capsule) 5 mg PO BEDTIME [facility]; Protocol Last Admin: 04/24/22 21:05 Dose: 5 mg Sodium Chloride (0.9 % Sodium Chloride Flush 3 Ml Syringe) 3 ml IVFLUSH QSHIFT [facility] Last Admin: 04/25/22 08:54 Dose: 3 ml Trazodone HCl (Trazodone Hcl 100 Mg Tablet) 100 mg PO BEDTIME [facility] Last Admin: 04/24/22 21:05 Dose: 100 mg Vitamin D (Cholecalciferol (Vitamin D3) 25 Mcg Tablet) 25 mcg PO DAILY [facility] Last Admin: 04/25/22 08:54 Dose: Not Given Home Medications Medication Instructions Recorded Confirmed Last Taken Type prazosin 5 mg capsule 5 mg PO BEDTIME 03/25/20 04/22/22 Unknown History trazodone 100 mg tablet 100 mg PO BEDTIME 03/25/20 04/22/22 Unknown History bupropion HCl 100 mg tablet 1 tab PO BID 09/14/21 04/22/22 Unknown History cholecalciferol (vitamin D3) 25 1 tab PO DAILY 09/14/21 04/22/22 Unknown History mcg (1,000 unit) tablet docusate sodium 100 mg capsule 1 cap PO BID 09/14/21 04/22/22 Unknown History gabapentin 800 mg tablet 1 tab PO TID 09/14/21 04/22/22 Unknown History insulin degludec 100 unit/mL (3 80 unit subcut DAILY 09/14/21 04/22/22 Unknown History mL) subcutaneous pen (Tresiba FlexTouch U-100 insulin) lisinopril 2.5 mg tablet 1 tab PO DAILY 09/14/21 04/22/22 Unknown History methadone 10 mg/mL oral concentrate 30 mg PO DAILY 09/14/21 04/22/22 04/21/22 History Tresiba FlexTouch U-100 04/22/22 Unknown History haloperidol 1 mg tablet 1 tab PO BID 04/22/22 04/22/22 Unknown History Exam Exam Date and Time: April 25, 2022 1240 Height,Weight and Vital Signs: Height 5 ft 8 in Weight 97.4 kg Last Vital Signs Temp 97.6 F 04/25/22 12:31 Pulse 61 04/25/22 12:31 Resp 20 04/25/22 12:31 BP 181/81 H 04/25/22 12:31 Pulse Ox 96 04/25/22 12:31 O2 Del Method 04/25/22 12:31 Pertinent Lab Results Pertinent Lab Results: Laboratory Tests 04/21/22 04/21/22 04/21/22 18:43 18:44 18:44 WBC 10.4 RBC 3.21 L Hgb 8.4 L Hct 26.9 L MCV 83.8 MCH 26.2 L MCHC 31.2 RDW 14.3 Plt Count 278 MPV 10.5 Immature Gran % (Auto) 1.0 H Neut % (Auto) 76.8 H Lymph % (Auto) 14.6 L Pierce % (Auto) 5.7 Eos % (Auto) 1.6 Baso % (Auto) 0.3 Lymph # (Auto) 1.5 Pierce # (Auto) 0.6 Eos # (Auto) 0.2 Baso # (Auto) 0.0 Abs Immat Gran (auto) 0.10 H Absolute Neuts (auto) 8.0 Absolute Nucleated RBC 0.000 Nucleated RBC % (auto) 0.0 ESR 116 H Sodium Potassium Chloride Carbon Dioxide Anion Gap BUN Creatinine Estim Creat Clear Calc Estimated GFR POC Glucose Random Glucose Lactic Acid 2.5 H* Lactic Acid F/U @ 2Hr Calcium Total Bilirubin Direct Bilirubin AST ALT Alkaline Phosphatase C-Reactive Protein B-Natriuretic Peptide Total Protein Albumin Vancomycin Trough COVID-19 (WILLIAM) [employer] Blood Type Antibody Screen Crossmatch 04/21/22 04/21/22 04/21/22 18:44 18:44 18:44 WBC RBC Hgb Hct MCV MCH MCHC RDW Plt Count MPV Immature Gran % (Auto) Neut % (Auto) Lymph % (Auto) Pierce % (Auto) Eos % (Auto) Baso % (Auto) Lymph # (Auto) Pierce # (Auto) Eos # (Auto) Baso # (Auto) Abs Immat Gran (auto) Absolute Neuts (auto) Absolute Nucleated RBC Nucleated RBC % (auto) ESR Sodium 131 L Potassium 4.3 Chloride 97 Carbon Dioxide 25 Anion Gap 13 BUN 14 Creatinine 1.34 Estim Creat Clear Calc 71.9 Estimated GFR 44 POC Glucose Random Glucose 433 H* Lactic Acid Lactic Acid F/U @ 2Hr Calcium 8.3 L D Total Bilirubin 0.2 Direct Bilirubin < 0.2 AST 9 ALT 9 Alkaline Phosphatase 70 C-Reactive Protein 9.10 H B-Natriuretic Peptide 117 H Total Protein 7.3 Albumin 2.9 L Vancomycin Trough COVID-19 (WILLIAM) Negative COVID-19 [facility] See Note Blood Type Antibody Screen Crossmatch 04/21/22 04/21/22 04/22/22 22:17 22:57 06:39 WBC 6.9 RBC 2.87 L Hgb 7.5 L Hct 24.1 L MCV 84.0 MCH 26.1 L MCHC 31.1 RDW 14.4 Plt Count 264 MPV 10.6 Immature Gran % (Auto) 0.3 Neut % (Auto) 63.5 Lymph % (Auto) 25.9 Pierce % (Auto) 6.0 Eos % (Auto) 4.2 H Baso % (Auto) 0.1 Lymph # (Auto) 1.8 Pierce # (Auto) 0.4 Eos # (Auto) 0.3 Baso # (Auto) 0.0 Abs Immat Gran (auto) 0.02 Absolute Neuts (auto) 4.4 Absolute Nucleated RBC 0.000 Nucleated RBC % (auto) 0.0 ESR Sodium Potassium Chloride Carbon Dioxide Anion Gap BUN Creatinine Estim Creat Clear Calc Estimated GFR POC Glucose 259 H Random Glucose Lactic Acid Lactic Acid F/U @ 2Hr 1.8 Calcium Total Bilirubin Direct Bilirubin AST ALT Alkaline Phosphatase C-Reactive Protein B-Natriuretic Peptide Total Protein Albumin Vancomycin Trough COVID-19 (WILLIAM) [facility]-[employer] [facility] Blood Type Antibody Screen Crossmatch 04/22/22 04/22/22 04/22/22 06:39 07:11 11:22 WBC RBC Hgb Hct MCV MCH MCHC RDW Plt Count MPV Immature Gran % (Auto) Neut % (Auto) Lymph % (Auto) Pierce % (Auto) Eos % (Auto) Baso % (Auto) Lymph # (Auto) Pierce # (Auto) Eos # (Auto) Baso # (Auto) Abs Immat Gran (auto) Absolute Neuts (auto) Absolute Nucleated RBC Nucleated RBC % (auto) ESR Sodium 138 Potassium 4.1 Chloride 108 Carbon Dioxide 23 Anion Gap 11 L BUN 11 Creatinine 1.16 Estim Creat Clear Calc 80.2 Estimated GFR 52 POC Glucose 217 H 195 H Random Glucose 281 H Lactic Acid Lactic Acid F/U @ 2Hr Calcium 7.8 L D Total Bilirubin Direct Bilirubin AST ALT Alkaline Phosphatase C-Reactive Protein B-Natriuretic Peptide Total Protein Albumin Vancomycin Trough COVID-19 (WILLIAM) [employer] Blood Type Antibody Screen Crossmatch 04/22/22 04/22/22 04/22/22 15:12 15:44 20:03 WBC RBC Hgb Hct MCV MCH MCHC RDW Plt Count MPV Immature Gran % (Auto) Neut % (Auto) Lymph % (Auto) Pierce % (Auto) Eos % (Auto) Baso % (Auto) Lymph # (Auto) Pierce # (Auto) Eos # (Auto) Baso # (Auto) Abs Immat Gran (auto) Absolute Neuts (auto) Absolute Nucleated RBC Nucleated RBC % (auto) ESR Sodium Potassium Chloride Carbon Dioxide Anion Gap BUN Creatinine Estim Creat Clear Calc Estimated GFR POC Glucose 149 H 166 H Random Glucose Lactic Acid Lactic Acid F/U @ 2Hr Calcium Total Bilirubin Direct Bilirubin AST ALT Alkaline Phosphatase C-Reactive Protein B-Natriuretic Peptide Total Protein Albumin Vancomycin Trough COVID-19 (WILLIAM) [employer] Blood Type A Positive Antibody Screen NEGATIVE Crossmatch See Detail 04/23/22 04/23/22 04/23/22 07:05 08:51 08:51 WBC RBC Hgb Hct MCV MCH MCHC RDW Plt Count MPV Immature Gran % (Auto) Neut % (Auto) Lymph % (Auto) Pierce % (Auto) Eos % (Auto) Baso % (Auto) Lymph # (Auto) Pierce # (Auto) Eos # (Auto) Baso # (Auto) Abs Immat Gran (auto) Absolute Neuts (auto) Absolute Nucleated RBC Nucleated RBC % (auto) ESR Sodium Potassium Chloride Carbon Dioxide Anion Gap BUN Creatinine 1.00 Estim Creat Clear Calc 93.1 Estimated GFR > 60 POC Glucose 282 H Random Glucose Lactic Acid Lactic Acid F/U @ 2Hr Calcium Total Bilirubin Direct Bilirubin AST ALT Alkaline Phosphatase C-Reactive Protein B-Natriuretic Peptide Total Protein Albumin Vancomycin Trough 11.8 COVID-19 (WILLIAM) [employer] Blood Type Antibody Screen Crossmatch 04/23/22 04/23/22 04/23/22 11:05 15:43 19:40 WBC RBC Hgb Hct MCV MCH MCHC RDW Plt Count MPV Immature Gran % (Auto) Neut % (Auto) Lymph % (Auto) Pierce % (Auto) Eos % (Auto) Baso % (Auto) Lymph # (Auto) Pierce # (Auto) Eos # (Auto) Baso # (Auto) Abs Immat Gran (auto) Absolute Neuts (auto) Absolute Nucleated RBC Nucleated RBC % (auto) ESR Sodium Potassium Chloride Carbon Dioxide Anion Gap BUN Creatinine Estim Creat Clear Calc Estimated GFR POC Glucose 171 H 183 H 217 H Random Glucose Lactic Acid Lactic Acid F/U @ 2Hr Calcium Total Bilirubin Direct Bilirubin AST ALT Alkaline Phosphatase C-Reactive Protein B-Natriuretic Peptide Total Protein Albumin Vancomycin Trough COVID-19 (WILLIAM) COVID-19 [facility] Blood Type Antibody Screen Crossmatch 04/24/22 04/24/22 04/24/22 07:16 10:55 12:18 WBC RBC Hgb Hct MCV MCH MCHC RDW Plt Count MPV Immature Gran % (Auto) Neut % (Auto) Lymph % (Auto) Pierce % (Auto) Eos % (Auto) Baso % (Auto) Lymph # (Auto) Pierce # (Auto) Eos # (Auto) Baso # (Auto) Abs Immat Gran (auto) Absolute Neuts (auto) Absolute Nucleated RBC Nucleated RBC % (auto) ESR Sodium Potassium Chloride Carbon Dioxide Anion Gap BUN Creatinine 1.05 Estim Creat Clear Calc 88.6 Estimated GFR 59 POC Glucose 187 H 145 H Random Glucose Lactic Acid Lactic Acid F/U @ 2Hr Calcium Total Bilirubin Direct Bilirubin AST ALT Alkaline Phosphatase C-Reactive Protein B-Natriuretic Peptide Total Protein Albumin Vancomycin Trough COVID-19 ([facility]ILLIAM) [employer] Blood Type Antibody Screen Crossmatch 04/24/22 04/24/22 04/24/22 16:33 19:54 20:09 WBC RBC Hgb Hct MCV MCH MCHC RDW Plt Count MPV Immature Gran % (Auto) Neut % (Auto) Lymph % (Auto) Pierce % (Auto) Eos % (Auto) Baso % (Auto) Lymph # (Auto) Pierce # (Auto) Eos # (Auto) Baso # (Auto) Abs Immat Gran (auto) Absolute Neuts (auto) Absolute Nucleated RBC Nucleated RBC % (auto) ESR Sodium Potassium Chloride Carbon Dioxide Anion Gap BUN Creatinine Estim Creat Clear Calc Estimated GFR POC Glucose 181 H 142 H Random Glucose Lactic Acid Lactic Acid F/U @ 2Hr Calcium Total Bilirubin Direct Bilirubin AST ALT Alkaline Phosphatase C-Reactive Protein B-Natriuretic Peptide Total Protein Albumin Vancomycin Trough 16.3 COVID-19 (WILLIAM) [employer] Blood Type Antibody Screen Crossmatch 04/25/22 04/25/22 04/25/22 08:12 09:39 11:34 WBC RBC Hgb Hct MCV MCH MCHC RDW Plt Count MPV Immature Gran % (Auto) Neut % (Auto) Lymph % (Auto) Pierce % (Auto) Eos % (Auto) Baso % (Auto) Lymph # (Auto) Pierce # (Auto) Eos # (Auto) Baso # (Auto) Abs Immat Gran (auto) Absolute Neuts (auto) Absolute Nucleated RBC Nucleated RBC % (auto) ESR Sodium Potassium Chloride Carbon Dioxide Anion Gap BUN Creatinine 1.02 Estim Creat Clear Calc 91.2 Estimated GFR > 60 POC Glucose 148 H 137 H Random Glucose Lactic Acid Lactic Acid F/U @ 2Hr Calcium Total Bilirubin Direct Bilirubin AST ALT Alkaline Phosphatase C-Reactive Protein B-Natriuretic Peptide Total Protein Albumin Vancomycin Trough COVID-19 (WILLIAM) [employer] Blood Type Antibody Screen Crossmatch 04/25/22 11:47 WBC 6.3 RBC 3.71 L D Hgb 9.8 L D Hct 31.4 L D MCV 84.6 MCH 26.4 L MCHC 31.2 RDW 14.4 Plt Count 313 MPV 10.4 Immature Gran % (Auto) Neut % (Auto) Lymph % (Auto) Pierce % (Auto) Eos % (Auto) Baso % (Auto) Lymph # (Auto) Pierce # (Auto) Eos # (Auto) Baso # (Auto) Abs Immat Gran (auto) Absolute Neuts (auto) Absolute Nucleated RBC 0.000 Nucleated RBC % (auto) 0.0 ESR Sodium Potassium Chloride Carbon Dioxide Anion Gap BUN Creatinine Estim Creat Clear Calc Estimated GFR POC Glucose Random Glucose Lactic Acid Lactic Acid F/U @ 2Hr Calcium Total Bilirubin Direct Bilirubin AST ALT Alkaline Phosphatase C-Reactive Protein B-Natriuretic Peptide Total Protein Albumin Vancomycin Trough COVID-19 (WILLIAM) COVID-19 [facility] Blood Type Antibody Screen Crossmatch Airway Mallampati Class: IV TM Dist: >3cm Neck ROM: Full Denture: Upper Loose/Missing/Broken Teeth: Yes Heart: S1,S2 Lungs: b/l breath sounds Assessment and Plan Assessment Anesthesia Assessment: Anesthesia Plan Discussed and Chart Reviewed Final Anesthetic Review Family History of Problems with Anesthesia: No History of Problems with Anesthesia: No NPO: Yes ASA Class: IV Final Preanesthetic Review: Meds/Allgs Chart Reviewed, Consent Obtained/Reviewed and Anes Risks/Benef Reviewed Patient Risk: Intermediate Procedure Risk: Intermediate Anesthetic Plan Anesthetic Plan: GA Disposition: Inp. Admit - Standard Bed
[2022-04-25 13:06] LABS: Glucose, Whole Blood 129 mg/dL (60-115)
[2022-04-25] MEDS: Acetaminophen 1,000 MG/100 ML PIGGYBACK 400 MG IV (14:33)
--- NOTE | 2022-04-25 14:37 | P.OP_ITS ---
Operative Note Operative Note Date of Service: 04/25/22 Narrative: Operative note by [facility] Preoperative diagnosis: 1. Nonhealing left foot ulcer 2. Osteomyelitis Postoperative diagnosis: Same Procedure: Left transmetatarsal amputation Surgeon:Rivas De Luna M.D. Development Administrator: Jad Anesthesia: General Specimens: 1 Drains: None Estimated blood loss: 100 mL Indications: 36-year-old poorly controlled diabetic presents for nonhealing ulcers on the plantar aspect of the left foot. She has had multiple attempts at conservative management can remains nonhealing. She now presents for transmetatarsal amputation The patient has signed the informed consent after reviewing risks, complications, benefits, and alternatives previously discussed with the patient. The patient was given the opportunity to ask any additional questions or voice any concerns. All questions were answered to the patient's satisfaction. Procedure in detail: Patient was brought to the operating room prior to which a time-out was called for patient identification site verification. Left leg was prepped and draped in standard surgical fashion. Curvilinear incision was made over the dorsum of the foot and a posterior flap was created once through the skin fascia we then used electrocautery to get down to the metatarsal bones. Along the way we identified the dorsalis pedis artery and this was ligated we then used a power saw to transect across the metatarsals. Once through we then used electrocautery to create the posterior flap. This was then passed off the table as specimen. Once this was done the wound was thoroughly irrigated. We approximated the deep fascial layer and brought up the posterior flap with a 2 0 poly Sorb suture. Superficial layer was reapproximated with a 3-0 poly Sorb and finally skin with interrupted 3-0 nylon in a mattress fashion in addition skin clips were used. Xeroform and a sterile dressing were applied. At the end the case sponge instrument counts were correct. Patient was returned to recovery with stable vitals. This note is constructed using voice recognition software. While every effort has been made to ensure accuracy, mission support specialist errors may have been included. Thank you for allowing me to participate in the care of your patient. Yours sincerely, Rivas De Luna MD, FACS, R.P.V.I.
--- NOTE | 2022-04-25 14:40 | MHC.SHP ---
Pre-Procedural Eval Section A Date of Service: 04/25/22 The patient is an INPATIENT: Yes Changes since office visit: Yes Patient answered all questions The History & Physical has been completed within 30 days and I have reviewed it.: Yes Section B Chief Complaint: left foot swelling Allergies: Allergies Allergy/AdvReac Type Severity Reaction Status Date / Time adhesive tape [ADHESIVE TAPE] Allergy Mild RASH Verified 11/09/21 14:38 Plan I have reviewed the history and physical and performed a pertinent physical examination on my patient. No changes have occurred unless specified.
[2022-04-25] MEDS: methADONE HCl 20 MG/2 ML ORAL.CONC 30 MG PO (15:57)
[2022-04-25] MEDS: Gabapentin 400 MG CAPSULE 800 MG PO ×2 (15:57→20:20)
[2022-04-25 16:16] LABS: Glucose, Whole Blood 121 mg/dL (60-115)
[2022-04-25] MEDS: Insulin Glargine,Hum.rec.anlog 100 UNIT/ML 10 ML VIAL 20 UNIT SUBCUT (20:19)
[2022-04-25] MEDS: Prazosin HCL 5 MG CAPSULE PO (20:20)
[2022-04-25] MEDS: buPROPion HCL 100 MG TABLET PO (20:20)
[2022-04-25] MEDS: HaloperidoL 1 MG TABLET PO (20:20)
[2022-04-25] MEDS: traZODone HCL 100 MG TABLET PO (20:20)
[2022-04-25] MEDS: Insulin Lispro 100 UNIT/ML 3 ML VIAL SUBCUT (20:20)
[2022-04-25 20:54] LABS: Glucose, Whole Blood 158 mg/dL (60-115)
[2022-04-25 21:22] LABS: Vancomycin Random 15.3 mcg/mL (15-20)
--- NOTE | 2022-04-25 21:31 | HE.PHANOTE ---
judie stewart continue current dose, next trough due 04/27 @0800
[2022-04-26 03:42] VITALS: BP 140/80; PULSE 61; RESP 18; TEMP 36.6; O2SAT 98
[2022-04-26] MEDS: Piperacillin Sodium/Tazobactam 4.5 GM in 0.9 % Sodium Chloride 100 ML IV ×4 (04:47→23:32)
[2022-04-26 06:49] LABS: Hematocrit 27.7 % (37.0-47.0); Hemoglobin 8.6 g/dl (12.0-16.0); Mean Corpuscular Hemoglobin 26.5 pg (27.0-33.0); Mean Corpuscular Volume 85.5 fL (80.0-98.0); Mean Platelet Volume 9.9 fL (9.4-12.3); Platelet Count 268 X10*3/uL (160-400); Red Blood Count 3.24 X10*6/uL (4.20-5.50); Red Cell Distribution Width 14.5 % (11.0-16.0); White Blood Count 7.3 X10*3/uL (4.8-10.8)
--- NOTE | 2022-04-26 07:02 | P.CDIC_ITS ---
CDI Concurrent Query Documentation Clarification: PHYSICIAN'S DOCUMENTATION REQUEST Date of Query: 04/26/22 0702 Patient Name: Elsy Callahan Admit Date: 04/21/22 Dear Doctor, A review of the medical record indicates additional documentation may be needed. Please review below and update the documentation accordingly. Clinical Indicators: Documentation on 04/25/22 indicates Osteomyelitis. Risk Factors/Clinical Indicators/Treatments per MD progress note: Diabetic non healing wound infection with underlying osteomyelitis ? ? no fevers, no pain ? ? continue IV Zosyn? and IV vanco day 5 Based on the above, please clarify in the Progress Notes further specificity regarding the type of Osteomyelitis. Also include specific site with laterality and known or suspected infectious agent: * Acute osteomyelitis * Acute hematogenous osteomyelitis * Subacute osteomyelitis * Chronic osteomyelitis * Chronic hemotogenous osteomyelitis * Chronic multifocal osteomyelitis * Other (please specify) * Unable to determine Use of terms such as suspected, likely, concern for, or probable (associated with a specific diagnosis that is being evaluated, monitored, or treated as if it exists) are acceptable and can be coded in the inpatient setting, when documented at the time of discharge. Thank you, Cony Galindo RN Extension: [phone] Please use your independent medical judgment in providing your response. THIS QUERY IS PART OF THE PERMANENT MEDICAL RECORD Provider Response: Other Other Diagnosis: chronic osteomyelitis
[2022-04-26 07:09] LABS: Blood Urea Nitrogen 13 mg/dL (9-16); Creatinine Clr Calc Pharmacy 85.3; Estimated Glomerular Filt Rate 56; Glucose Random 133 mg/dL (60-115)
[2022-04-26 07:21] VITALS: BP 176/85; PULSE 60; RESP 18; TEMP 36.3; O2SAT 95
[2022-04-26 07:21] LABS: Glucose, Whole Blood 128 mg/dL (60-115)
[2022-04-26 07:40] LABS: Anion Gap 13 (12-20); Calcium 8.7 mg/dL (8.4-10.2); Carbon Dioxide 30 mmol/L (22-29); Chloride 103 mmol/L (96-108); Potassium 4.1 mmol/L (3.3-5.1); Sodium 142 mmol/L (135-145)
--- NOTE | 2022-04-26 08:21 | HE.PHANOTE ---
Addendum entered by Tejal Stoner RPh 04/27/22 09:23: Predicted AUC 531 mg/L/hr Original Note: Vancomycin Dosing Addendum Patients Crcl has lowered since yesterday, to 85.3 from 91.2. Predicted AUC is 424 mg/L/hr. Level to be drawn tomorrow 04/27 @0800.
[2022-04-26] MEDS: Cholecalciferol (Vitamin D3) 25 MCG TABLET PO (08:30)
[2022-04-26] MEDS: Gabapentin 400 MG CAPSULE 800 MG PO ×3 (08:30→20:26)
[2022-04-26] MEDS: buPROPion HCL 100 MG TABLET PO ×2 (08:30→20:27)
[2022-04-26] MEDS: 0.9 % Sodium Chloride Flush 3 ML SYRINGE IVFLUSH ×2 (08:31→20:29)
[2022-04-26] MEDS: HaloperidoL 1 MG TABLET PO ×2 (08:31→20:33)
[2022-04-26] MEDS: methADONE HCl 20 MG/2 ML ORAL.CONC 30 MG PO (08:31)
--- NOTE | 2022-04-26 08:41 | HO.POSTANES ---
Post Anesthesia Evaluation Post Anesthesia Evaluation Vital Signs: Vital Signs Temp Pulse Resp BP Pulse Ox O2 Del Method 04/26/22 07:21 97.3 F 60 18 176/85 H 95 Room Air 04/26/22 03:42 97.8 F 61 18 140/80 H 98 Room Air 04/25/22 23:35 98.0 F 57 18 161/82 H 95 Room Air Anesthesia: General Mental Status: Awake Pain Control: Satisfactory Nausea/Vomiting: None Hydration: Adequate Anesthesia-Related Issues: No Anes. Related Issues
[2022-04-26] MEDS: vancomycin HCL 750 MG in 0.9 % Sodium Chloride 250 ML 265 MG IV ×2 (09:23→21:42)
[2022-04-26] MEDS: Morphine Sulfate 4 MG/ML CARTRIDGE IVPUSH ×2 (09:23→13:43)
--- NOTE | 2022-04-26 09:37 | HO.VASCPN ---
Subjective Subjective Date of Service: 04/26/22 Patient reports: no new complaints and feels better Interval history: Patient was seen this morning. She was actually in a commode at the time of examination. She denied any significant pain. Reports no issues overnight. Now for routine follow-up. Physical Exam Vital Signs: Vital Signs: Last Vital Signs Temp 97.3 F 04/26/22 07:21 Pulse 60 04/26/22 07:21 Resp 18 04/26/22 07:21 BP 176/85 H 04/26/22 07:21 Pulse Ox 95 04/26/22 07:21 O2 Del Method 04/26/22 07:21 O2 Flow Rate 2 04/25/22 15:04 BMI result Body Mass Index 32.6 Skin: Other: Dressing clean dry intact Progress Note: A&P Assessment and plan (1) Status post transmetatarsal amputation of foot: Status: Acute Assessment and Plan: In short patient is stable post transmetatarsal amputation. Will plan for dressing change for tomorrow. Anticipate discharge shortly thereafter. Will try to return later today or possibly tomorrow to discuss with patient. Time Spent With Patient Time: Total time spent is greater than 50% in coordination of care (as documented) at patient's floor/unit and/or counseling patient: Procedures Date of Service Date of Service: 04/26/22 Quality Stroke Does the patient have a stroke diagnosis?: No VTE Prior VTE?: No VTE Risk Level:: Medical - moderate - high VTE Device Contraindication: Treatment Not Indicated VTE Drug Contraindication: Treatment Not Indicated
[2022-04-26] MEDS: oxyCODONE HCl Immed Release 5 MG TABLET 10 MG PO ×2 (10:47→18:14)
[2022-04-26 11:04] LABS: Glucose, Whole Blood 220 mg/dL (60-115)
[2022-04-26] MEDS: Insulin Lispro 100 UNIT/ML 3 ML VIAL SUBCUT ×2 (11:34→20:27)
[2022-04-26 12:00] VITALS: BP 186/86; PULSE 70; RESP 18; TEMP 36.6; O2SAT 97
[2022-04-26] MEDS: Acetaminophen 325 MG TABLET 650 MG PO (12:29)
--- NOTE | 2022-04-26 14:43 | P.PNIM_ITS ---
Subjective Subjective Date of Service: 04/26/22 Interval History: No acute issues overnight; pain control poor this a.m. Review of Systems Denies chest pain Denies shortness of breath Denies nausea vomiting diarrhea Denies fever chills Admits to postop pain Physical Exam Vital Signs: Vital Signs: Last Vital Signs Temp 97.8 F 04/26/22 12:00 Pulse 70 04/26/22 12:00 Resp 18 04/26/22 12:00 BP 186/86 H 04/26/22 12:00 Pulse Ox 97 04/26/22 12:00 O2 Del Method 04/26/22 12:00 O2 Flow Rate 2 04/25/22 15:04 BMI result Body Mass Index 32.6 Const: Other: Awake alert oriented x3 in no acute distress Resp: Other: Clear to auscultation bilaterally no rales rhonchi or wheezes Cardio: Other: No S4; positive S1-S2; no S3 murmurs rubs or gallops GI: Other: Soft nontender nondistended normoactive bowel sounds Extrem: Other: Left foot postop dressing dry and intact Objective Data Active Medications Acetaminophen (Acetaminophen 325 Mg Tablet) 650 mg PO Q6H PRN PRN Reason: Pain, Mild (Pain Scale 1-3) Last Admin: 04/26/22 12:29 Dose: 650 mg Documented By: OBIE Bupropion HCl (Bupropion Hcl 100 Mg Tablet) 100 mg PO BID [facility] Last Admin: 04/26/22 08:30 Dose: 100 mg Documented By: OBIE Dextrose (Dextrose 50 % 25 Gm/50 Ml Syringe) 25 gm IVPUSH Q15M PRN; Protocol PRN Reason: per Hypoglycemia Standing Ord. Gabapentin (Gabapentin 400 Mg Capsule) 800 mg PO TID [facility] Last Admin: 04/26/22 08:30 Dose: 800 mg Documented By: OBIE Glucose (Glucose Gel 15 Gm Gel..Gram.) 15 gm PO Q15M PRN; Protocol PRN Reason: per Hypoglycemia Standing Ord. Haloperidol (Haloperidol 1 Mg Tablet) 1 mg PO BID [facility] Last Admin: 04/26/22 08:31 Dose: 1 mg Documented By: OBIE Piperacillin Sod/Tazobactam (Sod 4.5 gm/ Sodium Chloride) 100 mls @ 200 mls/hr IV Q6H [facility] Last Infusion: 04/26/22 11:33 Dose: 0 mls/hr Documented By: OBIE Vancomycin HCl 750 mg/ Sodium (Chloride) 265 mls @ 265 mls/hr IV Q12H [facility] Last Infusion: 04/26/22 10:26 Dose: 0 mls/hr Documented By: OBIE Insulin Glargine (Insulin Glargine,Hum.Rec.Anlog 100 Unit/Ml 10 Ml Vial) 20 unit SUBCUT BEDTIME [facility] Last Admin: 04/25/22 20:19 Dose: 20 unit Documented By: EVON Insulin Human Lispro (Insulin Lispro 100 Unit/Ml 3 Ml Vial) 0 unit SUBCUT QIDACHS [facility]; Protocol Last Admin: 04/26/22 11:34 Dose: 6 unit Documented By: OBIE Melatonin (Melatonin 3 Mg Tablet) 6 mg PO BEDTIME PRN PRN Reason: Insomnia Methadone HCl (Methadone Hcl 20 Mg/2 Ml Oral.Conc) 30 mg PO DAILY [facility] Last Admin: 04/26/22 08:31 Dose: 30 mg Documented By: OBIE Morphine Sulfate (Morphine Sulfate 4 Mg/Ml Cartridge) 4 mg IVPUSH Q4H PRN; Protocol PRN Reason: Pain, Severe (Pain Scale 7-10) Last Admin: 04/26/22 13:43 Dose: 4 mg Documented By: OBIE Ondansetron HCl (Ondansetron Hcl 4 Mg/2 Ml Vial) 4 mg IVPUSH Q8H PRN PRN Reason: Nausea and Vomiting Oxycodone HCl (Oxycodone Hcl Immed Release 5 Mg Tablet) 10 mg PO Q4H PRN PRN Reason: Pain, Moderate (Pain Scale 4-6 Last Admin: 04/26/22 10:47 Dose: 10 mg Documented By: OBIE Pharmacy Consult (Consult Rx Perform Med Rec) 1 each MISCELLANE ONCE PRN PRN Reason: Consult order Pharmacy Consult (Consult Rx Vancomycin Dosing) 1 each MISCELLANE DAILY PRN PRN Reason: Consult order Prazosin HCl (Prazosin Hcl 5 Mg Capsule) 5 mg PO BEDTIME [facility]; Protocol Last Admin: 04/25/22 20:20 Dose: 5 mg Documented By: EVON Sodium Chloride (0.9 % Sodium Chloride Flush 3 Ml Syringe) 3 ml IVFLUSH QSHIFT [facility] Last Admin: 04/26/22 08:31 Dose: 3 ml Documented By: OBIE Trazodone HCl (Trazodone Hcl 100 Mg Tablet) 100 mg PO BEDTIME [facility] Last Admin: 04/25/22 20:20 Dose: 100 mg Documented By: EVON Vitamin D (Cholecalciferol (Vitamin D3) 25 Mcg Tablet) 25 mcg PO DAILY [facility] Last Admin: 04/26/22 08:30 Dose: 25 mcg Documented By: OBIE Labs CBC & Chem 7: 04/26/22 06:18 04/26/22 06:18 Labs: Laboratory Results - last 24 hr 04/25/22 04/25/22 04/25/22 15:50 19:47 20:04 MCV MCH MCHC RDW Plt Count MPV Absolute Nucleated RBC Nucleated RBC % (auto) Anion Gap Estim Creat Clear Calc Estimated GFR POC Glucose 121 H 158 H Random Glucose Calcium Random Vancomycin 15.3 04/26/22 04/26/22 04/26/22 06:18 06:18 06:18 MCV 85.5 MCH 26.5 L MCHC 31.0 RDW 14.5 Plt Count 268 MPV 9.9 Absolute Nucleated RBC 0.000 Nucleated RBC % (auto) 0.0 Anion Gap 13 Estim Creat Clear Calc Cancelled 85.3 Estimated GFR Cancelled 56 POC Glucose Random Glucose 133 H Calcium 8.7 D Random Vancomycin 04/26/22 04/26/22 07:17 10:57 MCV MCH MCHC RDW Plt Count MPV Absolute Nucleated RBC Nucleated RBC % (auto) Anion Gap Estim Creat Clear Calc Estimated GFR POC Glucose 128 H 220 H Random Glucose Calcium Random Vancomycin Assessment and Plan (1) Osteomyelitis: Status: Acute (2) Status post transmetatarsal amputation of foot: Status: Acute (3) Diabetic foot ulcer associated with type 1 diabetes mellitus: Status: Acute Plan 36-year-old female with a pertinent history of type 1 diabetes mellitus with neuropathy, peripheral vascular disease status post left foot toe amputations, mood disorder, opioid use disorder on methadone, hyperlipidemia who presents to the emergency department for evaluation of left foot nonhealing wound with foul- smelling discharge. 1Osteomyelitis s/p LTMA(1) -continue vanco/Zosyn (6) -will discuss with ID.. Likely DC antibiotics in a.m. 2.Type1 Diabetes mellitus -acceptable control on current therapies -adjust as indicated 3.Opioid use disorder -continue methadone DVT prophylaxis: compression boots. Full code Patient will require ongoing hospitalization for IV antibiotics Quality Stroke Does the patient have a stroke diagnosis?: No VTE Prior VTE?: No VTE Risk Level:: Medical - moderate - high VTE Device Contraindication: Treatment Not Indicated VTE Drug Contraindication: Treatment Not Indicated
[2022-04-26 15:33] VITALS: BP 177/81; PULSE 59; RESP 17; TEMP 36.3; O2SAT 96
--- NOTE | 2022-04-26 15:40 | MHC.CM.PN ---
PATIENT AWARE THAT NO [facility] HAS ACCEPTED HER YET. ADDITIONAL REFERRALS PLACED. PLAN IS DC MONDAY
[2022-04-26 15:46] LABS: Glucose, Whole Blood 93 mg/dL (60-115)
[2022-04-26 19:31] VITALS: BP 140/80; PULSE 62; RESP 17; TEMP 36.3; O2SAT 95
[2022-04-26 20:00] LABS: Glucose, Whole Blood 180 mg/dL (60-115)
[2022-04-26] MEDS: traZODone HCL 100 MG TABLET PO (20:27)
[2022-04-26] MEDS: Prazosin HCL 5 MG CAPSULE PO (20:27)
[2022-04-26] MEDS: Insulin Glargine,Hum.rec.anlog 100 UNIT/ML 10 ML VIAL 20 UNIT SUBCUT (20:28)
[2022-04-26 23:57] VITALS: BP 142/70; PULSE 63; RESP 18; TEMP 36.4; O2SAT 95
[2022-04-27] MEDS: Piperacillin Sodium/Tazobactam 4.5 GM in 0.9 % Sodium Chloride 100 ML IV (04:48)
[2022-04-27 07:17] VITALS: BP 148/74; PULSE 67; RESP 16; TEMP 36.1; O2SAT 97
[2022-04-27 07:27] LABS: Glucose, Whole Blood 226 mg/dL (60-115)
[2022-04-27] MEDS: Morphine Sulfate 4 MG/ML CARTRIDGE IVPUSH ×2 (07:52→13:20)
[2022-04-27] MEDS: methADONE HCl 20 MG/2 ML ORAL.CONC 30 MG PO (07:52)
[2022-04-27] MEDS: Insulin Lispro 100 UNIT/ML 3 ML VIAL SUBCUT (07:52)
[2022-04-27] MEDS: HaloperidoL 1 MG TABLET PO (07:53)
[2022-04-27] MEDS: Cholecalciferol (Vitamin D3) 25 MCG TABLET PO (07:53)
[2022-04-27] MEDS: buPROPion HCL 100 MG TABLET PO (07:53)
[2022-04-27] MEDS: Gabapentin 400 MG CAPSULE 800 MG PO ×2 (07:53→15:15)
[2022-04-27] MEDS: 0.9 % Sodium Chloride Flush 3 ML SYRINGE IVFLUSH (07:53)
[2022-04-27 08:05] LABS: MANUAL DIFF FLAG NO
[2022-04-27 08:09] LABS: Basophils Percent Auto 0.6 % (0-2); Eosinophils Absolute Auto 0.2 X10*3/uL (0.0-0.4); Eosinophils Percent Auto 3.3 % (0-4); Hematocrit 29.7 % (37.0-47.0); Hemoglobin 9.2 g/dl (12.0-16.0); Imm Gran Abs Auto 0.01 X10*3/uL (0.00-0.03); Imm Gran Pct Auto 0.1 % (0.0-0.4); Lymphocytes Absolute Auto 2.4 X10*3/uL (1.2-4.9); Lymphocytes Percent Auto 34.7 % (20-40); Mean Corpuscular Hemoglobin 26.3 pg (27.0-33.0); Mean Corpuscular Volume 84.9 fL (80.0-98.0); Mean Platelet Volume 10.2 fL (9.4-12.3); Monocytes Absolute Auto 0.4 X10*3/uL (0.1-1.2); Monocytes Percent Auto 5.3 % (2-11); Neutrophils Absolute Auto 3.9 x10*3/uL (2.0-8.3); Platelet Count 300 X10*3/uL (160-400); Red Cell Distribution Width 14.5 % (11.0-16.0)
[2022-04-27 08:29] LABS: Creatinine Clr Calc Pharmacy 80.2; Estimated Glomerular Filt Rate 52; Vancomycin Trough 13.6 mcg/mL (10.0-20.0)
[2022-04-27 08:34] LABS: Alanine Aminotransferase 6 U/L (0-31); Albumin Level 2.9 g/dL (3.5-5.0); Alkaline Phosphatase 61 U/L (39-117); Anion Gap 14 (12-20); Aspartate Amino Transferase 9 U/L (5-31); Bilirubin Total 0.2 mg/dL (0.0-1.0); Blood Urea Nitrogen 14 mg/dL (9-16); Calcium 8.8 mg/dL (8.4-10.2); Carbon Dioxide 28 mmol/L (22-29); Chloride 103 mmol/L (96-108); Creatinine Clr Calc Pharmacy 78.2; Estimated Glomerular Filt Rate 51; Glucose Fasting 248 mg/dL (60-99); Potassium 4.7 mmol/L (3.3-5.1); Sodium 140 mmol/L (135-145); Total Protein 7.1 g/dL (6.5-8.0)
--- NOTE | 2022-04-27 09:16 | HE.PHANOTE ---
Vancomycin Dosing Addendum Patients level came back this morning at 13.6 mg/L. Patients renal function is stable. Will continue to do 750 mg Q12H. Level to be drawn tomorrow 04/28 after another three doses.
--- NOTE | 2022-04-27 10:00 | HO.VASCPN ---
Subjective Subjective Date of Service: 04/27/22 Patient reports: no new complaints and feels better Interval history: Patient seen and examined. No significant events postop. Pain appears to be reasonably well controlled. Now for postoperative dressing change. Physical Exam Vital Signs: Vital Signs: Last Vital Signs Temp 97 F 04/27/22 07:17 Pulse 67 04/27/22 07:17 Resp 16 04/27/22 07:17 BP 148/74 H 04/27/22 07:17 Pulse Ox 97 04/27/22 07:17 O2 Del Method 04/27/22 07:17 O2 Flow Rate 2 04/25/22 15:04 BMI result Body Mass Index 32.6 Const: General: cooperative, healthy appearing and no acute distress Orientation/consciousness: oriented to person, oriented to place and oriented to time HEENT: Head: Yes normal to inspection Neck: Carotids: no bruits Chest: Chest palpation & inspection: normal inspection of the chest Resp: Effort & Inspection: normal respiratory effort and able to speak in complete sentences Auscultation: clear to auscultation bilaterally Cardio: Rate: regular rate Heart sounds: S1 normal heart sound present and S2 normal heart sound present GI: Inspection: Yes normal to inspection Skin: Other: Trans met site healing well General skin exam: no rashes or lesions noted Wounds: no wounds Neuro: General: oriented to person, oriented to place, oriented to time and CN's II-XI intact bilaterally Extrem: General: Yes normal to inspection, Yes full ROM and Yes no clubbing, cyanosis or edema Psych: Appearance: grossly normal and well kempt Speech and movement: Normal speech and movement present Affect: normal affect Progress Note: A&P Assessment and plan (1) Status post transmetatarsal amputation of foot: Status: Acute Assessment and Plan: In short patient is doing well status post transmetatarsal amputation. Stable from my perspective for discharge. Can see me in 2 weeks time for staple and suture removal. Thank you for allowing us to assist in her care. Time Spent With Patient Time: Total time spent is greater than 50% in coordination of care (as documented) at patient's floor/unit and/or counseling patient: Procedures Date of Service Date of Service: 04/27/22 Quality Stroke Does the patient have a stroke diagnosis?: No VTE Prior VTE?: No VTE Risk Level:: Medical - moderate - high VTE Device Contraindication: Treatment Not Indicated VTE Drug Contraindication: Treatment Not Indicated
[2022-04-27] MEDS: oxyCODONE HCl Immed Release 5 MG TABLET 10 MG PO ×2 (10:26→15:15)
[2022-04-27] MEDS: vancomycin HCL 750 MG in 0.9 % Sodium Chloride 250 ML 265 MG IV (10:26)
[2022-04-27 11:10] VITALS: BP 147/79; PULSE 70; RESP 18; TEMP 36.1; O2SAT 98
[2022-04-27 11:25] LABS: Glucose, Whole Blood 127 mg/dL (60-115)
--- NOTE | 2022-04-27 13:11 | MHC.CM.PN ---
Addendum entered by Yamila Martínez RN 04/27/22 14:15: [facility] WILL ACCEPT PATIENT ADDRESS IS [address] [place] [address] OR [phone] (DAD, HARLEY) [facility] WILL GO TOMOR[facility] Original Note: CALL TO VIRGIE CUMMINS [phone] CLINICALS FAXED TO [phone]
--- NOTE | 2022-04-27 14:53 | P.F2F_ITS ---
Service Date Service Date: 04/27/22 Encounter Date of encounter: 04/27/22 Encounter: Inpatient hospitalization Reasons for Services Signs and symptoms assessed: Status post left TMA; requires daily dressing changes Reason for [facility]: wound care, diabetic teaching and teach disease management Homebound: Leaving the home is medically contraindicated at this time without the asist of a device and/or another person due th the listed conditions above and below. Reason homebound: unsteady gait / fall risk, pain with ambulation and unable to drive Certification: Based on the above findings, I certify that this patient is confined to the home and needs intermittent [facility] care, physical therapy and/or speech therapy, or continues to need occupational therapy. The patient is under my care, and I have initiated the establishment of the plan of care. The patient will be followed by a physician who will periodically review the plan of care.
--- NOTE | 2022-04-27 14:55 | PM.DS ---
DS: Providers Provider Date of Service: 04/27/22 Date of admission: 04/21/22 23:21 Date of discharge: 04/27/22 Primary care physician: Alexandra Weston NP Consults: 04/21/22 23:21 Consult to Infectious Diseases Routine Consulting Provider: Khushboo Perez Reason for consultation: left foot osteomyelitis Consult to Vascular Surgery Routine Consulting Provider: Rivas De Luna Reason for consultation: left foot osteomyelitis DS: Diagnosis Discharge Diagnosis (1) Status post transmetatarsal amputation of foot: Status: Acute (2) Methadone maintenance therapy patient: Status: Acute (3) PAD (peripheral artery disease): Status: Acute (4) Diabetic foot ulcer associated with type 1 diabetes mellitus: Status: Acute (5) Osteomyelitis: Status: Acute DS: Summary Hospital Course Hospital Course: 36-year-old female with a pertinent history of type 1 diabetes mellitus with neuropathy, peripheral vascular disease status post left foot toe amputations, mood disorder, opioid use disorder on methadone, hyperlipidemia who presents to the emergency department for evaluation of left foot nonhealing wound with foul-smelling discharge.? Patient has had chronic nonhealing wound of left foot with history of osteomyelitis in September treated with antibiotics. patient states over the last few days she has noticed swelling and increased discharge from left foot which is foul smelling.? Patient has no sensation to the left foot and hence no pain or discomfort.? Denies any trauma. Wound was seen by wound care nurse and to the hospital for further evaluation.? Patient states she has been taking her insulin but and able to check blood glucose levels because machine is not functioning.? Patient denies fever, vomiting dull pain, changes in urinary or bowel habits. Hospital Course Admitted to general medical floor placed on IV Zosyn and vancomycin. She was seen in consultation by vascular surgery and on 04/25/2022 underwent a left transmetatarsal amputation without issue. On the day of discharge Dr. De Luna change dressing and was pleased with outcome. IV antibiotics were stopped as the source have been removed. At this time he feels she can be discharged to home with VNA to change dressing and follow-up with him in 2 weeks Time Spent with Patient Time attestation: Total time spent providing and/or coordinating discharge services: Discharge coordination time: Greater than 30 minutes Quality: Safe Use of Opioids Does Pt have an Active Cancer Diagnosis on the Problem List?: No Quality: Stroke Does the patient have a stroke diagnosis?: No Physical Exam Vital Signs: Vital Signs: Last Vital Signs Temp 97 F 04/27/22 11:10 Pulse 70 04/27/22 11:10 Resp 18 04/27/22 11:10 BP 147/79 H 04/27/22 11:10 Pulse Ox 98 04/27/22 11:10 O2 Del Method 04/27/22 11:10 O2 Flow Rate 2 04/25/22 15:04 BMI result Body Mass Index 32.6 Const: Other: Awake alert oriented x3 in no acute distress Resp: Other: Clear to auscultation bilaterally no rales rhonchi or wheezes Cardio: Other: No S4; positive S1-S2; no S3 murmurs rubs or gallops GI: Other: Soft nontender nondistended normoactive bowel sounds Extrem: Other: Left foot postop dressing dry and intact DS: Data Data Completed and Pending Completed studies during hospitalization [Text1]: Procedures Detachment at Left 3rd Toe, Complete, Open Approach (09/14/21) Pending studies at discharge: Pending at discharge 04/25/22 13:53 Surgical [PTH] Routine Labs on day of discharge: Laboratory Results - last 24 hr 04/26/22 04/26/22 04/27/22 15:25 19:47 07:16 WBC RBC Hgb Hct MCV MCH MCHC RDW Plt Count MPV Immature Gran % (Auto) Neut % (Auto) Lymph % (Auto) [place] % (Auto) Eos % (Auto) Baso % (Auto) Lymph # (Auto) [place] # (Auto) Eos # (Auto) Baso # (Auto) Abs Immat Gran (auto) Absolute Neuts (auto) Absolute Nucleated RBC Nucleated RBC % (auto) Sodium Potassium Chloride Carbon Dioxide Anion Gap BUN Creatinine Estim Creat Clear Calc Estimated GFR POC Glucose 93 180 H 226 H Fasting Glucose Calcium Total Bilirubin AST ALT Alkaline Phosphatase Total Protein Albumin Vancomycin Trough 04/27/22 04/27/22 04/27/22 07:55 07:55 07:55 WBC 7.0 RBC 3.50 L Hgb 9.2 L Hct 29.7 L MCV 84.9 MCH 26.3 L MCHC 31.0 RDW 14.5 Plt Count 300 MPV 10.2 Immature Gran % (Auto) 0.1 Neut % (Auto) 56.0 Lymph % (Auto) 34.7 [place] % (Auto) 5.3 Eos % (Auto) 3.3 Baso % (Auto) 0.6 Lymph # (Auto) 2.4 [place] # (Auto) 0.4 Eos # (Auto) 0.2 Baso # (Auto) 0.0 Abs Immat Gran (auto) 0.01 Absolute Neuts (auto) 3.9 Absolute Nucleated RBC 0.000 Nucleated RBC % (auto) 0.0 Sodium 140 Potassium 4.7 Chloride 103 Carbon Dioxide 28 Anion Gap 14 BUN 14 Creatinine 1.16 1.19 Estim Creat Clear Calc 80.2 78.2 Estimated GFR 52 51 POC Glucose Fasting Glucose 248 H Calcium 8.8 Total Bilirubin 0.2 AST 9 ALT 6 Alkaline Phosphatase 61 D Total Protein 7.1 Albumin 2.9 L Vancomycin Trough 04/27/22 04/27/22 07:55 11:10 WBC RBC Hgb Hct MCV MCH MCHC RDW Plt Count MPV Immature Gran % (Auto) Neut % (Auto) Lymph % (Auto) [place] % (Auto) Eos % (Auto) Baso % (Auto) Lymph # (Auto) [place] # (Auto) Eos # (Auto) Baso # (Auto) Abs Immat Gran (auto) Absolute Neuts (auto) Absolute Nucleated RBC Nucleated RBC % (auto) Sodium Potassium Chloride Carbon Dioxide Anion Gap BUN Creatinine Estim Creat Clear Calc Estimated GFR POC Glucose 127 H Fasting Glucose Calcium Total Bilirubin AST ALT Alkaline Phosphatase Total Protein Albumin Vancomycin Trough 13.6 Discharge Plan Discharge Anticipated Discharge Date/Time: 04/27/22 14:47 Patient Disposition: Home Health Service Discharge Diagnosis: left foot osteomyelitis Referrals: [facility] [Other] - 1 Week Alexandra Weston NP [Primary Care Provider] - 1 Week Discharge Medications: New oxycodone 10 mg tablet 10 mg PO Q6H MDD 40 PRN (Reason: pain) Qty: 30 0RF Rx Instructions: Partial Fill upon patient request. Continued bupropion HCl 100 mg tablet 1 tab PO BID gabapentin 800 mg tablet 1 tab PO TID docusate sodium 100 mg capsule 1 cap PO BID lisinopril 2.5 mg tablet 1 tab PO DAILY cholecalciferol (vitamin D3) 25 mcg (1,000 unit) tablet 1 tab PO DAILY methadone 10 mg/mL Concentrate 30 mg PO DAILY insulin degludec [Tresiba FlexTouch U-100] 100 unit/mL (3 mL) insulin pen 80 unit subcut DAILY haloperidol 1 mg tablet 1 tab PO BID Tresiba FlexTouch U-100 (DME) Ketostix Strip See Rx Instructions .ROUTE .MEDSUPPLY Qty: 50 12RF Rx Instructions: As directed (DME) FreeStyle Lite Strips Strip See Rx Instructions .ROUTE .MEDSUPPLY Qty: 250 3RF Rx Instructions: As directed seven times a day prazosin 5 mg capsule 5 mg PO BEDTIME trazodone 100 mg tablet 100 mg PO BEDTIME (DME) pen needle, diabetic [BD Ultra-Fine Yvonne Pen Needle] 32 gauge x 5/32 needle See Rx Instructions .ROUTE .MEDSUPPLY Qty: 150 3RF Rx Instructions: As directed five times a day (DME) blood-glucose meter [FreeStyle Lite Meter] Kit See Rx Instructions .ROUTE .MEDSUPPLY Qty: 1 0RF Rx Instructions: As directed Discharge Orders: Discharge Order (Routine); Ordered 04/27/22 Ordered By: Jose L Snider Diet: Advance to usual diet Activity on Discharge: As tolerated Stand Alone Forms: Patient Portal Discharge page Activity Restrictions/Additional Instructions: Wound care upon discharge: xeroform, 4x4 and Kerlix wrap to be changed daily to left transmetatarsal site. Right foot great toe Xeroform and a protective dressing to be changed daily as well.. Please call Dr. De Luna at [phone] for 2 week follow up for suture and staple removal Care Plan Goals: VNA to assist with dressings as per Dr. [facility] Concerns: Resume all all medicines taken before hospital. Oxycodone for pain Plan of Treatment: Follow-up with Dr. De Luna as scheduled Assessment: See discharge summary
== END 2022-04-27 15:33 | disposition home health service (06) | DRG 305 ==
LOC: HO.ED 23:14 → HO.EDOVER 23:26 → HO.S3 04-22 07:33
PROVIDERS: Hospitalist; Physician Assistant; Surgery Vascular Surgery; Admitting Provider Student in an Organized Health Care Education/Training Program; Emergency Provider Internal Medicine; PCP Nurse Practitioner Family; Visit Provider Hospitalist
PROC: 0Y6N0Z9 Detachment at Left Foot, Partial 1st Ray, Open Approach (ICD-10-PCS; CPT 28805; principal; 2022-04-25 12:30)
DX: E10.51 Type 1 diabetes mellitus with diabetic peripheral angiopathy without gangrene (principal); E10.621 Type 1 diabetes mellitus with foot ulcer; E10.40 Type 1 diabetes mellitus with diabetic neuropathy, unspecified; M86.172 Other acute osteomyelitis, left ankle and foot; E87.20 Acidosis, unspecified; L97.429 Non-pressure chronic ulcer of left heel and midfoot with unspecified severity; E10.69 Type 1 diabetes mellitus with other specified complication; F11.20 Opioid dependence, uncomplicated; F31.9 Bipolar disorder, unspecified; F39 Unspecified mood [affective] disorder; D64.9 Anemia, unspecified; Z20.822 Contact with and (suspected) exposure to COVID-19; Z79.899 Other long term (current) drug therapy
CPT/HCPCS: 36415; 73630; 80048; 80053; 80076; 80202; 82565; 82947; 83605; 83880; 85025; 85027; 85652; 86140; 86850; 86900; 86901; 86923; 87040; 87070; 87147; 87205; 87635; 88305; 88311; 93971; 99285; C1776; J0131; J1170; J2250; J2270; J2405; J2543; J3010; J3370; P9016

== ENCOUNTER → 2022-05-17 12:49 | Outpatient (BNVA) | payer MEDICAID, SELFPAY | PROVIDERS: PCP Nurse Practitioner Family; Visit Provider Surgery Vascular Surgery | DX: I73.9 Peripheral vascular disease, unspecified (principal); E11.65 Type 2 diabetes mellitus with hyperglycemia; E11.42 Type 2 diabetes mellitus with diabetic polyneuropathy; E11.22 Type 2 diabetes mellitus with diabetic chronic kidney disease; N18.9 Chronic kidney disease, unspecified; Z89.432 Acquired absence of left foot; Z09 Encounter for follow-up examination after completed treatment for conditions other than malignant neoplasm | CPT/HCPCS: 99212 ==

== ENCOUNTER → 2022-05-31 11:53 | Outpatient (BNVA) | payer MEDICAID, SELFPAY | PROVIDERS: PCP Nurse Practitioner Family; Visit Provider Surgery Vascular Surgery | DX: Z47.81 Encounter for orthopedic aftercare following surgical amputation (principal); I73.9 Peripheral vascular disease, unspecified; Z89.432 Acquired absence of left foot | CPT/HCPCS: 99212 ==

== ENCOUNTER → 2022-06-14 13:04 | Outpatient (BNVA) | payer MEDICAID, SELFPAY | PROVIDERS: PCP Nurse Practitioner Family; Visit Provider Surgery Vascular Surgery | DX: Z47.81 Encounter for orthopedic aftercare following surgical amputation (principal); I73.9 Peripheral vascular disease, unspecified; Z89.432 Acquired absence of left foot | CPT/HCPCS: 99212 ==

== ENCOUNTER 2022-07-05 13:40 | Outpatient (RCR) | payer MEDICAID, SELFPAY | END 2022-07-06 14:06 | disposition home or self-care (01) | LOC: HO.WCC 13:40 | PROVIDERS: PCP Nurse Practitioner Family; Visit Provider Physician Assistant | DX: E10.628 Type 1 diabetes mellitus with other skin complications (principal); L84 Corns and callosities; E10.51 Type 1 diabetes mellitus with diabetic peripheral angiopathy without gangrene; E10.40 Type 1 diabetes mellitus with diabetic neuropathy, unspecified; F17.200 Nicotine dependence, unspecified, uncomplicated; Z79.4 Long term (current) use of insulin; Z86.19 Personal history of other infectious and parasitic diseases; Z89.411 Acquired absence of right great toe | CPT/HCPCS: 99212 ==

== ENCOUNTER → 2022-07-26 15:40 | Outpatient (BNVA) | payer MEDICAID, SELFPAY | PROVIDERS: PCP Internal Medicine; Visit Provider Internal Medicine Endocrinology, Diabetes & Metabolism | DX: E10.22 Type 1 diabetes mellitus with diabetic chronic kidney disease (principal); N18.30 Chronic kidney disease, stage 3 unspecified | CPT/HCPCS: 82947; 83036; 99212 ==

== ENCOUNTER 2022-08-23 12:42 | Outpatient (RCR) | payer MEDICAID, SELFPAY | END 2022-12-19 16:00 | disposition home or self-care (01) | LOC: HO.WCC 12:42 | PROVIDERS: PCP Nurse Practitioner Family; Visit Provider Physician Assistant | DX: Z09 Encounter for follow-up examination after completed treatment for conditions other than malignant neoplasm (principal); E11.51 Type 2 diabetes mellitus with diabetic peripheral angiopathy without gangrene; E11.40 Type 2 diabetes mellitus with diabetic neuropathy, unspecified; M20.41 Other hammer toe(s) (acquired), right foot; F17.210 Nicotine dependence, cigarettes, uncomplicated; Z89.422 Acquired absence of other left toe(s); Z86.19 Personal history of other infectious and parasitic diseases; Z86.31 Personal history of diabetic foot ulcer | CPT/HCPCS: 11042; 99211; 99212; 99213 ==

== ENCOUNTER → 2022-09-27 14:23 | Outpatient (BNVA) | payer MEDICAID, SELFPAY | PROVIDERS: PCP Internal Medicine; Visit Provider Surgery Vascular Surgery | DX: I73.9 Peripheral vascular disease, unspecified (principal) | CPT/HCPCS: 99212 ==

== ENCOUNTER 2023-04-02 15:01 | Emergency (ER) | payer MEDICAID, SELFPAY ==
[2023-04-02 15:31] VITALS: BP 160/98; PULSE 95; RESP 12; O2SAT 97; BMI 38.3
--- NOTE | 2023-04-02 15:33 | ED_ITS ---
HPI - General Adult General Chief complaint: General Medical Stated complaint: HIGH BS 437 PER EMS Related Data Home Medications ?Medication ?Instructions ?Recorded ?Confirmed prazosin 5 mg capsule 5 mg PO BEDTIME 03/25/20 07/26/22 trazodone 100 mg tablet 100 mg PO BEDTIME 03/25/20 07/26/22 bupropion HCl 100 mg tablet 1 tab PO BID 09/14/21 07/26/22 cholecalciferol (vitamin D3) 25 1 tab PO DAILY 09/14/21 07/26/22 mcg (1,000 unit) tablet docusate sodium 100 mg capsule 1 cap PO BID 09/14/21 07/26/22 gabapentin 800 mg tablet 1 tab PO TID 09/14/21 07/26/22 insulin degludec 100 unit/mL (3 80 unit subcut DAILY 09/14/21 07/26/22 mL) subcutaneous pen (Tresiba FlexTouch U-100 insulin) lisinopril 2.5 mg tablet 1 tab PO DAILY 09/14/21 07/26/22 methadone 10 mg/mL oral concentrate 30 mg PO DAILY 09/14/21 07/26/22 Tresiba FlexTouch U-100 04/22/22 07/26/22 haloperidol 1 mg tablet 1 tab PO BID 04/22/22 07/26/22 omeprazole 20 mg capsule,delayed 20 mg PO DAILY 06/14/22 07/26/22 release cholecalciferol (vitamin D3) 25 25 mcg PO DAILY 07/26/22 07/26/22 mcg (1,000 unit) capsule (Vitamin D3) escitalopram oxalate 20 mg tablet 20 mg PO 07/26/22 07/26/22 insulin lispro 100 unit/mL 2 - 15 sliding scale dose subcut 07/26/22 07/26/22 subcutaneous pen (Humalog KwikPen TID (U-100) Insulin) lancets 30 gauge (Pure Comfort #100 ea 07/26/22 07/26/22 Safety Lancets) Previous Rx's ?Medication ?Instructions ?Recorded blood-glucose meter (FreeStyle #1 ea 03/25/20 Lite Meter kit) pen needle, diabetic 32 gauge x #150 ea 03/25/2032 (BD Ultra-Fine Yvonne Pen Needle) acetone (urine) test (Ketostix #50 ea 04/13/20 strips) blood sugar diagnostic (FreeStyle #250 ea 04/13/20 Lite Strips) oxycodone 10 mg tablet 10 mg PO Q6H PRN pain #30 tabs 04/27/22 blood-glucose meter,continuous #1 ea 07/26/22 (Dexcom G7 Assistant Media Buyer) blood-glucose sensor (Dexcom G7 #3 ea 07/26/22 Sensor device) Allergies Allergy/AdvReac Type Severity Reaction Status Date / Time adhesive tape [ADHESIVE TAPE] Allergy Mild RASH Verified 09/27/22 14:28 [facility] Past Medical History Medical History Anxiety and depression Borderline personality disorder Methadone maintenance therapy patient Neuropathy PTSD (post-traumatic stress disorder) 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 Type 1 diabetes mellitus with hyperglycemia Surgical History History of transmetatarsal amputation of left foot (04/25/22) Hx of section Hx of tubal ligation Family History Family History Father Diabetes mellitus Mother Diabetes mellitus Maternal Grandmother Diabetes mellitus Paternal Uncle Diabetes mellitus Paternal Aunt Diabetes mellitus CVD (cardiovascular disease) Maternal Uncle Diabetes mellitus Maternal Aunt CVD (cardiovascular disease) Social History Social History (Updated 09/27/22 @ 14:29 by HERON Ventura) Household Members: Children Household Members Other:: Housing: Apartment Housing Other:: [facility] Do you presently have visiting nurse or other home services: Yes Alcohol intake: former Patient Tobacco Use Status: Current everyday Tobacco user Cigarettes Per Day: 4 Second Hand Smoke Exposure: No service: No Current occupational status: disabled Physical Exam ED Vital Signs: BMI result Body Mass Index 38.3 Course Course Course Narrative: This is an RME: Additional HPI, ROS, PE not included below will be deferred to primary provider. 37 year old female presents w/ high sugars high 400s at home also had incontinence last night and has a swollen right toe. Plan- labs, urine, vbg Discharge Plan Discharge Clinical Impression: Eloped from emergency department Patient Disposition: Left W/O Completing Treatment Prescriptions: No Action bupropion HCl 100 mg tablet 1 tab PO BID gabapentin 800 mg tablet 1 tab PO TID docusate sodium 100 mg capsule 1 cap PO BID lisinopril 2.5 mg tablet 1 tab PO DAILY cholecalciferol (vitamin D3) 25 mcg (1,000 unit) tablet 1 tab PO DAILY methadone 10 mg/mL Concentrate 30 mg PO DAILY insulin degludec [Tresiba FlexTouch U-100] 100 unit/mL (3 mL) insulin pen 80 unit subcut DAILY haloperidol 1 mg tablet 1 tab PO BID Tresiba FlexTouch U-100 oxycodone 10 mg tablet 10 mg PO Q6H MDD 40 PRN (Reason: pain) Qty: 30 0RF Rx Instructions: Partial Fill upon patient request. (DME) Ketostix Strip See Rx Instructions .ROUTE .MEDSUPPLY Qty: 50 12RF Rx Instructions: As directed (DME) FreeStyle Lite Strips Strip See Rx Instructions .ROUTE .MEDSUPPLY Qty: 250 3RF Rx Instructions: As directed seven times a day prazosin 5 mg capsule 5 mg PO BEDTIME trazodone 100 mg tablet 100 mg PO BEDTIME (DME) pen needle, diabetic [BD Ultra-Fine Yvonne Pen Needle] 32 gauge x 5/32 needle See Rx Instructions .ROUTE .MEDSUPPLY Qty: 150 3RF Rx Instructions: As directed five times a day (DME) blood-glucose meter [FreeStyle Lite Meter] Kit See Rx Instructions .ROUTE .MEDSUPPLY Qty: 1 0RF Rx Instructions: As directed cholecalciferol (vitamin D3) [Vitamin D3] 25 mcg (1,000 unit) capsule 25 mcg PO DAILY escitalopram oxalate 20 mg tablet 20 mg PO (DME) lancets [Pure Comfort Safety Lancets] 30 gauge misc See Rx Instructions .ROUTE .MEDSUPPLY Qty: 100 Rx Instructions: As directed 4 times a day insulin lispro [Humalog KwikPen Insulin] 100 unit/mL insulin pen 2 - 15 sliding scale dose subcut TID (DME) Dexcom G7 Assistant Media Buyer Misc See Rx Instructions .Route Qty: 1 0RF Rx Instructions: As directed (DME) Dexcom G7 Sensor Device See Rx Instructions .Route Qty: 3 4RF Rx Instructions: As directed change every 10 days omeprazole 20 mg capsule,delayed release(DR/EC) 20 mg PO DAILY Interventions: ED Discharge Assessment Last Done: 04/02/23 15:48 Discharge Date/Time: 04/02/23 16:06
== END 2023-04-02 16:06 | disposition left against medical advice (07) ==
LOC: HO.ED 16:03
PROVIDERS: Emergency Provider Emergency Medicine
DX: I10 Essential (primary) hypertension (principal)
CPT/HCPCS: 99282

== ENCOUNTER 2023-08-28 12:53 | Outpatient (RCR) | payer MEDICAID, SELFPAY | END 2023-12-25 13:49 | disposition home or self-care (01) | LOC: HO.WCC 12:53 | PROVIDERS: Visit Provider Physician Assistant | DX: E10.621 Type 1 diabetes mellitus with foot ulcer (principal); L97.511 Non-pressure chronic ulcer of other part of right foot limited to breakdown of skin; E10.65 Type 1 diabetes mellitus with hyperglycemia; E10.40 Type 1 diabetes mellitus with diabetic neuropathy, unspecified; E10.51 Type 1 diabetes mellitus with diabetic peripheral angiopathy without gangrene; I10 Essential (primary) hypertension; F17.210 Nicotine dependence, cigarettes, uncomplicated; Z89.422 Acquired absence of other left toe(s); Z86.19 Personal history of other infectious and parasitic diseases | CPT/HCPCS: 11055 ==